=== PATIENT | female | born 1945 | race Caucasian/White ===

== ENCOUNTER → 2017-04-04 | Outpatient (CLI) | payer OTHER, MEDICARE ==
[~2017-04-04] MED LIST: ATV1HP PO; EFFSR75 PO; FRRG PO; FRRS300 PO; OPTIRAY 320 IV PRN; ZOLP10TA6 PO
--- NOTE | 2017-04-04 11:37 | DIAGNOSTIC IMAGING REPORT ---
CT OF THE CHEST WITH IV CONTRAST CLINICAL HISTORY: Ovarian carcinoma area back pain. COMPARISON STUDY: No previous studies for comparison. TECHNIQUE: Following the IV administration of 92 mL of Optiray-320, CT of the thorax was performed from the thoracic inlet to the lung bases. Images are reviewed in the axial, sagittal, and coronal planes. IV contrast was administered without complication. CT DOSE: FINDINGS: Thyroid: There is a 6 mm right lobe thyroid nodule. Thoracic aorta: The thoracic aorta is normal in course and caliber, noting standard 3-vessel arch anatomy. No aneurysm or dissection is seen. Pulmonary vasculature: The pulmonary trunk is normal in caliber. There are no central filling defects identified to suggest pulmonary embolus. Note that this examination was not protocoled for the evaluation of pulmonary emboli. HEART: The heart is normal in size and configuration, without pericardial effusion. Lungs and pleural spaces: No pleural effusions are visualized. There is no focal pulmonary consolidation. There are few scattered tiny calcified granulomas. Mediastinum: There is no mediastinal lymphadenopathy. Zandra: Clear. Axilla: Clear. Upper abdomen: There is a hiatal hernia. There is an enlarged lymph node in the region the gastrohepatic ligament. There is hepatic steatosis. Skeletal structures: There are no lytic or blastic osseous lesions. Postsurgical changes involve the anterior chest wall. The patient appears be status post a prior mastectomy. IMPRESSION: 1. No evidence of intrathoracic metastatic disease 2. Partially visualized enlarged lymph node in the region the gastrohepatic ligament. Electronically signed by: Nate Panchal M.D. 04/04/2017 11:36 AM Dictated Date/Time: 04/04/2017 11:28 AM
--- NOTE | 2017-04-04 11:42 | DIAGNOSTIC IMAGING REPORT ---
CT OF THE ABDOMEN AND PELVIS WITH CONTRAST CLINICAL HISTORY: Back pain and bloating. History of ovarian cancer. COMPARISON STUDY: CT of the abdomen and pelvis July 20, 2015. TECHNIQUE: Following IV administration of 92 mL of Optiray-320, axial images of the abdomen and pelvis were obtained from the lung bases to the proximal femurs. Images were reviewed in the axial, sagittal, and coronal planes. IV contrast was administered without complication. Oral contrast was administered. CT DOSE: 621.86 mGy.cm FINDINGS: The chest will be reported separately. A moderate sized hiatal hernia is noted. There has been interval development of a 2.3 cm hypodense segment 5 hepatic lesion shown on image [address] of July 20, 2015. In addition, there is a 1.6 x 1.2 cm gastrohepatic ligament nodule suggestive of a pathologic lymph node shown image 115. There is subtle 1.1 cm nodule along the medial aspect of the spleen shown image 142. The adrenal glands, kidneys and pancreas are normal. There is no biliary or pancreatic ductal dilatation status post cholecystectomy. Bowel anastomoses are noted. The uterus is surgically absent. No suspicious osseous lesions are identified. There is no evidence for a bowel obstruction IMPRESSION: Findings highly suggestive of recurrent malignancy/metastatic disease including a 2.3 cm subcapsular segment 5 hepatic lesion, 1.6 cm pathologic gastrohepatic ligament lymph node and small perisplenic nodule. Electronically signed by: Aníbal Porras M.D. 04/04/2017 11:41 AM Dictated Date/Time: 04/04/2017 11:24 AM
== END | disposition home or self-care (01) ==
LOC: C.CTS 09:09
PROVIDERS: ATTEND Obstetrics & Gynecology
DX: Z85.43 Personal history of malignant neoplasm of ovary (principal); R59.0 Localized enlarged lymph nodes

== ENCOUNTER → 2017-06-16 | Outpatient (CLI) | payer OTHER, MEDICARE ==
[~2017-06-16] MED LIST changes: -OPTIRAY 320 IV PRN
--- NOTE | 2017-06-16 20:41 | ECHOCARDIOGRAM REPORT ---
*NOTICE TO RECEIVING CONSTITUTION PARTY AGENCY This information is strictly Confidential and protected under [place] law. [place] law prohibits you from making any further disclosure of this information unless further disclosure is expressly permitted by the written consent of the person to whom it pertains or is authorized by law. A general authorization for the release of medical or other information is not sufficient for this purpose. Hospital accepts no responsibility if the information is made available to any other person, INCLUDING THE PATIENT. Interpretation Summary * Name: KEL SANTOS Study Date: 06/16/2017 03:17 PM BP: 130/76 mmHg * Patient Location: [facility] HR: 73 * : 1945 (M/d/yyy) Gender: Female Height: 64 in * Age: 71 yrs Ethnicity: [place] Weight: 145 lb * Ordering Physician: Hardik Mederos * Referring Physician: Hardik Mederos * Performed By: Venus Tillman RCS * * Reason For Study: Baseline for cardiotoxic chemotherapy * BSA: 1.7 m2 * -- Conclusions -- * 1. Normal left ventricular size with hyperdynamic systolic function. EF > 70%. No regional wall motion abnormalities. No left ventricular hypertrophy. Type 2 diastolic dysfunction. * 2. There is mild mitral regurgitation. * 3. No prior study available for comparison. Procedure Details * Left Ventricle Normal left ventricular size with hyperdynamic systolic function. EF > 70%. No regional wall motion abnormalities. No left ventricular hypertrophy. Type 2 diastolic dysfunction. * Right Ventricle The right ventricle is normal in size and function. The right ventricular systolic function is normal as assessed by tricuspid annular plane systolic excursion (TAPSE) (normal >1.5 cm). * Atria The left atrial size is normal. Right atrial size is normal. There is no evidence of atrial septal defect, but resolution does not allow assessment for a patent foramen ovale. * Mitral Valve The mitral valve leaflets appear normal. There is no evidence of stenosis, fluttering, or prolapse. There is mild mitral regurgitation. * Tricuspid Valve The tricuspid valve is not well visualized, but is grossly normal. There is no tricuspid stenosis. There is trace tricuspid regurgitation. * Aortic Valve The aortic valve is trileaflet. No hemodynamically significant valvular aortic stenosis. No aortic regurgitation is present. * Pulmonic Valve The pulmonary valve is inadequately visualized, but the Doppler data is adequate for interpretation. There is no pulmonic valvular stenosis. Trace pulmonic valvular regurgitation. * Great Vessels The aortic root is normal size. Ascending aorta of normal dimension * Pericardium/Pleural There is no pericardial effusion. * Great Vessels Normal inferior vena cava size and collapsability with sniff indicates a normal right atrial pressure of 3 mmHg * * MMode 2D Measurements and Calculations * IVSd 0.85 cm * * LVIDd 5.0 cm * LVIDs 2.9 cm * LVPWd 1.0 cm * * IVS/LVPW 0.82 * FS 42.4 % * EDV(Teich) 117.0 ml * ESV(Teich) 31.4 ml * EF(Teich) 73.2 % * * EDV(cubed) 123.3 ml * ESV(cubed) 23.6 ml * EF(cubed) 80.9 % * * LV mass(C)d 166.0 grams * LV mass(C)dI 97.3 grams/m\S\2 * * SV(Teich) 85.7 ml * SI(Teich) 50.2 ml/m\S\2 * SV(cubed) 99.7 ml * SI(cubed) 58.5 ml/m\S\2 * * Ao root diam 3.6 cm * Ao root area 10.0 cm\S\2 * * asc Aorta Diam 2.6 cm * * LVOT diam 2.1 cm * LVOT area 3.5 cm\S\2 * * LVAd ap4 28.7 cm\S\2 * LVLd ap4 7.7 cm * EDV(MOD-sp4) 90.5 ml * EDV(sp4-el) 90.6 ml * LVAs ap4 13.9 cm\S\2 * LVLs ap4 6.1 cm * ESV(MOD-sp4) 27.6 ml * ESV(sp4-el) 27.1 ml * EF(MOD-sp4) 69.5 % * EF(sp4-el) 70.1 % * * LVAd ap2 23.5 cm\S\2 * LVLd ap2 7.8 cm * EDV(MOD-sp2) 59.2 ml * EDV(sp2-el) 60.2 ml * LVAs ap2 11.5 cm\S\2 * LVLs ap2 6.5 cm * ESV(MOD-sp2) 16.8 ml * ESV(sp2-el) 17.2 ml * EF(MOD-sp2) 71.6 % * EF(sp2-el) 71.4 % * * LVLd %diff 0.60 % * EDV(MOD-bp) 73.3 ml * LVLs %diff 6.4 % * ESV(MOD-bp) 22.2 ml * EF(MOD-bp) 69.8 % * * SV(MOD-sp4) 62.9 ml * SI(MOD-sp4) 36.9 ml/m\S\2 * * SV(MOD-sp2) 42.4 ml * SI(MOD-sp2) 24.9 ml/m\S\2 * * SV(MOD-bp) 51.2 ml * SI(MOD-bp) 30.0 ml/m\S\2 * * SV(sp4-el) 63.5 ml * SI(sp4-el) 37.2 ml/m\S\2 * * SV(sp2-el) 43.0 ml * SI(sp2-el) 25.2 ml/m\S\2 * * * * * * Doppler Measurements and Calculations * MV E max kumar 99.7 cm/sec * MV A max kumar 87.4 cm/sec * * MV E/A 1.1 * * MV dec time 0.26 sec * * Ao V2 max 112.9 cm/sec * Ao max PG 5.1 mmHg * Ao max PG (full) 0.26 mmHg * PK(V,A) 3.4 cm\S\2 * PK(V,D) 3.4 cm\S\2 * * LV V1 max PG 4.8 mmHg * * LV V1 max 110.0 cm/sec * * PI end-d kumar 90.8 cm/sec * * *
== END | disposition home or self-care (01) ==
LOC: C.CPL 14:56
PROVIDERS: ATTEND Internal Medicine Hematology & Oncology
DX: C56.1 Malignant neoplasm of right ovary (principal); Z01.810 Encounter for preprocedural cardiovascular examination; I34.0 Nonrheumatic mitral (valve) insufficiency

== ENCOUNTER → 2017-11-27 | Outpatient (CLI) | payer OTHER, MEDICARE ==
[~2017-11-27] MED LIST changes: +OPTIRAY 320 IV PRN
--- NOTE | 2017-11-27 12:59 | DIAGNOSTIC IMAGING REPORT ---
(CHEST) THORAX WITH CLINICAL HISTORY: 72 years-old Female presenting with OVARIAN CANCER. TECHNIQUE: Multidetector CT imaging of the chest was performed after the administration of intravenous contrast. IV contrast: 94 mL of Optiray 320. A dose lowering technique was used consistent with the principles of ALARA (as low as reasonably achievable). COMPARISON: 08/29/2017. CT DOSE (mGy.cm): The estimated cumulative dose is 483.22 mGy.cm. 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 Cholecystectomy clips. On soft tissue windows, subcentimeter thyroid nodule noted in the right lobe. Postsurgical changes of bilateral mastectomies. Persistent simple appearing laminar fluid collection in the superficial soft tissue of the right anterior chest wall, which measures 2.8 x 9.7 cm in maximal axial dimensions. This is essentially unchanged in appearance since the prior exam. No peripheral inflammatory change or suspicious soft tissue nodularity. No axillary, supraclavicular, hilar, or mediastinal lymphadenopathy. Atherosclerosis of the aorta. Mild left atrial enlargement. No pericardial or pleural effusion. Moderate hiatal hernia. Postsurgical changes of cholecystectomy. Mild dilatation of the biliary ducts likely a reservoir effect in the post cholecystectomy state. The gastrohepatic lymph node now measures 7 mm in the short axis, previously 9 mm. On lung windows, persistent bandlike opacities in the right middle lobe likely scarring. Few scattered calcified granulomas. No new pulmonary nodule or infiltrate. Minimal debris noted in the right mainstem bronchus. On bone windows, evidence of old rib fractures. IMPRESSION: 1. No evidence of intrathoracic metastatic disease or lymphadenopathy. 2. Decreased size of the subcentimeter gastric lymph node. 3. Persistent laminar fluid collection in the right mastectomy bed. This is most consistent with a seroma. Electronically signed by: Maurice Quijano M.D. 11/27/2017 12:57 PM Dictated Date/Time: 11/27/2017 12:49 PM
--- NOTE | 2017-11-27 13:24 | DIAGNOSTIC IMAGING REPORT ---
ABD/PELVIS IV AND ORAL CONT CLINICAL HISTORY: 72 years-old Female presenting with OVARIAN CANCER. TECHNIQUE: Multidetector CT of the abdomen and pelvis was performed after the administration of oral and intravenous contrast. IV contrast: 94 mL of Optiray 320. A dose lowering technique was used consistent with the principles of ALARA (as low as reasonably achievable). COMPARISON: 08/29/2017. CT DOSE (mGy.cm): The estimated cumulative dose is 483.22. 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 Left subclavian Mediport. Lung bases: Bandlike opacities in the right middle lobe likely scarring or atelectasis. Normal heart size. No pericardial or pleural effusion. Liver: Normal morphology. No liver lesion. Patent hepatic vasculature. Biliary: Mild biliary ductal prominence likely a reservoir effect in the post cholecystectomy state. Gallbladder surgically absent. Pancreas: Moderate parenchymal atrophy. Spleen: Normal. Adrenal glands: Normal. Kidneys and ureters: Normal. No hydronephrosis. Bladder: Incompletely evaluated secondary to underdistention. Pelvic organs: Uterus surgically absent. Bilateral salpingo-oophorectomy suggested. No adnexal masses. Bowel: An upper rectal colocolonic anastomosis and distal transverse colon into and anastomosis are widely patent. An additional anastomosis in the pelvis may be within small bowel, which is widely patent. No bowel obstruction. Moderate hiatal hernia. Peritoneal cavity: No free fluid or intraperitoneal gas. No peritoneal soft tissue nodularity. Lymph nodes: Prominent lymph node in the gastrohepatic region now measures 6 mm in the short axis, previously 9 mm. No new sites of lymphadenopathy. Vasculature: Atherosclerosis of the normal caliber abdominal aorta. IVC patent. Abdominal wall: Postsurgical changes of the anterior abdominal wall. Musculoskeletal: Degenerative changes of the spine. Pars defects of L5. No destructive osseous lesion. IMPRESSION: 1. No evidence of recurrent disease in abdomen or pelvis. Continued decreased size of previously enlarged gastrohepatic lymph node. No new sites of lymphadenopathy. 2. Post surgical changes of hysterectomy and bilateral salpingo-oophorectomy. Electronically signed by: Maurice Quijano M.D. 11/27/2017 1:23 PM Dictated Date/Time: 11/27/2017 1:02 PM
--- NOTE | 2017-11-27 14:35 | ECHOCARDIOGRAM REPORT ---
*NOTICE TO RECEIVING CONSTITUTION PARTY AGENCY This information is strictly Confidential and protected under [place] law. [place] law prohibits you from making any further disclosure of this information unless further disclosure is expressly permitted by the written consent of the person to whom it pertains or is authorized by law. A general authorization for the release of medical or other information is not sufficient for this purpose. Hospital accepts no responsibility if the information is made available to any other person, INCLUDING THE PATIENT. Interpretation Summary * Name: KEL SANTOS Study Date: 11/27/2017 12:47 PM * Patient Location: [facility] HR: 65 * : 1945 (M/d/yyyy) Gender: Female Height: 66 in * Age: 72 yrs Ethnicity: [place] Weight: 145 lb * Ordering Physician: Hardik Mederos * Referring Physician: Hardik Mederos * Performed By: Anni Vieira RDCS * * Reason For Study: OVARIAN CA * BSA: 1.7 m2 * -- Conclusions -- * There is borderline concentric left ventricular hypertrophy. * Left ventricular systolic function is normal. * The left atrium is mildly dilated. * Right ventricular systolic pressure is normal. * Compared to an echocardiogram from 06/16/2017, there is minimal change. Procedure Details * A complete two-dimensional transthoracic echocardiogram was performed (2D, M-mode, Doppler and color flow Doppler). Left Ventricle * The left ventricle is normal in size. * There is borderline concentric left ventricular hypertrophy. * Ejection Fraction = 60-65%. * Left ventricular systolic function is normal. * The left ventricular wall motion is normal. Right Ventricle * The right ventricle is normal in size and function. Atria * The left atrium is mildly dilated. Mitral Valve * The mitral valve anatomy is normal. * There is mild mitral regurgitation. Tricuspid Valve * The tricuspid valve anatomy is normal. * There is mild tricuspid regurgitation. * Right ventricular systolic pressure is normal. Aortic Valve * The aortic valve is normal in structure and function. * The aortic valve is trileaflet. * No hemodynamically significant valvular aortic stenosis. * There is no significant aortic regurgitation. Great Vessels * The aortic root is normal size. Pericardium/Pleural * There is no pericardial effusion. Great Vessels * Normal inferior vena cava diameter and respiratory variation suggests normal central venous pressure. MMode 2D Measurements and Calculations IVSd 1.2 cm IVSs 1.6 cm LVIDd 3.5 cm LVIDs 2.4 cm LVPWd 1.3 cm LVPWs 1.6 cm IVS/LVPW 0.93 FS 32.1 % EDV(Teich) 50.9 ml ESV(Teich) 19.7 ml EF(Teich) 61.4 % EDV(cubed) 42.9 ml ESV(cubed) 13.4 ml EF(cubed) 68.7 % % IVS thick 29.1 % % LVPW thick 20.3 % LV mass(C)d 148.0 grams LV mass(C)dI 84.9 grams/m\S\2 LV mass(C)s 130.6 grams LV mass(C)sI 74.8 grams/m\S\2 SV(Teich) 31.2 ml SI(Teich) 17.9 ml/m\S\2 SV(cubed) 29.5 ml SI(cubed) 16.9 ml/m\S\2 Ao root diam 3.6 cm Ao root area 10.2 cm\S\2 LA dimension 4.4 cm LA/Ao 1.2 LVAd ap4 26.4 cm\S\2 LVLd ap4 7.8 cm EDV(MOD-sp4) 73.3 ml EDV(sp4-el) 75.6 ml LVAs ap4 13.9 cm\S\2 LVLs ap4 6.1 cm ESV(MOD-sp4) 26.9 ml ESV(sp4-el) 26.8 ml EF(MOD-sp4) 63.3 % EF(sp4-el) 64.6 % LVAd ap2 25.1 cm\S\2 LVLd ap2 7.7 cm EDV(MOD-sp2) 66.7 ml EDV(sp2-el) 69.3 ml LVAs ap2 13.4 cm\S\2 LVLs ap2 6.6 cm ESV(MOD-sp2) 22.5 ml ESV(sp2-el) 23.2 ml EF(MOD-sp2) 66.3 % EF(sp2-el) 66.6 % LVLd %diff -1.50 % EDV(MOD-bp) 70.0 ml LVLs %diff 7.2 % ESV(MOD-bp) 25.4 ml EF(MOD-bp) 63.8 % SV(MOD-sp4) 46.4 ml SI(MOD-sp4) 26.6 ml/m\S\2 SV(MOD-sp2) 44.3 ml SI(MOD-sp2) 25.4 ml/m\S\2 SV(MOD-bp) 44.6 ml SI(MOD-bp) 25.6 ml/m\S\2 SV(sp4-el) 48.8 ml SI(sp4-el) 28.0 ml/m\S\2 SV(sp2-el) 46.1 ml SI(sp2-el) 26.4 ml/m\S\2 Doppler Measurements and Calculations MV E max kumar 122.9 cm/sec MV A max kumar 99.7 cm/sec MV E/A 1.2 MV dec time 0.27 sec Ao V2 max 120.8 cm/sec Ao max PG 5.8 mmHg Ao max PG (full) 0.44 mmHg LV V1 max PG 5.4 mmHg LV V1 max 116.1 cm/sec TR max kumar 190.7 cm/sec
== END | disposition home or self-care (01) ==
LOC: C.CTS 11:38
PROVIDERS: ATTEND Internal Medicine Hematology & Oncology
DX: C56.1 Malignant neoplasm of right ovary (principal)

== ENCOUNTER 2018-01-21 14:17 | Inpatient (IN) | payer OTHER, MEDICARE ==
[~2018-01-21] VITALS: Ht 162.6 cm; Wt 63.3 kg
[~2018-01-21 14:17] MED LIST changes: -OPTIRAY 320 IV PRN
[2018-01-21] MEDS ORDERED: HYDROmorphone INJ 0.5 MG/0.5 ML SYR IV STA (14:46)
[2018-01-21] MEDS ORDERED: METOCLOPRAMIDE HCL INJ 5 MG/ML 2 ML VIAL IV STA (14:46)
[2018-01-21] MEDS ORDERED: SODIUM CHLORIDE 0.9% 1000ML 1,000 ML IV STA (14:46)
--- NOTE | 2018-01-21 14:48 | EMERGENCY ROOM VISIT NOTE ---
History Report prepared by Harsha: Hardik Restrepo Under the Supervision of: Dr. Helio Richards M.D. First contact with patient: 14:38 Chief Complaint: VOMITING Stated Complaint: CANCER PATIENT- VOMITING NO EVAVS WEAKNESS History of Present Illness The patient is a 72 year old female who presents to the Emergency Room with complaints of intermittent vomiting beginning today. The patient states that she is currently being treated with chemotherapy for her ovarian cancer. She notes that she has also been taking a "cancer pill." She reports that she was told to stop her pill because of her low platelet count. She also complains of abdominal pain and constipation but denies having a fever. The patient states that she has taken 5 Dulcolax within the last 20 hours and some miralax with no relief of her symptoms. She notes that she had a double mastectomy a year ago. She rates her pain as a 7/10. Source of History: patient Onset: today Position: abdomen Symptom Intensity: 7/10 Timing: intermittent Associated Symptoms: + abdominal pain Note: The patient also complains of constipation. Review of Systems See HPI for pertinent positives & negatives. A total of 10 systems reviewed and were otherwise negative. Past Medical & Surgical Medical Problems: (1) Bowel obstruction (2) Colitis (3) Hx antineoplastic chemotherapy (4) Ovarian cancer (5) Thrombocytopenia Family History No pertinent family history stated. Social History Smoking Status: Never Smoker Alcohol Use: none Marital Status: Housing Status: lives with family Occupation Status: retired Current/Historical Medications Scheduled Docusate Sodium (Colace), 1 CAP PO BID Escitalopram (Lexapro), 10 MG PO DAILY Lisinopril (Zestril), 10 MG PO DAILY Omeprazole (Omeprazole), 20 MG PO DAILY Sennosides (Senokot), 8.6 MG PO HS Scheduled PRN Lorazepam (Ativan), 1 MG PO DAILY PRN for Anxiety Zolpidem Tartrate (Zolpidem Tartrate), 10 MG PO HS PRN for Sleep Allergies Coded Allergies: Sulfa Antibiotics (Verified Allergy, Mild, NAUSEA; AFFECTS BLOOD, 02/10/15) Physical Exam Vital Signs Date Time Temp Pulse Resp B/P (MAP) Pulse Ox O2 Delivery O2 Flow Rate FiO2 01/21/18 23:17 60 14 115/76 98 Room Air 01/21/18 21:24 94 16 126/67 95 Room Air 01/21/18 19:30 98 15 144/74 96 Room Air 01/21/18 17:45 98 14 151/84 94 Room Air 01/21/18 16:41 98 01/21/18 16:10 98 20 106/72 97 Room Air 01/21/18 14:34 36.9 107 20 127/89 99 Room Air Physical Exam GENERAL: Awake, alert, well-appearing, in no acute distress, actively vomiting. HENT: Normocephalic, atraumatic. Oropharynx unremarkable. EYES: Normal conjunctiva. Sclera non-icteric. NECK: Supple. No nuchal rigidity. FROM. No JVD. RESPIRATORY: Clear to auscultation. CARDIAC: Regular rate, normal rhythm. Extremities warm and well perfused. Pulses equal. ABDOMEN: Soft, non-distended. No rebound or guarding. No masses. Exquisitely tender to the LLQ. RECTAL: Deferred. MUSCULOSKELETAL: Chest examination reveals no tenderness. The back is symmetrical on inspection without obvious abnormality. There is no CVA tenderness to palpation. No joint edema. LOWER EXTREMITIES: Calves are equal size bilaterally and non-tender. No edema. No discoloration. NEURO: Normal sensorium. No sensory or motor deficits noted. SKIN: No rash or jaundice noted. Medical Decision & Procedures ER Provider Diagnostic Interpretation: Radiology results as stated below per my review and radiologist interpretation: ABD/PELVIS IV AND ORAL CONT FINDINGS: Peer Counselor topogram: Unremarkable. Lung bases: Minimal basilar opacities, likely atelectasis. Normal heart size. No pericardial or pleural effusion. Liver: Normal morphology. No liver lesion. Patent hepatic vasculature. Biliary: Mild biliary ductal prominence likely a reservoir effect in the post cholecystectomy state. Gallbladder surgically absent. Pancreas: Moderate parenchymal atrophy. Spleen: Normal. Adrenal glands: Normal. Kidneys and ureters: Normal. No hydronephrosis. Bladder: Normal. The morphology of the bladder suggests ligamentous laxity. Pelvic organs: Uterus surgically absent. Ovaries not visualized, likely surgically absent. Bowel: Postsurgical changes of a colocolonic anastomosis in the upper rectum, a second colocolonic anastomosis at the level of the splenic flexure, and a enteroenteric anastomosis in the left hemipelvis. These anastomoses appear widely patent. However, the colon proximal to the upper rectal anastomosis contains fluid and is mildly distended. Mild wall thickening of the residual sigmoid colon, which demonstrates mild pericolonic fat stranding. No convincing evidence of obstruction. Small bowel is nondilated. Moderate hiatal hernia. Peritoneal cavity: No free fluid or intraperitoneal gas. Lymph nodes: The historically pathologic gastrohepatic lymph node remains subcentimeter in the short axis, now measuring 6 mm (series 3 image 95). No new sites of lymphadenopathy. Vasculature: Atherosclerosis of the normal caliber abdominal aorta. IVC patent. Abdominal wall: Post surgical changes of the infraumbilical ventral abdomen. Musculoskeletal: Degenerative changes of the spine. Pars defects of L5. No destructive osseous lesion. IMPRESSION: 1. Fluid in the colon suggests a diarrheal state. Wall thickening and pericolonic inflammatory change of the residual sigmoid colon further evidence of colitis, most likely infectious. 2. No evidence of recurrent or metastatic disease in abdomen or pelvis. No lymphadenopathy. 3. Post surgical changes of hysterectomy and bilateral salpingo-oophorectomy. Electronically signed by: Maurice Quijano M.D. 01/21/2018 5:54 PM Laboratory Results 01/21/18 15:15 Test 01/21/18 15:15 01/21/18 15:41 01/21/18 17:40 Neutrophils % (Manual) 82.6 % Lymphocytes % (Manual) 12.2 % Monocytes % (Manual) 2.6 % Eosinophils % (Manual) 0.9 % Basophils % (Manual) 1.7 % Neutrophils # (Manual) 5.35 K/uL (1.4-6.5) Total Absolute Neutrophils 5.35 K/uL (1.4-6.5) Lymphocytes # (Manual) 0.79 K/uL (1.2-3.4) Total Absolute Lymphocytes 0.79 K/uL (1.2-3.4) Monocytes # (Manual) 0.17 K/uL (0.11-0.59) Eosinophils # (Manual) 0.06 K/uL (0-0.5) Basophils # (Manual) 0.11 K/uL (0-0.2) Platelet Estimate SIGNIFIC DECREASED Red Blood Cell Morphology Unremarkable Peripheral Blood Smear Path Consult Est Creatinine Clear Calc Drug Dose 64.5 ml/min Estimated GFR () 87.9 Estimated GFR (Non- 75.8 BUN/Creatinine Ratio 32.2 (10-20) Calcium Level 10.4 mg/dl (8.5-10.1) Total Bilirubin 0.9 mg/dl (0.2-1) Direct Bilirubin 0.2 mg/dl (0-0.2) Aspartate Amino Transf (AST/SGOT) 24 U/L (15-37) Alanine Aminotransferase (ALT/SGPT) 21 U/L (12-78) Alkaline Phosphatase 124 U/L (45-117) Total Protein 7.4 gm/dl (6.4-8.2) Albumin 4.1 gm/dl (3.4-5.0) Lipase 84 U/L (73-393) Bedside Hemoglobin 12.2 g/dl (12.0-16.0) Bedside Hematocrit 36 % (37-47) Bedside Sodium 137 mEq/L (135-144) Bedside Potassium 3.4 mEq/L (3.3-5.0) Bedside Chloride 101 mEq/L (101-112) Bedside Total CO2 25 mEq/l (24-31) Anion Gap 16.0 mmol/L (16-25) Bedside Blood Urea Nitrogen 26 mg/dl (7-18) Bedside Creatinine 0.7 mg/dl (0.6-1.3) Bedside Glucose (other) 122 mg/dl (70-99) Bedside Ionized Calcium (Zana) 1.35 mmol/l (1.12-1.32) Urine Color DK YELLOW Urine Appearance CLEAR (CLEAR) Urine pH 5.0 (4.5-7.5) Urine Specific [place] > 1.045 (1.000-1.030) Urine Protein NEG (NEG) Urine Glucose (UA) NEG (NEG) Urine Ketones 2+ (NEG) Urine Occult Blood 1+ (NEG) Urine Nitrite NEG (NEG) Urine Bilirubin NEG (NEG) Urine Urobilinogen NEG (NEG) Urine Leukocyte Esterase NEG (NEG) Urine WBC (Auto) 1-5 /hpf (0-5) Urine RBC (Auto) 0-4 /hpf (0-4) Urine Hyaline Casts (Auto) 1-5 /lpf (0-5) Urine Epithelial Cells (Auto) 5-10 /lpf (0-5) Urine Bacteria (Auto) NEG (NEG) Labs reviewed by ED physician. Medications Administered Medications (Trade) Dose Ordered Sig/Janee Route Start Time Stop Time Status Last Admin Dose Admin Metoclopramide HCl (Reglan Inj) 10 mg NOW STAT IV 01/21/18 14:46 01/21/18 14:48 DC 01/21/18 15:29 10 MG Sodium Chloride 1,000 ml @ 999 mls/hr Q1H1M STAT IV 01/21/18 14:46 01/21/18 15:46 DC 01/21/18 15:29 999 MLS/HR Hydromorphone HCl (Dilaudid Inj) 0.5 mg NOW STAT IV 01/21/18 14:46 01/21/18 14:48 DC 01/21/18 15:29 0.5 MG Hydromorphone HCl (Dilaudid Inj) 1 mg NOW STAT IV 01/21/18 15:52 01/21/18 15:53 DC 01/21/18 16:05 1 MG Ondansetron HCl (Zofran Inj) 4 mg NOW STAT IV 01/21/18 15:52 01/21/18 15:53 DC 01/21/18 16:05 4 MG Potassium Chloride (Kcl 10 Meq / Wtr) 10 meq NOW STAT IV 01/21/18 15:54 01/21/18 15:55 DC 01/21/18 16:06 10 MEQ Potassium Chloride (Kcl 10 Meq / Wtr) 10 meq NOW STAT IV 01/21/18 15:54 01/21/18 15:55 DC 01/21/18 16:06 10 MEQ Hydromorphone HCl (Dilaudid Inj) 1 mg NOW STAT IV 01/21/18 16:30 01/21/18 16:31 DC 01/21/18 17:07 1 MG Promethazine HCl 25 mg/Sodium Chloride 51 ml @ 204 mls/hr NOW STAT IV 01/21/18 16:30 01/21/18 16:44 DC 01/21/18 18:11 204 MLS/HR Hydromorphone HCl (Dilaudid Inj) 1 mg NOW STAT IV 01/21/18 16:56 01/21/18 16:57 DC 01/21/18 18:12 1 MG Miscellaneous (Soap Suds Enema) 1 ea NOW STAT WI 01/21/18 18:06 01/21/18 18:08 DC 01/21/18 18:52 1 EA Magnesium Citrate (Citrate Of Magnesia Soln) 150 ml NOW STAT PO 01/21/18 18:06 01/21/18 18:08 DC 01/21/18 18:53 150 ML Potassium Chloride (Teresa Ciel Elix) 40 meq NOW STAT PO 01/21/18 18:08 01/21/18 18:09 DC 01/21/18 18:54 40 MEQ Miscellaneous (Soap Suds Enema) 1 ea NOW STAT WI 01/21/18 19:38 01/21/18 19:39 DC 01/21/18 20:00 1 EA Hydromorphone HCl (Dilaudid Inj) 1 mg NOW STAT IV 01/21/18 20:57 01/21/18 20:58 DC 01/21/18 21:12 1 MG Ondansetron HCl (Zofran Inj) 4 mg NOW STAT IV 01/21/18 20:57 01/21/18 20:58 DC 01/21/18 21:12 4 MG ED Course 1442: Past medical records reviewed. The patient was evaluated in room B7. A complete history and physical examination was performed. 1446: Dilaudid Inj 0.5mg IV, Sodium Chloride 1000 ml @ 999 mls/hr, Reglan Inj 10mg IV 1552: Zofran Inj 4mg IV, Dilaudid 1mg IV 1554: Potassium Chloride 10meq IV x2 1630: Promethazine HCl 25 mg/Sodium Chloride 51ml @ 204 mls/hr IV, Dilaudid Inj 1mg IV 1656: Dilaudid 1mg IV 1806: Magnesium Citrate 150ml PO, Soap Suds Enema 1 ea [place] 1808: Potassium Chloride 40 meq PO Medical Decision Differential diagnosis: Etiologies such as gastroenteritis, food borne illness, infections, appendicitis , diverticulitis, inflammatory bowel disease, obstruction, GI bleed, biliary pathology, as well as others were entertained. This is a 72-year-old female who presents the emergency department complaining of abdominal pain. Patient reports she has not been able to move her bowels and for 5 days. The patient reports she has had issues of constipation in the past and she was recently placed on a chemotherapy medication that will make her constipation worse. In addition the patient is also on 2 fentanyl patches. Serial abdominal examinations were performed and the patient in the emergency department and at no time to the patient exhibited a surgical abdomen. I will also know she is afebrile here and does not have an elevation in her white blood cell count. An IV was established, the patient is given Reglan, Dilaudid 3, Zofran, Phenergan. The patient's CAT scan does not show any evidence of obstruction and therefore after discussion with the patient we will try both enema as well as magnesium citrate to get the patient's bowels moving. Medication Reconcilliation Current Medication List: was personally reviewed by me Blood Pressure Screening Patient's blood pressure: Normal blood pressure Blood pressure disposition: Did not require urgent referral Impression Primary Impression: Abdominal pain Scribe Attestation The scribe's documentation has been prepared under my direction and personally reviewed by me in its entirety. I confirm that the note above accurately reflects all work, treatment, procedures, and medical decision making performed by me. Departure Information Prescriptions Docusate Sodium (COLACE) 100 Mg Cap 1 CAP PO BID for 30 Days, #60 CAP Prov: Helio Richards MD 01/21/18 Sennosides (SENOKOT) 8.6 Mg Tab 8.6 MG PO HS for 30 Days, #30 TAB Prov: Helio Richards MD 01/21/18 Referrals Edvin Laura M.D. (PCP) Patient Instructions My [facility] Problem Qualifiers Primary Impression: Abdominal pain Abdominal location: generalized Qualified Codes: R10.84 - Generalized abdominal pain
[2018-01-21] MEDS ORDERED: LISI-461 PO (14:56)
[2018-01-21] MEDS ORDERED: OMEP20TA PO (14:56)
[2018-01-21] MEDS ORDERED: ATV/1 PO (14:56)
[2018-01-21] MEDS ORDERED: ESCI10TA17 PO (14:56)
[2018-01-21] MEDS ORDERED: ZOLP10TA6 PO (14:56)
[2018-01-21] MEDS ORDERED: OPTIRAY 320 IV PRN (15:00)
[2018-01-21 15:51] LABS: ALBUMIN 4.1 gm/dl (3.4-5.0); CALCIUM 10.4 mg/dl (8.5-10.1); CREATININE 0.79 mg/dl (0.60-1.20); POTASSIUM 3.2 mmol/L (3.5-5.1)
[2018-01-21] MEDS ORDERED: HYDROmorphone INJ 1 MG/ML SYR IV STA ×4 (15:52→20:57)
[2018-01-21] MEDS ORDERED: ONDANSETRON INJ 2 MG/ML 2 ML VIAL IV STA ×2 (15:52→20:57)
[2018-01-21 15:54] LABS: TOTAL PROTEIN 7.4 gm/dl (6.4-8.2)
[2018-01-21] MEDS ORDERED: POTASSIUM CHLORIDE 10 MEQ / 100ML WTR IV STA ×2 (15:54)
[2018-01-21 16:04] LABS: HEMATOCRIT 34.4 % (37-47); HEMOGLOBIN 12.2 g/dL (12.0-16.0); MEAN CELL VOLUME 94.2 fL (80-100); MEAN CORPUSCULAR HEMOGLOBIN 33.4 pg (25-34); MEAN CORPUSCULAR HGB CONC 35.5 g/dl (32-36); MEAN PLATELET VOLUME 11.1 fL (7.4-10.4); PLATELET COUNT 17 K/uL (130-400); RED CELL DISTRIBUTION WIDTH SD 43.6 fL (36.4-46.3); WHITE BLOOD COUNT 6.48 K/uL (4.8-10.8)
[2018-01-21 16:06] LABS: ISTAT CREATININE 0.7 mg/dl (0.6-1.3); ISTAT IONIZED CALCIUM 1.35 mmol/l (1.12-1.32); ISTAT POTASSIUM 3.4 mEq/L (3.3-5.0)
[2018-01-21] MEDS ORDERED: PROMETHAZINE HCL INJ 25 MG in SODIUM CHLORIDE 0.9% 50ML 50 ML IV STA (16:30)
--- NOTE | 2018-01-21 17:55 | DIAGNOSTIC IMAGING REPORT ---
ABD/PELVIS IV AND ORAL CONT CLINICAL HISTORY: 72 years-old Female presenting with Pt c/o diffuse abd pain, nausea, history of ovarian cancer. TECHNIQUE: Multidetector CT of the abdomen and pelvis was performed after the administration of oral and intravenous contrast. IV contrast: 117 mL of Optiray 320. A dose lowering technique was used consistent with the principles of ALARA (as low as reasonably achievable). COMPARISON: 11/27/2017. CT DOSE (mGy.cm): The estimated cumulative dose is 332.06 mGy.cm. FINDINGS: Innersole Maker topogram: Unremarkable. Lung bases: Minimal basilar opacities, likely atelectasis. Normal heart size. No pericardial or pleural effusion. Liver: Normal morphology. No liver lesion. Patent hepatic vasculature. Biliary: Mild biliary ductal prominence likely a reservoir effect in the post cholecystectomy state. Gallbladder surgically absent. Pancreas: Moderate parenchymal atrophy. Spleen: Normal. Adrenal glands: Normal. Kidneys and ureters: Normal. No hydronephrosis. Bladder: Normal. The morphology of the bladder suggests ligamentous laxity. Pelvic organs: Uterus surgically absent. Ovaries not visualized, likely surgically absent. Bowel: Postsurgical changes of a colocolonic anastomosis in the upper rectum, a second colocolonic anastomosis at the level of the splenic flexure, and a enteroenteric anastomosis in the left hemipelvis. These anastomoses appear widely patent. However, the colon proximal to the upper rectal anastomosis contains fluid and is mildly distended. Mild wall thickening of the residual sigmoid colon, which demonstrates mild pericolonic fat stranding. No convincing evidence of obstruction. Small bowel is nondilated. Moderate hiatal hernia. Peritoneal cavity: No free fluid or intraperitoneal gas. Lymph nodes: The historically pathologic gastrohepatic lymph node remains subcentimeter in the short axis, now measuring 6 mm (series 3 image 95). No new sites of lymphadenopathy. Vasculature: Atherosclerosis of the normal caliber abdominal aorta. IVC patent. Abdominal wall: Post surgical changes of the infraumbilical ventral abdomen. Musculoskeletal: Degenerative changes of the spine. Pars defects of L5. No destructive osseous lesion. IMPRESSION: 1. Fluid in the colon suggests a diarrheal state. Wall thickening and pericolonic inflammatory change of the residual sigmoid colon further evidence of colitis, most likely infectious. 2. No evidence of recurrent or metastatic disease in abdomen or pelvis. No lymphadenopathy. 3. Post surgical changes of hysterectomy and bilateral salpingo-oophorectomy. Electronically signed by: Maurice Quijano M.D. 01/21/2018 5:54 PM Dictated Date/Time: 01/21/2018 5:45 PM
[2018-01-21] MEDS ORDERED: SOAP SUDS ENEMA PR STA ×2 (18:06→19:38)
[2018-01-21] MEDS ORDERED: MAGNESIUM CITRATE 296 ML/BTL PO STA (18:06)
[2018-01-21] MEDS ORDERED: POTASSIUM CHLORIDE 20 MEQ/15 ML UDC PO STA (18:08)
[2018-01-21] MEDS ORDERED: DOCU-94 PO (20:22)
[2018-01-21] MEDS ORDERED: SENN1TAB77 PO (20:22)
--- NOTE | 2018-01-21 21:11 | EMERGENCY ROOM VISIT NOTE ---
ED Visit Note First contact with patient: 21:09 I received this patient at change of shift signout from Dr. Richards. Please see his note for complete history and physical. The patient is a 80-year-old female who presented to the emergency department for abdominal pain nausea and constipation. The patient was started on a new chemotherapy agent. He has a history of ovarian cancer. She also has a history of bowel obstruction. She appears to have a CAT scan that is consistent with constipation but also has a large amount of liquid stool proximally with some bowel changes it could be consistent with an infectious colitis. The patient initially was treated with a bowel regimen and was feeling better but had return of pain as well as nausea. I was asked to reevaluate the patient by the nursing staff. She was given further pain medicine and anti-medics. Because of her ongoing symptoms stool studies were ordered. I discussed this case with the [facility] hospitalist group. They have agreed to evaluate the patient in the emergency department for further management and disposition.
[2018-01-21] MEDS ORDERED: ALUMINUM/MAGNESIUM/SIMETH (MAALOX MAX) 30 ML UDC PO PRN (23:30)
[2018-01-21] MEDS ORDERED: ACETAMINOPHEN 325 MG TAB PO PRN (23:30)
[2018-01-21] MEDS ORDERED: ONDANSETRON INJ 2 MG/ML 2 ML VIAL IV PRN (23:30)
[2018-01-21] MEDS ORDERED: ZOLPIDEM TARTRATE 5 MG TAB PO PRN ×2 (23:30)
[2018-01-21] MEDS ORDERED: MAGNESIUM HYDROXIDE SUSP 30 ML UDC PO PRN (23:30)
[2018-01-21] MEDS ORDERED: POLYETHYLENE (MIRALAX) 17 GM PACK PO PRN (23:30)
[2018-01-21] MEDS ORDERED: LORAZEPAM 1 MG TAB PO PRN (23:45)
--- NOTE | 2018-01-21 23:56 | History and Physical ---
History & Physical Date & Time of Service: Jan 21, 2018 at 23:36 Chief Complaint: Cancer Patient- Vomiting No Evavs Weakness Primary Care Physician: Edvin Laura M.D. History of Present Illness Source: patient, partner 72F with a PMHx of Ovarian CA p/w intermittent vomiting starting today. Per patient she was recently told to stop her chemotherapy agent due to a low platelet count. In the ER the patient was disimpacted for abdominal pain in the LLQ and constipation. After disimpaction the patient started having loose bloody stools. Aside from some residual abdominal pain and boughts of nausea the patient feels otherwise fine. Pt denies fevers, denies chills, denies any type of rash or other systemic complaint. According to patient she goes to [place] and sees Dr. Ruvalcaba in the cancer center but has also seen Dr. Kam in the past. Patient has not been on any recent antibiotics. Pt is accompanied by who corroborates details in the HPI. Past Medical/Surgical History Medical Problems: (1) Abdominal pain (2) Bowel obstruction (3) Colitis (4) Hx antineoplastic chemotherapy (5) Microcytic hypochromic anemia (6) Ovarian cancer (7) Severe anemia (8) Thrombocytopenia Family History Noncontributory Social History Smoking Status: Never Smoker Smokeless Tobacco Use: No Alcohol Use: none Drug Use: none Marital Status: Housing status: lives with family Occupational Status: retired Immunizations History of Influenza Vaccine: Unknown History of Tetanus Vaccine?: Unknown History of Pneumococcal: Unknown History of Hepatitis B Vaccine: Unknown Allergies Coded Allergies: Sulfa Antibiotics (Verified Allergy, Mild, NAUSEA; AFFECTS BLOOD, 02/10/15) Home Medications Scheduled Docusate Sodium (Colace), 1 CAP PO BID Escitalopram (Lexapro), 10 MG PO DAILY Lisinopril (Zestril), 10 MG PO DAILY Omeprazole (Omeprazole), 20 MG PO DAILY Sennosides (Senokot), 8.6 MG PO HS Scheduled PRN Lorazepam (Ativan), 1 MG PO DAILY PRN for Anxiety Zolpidem Tartrate (Zolpidem Tartrate), 10 MG PO HS PRN for Sleep Review of Systems Constitutional: No fever, No chills ENT: No hearing loss Respiratory: No cough, No sputum, No shortness of breath Cardiovascular: No chest pain Abdomen: No pain, No nausea, No vomiting, No diarrhea, No constipation Musculoskeletal: No joint pain Genitourinary - Female: No dysuria, No urinary frequency, No urinary urgency, No urinary incontinence, No urinary retention Neurologic: No memory loss Endocrine: No fatigue Integumentary: No rash Physical Exam Vital Signs Date Time Temp Pulse Resp B/P (MAP) Pulse Ox O2 Delivery O2 Flow Rate FiO2 01/21/18 23:17 60 14 115/76 98 Room Air 01/21/18 21:24 94 16 126/67 95 Room Air 01/21/18 19:30 98 15 144/74 96 Room Air 01/21/18 17:45 98 14 151/84 94 Room Air 01/21/18 16:41 98 01/21/18 16:10 98 20 106/72 97 Room Air 01/21/18 14:34 36.9 107 20 127/89 99 Room Air General Appearance: WD/WN, + mild distress Eyes: normal inspection, PERRL, EOMI ENT: normal ENT inspection Neck: supple, no adenopathy Respiratory/Chest: chest non-tender, lungs clear, normal breath sounds, no respiratory distress, no accessory muscle use Cardiovascular: regular rate, rhythm, no edema, no gallop, no JVD, no murmur Abdomen/GI: + pertinent finding (mild to moderate rebound tenderness in the LLQ and RLQ) Back: normal inspection, no CVA tenderness Extremities/Musculoskelatal: normal inspection, no calf tenderness, normal capillary refill, no pedal edema, normal range of motion 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, no motor/sensory deficits, alert, normal mood/affect, normal reflexes, oriented x 3 Skin: normal color, warm/dry, no rash Diagnostics Laboratory Results Results Past 24 Hours Test 01/21/18 15:15 01/21/18 15:41 01/21/18 17:40 Range/Units White Blood Count 6.48 4.8-10.8 K/uL Red Blood Count 3.65 4.2-5.4 M/uL Hemoglobin 12.2 12.0-16.0 g/dL Hematocrit 34.4 37-47 % Mean Corpuscular Volume 94.2 80-100 fL Mean Corpuscular Hemoglobin 33.4 25-34 pg Mean Corpuscular Hemoglobin Concent 35.5 32-36 g/dl Platelet Count 17 130-400 K/uL Mean Platelet Volume 11.1 7.4-10.4 fL RDW Standard Deviation 43.6 36.4-46.3 fL RDW Coefficient of Variation 13.0 11.5-14.5 % Neutrophils % (Manual) 82.6 % Lymphocytes % (Manual) 12.2 % Monocytes % (Manual) 2.6 % Eosinophils % (Manual) 0.9 % Basophils % (Manual) 1.7 % Neutrophils # (Manual) 5.35 1.4-6.5 K/uL Total Absolute Neutrophils 5.35 1.4-6.5 K/uL Lymphocytes # (Manual) 0.79 1.2-3.4 K/uL Total Absolute Lymphocytes 0.79 1.2-3.4 K/uL Monocytes # (Manual) 0.17 0.11-0.59 K/uL Eosinophils # (Manual) 0.06 0-0.5 K/uL Basophils # (Manual) 0.11 0-0.2 K/uL Platelet Estimate SIGNIFIC DECREASED Red Blood Cell Morphology Unremarkable Sodium Level 135 136-145 mmol/L Potassium Level 3.2 3.5-5.1 mmol/L Chloride Level 100 98-107 mmol/L Carbon Dioxide Level 27 21-32 mmol/L Anion Gap 8.0 16.0 16-25 mmol/L Blood Urea Nitrogen 25 7-18 mg/dl Creatinine 0.79 0.60-1.20 mg/dl Est Creatinine Clear Calc Drug Dose 64.5 ml/min Estimated GFR () 87.9 Estimated GFR (Non- 75.8 BUN/Creatinine Ratio 32.2 10-20 Random Glucose 119 70-99 mg/dl Calcium Level 10.4 8.5-10.1 mg/dl Total Bilirubin 0.9 0.2-1 mg/dl Direct Bilirubin 0.2 0-0.2 mg/dl Aspartate Amino Transf (AST/SGOT) 24 15-37 U/L Alanine Aminotransferase (ALT/SGPT) 21 12-78 U/L Alkaline Phosphatase 124 45-117 U/L Total Protein 7.4 6.4-8.2 gm/dl Albumin 4.1 3.4-5.0 gm/dl Lipase 84 73-393 U/L Bedside Hemoglobin 12.2 12.0-16.0 g/dl Bedside Hematocrit 36 37-47 % Bedside Sodium 137 135-144 mEq/L Bedside Potassium 3.4 3.3-5.0 mEq/L Bedside Chloride 101 101-112 mEq/L Bedside Total CO2 25 24-31 mEq/l Bedside Blood Urea Nitrogen 26 7-18 mg/dl Bedside Creatinine 0.7 0.6-1.3 mg/dl Bedside Glucose (other) 122 70-99 mg/dl Bedside Ionized Calcium (Zana) 1.35 1.12-1.32 mmol/l Urine Color DK YELLOW Urine Appearance CLEAR CLEAR Urine pH 5.0 4.5-7.5 Urine Specific Earling > 1.045 1.000-1.030 Urine Protein NEG NEG Urine Glucose (UA) NEG NEG Urine Ketones 2+ NEG Urine Occult Blood 1+ NEG Urine Nitrite NEG NEG Urine Bilirubin NEG NEG Urine Urobilinogen NEG NEG Urine Leukocyte Esterase NEG NEG Urine WBC (Auto) 1-5 0-5 /hpf Urine RBC (Auto) 0-4 0-4 /hpf Urine Hyaline Casts (Auto) 1-5 0-5 /lpf Urine Epithelial Cells (Auto) 5-10 0-5 /lpf Urine Bacteria (Auto) NEG NEG Diagnostic Radiology ABD/PELVIS IV AND ORAL CONT CLINICAL HISTORY: 72 years-old Female presenting with Pt c/o diffuse abd pain, nausea, history of ovarian cancer. TECHNIQUE: Multidetector CT of the abdomen and pelvis was performed after the administration of oral and intravenous contrast. IV contrast: 117 mL of Optiray 320. A dose lowering technique was used consistent with the principles of ALARA (as low as reasonably achievable). COMPARISON: 11/27/2017. CT DOSE (mGy.cm): The estimated cumulative dose is 332.06 mGy.cm. FINDINGS: Neck Band Setter topogram: Unremarkable. Lung bases: Minimal basilar opacities, likely atelectasis. Normal heart size. No pericardial or pleural effusion. Liver: Normal morphology. No liver lesion. Patent hepatic vasculature. Biliary: Mild biliary ductal prominence likely a reservoir effect in the post cholecystectomy state. Gallbladder surgically absent. Pancreas: Moderate parenchymal atrophy. Spleen: Normal. Adrenal glands: Normal. Kidneys and ureters: Normal. No hydronephrosis. Bladder: Normal. The morphology of the bladder suggests ligamentous laxity. Pelvic organs: Uterus surgically absent. Ovaries not visualized, likely surgically absent. Bowel: Postsurgical changes of a colocolonic anastomosis in the upper rectum, a second colocolonic anastomosis at the level of the splenic flexure, and a enteroenteric anastomosis in the left hemipelvis. These anastomoses appear widely patent. However, the colon proximal to the upper rectal anastomosis contains fluid and is mildly distended. Mild wall thickening of the residual sigmoid colon, which demonstrates mild pericolonic fat stranding. No convincing evidence of obstruction. Small bowel is nondilated. Moderate hiatal hernia. Peritoneal cavity: No free fluid or intraperitoneal gas. Lymph nodes: The historically pathologic gastrohepatic lymph node remains subcentimeter in the short axis, now measuring 6 mm (series 3 image 95). No new sites of lymphadenopathy. Vasculature: Atherosclerosis of the normal caliber abdominal aorta. IVC patent. Abdominal wall: Post surgical changes of the infraumbilical ventral abdomen. Musculoskeletal: Degenerative changes of the spine. Pars defects of L5. No destructive osseous lesion. IMPRESSION: 1. Fluid in the colon suggests a diarrheal state. Wall thickening and pericolonic inflammatory change of the residual sigmoid colon further evidence of colitis, most likely infectious. 2. No evidence of recurrent or metastatic disease in abdomen or pelvis. No lymphadenopathy. 3. Post surgical changes of hysterectomy and bilateral salpingo-oophorectomy. Impression Assessment and Plan 72F with a PMHx of Ovarian cancer p/w nausea and vomiting. She was found to have a platelet count of 17,000 and possible Colitis on CT Scan. She was disimpacted in the ER and has had loose/bloody stools since. Stool cultures are pending. Thrombocytopenia in the setting of recent Chemo for Ovarian CA Likely related to recent chemo regimen. She has been having blood tinged stools since her disimpaction in the ER. Will administer platelets, 1 unit. Also ordering a peripheral smear. Will consult Heme/Onc (Dr. Ruvalcaba) for further management. Colitis Moderate rebound tenderness in the LLQ on exam and loose bloody stools after disimpaction. CT Suggestive of 'Wall thickening and pericolonic inflammatory change of the residual sigmoid colon further evidence of colitis, most likely infectious.' Follow up stool cultures, E. Coli and C. Diff PCR. Will treat empirically with PO Vanco and IV Flagyl. Holding all home stool softeners. Zofran 4mg ODT Q4H PRN for nausea. Depression c/w Lexapro and Ativan PRN. HTN c/w Lisinopril DVT Proph: Contraindicated due to platelet count, will use SCDs. Diet: NPO, NSS @100mls/hr until nausea has improved. Social: No needs anticipated. FULL CODE Attending addendum: I have physically seen this patient, have supervised the medical residents activities, and agree with the H&P unless as otherwise noted. Assessment and Plan: Colitis with fluid-filled colon, presumptively infectious, in the setting of chemotherapy-- Send stool for culture, ova and parasites and C. difficile. Presumptive treatment with oral vancomycin and Flagyl until studies return. Hydrate with IV fluids. Zofran 4 mg IV every 6 hours as needed. Pantoprazole 40 mg ODT daily. Ovarian cancer/thrombocytopenia on chemotherapy-- Platelet level is 17. Peripheral smear Transfuse 1 unit of platelets. Serial CBC with differential. Consult her oncologist Dr. Hardik Mederos. Advanced Directives Existing Advance Directive: No Existing Living Will: No Existing Power of Brake Shoe Rebuilder: No Resuscitation Status VTE Prophylaxis Will order VTE Prophylaxis: Yes Social Service Consult Cancer Patient Under [place] Resident Involvement: Resident Care Provided Care Provided: Adult Hospital Medicine
[2018-01-22] VITALS (12 sets, daily range): BP systolic 108–168; BP diastolic 62–86; PULSE 74–93; TEMP 36.5–37.1; O2SAT 94–100; BMI 22.3
[2018-01-22] MEDS ORDERED: ONDANSETRON 4MG OD TAB PO PRN
[2018-01-22] MEDS: SODIUM CHLORIDE 0.9% 1000ML 1,000 ML IV SCH ×2 (00:52→10:34)
[2018-01-22] MEDS: RASPBERRY SYRUP 5 ML UDP PO SCH ×3 (01:36→12:13)
[2018-01-22] MEDS: VANCOMYCIN HCL 250 MG/5 ML SOLN PO SCH ×3 (01:36→12:13)
[2018-01-22] MEDS: METRONIDAZOLE / NSS 500 MG in PREMIXED NSS 100 ML IV SCH ×4 (02:29→23:50)
[2018-01-22] MEDS: PANTOprazole SOD 40 MG TAB PO SCH (08:20)
[2018-01-22] MEDS: ESCITALOPRAM OXALATE 10 MG TAB PO SCH (08:20)
[2018-01-22] MEDS: LISINOPRIL 10 MG TAB PO SCH (08:20)
[2018-01-22] MEDS ORDERED: FENTANYL 12 MCG/HR TDSY TD SCH (08:59)
[2018-01-22] MEDS: OXYCODONE HCL IR 5 MG TAB (IMMEDIATE RELEASE) PO PRN ×2 (09:00→15:00)
[2018-01-22] MEDS ORDERED: FENTANYL 25 MCG/HR TDSY TD SCH (09:00)
--- NOTE | 2018-01-22 09:54 | Oncology Consultation ---
Oncology/Heme Consultation Date of Consultation: Jan 22, 2018. 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 Was initially stage IIIc. She originally underwent optimal debulking that revealed a high-grade serous carcinoma. She then underwent adjuvant carboplatinum and Taxol for 7 cycles. In early March 2017 she re- presented with abdominal bloating and back pain with CT scan evidence of a new 2.3 cm hypodense lesion in the liver as well as a gastrohepatic ligament nodule. 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 She would then receive cycles of salvage carboplatinum and Doxil. Her disease has responded. She has then now been placed on a PARP inhibitor as a form of maintenance ( Niraparib). I should note that BRCA 1 and 2 mutations were negative. She began this therapy about 2 weeks ago. She had had mild thrombocytopenia with a platelet count of slightly over 70,000 a month ago. She is admitted now with symptoms of constipation and a platelet count of 17,000. She does admit to bruising. She denies any overt bleeding. She has moved her bowels and received enemas and feels better today. She does admit to some chills. She denies any fever. Her appetite has been fair. Past Medical/Surgical History Medical Problems: (1) Abdominal pain Status: Acute (2) Constipation Status: Acute Family History Mother has a history of ovarian carcinoma brother had a history of lung cancer Social History Former smoker Smoking Status: Former Smoker Smokeless Tobacco Use: No Alcohol Use: none Drug Use: none Marital Status: Housing Status: lives with family Occupation Status: retired Allergies Coded Allergies: Sulfa Antibiotics (Verified Allergy, Mild, NAUSEA; AFFECTS BLOOD, 02/10/15) Home Medications Scheduled Docusate Sodium (Colace), 1 CAP PO BID Escitalopram (Lexapro), 10 MG PO DAILY Lisinopril (Zestril), 10 MG PO DAILY Omeprazole (Omeprazole), 20 MG PO DAILY Sennosides (Senokot), 8.6 MG PO HS Scheduled PRN Lorazepam (Ativan), 1 MG PO DAILY PRN for Anxiety Zolpidem Tartrate (Zolpidem Tartrate), 10 MG PO HS PRN for Sleep Current Inpatient Medications Current Inpatient Medications Medications (Trade) Dose Ordered Sig/Janee Route Start Time Stop Time Status Last Admin Dose Admin Ioversol (Optiray 320) 125 ml UD PRN IV 01/21/18 15:00 01/25/18 14:59 Vancomycin HCl (Vancomycin Oral Soln) 250 mg Q6H PO 01/22/18 00:00 02/01/18 00:00 01/22/18 06:23 250 MG Metronidazole 500 mg/Prmx 100 ml @ 100 mls/hr Q8H IV 01/22/18 00:00 02/01/18 00:00 01/22/18 08:19 100 MLS/HR Acetaminophen (Tylenol Tab) 650 mg Q4H PRN PO 01/21/18 23:30 02/20/18 23:29 Al Hydrox/Mg Hydrox/Simethicone (Maalox Max Susp) 15 ml Q4H PRN PO 01/21/18 23:30 02/20/18 23:29 Magnesium Hydroxide (Milk Of Magnesia Susp) 30 ml Q6H PRN PO 01/21/18 23:30 02/20/18 23:29 Polyethylene (Miralax Powder Packet) 17 gm DAILY PRN PO 01/21/18 23:30 02/20/18 23:29 Ondansetron HCl (Zofran Inj) 4 mg Q6H PRN IV 01/21/18 23:30 02/20/18 23:29 Escitalopram Oxalate (Lexapro Tab) 10 mg DAILY PO 01/22/18 08:00 02/21/18 08:59 01/22/18 08:20 10 MG Lisinopril (Zestril Tab) 10 mg DAILY PO 01/22/18 08:00 02/21/18 08:59 01/22/18 08:20 10 MG Lorazepam (Ativan Tab) 1 mg DAILY PRN PO 01/21/18 23:45 02/20/18 23:44 Zolpidem Tartrate (Ambien Tab) 10 mg HS PRN PO 01/21/18 23:45 02/20/18 23:44 Pantoprazole Sodium (Protonix Tab) 40 mg QAM PO 01/22/18 08:00 02/21/18 08:59 01/22/18 08:20 40 MG Sodium Chloride 1,000 ml @ 100 mls/hr Q10H IV 01/22/18 00:00 01/22/18 19:59 01/22/18 00:52 100 MLS/HR Ondansetron HCl (Zofran Odt) 4 mg Q4H PRN PO 01/22/18 00:00 02/21/18 00:00 Raspberry (Raspberry Syrup 5ml Cup) 5 ml Q6 PO 01/22/18 00:00 02/05/18 00:00 01/22/18 06:23 5 ML Oxycodone HCl (Roxicodone Immediate Rel Tab) 10 mg Q6H PRN PO 01/22/18 08:45 02/05/18 08:44 01/22/18 09:00 10 MG Hydromorphone HCl (Dilaudid Inj) 0.25 mg Q4H PRN IV 01/22/18 08:45 02/05/18 08:44 Fentanyl (Duragesic Patch) 25 mcg Q72H TD 01/24/18 09:00 02/07/18 08:59 Miscellaneous (Fentanyl Patch Remove & Waste) 1 ea Q3D N/A 01/24/18 08:59 02/23/18 08:58 Miscellaneous Information (Check Fentanyl Patch Placement) 1 ea QS N/A 01/22/18 16:00 02/21/18 15:59 Miscellaneous (Fentanyl Patch Remove & Waste) 1 ea Q3D N/A 01/24/18 08:59 02/23/18 08:58 Fentanyl (Duragesic Patch) 12 mcg Q72H TD 01/24/18 09:00 02/07/18 08:59 Miscellaneous Information (Check Fentanyl Patch Placement) 1 ea QS N/A 01/22/18 16:00 02/21/18 15:59 Review of Systems Constitutional: Negative for night sweats, or fever. She states that she does have the feeling of chills once in a while. Eyes: Negative for event change of vision ENT: Negative for epistaxis, nasal discharge, sore throat, or deafness Cardiovascular: Negative for chest pain, palpitations, dizziness, diaphoresis Respiratory: Negative for new shortness of breath,hemoptysis, or purulent cough Gastrointestinal: Negative for diarrhea, hematemesis, melena, nausea, vomiting , or dyspepsia. She has had constipation recently however. Integumentary (skin): Negative for rash or jaundice discoloration Genitourinary: Negative for urinary frequency, hematuria, or dysuria Neurological: Negative for weakness, seizure activity, headache, or dizziness Lymphatic/Hematologic: Negative for petechiae, bleeding or new adenopathy Musculoskeletal: Negative for new joint or back pain Allergic/Immunologic: Negative for unusual rash or pruritis. Physical Exam Date Time Temp Pulse Resp B/P (MAP) Pulse Ox O2 Delivery O2 Flow Rate FiO2 01/22/18 08:00 97 Room Air 01/22/18 07:54 97 Room Air 01/22/18 07:53 36.9 85 16 146/78 (100) 97 Room Air 01/22/18 02:05 36.7 81 18 121/68 98 01/22/18 01:33 36.5 82 18 117/62 94 01/22/18 01:15 36.7 83 18 108/65 94 01/22/18 00:55 36.8 93 20 139/75 97 01/22/18 00:33 36.8 93 20 139/75 97 Room Air 01/21/18 23:17 60 14 115/76 98 Room Air 01/21/18 21:24 94 16 126/67 95 Room Air 01/21/18 19:30 98 15 144/74 96 Room Air 01/21/18 17:45 98 14 151/84 94 Room Air 01/21/18 16:41 98 01/21/18 16:10 98 20 106/72 97 Room Air 01/21/18 14:34 36.9 107 20 127/89 99 Room Air Constitutional: vitals are stable. Eyes: Eyes are MICHAEL EOMI without conjuctival erythema or icterus. ENT: External examination was negative for masses. Neck: Negative for masses or palpable thyromegaly Respiratory: Lung sounds were generally clear bilaterally Cardiovascular: Heart was RRR without significant murmur, gallops aoe rubs Gastrointestinal: No palpable hepatic or splenomegaly. The abdomen was soft with normal bowel sounds. Lymphatic system: there was no palpable peripheral lymphadenopathy Musculoskeletal System: The musculoskeletal system seemed concordant with age. Skin: The skin was negative for jaundice. She does have an occasional ecchymotic area one located on her right gluteal area. Neurologic exam: The exam was negative for any focal findings. Deep tendon reflexes were equal and symmetrical. Psychiatric exam: Was essentially negative with normal mood and effect. Breast exam: Not done. Extremities: negative for edema Laboratory Results Last 24 Hours Test 01/21/18 15:15 01/21/18 15:41 01/21/18 17:40 01/22/18 09:22 White Blood Count 6.48 K/uL Red Blood Count 3.65 M/uL Hemoglobin 12.2 g/dL Hematocrit 34.4 % Mean Corpuscular Volume 94.2 fL Mean Corpuscular Hemoglobin 33.4 pg Mean Corpuscular Hemoglobin Concent 35.5 g/dl Platelet Count 17 K/uL Mean Platelet Volume 11.1 fL RDW Standard Deviation 43.6 fL RDW Coefficient of Variation 13.0 % Neutrophils % (Manual) 82.6 % Lymphocytes % (Manual) 12.2 % Monocytes % (Manual) 2.6 % Eosinophils % (Manual) 0.9 % Basophils % (Manual) 1.7 % Neutrophils # (Manual) 5.35 K/uL Total Absolute Neutrophils 5.35 K/uL Lymphocytes # (Manual) 0.79 K/uL Total Absolute Lymphocytes 0.79 K/uL Monocytes # (Manual) 0.17 K/uL Eosinophils # (Manual) 0.06 K/uL Basophils # (Manual) 0.11 K/uL Platelet Estimate SIGNIFIC DECREASED Red Blood Cell Morphology Unremarkable Peripheral Blood Smear Path Consult Sodium Level 135 mmol/L Potassium Level 3.2 mmol/L Chloride Level 100 mmol/L Carbon Dioxide Level 27 mmol/L Anion Gap 8.0 mmol/L 16.0 mmol/L Blood Urea Nitrogen 25 mg/dl Creatinine 0.79 mg/dl Est Creatinine Clear Calc Drug Dose 64.5 ml/min Estimated GFR () 87.9 Estimated GFR (Non- 75.8 BUN/Creatinine Ratio 32.2 Random Glucose 119 mg/dl Calcium Level 10.4 mg/dl Total Bilirubin 0.9 mg/dl Direct Bilirubin 0.2 mg/dl Aspartate Amino Transf (AST/SGOT) 24 U/L Alanine Aminotransferase (ALT/SGPT) 21 U/L Alkaline Phosphatase 124 U/L Total Protein 7.4 gm/dl Albumin 4.1 gm/dl Lipase 84 U/L Bedside Hemoglobin 12.2 g/dl Bedside Hematocrit 36 % Bedside Sodium 137 mEq/L Bedside Potassium 3.4 mEq/L Bedside Chloride 101 mEq/L Bedside Total CO2 25 mEq/l Bedside Blood Urea Nitrogen 26 mg/dl Bedside Creatinine 0.7 mg/dl Bedside Glucose (other) 122 mg/dl Bedside Ionized Calcium (Zana) 1.35 mmol/l Urine Color DK YELLOW Urine Appearance CLEAR Urine pH 5.0 Urine Specific Counce > 1.045 Urine Protein NEG Urine Glucose (UA) NEG Urine Ketones 2+ Urine Occult Blood 1+ Urine Nitrite NEG Urine Bilirubin NEG Urine Urobilinogen NEG Urine Leukocyte Esterase NEG Urine WBC (Auto) 1-5 /hpf Urine RBC (Auto) 0-4 /hpf Urine Hyaline Casts (Auto) 1-5 /lpf Urine Epithelial Cells (Auto) 5-10 /lpf Urine Bacteria (Auto) NEG Assessment & Plan History of recurrent high-grade serous ovarian carcinoma. I should also note that she has a history of DCIS ER positive for breast biopsy in September 2016. She is status post bilateral mastectomy with right sentinel node biopsy. With the mastectomy there was no evidence of invasive carcinoma and all margins were negative and a single sentinel lymph node was also negative. She now presents with constipation and rather severe thrombocytopenia. The rest of her blood work is acceptable. She appears quite comfortable this morning. I suspect that this is a result ofside effects from the PARP inhibitor. This we placed on hold of course. I suspect recovery may take a week or 2. CBC has been ordered for today but if stable, we can monitor this most likely as an outpatient. She will need to be placed on stool softeners. The constipation again is also a potential side effect from the PARP inhibitor.
[2018-01-22 10:08] LABS: HEMATOCRIT 28.9 % (37-47); HEMOGLOBIN 10.1 g/dL (12.0-16.0); MEAN CORPUSCULAR HEMOGLOBIN 33.6 pg (25-34); MEAN CORPUSCULAR HGB CONC 34.9 g/dl (32-36); MEAN PLATELET VOLUME 8.5 fL (7.4-10.4); PLATELET COUNT 33 K/uL (130-400); RED CELL DISTRIBUTION WIDTH CV 13.2 % (11.5-14.5); RED CELL DISTRIBUTION WIDTH SD 44.9 fL (36.4-46.3); WHITE BLOOD COUNT 4.19 K/uL (4.8-10.8)
[2018-01-22] MEDS: HYDROmorphone INJ 0.5 MG/0.5 ML SYR IV PRN ×2 (10:34→13:28)
[2018-01-22 10:58] LABS: BASO % 0.2 %; BASO ABS # 0.01 K/uL (0-0.2); EOS % 1.7 %; EOS ABS # 0.07 K/uL (0-0.5); IG# 0.01 K/uL (0.00-0.02); LYMPH % 27.2 %; LYMPH ABS # 1.14 K/uL (1.2-3.4); MONO % 4.8 %; NEUT % 65.9 %; NEUT ABS # 2.76 K/uL (1.4-6.5)
[2018-01-22] MEDS ORDERED: HYDROmorphone INJ 0.5 MG/0.5 ML SYR IV PRN (15:00)
[2018-01-22] MEDS ORDERED: CHECK FENTANYL PATCH PLACEMENT SCH ×2 (16:00)
[2018-01-22] MEDS: CHECK FENTANYL PATCH PLACEMENT SCH ×4 (16:01→23:46)
[2018-01-22] MEDS ORDERED: BISACODYL 5 MG TABEC PO ONE (16:30)
[2018-01-22] MEDS ORDERED: LAVAGE SOLUTION 4000ML PO ONE (17:00)
--- NOTE | 2018-01-22 17:36 | Gastrointestinal Consultation ---
Gastrointestinal Consultation Date of Consultation: Jan 22, 2018 Attending Physician: Dr. Morgan Consulting Physician: Dr. Cheng Reason for Consultation: Rectal bleeding History of Present Illness Patient is a 72 year old female with recurrent ovarian cancer, undergoing chemotherapy previously with carboplatin and Doxil. Then one week ago, she started Zejula. Since started Zejula, she has had constipation. She presented to the ED yesterday for constipation and she also reports LLQ pain x 2-[address] was suggestive of sigmoid colitis. She was given an enema with return of liquid brown stool and improvement in constipation symptoms. However, after that, she began to experience rectal bleeding for which GI is consulted. She also carries a hx of UC, previously on Asacol. She has not had recent UC symptoms and most recent colonoscopy in 2015 was w/o evidence of active disease. She never underwent radiation. Her Hb on arrival was 12 and today it is 10.1. She also has thrombocytopenia, with platelets on arrival 17, but improved today to 33. She remains awake, alert , mildly uncomfortable, hemodynamically stable. C-diff is (-). Past Medical/Surgical History Medical Problems: (1) Abdominal pain Status: Acute (2) Constipation Status: Acute Past Medical History: 1. Ovarian Cancer 2. Ulcerative Colitis Past Surgical History: 1. Oophorectomy with colon resection in 2012 2. Most recent Colonoscopy 08/04/[address] Olson for colon cancer screening in UC: internal hemorrhoids, normal colon, normal appearing end to end anastomosis. Bx with increased bleeding Bx site clipped. 3. EGD 01/18/[address] Olson for iron deficiency anemia: torturous esophagus, mild gastritis. Social History Smoking Status: Former Smoker Alcohol Use: none Drug Use: none Marital Status: Housing Status: lives with family Occupation Status: retired Allergies Coded Allergies: Sulfa Antibiotics (Verified Allergy, Mild, NAUSEA; AFFECTS BLOOD, 02/10/15) Current Medications Home Meds and Scripts Medications Dose Route/Sig Max Daily Dose Days Date Category Colace (Docusate Sodium) 100 Mg Cap 1 Cap PO BID 30 01/21/18 Rx Senokot (Sennosides) 8.6 Mg Tab 8.6 Mg PO HS 30 01/21/18 Rx Zolpidem Tartrate 10 Mg Tab 10 Mg PO HS PRN 01/21/18 Reported Omeprazole 20 Mg Tab 20 Mg PO DAILY 01/21/18 Reported Ativan (Lorazepam) 1 Mg Tab 1 Mg PO DAILY PRN 01/21/18 Reported Zestril (Lisinopril) 10 Mg Tab 10 Mg PO DAILY 01/21/18 Reported Lexapro (Escitalopram Oxalate) 10 Mg Tab 10 Mg PO DAILY 01/21/18 Reported Review of Systems Constitutional: No fever, No chills, No sweats, No weight loss, No weakness Eyes: No eye pain, No redness ENT: No sore throat, No trouble swallowing, No pain on swallowing Respiratory: No cough, No wheezing, No shortness of breath, No dyspnea on exertion Cardiac: No chest pain, No edema, No palpitations Abdomen: + see HPI, + pain (Mild, LLQ), + diarrhea (intermittent; prior to 1 week ago, and again after enema), + constipation Neuro: No memory loss, No weakness, No numbness/tingling, No vertigo, No balance problems Psych: No depression symptoms, No anxiety, No insomnia Heme: No abnormal bleeding/bruising, No night sweats Endo: No excessive thirst, No excessive urination Skin: No rash, No itch, No new/changing skin lesions, No jaundice Physical Exam Date Time Temp Pulse Resp B/P (MAP) Pulse Ox O2 Delivery O2 Flow Rate FiO2 01/22/18 14:30 36.8 80 20 121/64 (83) 98 01/22/18 11:52 37.1 74 14 108/66 (80) 96 Room Air 01/22/18 08:00 97 Room Air 01/22/18 07:54 97 Room Air 01/22/18 07:53 36.9 85 16 146/78 (100) 97 Room Air 01/22/18 02:05 36.7 81 18 121/68 98 01/22/18 01:33 36.5 82 18 117/62 94 01/22/18 01:15 36.7 83 18 108/65 94 01/22/18 00:55 36.8 93 20 139/75 97 01/22/18 00:33 36.8 93 20 139/75 97 Room Air 01/21/18 23:17 60 14 115/76 98 Room Air 01/21/18 21:24 94 16 126/67 95 Room Air 01/21/18 19:30 98 15 144/74 96 Room Air 01/21/18 17:45 98 14 151/84 94 Room Air 01/21/18 16:41 98 01/21/18 16:10 98 20 106/72 97 Room Air General Appearance: no apparent distress Eyes: normal inspection, EOMI Neck: supple, no adenopathy, thyroid normal Respiratory/Chest: chest non-tender, lungs clear, normal breath sounds, no accessory muscle use Cardiovascular: regular rate, rhythm, no JVD, no murmur Abdomen: normal bowel sounds, soft, no organomegaly, + tenderness (LLQ tenderness on palpation but no guarding ) Extremities: normal inspection, no pedal edema, normal capillary refill Neurologic/Psych: alert, normal mood/affect, oriented x 3 Skin: normal color, no jaundice, warm/dry, no rash Laboratory Results Last 24 Hours Test 01/21/18 17:40 01/22/18 09:48 Urine Color DK YELLOW Urine Appearance CLEAR Urine pH 5.0 Urine Specific [place] > 1.045 Urine Protein NEG Urine Glucose (UA) NEG Urine Ketones 2+ Urine Occult Blood 1+ Urine Nitrite NEG Urine Bilirubin NEG Urine Urobilinogen NEG Urine Leukocyte Esterase NEG Urine WBC (Auto) 1-5 /hpf Urine RBC (Auto) 0-4 /hpf Urine Hyaline Casts (Auto) 1-5 /lpf Urine Epithelial Cells (Auto) 5-10 /lpf Urine Bacteria (Auto) NEG White Blood Count 4.19 K/uL Red Blood Count 3.01 M/uL Hemoglobin 10.1 g/dL Hematocrit 28.9 % Mean Corpuscular Volume 96.0 fL Mean Corpuscular Hemoglobin 33.6 pg Mean Corpuscular Hemoglobin Concent 34.9 g/dl Platelet Count 33 K/uL Mean Platelet Volume 8.5 fL Neutrophils (%) (Auto) 65.9 % Lymphocytes (%) (Auto) 27.2 % Monocytes (%) (Auto) 4.8 % Eosinophils (%) (Auto) 1.7 % Basophils (%) (Auto) 0.2 % Neutrophils # (Auto) 2.76 K/uL Lymphocytes # (Auto) 1.14 K/uL Monocytes # (Auto) 0.20 K/uL Eosinophils # (Auto) 0.07 K/uL Basophils # (Auto) 0.01 K/uL RDW Standard Deviation 44.9 fL RDW Coefficient of Variation 13.2 % Immature Granulocyte % (Auto) 0.2 % Immature Granulocyte # (Auto) 0.01 K/uL Anisocytosis PRESENT CT with sigmoid wall thickening, fluid filled colon Impression Patient is a 72 year old female with alternating constipation/diarrhea with rectal bleeding x [address] suggestive of colitis, in the setting of chemotherapy. Differentials considered are ischemic colitis, infectious colitis. She carries a hx of UC and UC flare is also considered but her current symptoms are not typical of a UC flare. Plan 1. DC oral Vanco as C.diff is negative. 2. Begin Cipro; continue flagyl to prevent translocation of bacteria in colitis. 3. Prep for colonoscopy tonight. Plan for colonoscopy tomorrow. Further recommendations to follow procedure. I performed a history and physical examination of the patient, including specifically on physical exam - no abdominal tenderness. I have discussed the patient's management with [facility]. Please refer to the nurse practitioner's note for the documented findings and plan of care. Patient with altered bowel habit and bright rectal bleeding after using enema. Now bleeding resolved. CT scan showed evidence of colitis. DDx ischemic, infectious, Chemotherapy related, UC or stercoral ulcer. Will arrange for colonoscopy tomorrow, meanwhile obtain stool w/u and start ABx.
[2018-01-22] MEDS: CIPROFLOXACIN / D5W 400 MG in PREMIXED IN D5W 200 ML IV SCH (18:06)
[2018-01-22] MEDS: HYDROmorphone INJ 1 MG/ML SYR IV PRN ×2 (18:44→21:57)
[2018-01-22] MEDS ORDERED: FENTANYL 12 MCG/HR TDSY ONE (22:11)
--- NOTE | 2018-01-22 22:44 | Progress Note ---
Subjective Date of Service: Jan 22, 2018. Subjective Pt evaluation today including: conversation w/ patient, physical exam, chart review, lab review, review of studies (CT abd/pelvis), conversation w/ credit consultant (GI), review of inpatient medication list Pain: LLQ - ongoing PO Intake: asking for clears Voiding: no voiding problems patient reports a dx of ulcerative colitis was diagnosed sometime in her late 50s while living in [place] follows w/ Dr. Olson some of her symptoms remind her of her UC, but the pain is quite different prior to last evening she hadn't had a bowel movement in 3 days during that time period, however, she felt poorly with nausea she may have had some blood per rectum this am when she had a loose bowel movement Problem List Medical Problems: (1) Abdominal pain Status: Acute (2) Constipation Status: Acute Review of Systems Constitutional: No fever, No chills Respiratory: No shortness of breath Cardiac: No chest pain Abdomen: + pain, + diarrhea, No nausea, No vomiting, No constipation Female : No dysuria Objective Vital Signs Date Time Temp Pulse Resp B/P (MAP) Pulse Ox O2 Delivery O2 Flow Rate FiO2 01/22/18 20:13 36.8 78 18 168/86 (113) 100 Room Air 01/22/18 16:00 95 Room Air 01/22/18 14:30 36.8 80 20 121/64 (83) 98 01/22/18 11:52 37.1 74 14 108/66 (80) 96 Room Air 01/22/18 08:00 97 Room Air 01/22/18 07:54 97 Room Air 01/22/18 07:53 36.9 85 16 146/78 (100) 97 Room Air 01/22/18 02:05 36.7 81 18 121/68 98 01/22/18 01:33 36.5 82 18 117/62 94 01/22/18 01:15 36.7 83 18 108/65 94 01/22/18 00:55 36.8 93 20 139/75 97 01/22/18 00:33 36.8 93 20 139/75 97 Room Air 01/21/18 23:17 60 14 115/76 98 Room Air Physical Exam General Appearance: no apparent distress ENT: pharynx normal Neck: no JVD Respiratory/Chest: lungs clear, no respiratory distress, no accessory muscle use Cardiovascular: regular rate, rhythm, no gallop, no JVD, no murmur Abdomen: normal bowel sounds, soft, no organomegaly, + tenderness (LLQ) Extremities: no pedal edema Neurologic/Psychiatric: alert, oriented x 3 Skin: + pertinent finding (no petechaie present ) Laboratory Results Last 24 Hours Test 01/22/18 09:48 White Blood Count 4.19 K/uL Red Blood Count 3.01 M/uL Hemoglobin 10.1 g/dL Hematocrit 28.9 % Mean Corpuscular Volume 96.0 fL Mean Corpuscular Hemoglobin 33.6 pg Mean Corpuscular Hemoglobin Concent 34.9 g/dl Platelet Count 33 K/uL Mean Platelet Volume 8.5 fL Neutrophils (%) (Auto) 65.9 % Lymphocytes (%) (Auto) 27.2 % Monocytes (%) (Auto) 4.8 % Eosinophils (%) (Auto) 1.7 % Basophils (%) (Auto) 0.2 % Neutrophils # (Auto) 2.76 K/uL Lymphocytes # (Auto) 1.14 K/uL Monocytes # (Auto) 0.20 K/uL Eosinophils # (Auto) 0.07 K/uL Basophils # (Auto) 0.01 K/uL RDW Standard Deviation 44.9 fL RDW Coefficient of Variation 13.2 % Immature Granulocyte % (Auto) 0.2 % Immature Granulocyte # (Auto) 0.01 K/uL Anisocytosis PRESENT Assessment and Plan 72yo female - 1. sigmoid colitis on CT scan - diff ischemic vs UC vs infectious vs chemo- related vs other. GI consult with [facility] requested; plan is for colonoscopy tomorrow. Cipro/flagyl in meantime. Allow clear liquids until midnight. C. diff negative; follow stool culture. 2. LLQ pain - 2nd to above. Increase dilaudid to 1mg q3h prn. 3. chronic pain syndrome 2nd to stage 4 ovarian ca - cont fentanyl patch 25 + 12 mcg q72hr 4. severe thrombocytopenia - s/p 1 unit of apheresed platelets with mild improvement. Repeat CBC in am. Thought to be due to recent chemo for her ovarian ca. Check b12/folate to be complete. Appreciate heme/onc input. Peripheral smear review completed; no features of TTP seen. 5. hypokalemia - replace, repeat BMP with mag in am. 6. FEN - D5NS w/ KCL for IVF; clears until MN tonight; repeat labs am. 7. DVT proph - chemical means contraindicated 2nd to low platelets; SCDs in meantime. 8. stage 4 ovarian cancer - noted. Chemo on hold due to low platelets. 9. HTN - acceptable BPs at this time. Continued [facility] stay due to: inadequate po fluid intake, multiple IV medications needed Discharge planning: home
[2018-01-22] MEDS: D5NSS + 20MEQ KCL 1,000 ML IV SCH (23:45)
[2018-01-23] VITALS (8 sets, daily range): BP systolic 115–157; BP diastolic 65–76; PULSE 72–98; TEMP 36.8–37.2; O2SAT 90–98; BMI 22.6
[2018-01-23] MEDS: ZOLPIDEM TARTRATE 10 MG TAB PO PRN ×2 (01:01→22:31)
[2018-01-23 06:03] LABS: INR 1.1 (0.9-1.1)
[2018-01-23 06:09] LABS: PLATELET COUNT 26 K/uL (130-400)
[2018-01-23 06:10] LABS: HEMATOCRIT 28.2 % (37-47); HEMOGLOBIN 9.6 g/dL (12.0-16.0); MEAN CELL VOLUME 96.2 fL (80-100); MEAN CORPUSCULAR HEMOGLOBIN 32.8 pg (25-34); MEAN PLATELET VOLUME 8.9 fL (7.4-10.4); RED CELL DISTRIBUTION WIDTH SD 44.4 fL (36.4-46.3); WHITE BLOOD COUNT 2.94 K/uL (4.8-10.8)
[2018-01-23 06:34] LABS: CALCIUM 9.6 mg/dl (8.5-10.1); CREATININE 0.59 mg/dl (0.60-1.20); POTASSIUM 3.8 mmol/L (3.5-5.1)
[2018-01-23] MEDS: METRONIDAZOLE / NSS 500 MG in PREMIXED NSS 100 ML IV SCH ×3 (07:36→23:51)
[2018-01-23] MEDS: HYDROmorphone INJ 1 MG/ML SYR IV PRN ×2 (07:36→11:02)
[2018-01-23] MEDS: CHECK FENTANYL PATCH PLACEMENT SCH ×6 (07:37→23:51)
--- NOTE | 2018-01-23 08:02 | Clinical Documentation Query ---
CRYSTAL Kim : CLINICAL DOCUMENTATION QUERY Patient is a 72 year old female admitted for evaluation and treatment of sigmoid colitis. Noted thrombocytopenia in the setting of oral chemotherapeutic (Niraparib). With IV rehydration, leukopenia and anemia became apparent. Niraparib is a known risk factor for pancytopenia. As appropriate, consider documentation as suggested below. In your clinical opinion is this patient being managed for: (x ) Antineoplastic chemotherapy induced pancytopenia ( ) Not Agree ( ) Other explanation of clinical findings (Please Explain) ( ) Unable to determine (Please Define) ( ) Need to Discuss The medical record reflects the following clinical findings, treatment, and risk factors. Clinical Indicators: As above Treatment: Serial hematology, transfusion as needed, hematology/oncology consultation Risk Factors: Oral chemotherapeutic Please clarify and document your clinical opinion in the progress notes and discharge summary. Terms such as "probable", "suspected", "likely", "questionable", "possible", or "still to be ruled out" are acceptable. IF IN AGREEMENT, YOU MUST DOCUMENT ABOVE DIAGNOSTIC STATEMENT IN DAILY PROGRESS NOTES AND DISCHARGE SUMMARY. This document is not part of the patient's record. Thank You, Tj Bustillos, RN [phone]
[2018-01-23] MEDS ORDERED: CYANOCOBALAMIN 500 MCG TAB (VIT B-12) PO ONE (08:30)
[2018-01-23] MEDS: PANTOprazole SOD 40 MG TAB PO SCH (08:47)
[2018-01-23] MEDS: CIPROFLOXACIN / D5W 400 MG in PREMIXED IN D5W 200 ML IV SCH ×2 (08:47→21:06)
[2018-01-23] MEDS: LISINOPRIL 10 MG TAB PO SCH (08:47)
[2018-01-23] MEDS: ESCITALOPRAM OXALATE 10 MG TAB PO SCH (08:47)
[2018-01-23] MEDS: D5NSS + 20MEQ KCL 1,000 ML IV SCH ×2 (08:48→18:12)
--- NOTE | 2018-01-23 11:13 | Hematology/Oncology Prog Note ---
Hematology/Onc Progress Note Date of Service Jan 23, 2018. Diagnoses History of ovarian carcinoma Thrombocytopenia most likely secondary to drug effect (PARP inhibitor) Medications Medications Administered Medications (Trade) Dose Ordered Sig/Janee Route Start Time Stop Time Status Last Admin Dose Admin Metoclopramide HCl (Reglan Inj) 10 mg NOW STAT IV 01/21/18 14:46 01/21/18 14:48 DC 01/21/18 15:29 10 MG Sodium Chloride 1,000 ml @ 999 mls/hr Q1H1M STAT IV 01/21/18 14:46 01/21/18 15:46 DC 01/21/18 15:29 999 MLS/HR Hydromorphone HCl (Dilaudid Inj) 0.5 mg NOW STAT IV 01/21/18 14:46 01/21/18 14:48 DC 01/21/18 15:29 0.5 MG Hydromorphone HCl (Dilaudid Inj) 1 mg NOW STAT IV 01/21/18 15:52 01/21/18 15:53 DC 01/21/18 16:05 1 MG Ondansetron HCl (Zofran Inj) 4 mg NOW STAT IV 01/21/18 15:52 01/21/18 15:53 DC 01/21/18 16:05 4 MG Potassium Chloride (Kcl 10 Meq / Wtr) 10 meq NOW STAT IV 01/21/18 15:54 01/21/18 15:55 DC 01/21/18 16:06 10 MEQ Potassium Chloride (Kcl 10 Meq / Wtr) 10 meq NOW STAT IV 01/21/18 15:54 01/21/18 15:55 DC 01/21/18 16:06 10 MEQ Hydromorphone HCl (Dilaudid Inj) 1 mg NOW STAT IV 01/21/18 16:30 01/21/18 16:31 DC 01/21/18 17:07 1 MG Promethazine HCl 25 mg/Sodium Chloride 51 ml @ 204 mls/hr NOW STAT IV 01/21/18 16:30 01/21/18 16:44 DC 01/21/18 18:11 204 MLS/HR Hydromorphone HCl (Dilaudid Inj) 1 mg NOW STAT IV 01/21/18 16:56 01/21/18 16:57 DC 01/21/18 18:12 1 MG Miscellaneous (Soap Suds Enema) 1 ea NOW STAT NC 01/21/18 18:06 01/21/18 18:08 DC 01/21/18 18:52 1 EA Magnesium Citrate (Citrate Of Magnesia Soln) 150 ml NOW STAT PO 01/21/18 18:06 01/21/18 18:08 DC 01/21/18 18:53 150 ML Potassium Chloride (Teresa Ciel Elix) 40 meq NOW STAT PO 01/21/18 18:08 01/21/18 18:09 DC 01/21/18 18:54 40 MEQ Miscellaneous (Soap Suds Enema) 1 ea NOW STAT NC 01/21/18 19:38 01/21/18 19:39 DC 01/21/18 20:00 1 EA Hydromorphone HCl (Dilaudid Inj) 1 mg NOW STAT IV 01/21/18 20:57 01/21/18 20:58 DC 01/21/18 21:12 1 MG Ondansetron HCl (Zofran Inj) 4 mg NOW STAT IV 01/21/18 20:57 01/21/18 20:58 DC 01/21/18 21:12 4 MG Vancomycin HCl (Vancomycin Oral Soln) 250 mg Q6H PO 01/22/18 00:00 01/22/18 16:46 DC 01/22/18 12:13 250 MG Metronidazole 500 mg/Prmx 100 ml @ 100 mls/hr Q8H IV 01/22/18 00:00 02/01/18 00:00 01/23/18 07:36 100 MLS/HR Escitalopram Oxalate (Lexapro Tab) 10 mg DAILY PO 01/22/18 08:00 02/21/18 08:59 01/23/18 08:47 10 MG Lisinopril (Zestril Tab) 10 mg DAILY PO 01/22/18 08:00 02/21/18 08:59 01/23/18 08:47 10 MG Zolpidem Tartrate (Ambien Tab) 10 mg HS PRN PO 01/21/18 23:45 02/20/18 23:44 01/23/18 01:01 10 MG Pantoprazole Sodium (Protonix Tab) 40 mg QAM PO 01/22/18 08:00 02/21/18 08:59 01/23/18 08:47 40 MG Sodium Chloride 1,000 ml @ 100 mls/hr Q10H IV 01/22/18 00:00 01/22/18 19:59 DC 01/22/18 10:34 100 MLS/HR Ondansetron HCl (Zofran Odt) 4 mg Q4H PRN PO 01/22/18 00:00 02/21/18 00:00 01/22/18 21:56 4 MG Raspberry (Raspberry Syrup 5ml Cup) 5 ml Q6 PO 01/22/18 00:00 01/22/18 16:45 DC 01/22/18 12:13 5 ML Oxycodone HCl (Roxicodone Immediate Rel Tab) 10 mg Q6H PRN PO 01/22/18 08:45 02/05/18 08:44 01/22/18 15:00 10 MG Hydromorphone HCl (Dilaudid Inj) 0.25 mg Q4H PRN IV 01/22/18 08:45 01/22/18 14:49 DC 01/22/18 13:28 0.25 MG Miscellaneous Information (Check Fentanyl Patch Placement) 1 ea QS N/A 01/22/18 16:00 02/21/18 15:59 01/23/18 07:37 1 EA Miscellaneous Information (Check Fentanyl Patch Placement) 1 ea QS N/A 01/22/18 16:00 02/21/18 15:59 01/23/18 07:37 1 EA Hydromorphone HCl (Dilaudid Inj) 0.5 mg Q3H PRN IV 01/22/18 15:00 01/22/18 18:34 DC 01/22/18 16:26 0.5 MG Polyethylene Glycol/ Electrolytes (Golytely Soln) 8 dose NOW ONCE PO 01/22/18 17:00 01/22/18 17:01 DC 01/22/18 17:52 8 DOSE Bisacodyl (Dulcolax Tab) 10 mg NOW ONCE PO 01/22/18 16:30 01/22/18 16:42 DC 01/22/18 17:21 10 MG Ciprofloxacin/ Dextrose 400 mg/ Prmx 200 ml @ 100 mls/hr Q12 IV 01/22/18 18:00 02/01/18 17:59 01/23/18 08:47 100 MLS/HR Hydromorphone HCl (Dilaudid Inj) 1 mg Q3H PRN IV 01/22/18 18:45 02/05/18 08:44 01/23/18 11:02 1 MG Fentanyl (Duragesic Patch) 12 mcg STK-MED ONCE .ROUTE 01/22/18 22:11 01/22/18 22:12 DC 01/22/18 22:20 12 MCG Potassium Chloride/Dextrose/ Sod Cl 1,000 ml @ 100 mls/hr Q10H IV 01/22/18 22:30 02/21/18 22:29 01/23/18 08:48 100 MLS/HR Cyanocobalamin (Vitamin B-12 Tab) 1,000 mcg 0830 ONCE PO 01/23/18 08:30 01/23/18 08:36 DC 01/23/18 08:49 1,000 MCG Subjective Seems to be doing well. Denies constipation. She is being readied for a possible colonoscopy. There has been no overt bleeding. She denies any fever or pain. Review of Systems: Constitutional: Negative for night sweats, or fever Eyes: Negative for event change of vision ENT: Negative for epistaxis, nasal discharge, sore throat, or deafness Cardiovascular: Negative for chest pain, palpitations, dizziness, diaphoresis Respiratory: Negative for new shortness of breath,hemoptysis, or purulent cough Gastrointestinal: Negative for diarrhea, hematemesis, melena, nausea, vomiting , or dyspepsia Integumentary (skin): Negative for rash or jaundice discoloration Neurological: Negative for weakness, seizure activity, headache, or dizziness Lymphatic/Hematologic: Negative for petechiae, bleeding or new adenopathy Musculoskeletal: Negative for new joint or back pain Allergic/Immunologic: Negative for unusual rash or pruritis. Vital Signs Vital Signs Past 12 Hours Date Time Temp Pulse Resp B/P (MAP) Pulse Ox O2 Delivery O2 Flow Rate FiO2 01/23/18 07:47 Room Air 01/23/18 07:42 36.9 81 18 145/74 (97) 95 Room Air 01/23/18 04:15 36.8 83 20 115/65 (82) 90 Room Air 01/23/18 00:15 Room Air 01/23/18 00:14 37.0 76 20 139/67 (91) 98 Room Air Physical Exam Constitutional: vitals are stable. Eyes: Eyes are MICHAEL EOMI without conjuctival erythema or icterus. ENT: External examination was negative for masses. Neck: Negative for masses or palpable thyromegaly Respiratory: Lung sounds were generally clear bilaterally Cardiovascular: Heart was RRR without significant murmur, gallops aoe rubs Gastrointestinal: No palpable hepatic or splenomegaly. The abdomen was soft with normal bowel sounds. Lymphatic system: there was no palpable peripheral lymphadenopathy Musculoskeletal System: The musculoskeletal system seemed concordant with age. Skin: The skin was negative for jaundice. Neurologic exam: The exam was negative for any focal findings. Deep tendon reflexes were equal and symmetrical. Psychiatric exam: Was essentially negative with normal mood and effect. Laboratory Last 24 Hours Test 01/23/18 05:31 White Blood Count 2.94 K/uL Red Blood Count 2.93 M/uL Hemoglobin 9.6 g/dL Hematocrit 28.2 % Mean Corpuscular Volume 96.2 fL Mean Corpuscular Hemoglobin 32.8 pg Mean Corpuscular Hemoglobin Concent 34.0 g/dl RDW Standard Deviation 44.4 fL RDW Coefficient of Variation 13.0 % Platelet Count 26 K/uL Mean Platelet Volume 8.9 fL Prothrombin Time 11.2 SECONDS Prothromb Time International Ratio 1.1 Sodium Level 141 mmol/L Potassium Level 3.8 mmol/L Chloride Level 108 mmol/L Carbon Dioxide Level 30 mmol/L Anion Gap 3.0 mmol/L Blood Urea Nitrogen 6 mg/dl Creatinine 0.59 mg/dl Est Creatinine Clear Calc Drug Dose 83.0 ml/min Estimated GFR () 107.6 Estimated GFR (Non- 92.9 BUN/Creatinine Ratio 10.1 Random Glucose 122 mg/dl Calcium Level 9.6 mg/dl Magnesium Level 2.0 mg/dl Vitamin B12 Level 364 pg/mL Folate 13.47 ng/mL Assessment & Plan Seems stable. Still remains thrombocytopenic and will be so most likely for the next several days. From my standpoint she can be discharged. We will follow her up next week with an appointment as well as an updated CBC at that time. I understand a colonoscopy is being planned prior to her discharge. Would of course recommend that no biopsies be done with a platelet count today of less than 30K.
--- NOTE | 2018-01-23 11:56 | Endo History and Physical ---
History & Physical Date of Service: Jan 23, 2018. Chief Complaint: Referring Physician: History of Present Illness Patient with Colitis on CT scan and rectal bleeding. Past Medical History Anxiety, Cancer, Depression Past Surgical History Hx Cardiac Surgery: No Hx Abdominal Surgery: Yes (TOTAL HYSTER) Hx Post-Op Nausea and Vomiting: Yes Hx Cancer Surgery: Yes (BILAT BREAST MASTECTOMY) Hx Thoracic Surgery: No Hx Orthopedic: Yes (bunion foot 2003) Hx Urinary Tract Surgery: No Social History Smoking Status: Former Smoker Smokeless Tobacco Use: No Hx Substance Use: No Hx Alcohol Use: No Allergies Coded Allergies: Sulfa Antibiotics (Verified Allergy, Mild, NAUSEA; AFFECTS BLOOD, 02/10/15) Current Medications Reported Home Medications Medications Dose Route/Sig Max Daily Dose Days Date Category Colace (Docusate Sodium) 100 Mg Cap 1 Cap PO BID 30 01/21/18 Rx Senokot (Sennosides) 8.6 Mg Tab 8.6 Mg PO HS 30 01/21/18 Rx Zolpidem Tartrate 10 Mg Tab 10 Mg PO HS PRN 01/21/18 Reported Omeprazole 20 Mg Tab 20 Mg PO DAILY 01/21/18 Reported Ativan (Lorazepam) 1 Mg Tab 1 Mg PO DAILY PRN 01/21/18 Reported Zestril (Lisinopril) 10 Mg Tab 10 Mg PO DAILY 01/21/18 Reported Lexapro (Escitalopram Oxalate) 10 Mg Tab 10 Mg PO DAILY 01/21/18 Reported Vital Signs Weight (Kilograms): 63.500 Height (Feet): 5 Height (Inches): 6.00 Date Time Temp Pulse Resp B/P (MAP) Pulse Ox O2 Delivery O2 Flow Rate FiO2 01/23/18 11:28 36.9 78 16 152/76 (101) 97 Room Air 01/23/18 07:47 Room Air 01/23/18 07:42 36.9 81 18 145/74 (97) 95 Room Air 01/23/18 04:15 36.8 83 20 115/65 (82) 90 Room Air 01/23/18 00:15 Room Air 01/23/18 00:14 37.0 76 20 139/67 (91) 98 Room Air 01/22/18 20:13 36.8 78 18 168/86 (113) 100 Room Air 01/22/18 16:00 95 Room Air 01/22/18 14:30 36.8 80 20 121/64 (68) 98 Physical Exam General Appearance: no apparent distress Respiratory/Chest: Auscultation: breath sounds normal Cardiovascular: Heart Auscultation: RRR Abdomen: Inspection & Palpation: soft Liver: non-tender Assessment and Plan Stable for colonoscopy
[2018-01-23] MEDS ORDERED: DRGTP12 TOP (12:09)
[2018-01-23] MEDS ORDERED: FENT25DI10 TOP (12:09)
[2018-01-23] MEDS ORDERED: PROPOFOL IV EMULSION 10 MG/ML 20 ML VIAL IV ONE (12:28)
[2018-01-23] MEDS ORDERED: LIDOCAINE HCL 2% 2 ML VIAL (20MG/ML) ONE (12:28)
--- NOTE | 2018-01-23 12:44 | GI REPORT ---
Procedure Date: 01/23/2018 12:03 PM Procedure: Colonoscopy Indications: Rectal bleeding Medicines: Monitored Anesthesia Care Complications: No immediate complications. Estimated Blood Loss: Estimated blood loss: none. Procedure: Pre-Anesthesia Assessment: - Prior to the procedure, a History and Physical was performed, and patient medications and allergies were reviewed. The patient is competent. The risks and benefits of the procedure and the sedation options and risks were discussed with the patient. All questions were answered and informed consent was obtained. Patient identification and proposed procedure were verified by the physician and the nurse in the procedure room. Mental Status Examination: alert and oriented. Airway Examination: normal oropharyngeal airway and neck mobility. Respiratory Examination: clear to auscultation. CV Examination: normal. ASA Grade Assessment: III - A patient with severe systemic disease. After reviewing the risks and benefits, the patient was deemed in satisfactory condition to undergo the procedure. The anesthesia plan was to use monitored anesthesia care (MAC). Immediately prior to administration of medications, the patient was re-assessed for adequacy to receive sedatives. The heart rate, respiratory rate, oxygen saturations, blood pressure, adequacy of pulmonary ventilation, and response to care were monitored throughout the procedure. The physical status of the patient was re-assessed after the procedure. After I obtained informed consent, the scope was passed under direct vision. Throughout the procedure, the patient's blood pressure, pulse, and oxygen saturations were monitored continuously. The scope was introduced through the anus and advanced to the terminal ileum. The colonoscopy was performed without difficulty. The patient tolerated the procedure well. The quality of the bowel preparation was fair. The terminal ileum, ileocecal valve, appendiceal orifice, and rectum were photographed. Findings: The perianal and digital rectal examinations were normal. The terminal ileum appeared normal. There was evidence of a prior end-to-side colo-colonic anastomosis in the rectum. This was patent and was characterized by erythema, inflammation and an intact staple line. The anastomosis was traversed. Biopsies were taken with a cold forceps for histology. Verification of patient identification for the specimen was done by the physician and nurse using the patient's name and date. There was evidence of a prior end-to-end colo-colonic anastomosis in the transverse colon. This was patent and was characterized by healthy appearing mucosa and an intact staple line. The anastomosis was traversed. Two sessile polyps were found in the rectum. The polyps were 4 mm in size. These polyps were removed with a cold biopsy forceps. Resection and retrieval were complete. A non-bleeding superficial, linear mucosal tear was found in the rectum possibly related to trauma from prior enema or disimpaction. This measured 20 mm in length. Non-bleeding internal hemorrhoids were found during retroflexion. The hemorrhoids were small. Impression: - Preparation of the colon was fair. - The examined portion of the ileum was normal. - Patent end-to-side colo-colonic anastomosis in the rectum, characterized by erythema, inflammation and an intact staple line. Biopsied. - Patent end-to-end colo-colonic anastomosis in the transverse, characterized by healthy appearing mucosa and an intact staple line. - Two 4 mm polyps in the rectum, removed with a cold biopsy forceps. Resected and retrieved. - Superficial mucosal tear in the rectum, possibly related to trauma from prior enema or disimpaction. - Non-bleeding internal hemorrhoids. Recommendation: - Return patient to [facility] for ongoing care. - Use hydrocortisone suppository 25 mg 1 per rectum once a day for 1 week. - Repeat colonoscopy in 1 year for surveillance due to inadequate prep. Guillermina Cheng MD 01/23/2018 12:43:50 PM This report has been signed electronically. Note Initiated On: 01/23/2018 12:03 PM I attest to the content of the Intraoperative Record and orders documented therein, exceptions below
--- NOTE | 2018-01-23 12:56 | Progress Note ---
Progress Note Date of Service Jan 23, 2018. (Gin Cheatham,C.R.N.P.) Progress Note Colonoscopy today with a superficial linear ulcer in the rectum, possibly from the enema/s. Colon mucosa otherwise normal (no endoscopic evidence of colitis). Recommend hydrocortisone suppository rectally QHS x 1 week to improve healing. Regular diet. Regular use of Miralax daily to prevent constipation on chemotherapy as she has been constipated since beginning Ze[place]ula. She should complete 7 days of Cipro/Flagyl. No further GI w/u recommended. No GI contraindication to discharge. (Gin Cheatham,C.R.N.P.) I performed a history and physical examination of the patient, including specifically on physical exam - no abdominal tenderness. I have discussed the patient's management with SASCHA Downs. Please refer to the nurse practitioner's note for the documented findings and plan of care. Colonoscopy showed no significant colitis, small mucosal tear in rectum which is healing, likely related to trauma. Rectal steroids suppository for one week will help. Recall if needed. (Guillermina Cheng M.D.)
--- NOTE | 2018-01-23 15:17 | Anesthesiology Progress Note ---
Anesthesia Post Op Note Date & Time Jan 23, 2018 at 15:17 Vital Signs Pain Intensity: 0 Vital Signs Past 12 Hours Date Time Temp Pulse Resp B/P (MAP) Pulse Ox O2 Delivery O2 Flow Rate FiO2 01/23/18 14:52 36.8 82 20 120/71 (87) 97 Room Air 01/23/18 13:32 98 16 157/76 (103) 94 Room Air 01/23/18 13:00 75 18 136/73 (94) 97 Room Air 01/23/18 12:45 76 18 121/64 (83) 96 Room Air 01/23/18 12:33 78 16 123/62 (82) 97 Room Air 01/23/18 11:57 37 79 18 146/72 (96) 96 Room Air 01/23/18 11:28 36.9 78 16 152/76 (101) 97 Room Air 01/23/18 07:47 Room Air 01/23/18 07:42 36.9 81 18 145/74 (97) 95 Room Air 01/23/18 04:15 36.8 83 20 115/65 (82) 90 Room Air Notes Mental Status: alert / awake / arousable, participated in evaluation Pt Amnestic to Procedure: Yes Nausea / Vomiting: adequately controlled Pain: adequately controlled Airway Patency, RR, SpO2: stable & adequate BP & HR: stable & adequate Hydration State: stable & adequate Anesthetic Complications: no major complications apparent
[2018-01-23] MEDS: OXYCODONE HCL IR 5 MG TAB (IMMEDIATE RELEASE) PO PRN ×2 (15:49→22:32)
[2018-01-23] MEDS ORDERED: HYDROCORTISONE ACETATE 25 MG SUPP PR ONE (20:30)
--- NOTE | 2018-01-23 22:30 | Progress Note ---
Subjective Date of Service: Jan 23, 2018. Subjective Pt evaluation today including: conversation w/ patient, conversation w/ family (left message for on answering machine), physical exam, chart review, lab review, review of studies (colonoscopy), conversation w/ senior business consultant (GI, heme/onc), review of inpatient medication list Pain: minimal LLQ PO Intake: tolerated regular food after her c-scope Voiding: no voiding problems overall feeling better no further bleeding per rectum minimal abd pain no bleeding after her colonoscopy anxious for d/c home Problem List Medical Problems: (1) Abdominal pain Status: Acute (2) Constipation Status: Acute Review of Systems Constitutional: No fever Respiratory: No shortness of breath Cardiac: No chest pain Abdomen: No nausea, No vomiting Objective Vital Signs Date Time Temp Pulse Resp B/P (MAP) Pulse Ox O2 Delivery O2 Flow Rate FiO2 01/23/18 20:10 37.2 77 20 125/70 (88) 97 Room Air 01/23/18 20:00 Room Air 01/23/18 16:00 Room Air 01/23/18 14:52 36.8 82 20 120/71 (87) 97 Room Air 01/23/18 13:32 98 16 157/76 (103) 94 Room Air 01/23/18 13:00 75 18 136/73 (94) 97 Room Air 01/23/18 12:45 76 18 121/64 (83) 96 Room Air 01/23/18 12:33 78 16 123/62 (82) 97 Room Air 01/23/18 11:57 37 79 18 146/72 (96) 96 Room Air 01/23/18 11:28 36.9 78 16 152/76 (101) 97 Room Air 01/23/18 07:47 Room Air 01/23/18 07:42 36.9 81 18 145/74 (97) 95 Room Air 01/23/18 04:15 36.8 83 20 115/65 (82) 90 Room Air 01/23/18 00:15 Room Air 01/23/18 00:14 37.0 76 20 139/67 (91) 98 Room Air Physical Exam General Appearance: no apparent distress ENT: pharynx normal Neck: no JVD Respiratory/Chest: lungs clear, no respiratory distress, no accessory muscle use Cardiovascular: regular rate, rhythm, no gallop, no murmur Abdomen: normal bowel sounds, soft, no organomegaly, + tenderness (mild - LLQ) Extremities: no pedal edema Neurologic/Psychiatric: alert, oriented x 3 Laboratory Results Last 24 Hours Test 01/23/18 05:31 White Blood Count 2.94 K/uL Red Blood Count 2.93 M/uL Hemoglobin 9.6 g/dL Hematocrit 28.2 % Mean Corpuscular Volume 96.2 fL Mean Corpuscular Hemoglobin 32.8 pg Mean Corpuscular Hemoglobin Concent 34.0 g/dl RDW Standard Deviation 44.4 fL RDW Coefficient of Variation 13.0 % Platelet Count 26 K/uL Mean Platelet Volume 8.9 fL Prothrombin Time 11.2 SECONDS Prothromb Time International Ratio 1.1 Sodium Level 141 mmol/L Potassium Level 3.8 mmol/L Chloride Level 108 mmol/L Carbon Dioxide Level 30 mmol/L Anion Gap 3.0 mmol/L Blood Urea Nitrogen 6 mg/dl Creatinine 0.59 mg/dl Est Creatinine Clear Calc Drug Dose 83.0 ml/min Estimated GFR () 107.6 Estimated GFR (Non- 92.9 BUN/Creatinine Ratio 10.1 Random Glucose 122 mg/dl Calcium Level 9.6 mg/dl Magnesium Level 2.0 mg/dl Vitamin B12 Level 364 pg/mL Folate 13.47 ng/mL Assessment and Plan 72yo female - 1. LLQ abd pain at admission with sigmoid colitis on CT scan - s/p colonoscopy today with no gross colitis on the endoscopy. One area of erythema at the colo-rectal anastomosis only. This area was biopsied. She also had an ulcerated area that was felt to be from trauma after her enema in the ER at time of presentation. Stool cx and c. diff negative. No evidence of ischemia on colonoscopy either. At this time GI recommends the following - * 7 days of oral cipro/flagyl at d/c * anusol suppos x 5-7 days - to be used once a day - for the rectal ulceration * ok to advance to regular diet Will watch her overnight to ensure no recurrent bleeding. 2. LLQ pain - 2nd to above. Resolving. 3. chronic pain syndrome 2nd to stage 4 ovarian ca - cont fentanyl patch 25 + 12 mcg q72hr per home dosing. 4. severe thrombocytopenia - s/p 1 unit of apheresed platelets this admission. Repeat CBC in am. Thought to be due to recent chemo for her ovarian ca. Peripheral smear review completed; no features of TTP seen. B12 level low-normal - will supplement and recommend such at d/c. Folate wnl. 5. hypokalemia - resolved. 6. FEN - stop fluids; BMP in am; diet per GI. 7. DVT proph - chemical means contraindicated 2nd to low platelets; SCDs in meantime. 8. stage 4 ovarian cancer - noted. Chemo on hold due to low platelets. 9. HTN - acceptable BPs at this time. 10. antineoplastic/chemotherapy induced pancytopenia - CBC in am. 11. rectal polyps - removed during colonoscopy today. left message for 01/23 likely d/c on 01/24 Continued [facility] stay due to: multiple IV medications needed Discharge planning: home
[2018-01-24 04:36] VITALS: BP 111/64; PULSE 79; TEMP 36.8; O2SAT 92
[2018-01-24 07:01] VITALS: Ht 162.6 cm; Wt 63.3 kg
[2018-01-24 07:02] LABS: HEMATOCRIT 27.5 % (37-47); HEMOGLOBIN 9.5 g/dL (12.0-16.0); MEAN CELL VOLUME 96.5 fL (80-100); MEAN CORPUSCULAR HEMOGLOBIN 33.3 pg (25-34); MEAN CORPUSCULAR HGB CONC 34.5 g/dl (32-36); PLATELET COUNT 26 K/uL (130-400); RED CELL DISTRIBUTION WIDTH CV 13.2 % (11.5-14.5); WHITE BLOOD COUNT 2.78 K/uL (4.8-10.8)
[2018-01-24 07:09] LABS: CALCIUM 9.7 mg/dl (8.5-10.1); CREATININE 0.67 mg/dl (0.60-1.20); POTASSIUM 3.6 mmol/L (3.5-5.1)
[2018-01-24] MEDS ORDERED: CYANOCOBALAMIN 500 MCG TAB (VIT B-12) PO SCH (08:00)
[2018-01-24] MEDS ORDERED: HYDROCORTISONE ACETATE 25 MG SUPP PR SCH (08:00)
[2018-01-24] MEDS: METRONIDAZOLE / NSS 500 MG in PREMIXED NSS 100 ML IV SCH (08:10)
[2018-01-24] MEDS: LISINOPRIL 10 MG TAB PO SCH (08:11)
[2018-01-24] MEDS: ESCITALOPRAM OXALATE 10 MG TAB PO SCH (08:11)
[2018-01-24] MEDS: PANTOprazole SOD 40 MG TAB PO SCH (08:11)
[2018-01-24] MEDS: OXYCODONE HCL IR 5 MG TAB (IMMEDIATE RELEASE) PO PRN (08:14)
[2018-01-24] MEDS: CHECK FENTANYL PATCH PLACEMENT SCH ×2 (08:16)
[2018-01-24 08:18] VITALS: BP 130/78; PULSE 79; TEMP 36.5; O2SAT 95
[2018-01-24] MEDS ORDERED: FENTANYL PATCH REMOVE & WASTE SCH ×2 (08:59)
[2018-01-24] MEDS ORDERED: FENTANYL 25 MCG/HR TDSY TD SCH (09:00)
[2018-01-24] MEDS ORDERED: FENTANYL 12 MCG/HR TDSY TD SCH (09:00)
[2018-01-24] MEDS: CIPROFLOXACIN / D5W 400 MG in PREMIXED IN D5W 200 ML IV SCH (09:39)
[2018-01-24 10:11] VITALS: O2SAT 95
[2018-01-24] MEDS ORDERED: MTR500 PO (11:49)
[2018-01-24] MEDS ORDERED: ANSHCS PR (11:49)
[2018-01-24] MEDS ORDERED: LACT1TAB4 PO (11:49)
[2018-01-24] MEDS ORDERED: CPR500 PO (11:49)
[2018-01-24] MEDS ORDERED: VTMB12 PO (11:49)
[2018-01-24] MEDS ORDERED: MRLP17X PEG (11:56)
[2018-01-24 11:58] VITALS: BP 131/75; PULSE 78; TEMP 36.9; O2SAT 96
--- NOTE | 2018-01-24 12:10 | Discharge Summary ---
Discharge Summary Date of Service Jan 24, 2018. Discharge Summary Admission Date: Jan 21, 2018 at 23:34 Discharge Date: Jan 24, 2018 Discharge Disposition: Home Principal Diagnosis: Rectum ulcer Problems/Secondary Diagnoses: LLQ abdominal pain w/ sigmoid colitis on CT scan superficial linear ulcer in the rectum, possibly from the enema/s Rectal polyps Nausea Stage 4 ovarian cancer Chronic pain syndrome secondary to stage 4 ovarian cancer Thrombocytopenia, likely secondary to chemotherapy Antineoplastic/chemotherapy induced pancytopenia HTN Depression anxiety insomnia B12 level low/normal Hypokalemia GERD Immunizations: Have You Had Influenza Vaccine: Unknown History of Tetanus Vaccine?: Unknown History of Pneumococcal: Unknown History of Hepatitis B Vaccine: Unknown Procedures: Colonoscopy: Impression: - Preparation of the colon was fair. - The examined portion of the ileum was normal. - Patent end-to-side colo-colonic anastomosis in the rectum, characterized by erythema, inflammation and an intact staple line. Biopsied. - Patent end-to-end colo-colonic anastomosis in the transverse, characterized by healthy appearing mucosa and an intact staple line. - Two 4 mm polyps in the rectum, removed with a cold biopsy forceps. Resected and retrieved. - Superficial mucosal tear in the rectum, possibly related to trauma from prior enema or disimpaction. - Non-bleeding internal hemorrhoids. Recommendation: - Return patient to [facility] for ongoing care. - Use hydrocortisone suppository 25 mg 1 per rectum once a day for 1 week. - Repeat colonoscopy in 1 year for surveillance due to inadequate prep. Guillermina Cheng MD 01/23/2018 12:43:50 PM This report has been signed electronically. Note Initiated On: 01/23/2018 12:03 PM I attest to the content of the Intraoperative Record and orders documented therein, exceptions below Dictated: 01/23/18 1203 ABD/PELVIS IV AND ORAL CONT CLINICAL HISTORY: 72 years-old Female presenting with Pt c/o diffuse abd pain, nausea, history of ovarian cancer. TECHNIQUE: Multidetector CT of the abdomen and pelvis was performed after the administration of oral and intravenous contrast. IV contrast: 117 mL of Optiray 320. A dose lowering technique was used consistent with the principles of ALARA (as low as reasonably achievable). COMPARISON: 11/27/2017. CT DOSE (mGy.cm): The estimated cumulative dose is 332.06 mGy.cm. FINDINGS: [employer] topogram: Unremarkable. Lung bases: Minimal basilar opacities, likely atelectasis. Normal heart size. No pericardial or pleural effusion. Liver: Normal morphology. No liver lesion. Patent hepatic vasculature. Biliary: Mild biliary ductal prominence likely a reservoir effect in the post cholecystectomy state. Gallbladder surgically absent. Pancreas: Moderate parenchymal atrophy. Spleen: Normal. Adrenal glands: Normal. Kidneys and ureters: Normal. No hydronephrosis. Bladder: Normal. The morphology of the bladder suggests ligamentous laxity. Pelvic organs: Uterus surgically absent. Ovaries not visualized, likely surgically absent. Bowel: Postsurgical changes of a colocolonic anastomosis in the upper rectum, a second colocolonic anastomosis at the level of the splenic flexure, and a enteroenteric anastomosis in the left hemipelvis. These anastomoses appear widely patent. However, the colon proximal to the upper rectal anastomosis contains fluid and is mildly distended. Mild wall thickening of the residual sigmoid colon, which demonstrates mild pericolonic fat stranding. No convincing evidence of obstruction. Small bowel is nondilated. Moderate hiatal hernia. Peritoneal cavity: No free fluid or intraperitoneal gas. Lymph nodes: The historically pathologic gastrohepatic lymph node remains subcentimeter in the short axis, now measuring 6 mm (series 3 image 95). No new sites of lymphadenopathy. Vasculature: Atherosclerosis of the normal caliber abdominal aorta. IVC patent. Abdominal wall: Post surgical changes of the infraumbilical ventral abdomen. Musculoskeletal: Degenerative changes of the spine. Pars defects of L5. No destructive osseous lesion. IMPRESSION: 1. Fluid in the colon suggests a diarrheal state. Wall thickening and pericolonic inflammatory change of the residual sigmoid colon further evidence of colitis, most likely infectious. 2. No evidence of recurrent or metastatic disease in abdomen or pelvis. No lymphadenopathy. 3. Post surgical changes of hysterectomy and bilateral salpingo-oophorectomy. Electronically signed by: Maurice Quijano M.D. 01/21/2018 5:54 PM Dictated Date/Time: 01/21/2018 5:45 PM The status of this report is Signed. Draft = Not yet reviewed or approved by Radiologist. Signed = Reviewed and approved by Radiologist. Consultations: Hematology/oncology GI Medication Reconciliation New Medications: Lactobacillus (Floranex) 1 Tab Tab 1 TAB PO TID for 7 Days, #21 TAB Polyethylene (Miralax) 17 Gm Pow 17 GM PEG DAILY for 30 Days Ciprofloxacin (Ciprofloxacin HCl) 500 Mg Tab 500 MG PO BID for 5 Days, #10 TAB Cyanocobalamin (Vitamin B-12) 500 Mcg Tab 1000 MCG PO QAM for 30 Days, #30 TAB Hydrocortisone Acetate (Anucort-Hc) 25 Mg Supp 25 MG PA DAILY for 5 Days, #5 SUPP Metronidazole (Metronidazole) 500 Mg Tab 500 MG PO Q8 for 5 Days, #15 TAB Continued Medications: Docusate Sodium (Colace) 100 Mg Cap 1 CAP PO BID for 30 Days, #60 CAP Escitalopram (Lexapro) 10 Mg Tab 10 MG PO DAILY Fentanyl (Duragesic) 25 Mcg/Hr Dis 25 MCG TOP CQ72HR TOTAL 37 MCG Fentanyl (Fentanyl) 12 Mcg Tdsy 12 MCG TOP CQ72HR TOTAL 37 MCG Lisinopril (Zestril) 10 Mg Tab 10 MG PO DAILY Lorazepam (Ativan) 1 Mg Tab 1 MG PO DAILY PRN for Anxiety Omeprazole (Omeprazole) 20 Mg Tab 20 MG PO DAILY Sennosides (Senokot) 8.6 Mg Tab 8.6 MG PO HS for 30 Days, #30 TAB Zolpidem Tartrate (Zolpidem Tartrate) 10 Mg Tab 10 MG PO HS PRN for Sleep Referrals At Discharge Follow up Referrals: Family Practice Referral - Within 1 Week with Edvin Laura M.D. Oncology/Hematology Referral - Within 1 Week with Vineet Kam D.O. Discharge Exam Having nausea/vomiting on/off. Eating and drinking OK. Started w/ oral chemotherapy. Now off since 01/19 due to thrombocytopenia. Seems to be slowly improving. Has PRN Zofran at home. Does not think she needs to stay in hospital as on/ off, improving, and tolerating meals/fluids. Review of Systems: Constitutional: No fever, No chills, No sweats, No weakness, No fatigue Eyes: No worsening of vision ENT: No hearing loss Respiratory: No cough, No shortness of breath, No hemoptysis Cardiovascular: No chest pain, No edema, No palpitations Abdomen: + nausea, + vomiting, No pain, No diarrhea, No constipation, No GI bleeding Musculoskeletal: No joint pain, No muscle pain, No swelling, No calf pain Genitourinary - Female: No dysuria, No hematuria Neurologic: No weakness, No numbness/tingling Psychiatric: No depression symptoms, No anxiety Endocrine: No fatigue Hematologic / Lymphatic: No abnormal bleeding/bruising Integumentary: No rash, No itch, No new/changing skin lesions Physical Exam: General Appearance: no apparent distress Eyes: normal inspection, PERRL ENT: hearing grossly normal Neck: supple Respiratory/Chest: lungs clear, no respiratory distress, no accessory muscle use Cardiovascular: regular rate, rhythm Abdomen / GI: normal bowel sounds, non tender, soft Extremities: no calf tenderness, no pedal edema Neurologic/Psychiatric: alert, normal mood/affect, oriented x 3 Skin: normal color, warm/dry, no rash Hospital Course 72F with a PMHx of Ovarian CA p/w intermittent vomiting starting today. Per patient she was recently told to stop her chemotherapy agent due to a low platelet count. In the ER the patient was disimpacted for abdominal pain in the LLQ and constipation. After disimpaction the patient started having loose bloody stools. Aside from some residual abdominal pain and boughts of nausea the patient feels otherwise fine. Pt denies fevers, denies chills, denies any type of rash or other systemic complaint. According to patient she goes to [place] and sees Dr. Ruvalcaba in the cancer center but has also seen Dr. Kam in the past. LLQ abdominal pain w/ sigmoid colitis on CT scan: - Admitted to med/surg - Stool culture and c.diff negative - Probiotics while on abx therapy - GI consulted, appreciate recommendations: -- s/p colonoscopy on 01/23 w/ a superficial linear ulcer in the rectum, possibly from the enema/s. Colon mucosa otherwise normal (no endoscopic evidence of colitis). Rectal polyps biopsied- pending -- Continue Cipro/Flagyl x7 days- last day of treatment 01/28 -- Hydrocortisone suppository rectally QHS x1 week -- MiraLAX daily Stage 4 ovarian cancer: - Chemotherapy on hold due to thrombocytopenia - Continue outpatient f/u w/ Oncology Chronic pain syndrome secondary to stage 4 ovarian cancer: Continue Fentanyl patch 25 + 12 mcg q72hr per home dosing Thrombocytopenia, likely secondary to chemotherapy- s/p 1 unit of platelets on : - Follow CBC- STABLE- 26,000 at discharge - Hematology/oncology following- will f/u in 1 week w/ repeat CBC Antineoplastic/chemotherapy induced pancytopenia- STABLE: Follow CBC HTN: Continue Lisinopril Depression, anxiety, insomnia: Continue Lexapro and Ativan, Ambien B12 level low/normal: Started daily b12 supplement Hypokalemia- RESOLVED: Replaced w/ KCL supplement GERD: Protonix daily- resume Prilosec at discharge DVT prophylaxis: SCDs; chemical anticoagulation held due to thrombocytopenia Code status: LEVEL I, FULL Dispo: Discharge to home Total Time Spent: Greater than 30 minutes This includes examination of the patient, discharge planning, medication reconciliation, and communication with other providers. Discharge Instructions Please refer to the electronic Patient Visit Report (Discharge Instructions) for additional information. Follow-Up Please follow-up with your PCP within 5-7 days Please follow-up with Hematology/oncology within 1 week Please follow-up/keep all of your subspecialty appointments Additional Copies To Edvin Laura M.D. Reviewed: Pt Seen/Exam by Me History Physician Rubber Off Supervision Note: I interviewed and examined the patient. Discussed with EVELIN Esquivel and agree with findings and plan as documented in the note. Any exceptions or clarifications are listed here: Patient feeling better today. Does have intermittent nausea that is worse last 2 weeks since starting her new chemotherapy. Ate lunch and kept it down today. Has chronic abdominal pain, but the acute abdominal pain has subsided since admission. No further rectal bleeding since her colonoscopy with biopsies. Rectal bleeding may have been from trauma from disimpaction and enemas. Platelets are stable today and is status post 1 unit platelets this admission. Discussed the case with oncology who is in agreement with patient being discharged home. She will have close follow-up with oncology. Rectal polyp biopsies are pending at the time of discharge and should be followed up with GI as scheduled within 1-2 weeks. She is anxious for discharge. Denies shortness of breath or chest pain. She will go home to finish out a course of Cipro and Flagyl orally, as well as Anusol suppositories for a total of 1 week. Vitals reviewed Gen: AAOx3, NAD HEENT: anicteric sclerae, EOMI CV: RRR no mgr nl S1S2 Pulm: CTAB no wcr Abd: +BS soft, mild tenderness to palpation without guarding or rebound tenderness, ND no masses or hernias Ext: no edema, 2+ DP pulses Skin: no rashes, warm/dry Neuro: full strength throughout Documented By: Dominga Ferrera
--- NOTE | 2018-01-24 12:14 | Discharge Instructions ---
Discharge Instructions Date of Service Jan 24, 2018. Admission Reason for Admission: Colitis, Ovarian Cancer, Thrombocytopenia Discharge Discharge Diagnosis / Problem: Rectum ulcer, ovarian cancer, thromboctyopenia Discharge Goals Goal(s): Decrease discomfort, Improve function, Increase independence, Improve disease control, Improve nutritional status, Learn about illness, Diagnostic testing, Therapeutic intervention, Prevent Disease Progression Activity Recommendations Activity Limitations: resume your previous activity . Instructions / Follow-Up Instructions / Follow-Up Abdominal pain/rectum ulcer: Continue Ciprofloxacin twice daily and Flagyl three times a day until prescription is completed Probiotic three times a day while on antibiotic therapy Hydrocortisone suppository rectally daily until prescription is completed GI recommends MiraLAX daily to prevent constipation Biopsy from colonoscopy are still pending at this time. Follow-up with PCP/ Oncology for results. Your B12 level was low/normal- you were started on a daily b12 supplement Resume all other regular home medications as prescribed. FOLLOW-UPS: Please follow-up with your PCP within 5-7 days Please follow-up with Hematology/Oncology within 1 week Please follow-up/keep all of your subspecialty appointments Current Hospital Diet Patient's current hospital diet: Regular Diet Discharge Diet Recommended Diet: Regular Diet Procedures Procedures Performed: COLONOSCOPY WITH POLYPECTOMIES AND BX Pending Studies Studies pending at discharge: yes List of pending studies: Colonoscopy biopsy Medical Emergencies . Who to Call and When: Medical Emergencies: If at any time you feel your situation is an emergency, please call 911 immediately. . Non-Emergent Contact Non-Emergency issues call your: Primary Care Provider, Specialist Call Non-Emergent contact if: you have a fever, your pain is not controlled, your pain is worsening, your pain is unusual for you, your pain is concerning you, you have any medication questions . . "Provider Documentation" section prepared by Britany Esquivel. .
[2018-01-24 13:45] VITALS: BP 131/75; PULSE 78; TEMP 36.9; O2SAT 96
[2018-01-24] MEDS ORDERED: METRONIDAZOLE 500 MG TAB PO SCH (14:00)
[2018-01-24] MEDS ORDERED: CIPROFLOXACIN 500 MG TAB PO SCH (20:00)
[2018-01-25] MEDS ORDERED: FENTANYL PATCH REMOVE & WASTE SCH ×2 (08:45→08:59)
== END 2018-01-24 14:39 | disposition home or self-care (01) | DRG 391 ==
LOC: C.EDB 14:18 → C.4E 23:34 → ENRESERV 23:42 → C.4E 01-22 06:05
PROVIDERS: ADMIT Family Medicine; ATTEND Family Medicine
PROC: 0DBP8ZX Excision of Rectum, Via Natural or Artificial Opening Endoscopic, Diagnostic (ICD-10-PCS; principal; 2018-01-23 11:35)
DX: K52.9 Noninfective gastroenteritis and colitis, unspecified (principal); D61.810 Antineoplastic chemotherapy induced pancytopenia; C56.1 Malignant neoplasm of right ovary; C78.7 Secondary malignant neoplasm of liver and intrahepatic bile duct; S36.63XA Laceration of rectum, initial encounter; Y84.8 Other medical procedures as the cause of abnormal reaction of the patient, or of later complication, without mention of misadventure at the time of the procedure; D69.59 Other secondary thrombocytopenia; T45.1X5A Adverse effect of antineoplastic and immunosuppressive drugs, initial encounter; K62.1 Rectal polyp; K64.8 Other hemorrhoids; E53.8 Deficiency of other specified B group vitamins; E87.6 Hypokalemia; G89.3 Neoplasm related pain (acute) (chronic); I10 Essential (primary) hypertension; F32.9 Major depressive disorder, single episode, unspecified; F41.9 Anxiety disorder, unspecified; G47.00 Insomnia, unspecified; K21.9 Gastro-esophageal reflux disease without esophagitis; Y92.230 Patient room in hospital as the place of occurrence of the external cause; Z90.722 Acquired absence of ovaries, bilateral; Z90.710 Acquired absence of both cervix and uterus; Z90.79 Acquired absence of other genital organ(s); Z85.3 Personal history of malignant neoplasm of breast; Z90.13 Acquired absence of bilateral breasts and nipples; Z87.19 Personal history of other diseases of the digestive system; Z98.0 Intestinal bypass and anastomosis status; Z90.49 Acquired absence of other specified parts of digestive tract; Z87.891 Personal history of nicotine dependence; Z79.899 Other long term (current) drug therapy; Z88.2 Allergy status to sulfonamides; Z80.41 Family history of malignant neoplasm of ovary; Z80.1 Family history of malignant neoplasm of trachea, bronchus and lung

== ENCOUNTER 2018-01-31 21:24 | Emergency (ER) | payer OTHER, MEDICARE ==
[~2018-01-31] VITALS: Ht 167.6 cm; Wt 63.2 kg
[~2018-01-31 21:24] MED LIST changes: +ANSHCS PR; +ATV/1 PO; -ATV1HP PO; +CPR500 PO; +DOCU-94 PO; +DRGTP12 TOP; -EFFSR75 PO; +ESCI10TA17 PO; +FENT25DI10 TOP; -FRRG PO; -FRRS300 PO; +LACT1TAB4 PO; +LISI-461 PO; +MRLP17X PEG; +MTR500 PO; +OMEP20TA PO; +SENN1TAB77 PO; +VTMB12 PO
[2018-01-31 21:30] VITALS: Ht 167.6 cm; Wt 63.2 kg
[2018-01-31] MEDS ORDERED: ONDANSETRON INJ 2 MG/ML 2 ML VIAL IV STA (21:55)
[2018-01-31] MEDS ORDERED: SODIUM CHLORIDE 0.9% 1000ML 1,000 ML IV STA (21:55)
[2018-01-31] MEDS ORDERED: ACETAMINOPHEN IV 100 ML IV STA (21:55)
[2018-01-31] MEDS ORDERED: VANCOMYCIN IV STA (21:55)
[2018-01-31] MEDS ORDERED: PIPERACILLIN/TAZOBACTAM 4.5 GM/100ML D5W IV STA (21:55)
[2018-01-31] MEDS ORDERED: SODIUM CHLORIDE 0.9% IV STA (21:55)
--- NOTE | 2018-01-31 21:56 | EMERGENCY ROOM VISIT NOTE ---
History Report prepared by Harsha: Emily Rodriguez Under the Supervision of: Dr. Vamsi Andujar M.D. First contact with patient: 21:42 Chief Complaint: FEVER Stated Complaint: FEVER, ACHES, NAUSEA History of Present Illness The patient is a 72 year old female who presents to the Emergency Room with complaints of a sudden fever beginning this afternoon. She reports that she has been febrile at 101.4. The patient reports that she has been having bad symptoms from a chemo drug that she has been taking. The patient states that she has ovarian cancer but that it has been metastasizing. She states that last week she was admitted for 3 days because she had a platelet transfusion. She states that she has been nauseous the last couple of weeks, and that she has also had a cough and body aches. The patient states that she has been vomiting at least once per day since she started the chemo drug. Per , the patient has not been breathing well and he reports that she was admitted in [place] for 13 days last year due to fluid in her chest. Source of History: patient, spouse/significant other Onset: this afternoon Position: other (global) Quality: other (fever) Timing: other (sudden ) Associated Symptoms: + cough, + nausea, + vomiting Note: additional symptoms: body aches, trouble breathing Review of Systems See HPI for pertinent positives and negatives. A total of ten systems were reviewed and were otherwise negative. Past Medical & Surgical Medical Problems: (1) Bowel obstruction (2) Colitis (3) Hx antineoplastic chemotherapy (4) Ovarian cancer (5) Thrombocytopenia Family History No pertinent family history Social History Smoking Status: Never Smoker Alcohol Use: none Drug Use: none Marital Status: Housing Status: lives with family Occupation Status: retired Current/Historical Medications Scheduled Ciprofloxacin (Ciprofloxacin HCl), 500 MG PO BID Cyanocobalamin (Vitamin B-12), 1,000 MCG PO QAM Docusate Sodium (Colace), 1 CAP PO BID Escitalopram (Lexapro), 10 MG PO DAILY Fentanyl (Duragesic), 25 MCG TOP CQ72HR Fentanyl (Fentanyl), 12 MCG TOP CQ72HR Lactobacillus (Floranex), 1 TAB PO TID Lisinopril (Zestril), 10 MG PO DAILY Omeprazole (Omeprazole), 20 MG PO DAILY Polyethylene (Miralax), 17 GM PEG DAILY Sennosides (Senokot), 8.6 MG PO HS Scheduled PRN Lorazepam (Ativan), 1 MG PO DAILY PRN for Anxiety Zolpidem Tartrate (Zolpidem Tartrate), 10 MG PO HS PRN for Sleep Allergies Coded Allergies: Sulfa Antibiotics (Verified Allergy, Mild, NAUSEA; AFFECTS BLOOD, 02/10/15) Physical Exam Vital Signs Date Time Temp Pulse Resp B/P (MAP) Pulse Ox O2 Delivery O2 Flow Rate FiO2 02/01/18 00:56 89 13 120/67 94 02/01/18 00:43 37.4 89 13 120/67 94 Room Air 01/31/18 23:03 92 12 135/70 95 Room Air 01/31/18 22:47 96 01/31/18 21:30 38.4 85 18 144/75 98 Room Air Physical Exam GENERAL: Awake, alert, [id number], in no distress HENT: Normocephalic, atraumatic. Dry mucous membranes, otherwise oropharynx unremarkable. EYES: Normal conjunctiva. Sclera non-icteric. NECK: Supple. No nuchal rigidity. FROM. No JVD. RESPIRATORY: Clear to auscultation. CARDIAC: Regular rate, normal rhythm. Extremities warm and well perfused. Pulses equal. ABDOMEN: Soft, non-distended. No tenderness to palpation. No rebound or guarding. No masses. RECTAL: Deferred. MUSCULOSKELETAL: Chest examination reveals no tenderness. The back is symmetrical on inspection without obvious abnormality. There is no CVA tenderness to palpation. No joint edema. LOWER EXTREMITIES: Calves are equal size bilaterally and non-tender. No edema. No discoloration. NEURO: Normal sensorium. No sensory or motor deficits noted. SKIN: No rash or jaundice noted. Medical Decision & Procedures ER Provider Diagnostic Interpretation: Radiology results as stated below per my review and radiologist interpretation: SINGLE VIEW CHEST CLINICAL HISTORY: Fever. Sepsis. FINDINGS: 2 AP, portable, upright chest radiographs are correlated with chest CT dated 11/27/2017. A left subclavian central venous infusion port is unchanged in position. The heart is top normal for projection and there is mild atherosclerotic calcification of the thoracic aorta. The pulmonary vasculature is noncongested. A hiatal hernia is noted. No airspace consolidation or pleural effusion is identified. There is mild elevation of the right hemidiaphragm. Scattered calcified granulomas are noted. No pneumothorax is seen. The skeletal structures are osteopenic. There are healed left-sided rib fractures. IMPRESSION: No acute cardiopulmonary abnormality. Electronically signed by: Emil Murillo M.D. 01/31/2018 10:30 PM Dictated Date/Time: 01/31/2018 10:28 PM Laboratory Results 01/31/18 22:05 Red Blood Count 3.09, Mean Corpuscular Volume 98.7, Mean Corpuscular Hemoglobin 33.3, Mean Corpuscular Hemoglobin Concent 33.8, Mean Platelet Volume 9.7, Neutrophils (%) (Auto) 64.8, Lymphocytes (%) (Auto) 14.8, Monocytes (%) (Auto) 19.3, Eosinophils (%) (Auto) 0.7, Basophils (%) (Auto) 0.4, Neutrophils # (Auto ) 1.75, Lymphocytes # (Auto) 0.40, Monocytes # (Auto) 0.52, Eosinophils # (Auto ) 0.02, Basophils # (Auto) 0.01 01/31/18 22:05 Test 01/31/18 22:05 01/31/18 22:30 01/31/18 23:10 White Blood Count 2.70 K/uL (4.8-10.8) Red Blood Count 3.09 M/uL (4.2-5.4) Hemoglobin 10.3 g/dL (12.0-16.0) Hematocrit 30.5 % (37-47) Mean Corpuscular Volume 98.7 fL (80-100) Mean Corpuscular Hemoglobin 33.3 pg (25-34) Mean Corpuscular Hemoglobin Concent 33.8 g/dl (32-36) Platelet Count 94 K/uL (130-400) Mean Platelet Volume 9.7 fL (7.4-10.4) Neutrophils (%) (Auto) 64.8 % Lymphocytes (%) (Auto) 14.8 % Monocytes (%) (Auto) 19.3 % Eosinophils (%) (Auto) 0.7 % Basophils (%) (Auto) 0.4 % Neutrophils # (Auto) 1.75 K/uL (1.4-6.5) Lymphocytes # (Auto) 0.40 K/uL (1.2-3.4) Monocytes # (Auto) 0.52 K/uL (0.11-0.59) Eosinophils # (Auto) 0.02 K/uL (0-0.5) Basophils # (Auto) 0.01 K/uL (0-0.2) RDW Standard Deviation 53.9 fL (36.4-46.3) RDW Coefficient of Variation 15.2 % (11.5-14.5) Immature Granulocyte % (Auto) 0.0 % Immature Granulocyte # (Auto) 0.00 K/uL (0.00-0.02) Platelet Estimate DECREASED Prothrombin Time 10.4 SECONDS (9.0-12.0) Prothromb Time International Ratio 1.0 (0.9-1.1) Anion Gap 6.0 mmol/L (3-11) Est Creatinine Clear Calc Drug Dose 70.0 ml/min Estimated GFR () 101.7 Estimated GFR (Non- 87.8 BUN/Creatinine Ratio 14.6 (10-20) Lactic Acid Level 0.8 mmol/L (0.4-2.0) Calcium Level 9.7 mg/dl (8.5-10.1) Total Bilirubin 0.3 mg/dl (0.2-1) Direct Bilirubin < 0.1 mg/dl (0-0.2) Aspartate Amino Transf (AST/SGOT) 25 U/L (15-37) Alanine Aminotransferase (ALT/SGPT) 24 U/L (12-78) Alkaline Phosphatase 94 U/L (45-117) Total Protein 6.6 gm/dl (6.4-8.2) Albumin 3.9 gm/dl (3.4-5.0) Lipase 89 U/L (73-393) Urine Color YELLOW Urine Appearance CLEAR (CLEAR) Urine pH 7.5 (4.5-7.5) Urine Specific [place] 1.011 (1.000-1.030) Urine Protein NEG (NEG) Urine Glucose (UA) NEG (NEG) Urine Ketones NEG (NEG) Urine Occult Blood NEG (NEG) Urine Nitrite NEG (NEG) Urine Bilirubin NEG (NEG) Urine Urobilinogen NEG (NEG) Urine Leukocyte Esterase NEG (NEG) Urine WBC (Auto) 0 /hpf (0-5) Urine RBC (Auto) 0-4 /hpf (0-4) Urine Hyaline Casts (Auto) 0 /lpf (0-5) Urine Epithelial Cells (Auto) 10-20 /lpf (0-5) Urine Bacteria (Auto) NEG (NEG) Influenza Type A (RT-PCR) Neg for Influ A (NEG) Influenza Type B (RT-PCR) Neg for Influ B (NEG) Laboratory results reviewed by me Medications Administered Medications (Trade) Dose Ordered Sig/Janee Route Start Time Stop Time Status Last Admin Dose Admin Sodium Chloride 1,000 ml @ 999 mls/hr Q1H1M STAT IV 01/31/18 21:55 01/31/18 22:55 DC 01/31/18 22:24 999 MLS/HR Ondansetron HCl (Zofran Inj) 4 mg NOW STAT IV 01/31/18 21:55 01/31/18 22:00 DC 01/31/18 22:23 4 MG Famotidine (Pepcid Tab) 20 mg NOW ONCE PO 01/31/18 22:00 01/31/18 22:01 DC 01/31/18 22:23 20 MG Piperacillin Sod/ Tazobactam Sod (Zosyn Iv) 4.5 gm NOW STAT IV 01/31/18 21:55 01/31/18 22:00 DC 01/31/18 22:47 4.5 GM Acetaminophen 100 ml @ 400 mls/hr NOW STAT IV 01/31/18 21:55 01/31/18 22:09 DC 01/31/18 22:26 400 MLS/HR Vancomycin HCl 1250 mg/Sodium Chloride 275 ml @ 125 mls/hr NOW STAT IV 01/31/18 23:08 02/01/18 01:17 DC 01/31/18 23:52 125 MLS/HR Heparin Sodium (Porcine) (Heparin 100 Unit/ml 5ml Flush) 5 ml STK-MED ONCE .ROUTE 02/01/18 00:58 02/01/18 00:59 DC 02/01/18 00:58 5 ML ECG Per My Interpretation Indication: nausea Rate (beats per minute): 98 Rhythm: sinus rhythm Findings: 1st degree AV block, no acute ischemic change, other (normal axis ) ED Course 8: The patient was evaluated in room C9. A complete history and physical exam was performed. 2321: I checked on the patient. 2333: I discussed the patient with Dr. Mederos. The patient will be evaluated for further management. Medical Decision I reviewed the patient's past medical history, medications, and the nursing notes as described above. The patient's presentation and history were concerning for pneumonia, bronchitis , UTI, colitis, biliary etiology, and sepsis. The patient is a 72-year-old woman with a past medical history of stage IV ovarian cancer resents emergency department with fever in the setting of a persistent of her recent chronic nausea and generalized weakness after being admitted to the hospital for a colitis per hpi. On arrival the patient is fatigued appearing but no acute distress, febrile to 38.4 vital signs otherwise stable. Given the patient's fever in the setting of possible risk for neutropenia blood culture and lactate sent and the patient was treated empirically with broad-spectrum antibiotics. WBC 2.7, ANC 1.75. Lactate within normal limits. Chemistry unremarkable. UA negative. Chest x-ray negative. Patient feeling improved after IV fluid hydration. Case was discussed with the patient's oncologist, Dr. Mederos, who agrees given no clear infectious source and the fact that the patient is not neutropenic we can defer any additional antibiotics at this time as the patient completed her ciprofloxacin. He does recommend obtaining a CT head to rule out any cerebral metastatic disease that could explain the patient's nausea vomiting and fever. This was done and negative. Sx possible related to viral illness/recovering colits. Patient continued to feel improved during her ED observation and was preferring discharge. Findings and plan for follow-up reviewed with patient. Patient agreeable and d/c'd per discharge instructions. Medication Reconcilliation Current Medication List: was personally reviewed by me Blood Pressure Screening Patient's blood pressure: Normal blood pressure Consults Time Called: [id number] Consulting Physician: Dr. Mederos-Oncology Returned Call: [phone] I discussed the patient with Dr. Mederos. The patient will be evaluated for further management. Impression Primary Impression: Fever Additional Impression: Nausea & vomiting Scribe Attestation The scribe's documentation has been prepared under my direction and personally reviewed by me in its entirety. I confirm that the note above accurately reflects all work, treatment, procedures, and medical decision making performed by me. Departure Information Dispostion Home / Self-Care Referrals No Doctor, Assigned (PCP) Hardik Mederos MD Patient Instructions ED Fever Unconf Cause, ED Nausea Vomiting, My [facility] Additional Instructions Please follow up with your oncologist, Dr. Mederos in the next 1-3 days for re-evaluation. The cause of your fever is unclear at this time but may be related to a viral illness. Otherwise, your exam, xray, CT scan of your brain, and lab results did not show signs of an emergent condition at this time. Acetaminophen for pain and fevers as needed. Zofran as needed for nausea. Drink plenty of fluids to ensure hydration. Return to the emergency department for worsening symptoms as described in the accompanying instructions. Problem Qualifiers
[2018-01-31] MEDS ORDERED: FAMOTIDINE 20 MG TAB PO ONE (22:00)
[2018-01-31] MEDS ORDERED: VANCOMYCIN CONSULT ACTIVE PRN (22:00)
[2018-01-31 22:24] LABS: HEMATOCRIT 30.5 % (37-47); HEMOGLOBIN 10.3 g/dL (12.0-16.0); MEAN CELL VOLUME 98.7 fL (80-100); MEAN CORPUSCULAR HEMOGLOBIN 33.3 pg (25-34); MEAN CORPUSCULAR HGB CONC 33.8 g/dl (32-36); RED CELL DISTRIBUTION WIDTH CV 15.2 % (11.5-14.5); RED CELL DISTRIBUTION WIDTH SD 53.9 fL (36.4-46.3)
--- NOTE | 2018-01-31 22:32 | DIAGNOSTIC IMAGING REPORT ---
SINGLE VIEW CHEST CLINICAL HISTORY: Fever. Sepsis. FINDINGS: 2 AP, portable, upright chest radiographs are correlated with chest CT dated 11/27/2017. A left subclavian central venous infusion port is unchanged in position. The heart is top normal for projection and there is mild atherosclerotic calcification of the thoracic aorta. The pulmonary vasculature is noncongested. A hiatal hernia is noted. No airspace consolidation or pleural effusion is identified. There is mild elevation of the right hemidiaphragm. Scattered calcified granulomas are noted. No pneumothorax is seen. The skeletal structures are osteopenic. There are healed left-sided rib fractures. IMPRESSION: No acute cardiopulmonary abnormality. Electronically signed by: Emil Murillo M.D. 01/31/2018 10:30 PM Dictated Date/Time: 01/31/2018 10:28 PM
[2018-01-31 22:36] LABS: ALBUMIN 3.9 gm/dl (3.4-5.0); ALT/SGPT 24 U/L (12-78); BLOOD UREA NITROGEN 10 mg/dl (7-18); CALCIUM 9.7 mg/dl (8.5-10.1); CARBON DIOXIDE 27 mmol/L (21-32); GLUCOSE 82 mg/dl (70-99); LIPASE 89 U/L (73-393); POTASSIUM 3.8 mmol/L (3.5-5.1); SODIUM 136 mmol/L (136-145)
[2018-01-31 22:39] LABS: ALKALINE PHOSPHATASE 94 U/L (45-117); AST/SGOT 25 U/L (15-37); TOTAL PROTEIN 6.6 gm/dl (6.4-8.2)
[2018-01-31 22:49] LABS: MEAN PLATELET VOLUME 9.7 fL (7.4-10.4); PLATELET COUNT 94 K/uL (130-400)
[2018-01-31 22:50] LABS: BASO % 0.4 %; BASO ABS # 0.01 K/uL (0-0.2); EOS % 0.7 %; EOS ABS # 0.02 K/uL (0-0.5); LYMPH % 14.8 %; MONO % 19.3 %; MONO ABS # 0.52 K/uL (0.11-0.59); NEUT % 64.8 %; NEUT ABS # 1.75 K/uL (1.4-6.5)
[2018-01-31] MEDS ORDERED: VANCOMYCIN IV 1,250 MG in SODIUM CHLORIDE 0.9% 250ML 250 ML IV STA (23:08)
[2018-02-01 00:06] LABS: INFLUENZA A PCR Neg for Influ A (NEG); INFLUENZA B PCR Neg for Influ B (NEG)
[2018-02-01 00:43] VITALS: TEMP 37.4
[2018-02-01 00:56] VITALS: BP 120/67; PULSE 89; O2SAT 94
--- NOTE | 2018-02-01 08:38 | DIAGNOSTIC IMAGING REPORT ---
CT OF THE HEAD WITHOUT CONTRAST CLINICAL HISTORY: Nausea and vomiting. Metastatic ovarian cancer. COMPARISON STUDY: No previous studies for comparison. CT DOSE: 537.48 mGy.cm TECHNIQUE: Helical axial images of the head were obtained without IV contrast. Automated exposure control was utilized for the study. A dose lowering technique was utilized adhering to the principles of ALARA. FINDINGS: No acute intracranial hemorrhage, midline shift or mass effect is present. Ventricular system is unremarkable. Basilar cisterns are patent. No extra-axial collections are present. There is bilateral basal ganglia calcification. No intracranial masses are identified on this unenhanced exam. There are no significant calvarial abnormalities. IMPRESSION: 1. No acute intracranial findings. 2. No evidence of metastatic disease on unenhanced head CT. Electronically signed by: Aníbal Porras M.D. 02/01/2018 6:44 AM Dictated Date/Time: 02/01/2018 6:42 AM
== END 2018-02-01 00:57 | disposition home or self-care (01) ==
LOC: C.EDB 21:25 → C.EDC 02-01 00:57
DX: R50.9 Fever, unspecified (principal); R11.2 Nausea with vomiting, unspecified; D49.59 Neoplasm of unspecified behavior of other genitourinary organ; Z88.2 Allergy status to sulfonamides

== ENCOUNTER 2018-02-05 10:43 | Inpatient (IN) | payer OTHER, MEDICARE ==
[~2018-02-05] VITALS: Ht 162.6 cm; Wt 63.4 kg
[~2018-02-05 10:43] MED LIST changes: -ANSHCS PR; -MTR500 PO
[2018-02-05 12:15] VITALS: BP 138/70; PULSE 75; TEMP 37.3; O2SAT 97; BMI 21.9
[2018-02-05] MEDS ORDERED: ALUMINUM/MAGNESIUM/SIMETH (MAALOX MAX) 30 ML UDC PO PRN (12:30)
[2018-02-05] MEDS ORDERED: LORAZEPAM 1 MG TAB PO PRN (12:30)
[2018-02-05] MEDS: ONDANSETRON INJ 2 MG/ML 2 ML VIAL IV PRN ×2 (13:50→20:36)
[2018-02-05 13:52] LABS: HEMOGLOBIN 10.7 g/dL (12.0-16.0); MEAN CELL VOLUME 99.4 fL (80-100); MEAN CORPUSCULAR HEMOGLOBIN 33.2 pg (25-34); MEAN CORPUSCULAR HGB CONC 33.4 g/dl (32-36); MEAN PLATELET VOLUME 10.3 fL (7.4-10.4); PLATELET COUNT 92 K/uL (130-400); RED CELL DISTRIBUTION WIDTH SD 54.2 fL (36.4-46.3); WHITE BLOOD COUNT 1.81 K/uL (4.8-10.8)
[2018-02-05 14:04] LABS: ALBUMIN 3.7 gm/dl (3.4-5.0); BLOOD UREA NITROGEN 11 mg/dl (7-18); CALCIUM 9.6 mg/dl (8.5-10.1); CARBON DIOXIDE 29 mmol/L (21-32); CREATININE 0.67 mg/dl (0.60-1.20); GLUCOSE 89 mg/dl (70-99); POTASSIUM 4.1 mmol/L (3.5-5.1); SODIUM 137 mmol/L (136-145)
[2018-02-05 14:08] LABS: ALKALINE PHOSPHATASE 72 U/L (45-117); ALT/SGPT 21 U/L (12-78); AST/SGOT 26 U/L (15-37); PHOSPHORUS 2.9 mg/dl (2.5-4.9); TOTAL PROTEIN 6.5 gm/dl (6.4-8.2)
--- NOTE | 2018-02-05 14:11 | History and Physical ---
History & Physical Date & Time of Service: Feb 05, 2018 at 13:11 Chief Complaint: Fever Of Unknown [place], Ovarian Cancer Primary Care Physician: Edvin Laura M.D. 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 She was initially diagnosed in May 2013 s/p debulking and adjuvant carboplatinum and Taxol for 7 cycles. She had recurrence in her breast in 2014 s/p double mastectomy. 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 She was given salvage carboplatinum and Doxil with good response. She follows with Dr. Zarco at [place] and sees Dr. Chamorro here. She was recently admitted 01/21-01/24/2018 with colitis. She had a colonoscopy during that admission which showed an intact anastamosis with healthy tissue, 2 rectal polyps that were biopsied, a superficial mucosal tear and nonbleeding internal hemorrhoids. Pathology showed hyperplastic polyp and was negative for malignancy. Patient presents today complaining of recurrent daily fevers for the last 2+ weeks. She states that her temperature is 101.5-101.6 q 4 hours. She has associated sweating, myalgias, malaise and mild headache during times of fever. She has brief relief with Tylenol but reports the fever returns shortly after. She has also been experiencing nausea an non-bloody non-bilious vomiting x 2 weeks that occurs after meals. She endorses a 10 pound unintentional weight loss over the last 3 weeks. Her appetite has been poor and she has had loss of taste. She has also had intermittent cough and sore throat over the last 2 weeks. She denies loss of vision or hearing, difficulty swallowing, CP/palpitations/SOB/cough or wheeze. She has chronic lower abdominal pain R>L that is stable and unchanged. She has been having some occasional constipation and diarrhea. No bleeding or bruising. She denies new medications or changed dosages. No sick contacts. No recent travel. No pets. No trauma. She does not spend time outdoors and denies tick bites or mosquito bites. She has no risk factors for TB and has had no recent immunizations. She has negative blood cultures from January 31, negative stool cultures from 22 January. She has recent negative imaging to include a CT head, CXR and CT abdomen Past Medical/Surgical History Medical Problems: 1. Ovarian cancer 2. Thrombocytopenia s/p platelet transfusion 3. GERD 4. Anxiety 5. Hypertension 6. Sigmoid colitis 7. B12 deficiency 8. Abdominal pain Family History No pertinent family history Mother with ovarian cancer. Brother with Lung cancer Social History Smoking Status: Former Smoker Smokeless Tobacco Use: No Alcohol Use: none Drug Use: none Marital Status: Housing status: lives with family Occupational Status: retired Immunizations History of Influenza Vaccine: Unknown History of Tetanus Vaccine?: Unknown History of Pneumococcal: Unknown History of Hepatitis B Vaccine: Unknown Allergies Coded Allergies: Sulfa Antibiotics (Verified Allergy, Mild, NAUSEA; AFFECTS BLOOD, 02/10/15) Home Medications Scheduled Ciprofloxacin (Ciprofloxacin HCl), 500 MG PO BID Cyanocobalamin (Vitamin B-12), 1,000 MCG PO QAM Docusate Sodium (Colace), 1 CAP PO BID Escitalopram (Lexapro), 10 MG PO DAILY Fentanyl (Duragesic), 25 MCG TOP CQ72HR Fentanyl (Fentanyl), 12 MCG TOP CQ72HR Lactobacillus (Floranex), 1 TAB PO TID Lisinopril (Zestril), 10 MG PO DAILY Omeprazole (Omeprazole), 20 MG PO DAILY Polyethylene (Miralax), 17 GM PEG DAILY Sennosides (Senokot), 8.6 MG PO HS Scheduled PRN Lorazepam (Ativan), 1 MG PO DAILY PRN for Anxiety Zolpidem Tartrate (Zolpidem Tartrate), 10 MG PO HS PRN for Sleep Review of Systems Constitutional: + fever, + chills, + sweats, + weight loss, + weakness, + fatigue Eyes: No worsening of vision, No eye pain, No discharge ENT: + sore throat, No hearing loss, No unusual epistaxis, No trouble swallowing Respiratory: + cough, + sputum, No wheezing, No shortness of breath, No dyspnea on exertion, No hemoptysis Cardiovascular: No chest pain, No palpitations Abdomen: + pain, + nausea, + vomiting, + diarrhea, + constipation, No GI bleeding Musculoskeletal: No joint pain, No muscle pain, No swelling, No calf pain Genitourinary - Female: No dysuria, No urinary frequency, No urinary urgency, No hematuria Neurologic: No weakness, No numbness/tingling Hematologic / Lymphatic: No abnormal bleeding/bruising, No swollen lymph nodes , No night sweats Integumentary: No rash, No itch, No new/changing skin lesions, No color change , No bleeding Physical Exam Vital Signs General: resting comfortably in bed, NAD, pleasant and appropriate, oriented Skin: warm, dry, intact, scattered seborrheic keratoses on back, no rash or petechiae HEENT: NC/AT, PERRL, EOMI, anicteric sclera, conjunctiva without injection, MMM , no OP lesions, neck supple, no thyromegaly, no LAD, trachea midline Heart: +S1/S2, regular, no m/r/g, palpable port on left chest wall, nontender, no erythema or exudate Lungs: CTA bilaterally, no rales/rhonchi or wheezes Abd: normoactive bowel sounds, soft, tender in RLQ with voluntary guarding, no masses/organomegaly Ext: warm, well perfused, no clubbing/cyanosis of edema, 2+ pulses in UE/LE bilaterally Neuro: grossly intact, ambulates with steady gait Diagnostics Laboratory Results Results Past 24 Hours Test 02/05/18 13:00 Range/Units Microbiology Results 02/05/18 Blood Culture, Ordered Pending 02/05/18 Blood Culture, Ordered Pending Blood cultures 31 JANUARY 2018 - NGTD Stool cultures 22 JANUARY 2018 - Negative, no C.diff Diagnostic Radiology [address] OF THE HEAD WITHOUT CONTRAST CLINICAL HISTORY: Nausea and vomiting. Metastatic ovarian cancer. COMPARISON STUDY: No previous studies for comparison. CT DOSE: 537.48 mGy.cm TECHNIQUE: Helical axial images of the head were obtained without IV contrast. Automated exposure control was utilized for the study. A dose lowering technique was utilized adhering to the principles of ALARA. FINDINGS: No acute intracranial hemorrhage, midline shift or mass effect is present. Ventricular system is unremarkable. Basilar cisterns are patent. No extra-axial collections are present. There is bilateral basal ganglia calcification. No intracranial masses are identified on this unenhanced exam. There are no significant calvarial abnormalities. IMPRESSION: 1. No acute intracranial findings. 2. No evidence of metastatic disease on unenhanced head CT. 31 JANUARY 2018 SINGLE VIEW CHEST CLINICAL HISTORY: Fever. Sepsis. FINDINGS: 2 AP, portable, upright chest radiographs are correlated with chest CT dated 11/27/2017. A left subclavian central venous infusion port is unchanged in position. The heart is top normal for projection and there is mild atherosclerotic calcification of the thoracic aorta. The pulmonary vasculature is noncongested. A hiatal hernia is noted. No airspace consolidation or pleural effusion is identified. There is mild elevation of the right hemidiaphragm. Scattered calcified granulomas are noted. No pneumothorax is seen. The skeletal structures are osteopenic. There are healed left-sided rib fractures. IMPRESSION: No acute cardiopulmonary abnormality. Electronically signed by: Emil Murillo M.D. 01/31/2018 10:30 PM Dictated Date/Time: 01/31/2018 10:28 PM 21 JANUARY 2018 ABD/PELVIS IV AND ORAL CONT CLINICAL HISTORY: 72 years-old Female presenting with Pt c/o diffuse abd pain, nausea, history of ovarian cancer. TECHNIQUE: Multidetector CT of the abdomen and pelvis was performed after the administration of oral and intravenous contrast. IV contrast: 117 mL of Optiray 320. A dose lowering technique was used consistent with the principles of ALARA (as low as reasonably achievable). COMPARISON: 11/27/2017. CT DOSE (mGy.cm): The estimated cumulative dose is 332.06 mGy.cm. FINDINGS: Brick Maker topogram: Unremarkable. Lung bases: Minimal basilar opacities, likely atelectasis. Normal heart size. No pericardial or pleural effusion. Liver: Normal morphology. No liver lesion. Patent hepatic vasculature. Biliary: Mild biliary ductal prominence likely a reservoir effect in the post cholecystectomy state. Gallbladder surgically absent. Pancreas: Moderate parenchymal atrophy. Spleen: Normal. Adrenal glands: Normal. Kidneys and ureters: Normal. No hydronephrosis. Bladder: Normal. The morphology of the bladder suggests ligamentous laxity. Pelvic organs: Uterus surgically absent. Ovaries not visualized, likely surgically absent. Bowel: Postsurgical changes of a colocolonic anastomosis in the upper rectum, a second colocolonic anastomosis at the level of the splenic flexure, and a enteroenteric anastomosis in the left hemipelvis. These anastomoses appear widely patent. However, the colon proximal to the upper rectal anastomosis contains fluid and is mildly distended. Mild wall thickening of the residual sigmoid colon, which demonstrates mild pericolonic fat stranding. No convincing evidence of obstruction. Small bowel is nondilated. Moderate hiatal hernia. Peritoneal cavity: No free fluid or intraperitoneal gas. Lymph nodes: The historically pathologic gastrohepatic lymph node remains subcentimeter in the short axis, now measuring 6 mm (series 3 image 95). No new sites of lymphadenopathy. Vasculature: Atherosclerosis of the normal caliber abdominal aorta. IVC patent. Abdominal wall: Post surgical changes of the infraumbilical ventral abdomen. Musculoskeletal: Degenerative changes of the spine. Pars defects of L5. No destructive osseous lesion. IMPRESSION: 1. Fluid in the colon suggests a diarrheal state. Wall thickening and pericolonic inflammatory change of the residual sigmoid colon further evidence of colitis, most likely infectious. 2. No evidence of recurrent or metastatic disease in abdomen or pelvis. No lymphadenopathy. 3. Post surgical changes of hysterectomy and bilateral salpingo-oophorectomy. Impression Assessment and Plan 72yo female with history of Stage IV ovarian CA presenting with 2+ weeks of daily fevers/chills/sweats/malaise as well as poor po intake, nausea and vomiting and a 10 pound unintentional weight loss in the last 3 weeks. Negative workup thus far to include negative blood and stool cultures and imaging. She was sent her by her Oncologist for continued workup. 1. Fever of unknown origin - Patient is presently afebrile, hemodynamically stable. She reports daily, recurrent fevers of 101.5 measured at home x 2+ weeks. No clear etiology at this time. Blood cultures from 4April are negative as are stool cultures from 26March. She has negative CXR, CT head and abdominal CT recently that show no obvious source of fever, and no metastatic disease. Differential is quite broad to include infectious etiology vs drug fever vs return of malignancy. Less likely rheumatic source. -Check blood cultures x 2 sets, one from port and one from peripheral site -Check fungal blood culture - patient with history of malignancy, indweling port -Check UA with culture -Check CXR -Check CA125 -Check CBC with differential, LFTs, BMP 2. PO intolerance- patient reports nausea, vomiting, poor appetite and unintentional weight loss over the last 2-3 weeks. -Nausea control with Zofran PRN -Ensure BID as tolerated, consider nutrition consult 3. GERD - stable -Continue home Omeprazole 4. HTN - stable -Continue home Lisinopril 5. Anxiety - stable -Continue home Lexapro and Ativan PRN 6. Pain - stable -Continue Fentanyl patches 37.5mcg TD q 72 hours -Patient wishes to decrease this dosage if possible. To be discussed with PCP 7. Thrombocytopenia - patient with history of the same requiring platelet transfusion. Presently no bleeding or petechiae -Check CBC 8. B12 deficiency - stable -Continue B12 supplementation 9. Ovarian cancer - patient follows with Dr. Zarco from [place] as well as Dr. Chamorro at [facility]. She was taking Niraparib but has not been taking that for 2 weeks due to feeling ill. Concern for recurrence of malignancy as source of fever, although patient with negative imaging. -Check CA125 -Pursue additional imaging pending laboratory results and Oncology input 10. F/E/N - NSS at 100mL/hr x 2 liters, monitor electrolytes and replete as needed, regular diet with Boost BID as tolerated 11. Ppx - Lovenox 40, Omeprazole 12. Code - full per discussion with patient 13. Dispo - observation, general medical floor Resuscitation Status FULL VTE Prophylaxis Will order VTE Prophylaxis: Yes Social Service Consult None Apply
[2018-02-05 14:17] LABS: LYMPH % 42.5 %; LYMPH ABS # 0.77 K/uL (1.2-3.4); MONO % 16.6 %; NEUT % 40.9 %; NEUT ABS # 0.74 K/uL (1.4-6.5)
[2018-02-05] MEDS: ACETAMINOPHEN 325 MG TAB PO PRN (14:44)
[2018-02-05] MEDS: CHECK FENTANYL PATCH PLACEMENT SCH ×4 (14:45→23:10)
--- NOTE | 2018-02-05 15:13 | DIAGNOSTIC IMAGING REPORT ---
CHEST 2 VIEWS ROUTINE CLINICAL HISTORY: 72 years-old Female presenting with fever/cough. TECHNIQUE: PA and lateral views of the chest were obtained. COMPARISON: 01/31/2018. FINDINGS: Left subclavian Mediport terminates in the lower SVC. Atherosclerosis of aortic arch. Cardiac silhouette normal in size. Lungs and pleural spaces clear. Scoliosis of the spine. Cholecystectomy clips noted. Hiatal hernia. IMPRESSION: 1. No acute cardiopulmonary disease. Electronically signed by: Maurice Quijano M.D. 02/05/2018 3:12 PM Dictated Date/Time: 02/05/2018 3:10 PM
[2018-02-05] MEDS: SODIUM CHLORIDE 0.9% 1000ML 1,000 ML IV SCH (15:23)
[2018-02-05 15:48] VITALS: BP 104/65; PULSE 73; TEMP 37.4; O2SAT 94
[2018-02-05] MEDS ORDERED: IV FLUIDS COMPLETED PRN (16:00)
[2018-02-05 19:08] LABS: INFLUENZA B ANTIGEN POS for Influ B (NEG)
--- NOTE | 2018-02-05 19:20 | Progress Note ---
Progress Note Date of Service Feb 05, 2018. Progress Note Got a call from the nurse at 714 with results of +flu swab. Started patient on tamiflu 75mg bid. - Anmol Cabrera PGY2 Resident
[2018-02-05 19:32] VITALS: BP 148/76; PULSE 72; TEMP 37; O2SAT 96
[2018-02-05] MEDS ORDERED: DOCUSATE SODIUM 100 MG CAP PO PRN (20:00)
[2018-02-05] MEDS ORDERED: BOOST VANILLA PO SCH (20:00)
[2018-02-05] MEDS ORDERED: DOCUSATE SODIUM 100 MG CAP PO SCH (20:00)
[2018-02-05] MEDS: OSELTAMIVIR PHOSPHATE 75 MG CAP PO SCH (20:24)
[2018-02-05] MEDS: SENNA 8.6 MG TAB PO SCH (20:25)
[2018-02-05] MEDS ORDERED: ENOXAPARIN 40 MG/0.4 ML SYR SQ SCH (21:00)
[2018-02-05] MEDS ORDERED: MoRPHine SULFATE 4 MG/ML 1 ML CARP\\VIAL IV STA (22:02)
[2018-02-05] MEDS: BENZONATATE 100MG CAP PO SCH (22:17)
[2018-02-05] MEDS: ZOLPIDEM TARTRATE 10 MG TAB PO PRN (23:09)
[2018-02-05] MEDS ORDERED: NURSING VERBAL MED ORDER ONE (23:30)
[2018-02-05 23:44] VITALS: BP 152/79; PULSE 77; TEMP 36.9; O2SAT 95
[2018-02-06] MEDS: SODIUM CHLORIDE 0.9% 1000ML 1,000 ML IV SCH ×3 (01:35→23:42)
[2018-02-06 04:10] VITALS: BP 128/71; PULSE 75; TEMP 37.2; O2SAT 93
[2018-02-06 06:28] VITALS: BMI 23.8
[2018-02-06 07:29] VITALS: BP 110/68; PULSE 76; TEMP 36.8; O2SAT 95
[2018-02-06] MEDS: BENZONATATE 100MG CAP PO SCH ×3 (07:44→20:00)
[2018-02-06] MEDS: CYANOCOBALAMIN 500 MCG TAB (VIT B-12) PO SCH (07:44)
[2018-02-06] MEDS: OSELTAMIVIR PHOSPHATE 75 MG CAP PO SCH ×2 (07:44→20:01)
[2018-02-06] MEDS: LISINOPRIL 10 MG TAB PO SCH (07:45)
[2018-02-06] MEDS: ESCITALOPRAM OXALATE 10 MG TAB PO SCH (07:45)
[2018-02-06] MEDS: PANTOprazole SOD 40 MG TAB PO SCH (07:45)
[2018-02-06] MEDS: CHECK FENTANYL PATCH PLACEMENT SCH ×6 (07:47→23:18)
[2018-02-06] MEDS: ACETAMINOPHEN 325 MG TAB PO PRN (07:52)
[2018-02-06 08:00] VITALS: O2SAT 95
[2018-02-06] MEDS ORDERED: POLYETHYLENE (MIRALAX) 17 GM PACK PEG SCH (08:00)
[2018-02-06] MEDS ORDERED: POLYETHYLENE (MIRALAX) 17 GM PACK PO PRN (08:00)
[2018-02-06] MEDS ORDERED: BOOST VANILLA PO SCH (08:00)
[2018-02-06 09:13] LABS: HEMATOCRIT 29.3 % (37-47); HEMOGLOBIN 9.8 g/dL (12.0-16.0); MEAN CELL VOLUME 99.3 fL (80-100); MEAN CORPUSCULAR HEMOGLOBIN 33.2 pg (25-34); MEAN CORPUSCULAR HGB CONC 33.4 g/dl (32-36); MEAN PLATELET VOLUME 9.3 fL (7.4-10.4); PLATELET COUNT 69 K/uL (130-400); RED CELL DISTRIBUTION WIDTH CV 14.9 % (11.5-14.5); RED CELL DISTRIBUTION WIDTH SD 53.7 fL (36.4-46.3); WHITE BLOOD COUNT 1.93 K/uL (4.8-10.8)
[2018-02-06] MEDS ORDERED: NURSING VERBAL MED ORDER ONE ×2 (09:30→12:45)
[2018-02-06 09:32] LABS: EOS ABS # 0.02 K/uL (0-0.5); LYMPH ABS # 0.85 K/uL (1.2-3.4); MONO % 8.8 %; MONO ABS # 0.17 K/uL (0.11-0.59); NEUT % 46.2 %; NEUT ABS # 0.89 K/uL (1.4-6.5)
[2018-02-06 09:39] LABS: CALCIUM 9.1 mg/dl (8.5-10.1); CREATININE 0.54 mg/dl (0.60-1.20); POTASSIUM 3.3 mmol/L (3.5-5.1)
[2018-02-06] MEDS ORDERED: ENOXAPARIN 40 MG/0.4 ML SYR SQ SCH (09:45)
[2018-02-06 11:33] VITALS: BP 96/56; PULSE 62; TEMP 36.8; O2SAT 94
[2018-02-06] MEDS ORDERED: MoRPHine SULFATE 2 MG/ML CARP ONE (14:00)
[2018-02-06] MEDS ORDERED: KETOROLAC TROMETHAMINE 15 MG/ML VIAL IV PRN (14:00)
[2018-02-06] MEDS ORDERED: POTASSIUM CHLORIDE 20 MEQ TABCR PO STA (14:01)
[2018-02-06 14:50] VITALS: Ht 162.6 cm; Wt 63.4 kg
[2018-02-06 15:01] VITALS: BP 104/68; PULSE 64; TEMP 36.9; O2SAT 93
[2018-02-06] MEDS: BOOST VANILLA PO SCH (17:29)
--- NOTE | 2018-02-06 17:56 | Hospitalist Progress Note ---
Hospitalist Progress Note Date of Service Feb 06, 2018. (Tamara Lynne PA-C) Subjective Pt evaluation today including: conversation w/ patient, physical exam, chart review, lab review, review of studies, review of inpatient medication list Pain: None PO Intake: Adequate Voiding: no voiding problems Patient seen and evaluated. Flu swap came back + for Influenza B. Patient states she was in the ED on 01/31 for fever but flu was negative at that time. All symptoms can be easily explained by this. She is reporting feeling a little bit better and today is the first time she actually has had an appetite. She remains afebrile since admission. Lungs clear. CXR not concerning for pneumonia. She is neutropenic but it is slowly improving but will implement precautions. Constitutional: + weakness (generalized - slowly improving), + fatigue, No fever, No chills Respiratory: + cough, No sputum, No shortness of breath Cardiovascular: No chest pain Abdomen: + nausea, No pain, No vomiting, No diarrhea, No constipation Musculoskeletal: No swelling, No calf pain Female : No dysuria Heme: No abnormal bleeding/bruising Skin: No rash (Tamara Lynne PA-C) Medications Current Inpatient Medications Medications (Trade) Dose Ordered Sig/Janee Route Start Time Stop Time Status Last Admin Dose Admin Acetaminophen (Tylenol Tab) 650 mg Q4H PRN PO 02/05/18 12:30 03/07/18 12:29 02/06/18 07:52 650 MG Al Hydrox/Mg Hydrox/Simethicone (Maalox Max Susp) 15 ml Q4H PRN PO 02/05/18 12:30 03/07/18 12:29 Ondansetron HCl (Zofran Inj) 4 mg Q6H PRN IV 02/05/18 12:30 03/07/18 12:29 02/05/18 20:36 4 MG Cyanocobalamin (Vitamin B-12 Tab) 1,000 mcg QAM PO 02/06/18 08:00 03/08/18 07:59 02/06/18 07:44 1,000 MCG Escitalopram Oxalate (Lexapro Tab) 10 mg DAILY PO 02/06/18 08:00 03/08/18 07:59 02/06/18 07:45 10 MG Fentanyl (Duragesic Patch) 12 mcg Q3D@1000 TD 02/08/18 10:00 02/22/18 09:59 Fentanyl (Duragesic Patch) 25 mcg Q3D@1000 TD 02/08/18 10:00 02/22/18 09:59 Lisinopril (Zestril Tab) 10 mg DAILY PO 02/06/18 08:00 03/08/18 07:59 02/06/18 07:45 10 MG Lorazepam (Ativan Tab) 1 mg DAILY PRN PO 02/05/18 12:30 03/07/18 12:29 Senna (Senokot Tab) 8.6 mg HS PO 02/05/18 21:00 03/07/18 20:59 02/05/18 20:25 8.6 MG Zolpidem Tartrate (Ambien Tab) 10 mg HS PRN PO 02/05/18 12:30 03/07/18 12:29 02/05/18 23:09 10 MG Pantoprazole Sodium (Protonix Tab) 40 mg QAM PO 02/06/18 08:00 03/08/18 07:59 02/06/18 07:45 40 MG Heparin Sodium (Porcine) (Heparin 100 Unit/ml 5ml Flush) 5 ml PRN PRN IV 02/05/18 14:00 03/07/18 13:59 02/06/18 11:39 5 ML Miscellaneous (Fentanyl Patch Remove & Waste) 1 ea Q3D@0959 N/A 02/08/18 09:59 03/10/18 09:58 Miscellaneous Information (Check Fentanyl Patch Placement) 1 ea QS N/A 02/05/18 16:00 03/07/18 15:59 02/06/18 16:22 1 EA Miscellaneous (Fentanyl Patch Remove & Waste) 1 ea Q3D@0959 N/A 02/08/18 09:59 03/10/18 09:58 Miscellaneous Information (Check Fentanyl Patch Placement) 1 ea QS N/A 02/05/18 16:00 03/07/18 15:59 02/06/18 16:22 1 EA Docusate Sodium (coLACE CAP) 100 mg BID PRN PO 02/05/18 20:00 03/07/18 19:59 Polyethylene (Miralax Powder Packet) 17 gm DAILY PRN PO 02/06/18 08:00 03/08/18 07:59 Miscellaneous (Iv Fluids Completed) 1 ea PRN PRN N/A 02/05/18 16:00 02/05/19 15:59 Oseltamivir Phosphate (Tamiflu Cap) 75 mg BID PO 02/05/18 20:00 02/10/18 19:59 02/06/18 07:44 75 MG Benzonatate (Tessalon Perles Cap) 100 mg TID PO 02/05/18 22:15 03/07/18 22:14 02/06/18 13:20 100 MG Enoxaparin Sodium (Lovenox Inj) 40 mg QAM SQ 02/06/18 09:45 03/08/18 09:44 Future Hold 02/06/18 09:39 40 MG Sodium Chloride 1,000 ml @ 80 mls/hr [id number] IV 02/06/18 12:45 03/08/18 12:44 02/06/18 13:20 80 MLS/HR Morphine Sulfate (MoRPHine SULFATE INJ) 2 mg Q4H PRN IV 02/06/18 14:00 02/20/18 13:59 Ketorolac Tromethamine (Toradol Inj) 15 mg Q6H PRN IV 02/06/18 14:00 02/11/18 13:59 Enteral Nutritional Formula (Boost) 1 can BIDM PO 02/06/18 17:00 03/08/18 16:59 (Tamara Lynne, HERMINIAC) Objective Vital Signs Date Time Temp Pulse Resp B/P (MAP) Pulse Ox O2 Delivery O2 Flow Rate FiO2 02/06/18 15:01 36.9 64 20 104/68 (80) 93 Room Air 02/06/18 11:33 36.8 62 18 96/56 (69) 94 Room Air 02/06/18 08:00 95 Room Air 02/06/18 07:29 36.8 76 18 110/68 (82) 95 Room Air 02/06/18 04:10 37.2 75 20 128/71 (90) 93 Room Air 02/06/18 00:00 Room Air 02/05/18 23:44 36.9 77 20 152/79 (103) 95 Room Air 02/05/18 20:00 Room Air 02/05/18 19:32 37.0 72 18 148/76 (100) 96 Room Air (Tamara Lynne PA-C) Physical Exam General Appearance: WD/WN, no apparent distress, + thin Eyes: sclerae normal ENT: hearing grossly normal Neck: supple, no JVD, trachea midline Respiratory/Chest: lungs clear, normal breath sounds, no respiratory distress, no accessory muscle use Cardiovascular: regular rate, rhythm, no gallop, no murmur Abdomen: normal bowel sounds, non tender, soft Extremities: no pedal edema Neurologic/Psychiatric: alert, oriented x 3 Skin: normal color, warm/dry (Tamara Lynne, EVELIN-C) Laboratory Results Last 24 Hours Test 02/05/18 18:30 02/05/18 22:20 02/06/18 08:38 Influenza Type A Antigen Neg for Influ A Influenza Type B Antigen POS for Influ B Urine Color YELLOW Urine Appearance CLEAR Urine pH 6.5 Urine Specific [place] 1.017 Urine Protein NEG Urine Glucose (UA) NEG Urine Ketones NEG Urine Occult Blood NEG Urine Nitrite NEG Urine Bilirubin NEG Urine Urobilinogen NEG Urine Leukocyte Esterase NEG White Blood Count 1.93 K/uL Red Blood Count 2.95 M/uL Hemoglobin 9.8 g/dL Hematocrit 29.3 % Mean Corpuscular Volume 99.3 fL Mean Corpuscular Hemoglobin 33.2 pg Mean Corpuscular Hemoglobin Concent 33.4 g/dl Platelet Count 69 K/uL Mean Platelet Volume 9.3 fL Neutrophils (%) (Auto) 46.2 % Lymphocytes (%) (Auto) 44.0 % Monocytes (%) (Auto) 8.8 % Eosinophils (%) (Auto) 1.0 % Basophils (%) (Auto) 0.0 % Neutrophils # (Auto) 0.89 K/uL Lymphocytes # (Auto) 0.85 K/uL Monocytes # (Auto) 0.17 K/uL Eosinophils # (Auto) 0.02 K/uL Basophils # (Auto) 0.00 K/uL RDW Standard Deviation 53.7 fL RDW Coefficient of Variation 14.9 % Immature Granulocyte % (Auto) 0.0 % Immature Granulocyte # (Auto) 0.00 K/uL Sodium Level 138 mmol/L Potassium Level 3.3 mmol/L Chloride Level 105 mmol/L Carbon Dioxide Level 28 mmol/L Anion Gap 6.0 mmol/L Blood Urea Nitrogen 8 mg/dl Creatinine 0.54 mg/dl Est Creatinine Clear Calc Drug Dose 83.8 ml/min Estimated GFR () 110.8 Estimated GFR (Non- 95.6 BUN/Creatinine Ratio 14.2 Random Glucose 157 mg/dl Calcium Level 9.1 mg/dl (Tamara Lynne PA-C) Assessment and Plan 72yo female with history of Stage IV ovarian CA presenting with 2+ weeks of daily fevers/chills/sweats/malaise as well as poor po intake, nausea and vomiting and a 10 pound unintentional weight loss in the last 3 weeks. Negative workup thus far to include negative blood and stool cultures and imaging. She was sent her by her Oncologist for continued workup. Influenza B: Neutropenic Fever - Initially admitted with FUO and will continue to monitor BCx and Fungal Cx given port and length of illness; given immunocompromised status there could easily be secondary infection - Continue fluids of NSS at 80 mL/hr and likely these can be D/Cd tomorrow pending adequate oral intake - Tamiflu 75 mg BID Pancytopenia 2/2 Viral Suppression and Previous Niraparib Use: - Niraparib has been on hold approx. 2 weeks due to recent illness; Neutropenic precautions - Hold DVT prophylaxis with Lovenox given thrombocytopenia - no active bleeding visualized Chronic Pain: - Fentanyl 25 mcg patch Q72H - Toradol and Morphine PRN for pain - likely acute worsening due to inflammatory response/flu symptoms HTN: - Lisinopril 10 mg daily Anxiety/Depression: - Lexapro 10 mg daily and Ativan 1 mg daily PRN B12 Deficiency: STABLE - Continue B12 supplementation Ovarian Cancer: Follows with Dr. Zarco from [place] and Dr. Mederos - Niraparib has been on hold due to ongoing illness with recent colitis and now influenza DVT Prophylaxis: SCDs; hold chemical means 2/2 thrombocytopenia Disposition: Possible D/C tomorrow (Tamara Lynne PA-C) Reviewed: Pt Seen/Exam by Me (Dominga Ferrera MD) History Physician Cloud Operations Engineer Supervision Note: I interviewed and examined the patient. Discussed with EVELIN Lynne and agree with findings and plan as documented in the note. Any exceptions or clarifications are listed here: Patient feeling much better. She has been afebrile her entire hospital stay. She was having reported fevers at home prior to admission but her white blood cell count was okay at the time of previous evaluation. It has now dropped down and she is mildly neutropenic, however remains afebrile. Some cough, she has chronic abdominal pain. General Appearance: WD/WN, no apparent distress, + thin Eyes: sclerae normal ENT: hearing grossly normal Neck: supple, no JVD, trachea midline Respiratory/Chest: lungs clear, normal breath sounds, no respiratory distress, no accessory muscle use Cardiovascular: regular rate, rhythm, no gallop, no murmur Abdomen: normal bowel sounds, mild diffuse tenderness without guarding or rebound tenderness which is chronic for her, soft Extremities: no pedal edema Neurologic/Psychiatric: alert, oriented x 3 Skin: normal color, warm/dry This patient is a 9-year-old female with metastatic ovarian cancer, chronic pain syndrome, opioid dependence, HTN, GERD, depression/anxiety, B12 deficiency , here with fevers and chills with malaise at home, found to have influenza B. She is already doing much better. She is eating and drinking and has no other issues. -She has not had a fever here, ANC today is 800, therefore do not need to treat with broad-spectrum antibiotics for neutropenic fever -Of note, she does have a port in place and if she did spike a fever, would need blood cultures from the port and peripherally and empiric antibiotics -Supportive care -Expect discharged home likely tomorrow -Follow cultures Documented By: Dominga Ferrera (Dominga Ferrera MD)
[2018-02-06 19:18] VITALS: BP 115/68; PULSE 71; TEMP 37.5; O2SAT 96
[2018-02-06] MEDS: SENNA 8.6 MG TAB PO SCH (20:00)
[2018-02-06] MEDS: MoRPHine SULFATE 2 MG/ML CARP IV PRN (20:13)
[2018-02-06] MEDS: ZOLPIDEM TARTRATE 10 MG TAB PO PRN (23:17)
[2018-02-07] VITALS (7 sets, daily range): BP systolic 102–126; BP diastolic 63–75; PULSE 64–79; TEMP 36.6–37.1; O2SAT 90–94
[2018-02-07] MEDS: BOOST VANILLA PO SCH ×2 (08:17→17:35)
[2018-02-07] MEDS: CHECK FENTANYL PATCH PLACEMENT SCH ×6 (08:17→23:52)
[2018-02-07] MEDS: ESCITALOPRAM OXALATE 10 MG TAB PO SCH (08:17)
[2018-02-07] MEDS: CYANOCOBALAMIN 500 MCG TAB (VIT B-12) PO SCH (08:18)
[2018-02-07] MEDS: PANTOprazole SOD 40 MG TAB PO SCH (08:18)
[2018-02-07] MEDS: LISINOPRIL 10 MG TAB PO SCH (08:18)
[2018-02-07] MEDS: BENZONATATE 100MG CAP PO SCH ×3 (08:18→20:56)
[2018-02-07] MEDS: OSELTAMIVIR PHOSPHATE 75 MG CAP PO SCH ×2 (08:18→20:57)
[2018-02-07 09:04] LABS: HEMATOCRIT 29.6 % (37-47); HEMOGLOBIN 9.9 g/dL (12.0-16.0); MEAN CORPUSCULAR HEMOGLOBIN 33.4 pg (25-34); MEAN CORPUSCULAR HGB CONC 33.4 g/dl (32-36); RED CELL DISTRIBUTION WIDTH CV 14.6 % (11.5-14.5); RED CELL DISTRIBUTION WIDTH SD 52.7 fL (36.4-46.3)
[2018-02-07 09:37] LABS: CALCIUM 9.3 mg/dl (8.5-10.1); CREATININE 0.5 mg/dl (0.60-1.20); POTASSIUM 3.9 mmol/L (3.5-5.1)
[2018-02-07 09:40] LABS: EOS % 0.6 %; EOS ABS # 0.02 K/uL (0-0.5); IG# 0.01 K/uL (0.00-0.02); LYMPH % 29.4 %; LYMPH ABS # 0.91 K/uL (1.2-3.4); MEAN PLATELET VOLUME 10.4 fL (7.4-10.4); MONO % 9.4 %; MONO ABS # 0.29 K/uL (0.11-0.59); NEUT % 60.3 %; NEUT ABS # 1.87 K/uL (1.4-6.5); PLATELET COUNT 73 K/uL (130-400)
[2018-02-07] MEDS: SODIUM CHLORIDE 0.9% 1000ML 1,000 ML IV SCH (11:45)
[2018-02-07] MEDS ORDERED: TMF75 PO (12:20)
[2018-02-07] MEDS ORDERED: BENZ100C7 PO (12:20)
--- NOTE | 2018-02-07 12:26 | Discharge Instructions ---
Discharge Instructions Date of Service Feb 07, 2018. Admission Reason for Admission: Fever Of Unknown [place], Ovarian Cancer Discharge Discharge Diagnosis / Problem: Influenza B Discharge Goals Goal(s): Decrease discomfort, Improve function, Increase independence Activity Recommendations Activity Limitations: resume your previous activity . Instructions / Follow-Up Instructions / Follow-Up Influenza B: - Please continue to take your Tamiflu until 02/10. You had a dose this morning so you only need one dose this evening on 02/08 then resume twice a day on 02/09 - Recommend to take it easy the next few days and to get rest and drink fluids. - Each day should feel a little bit better but can take several days to completely feel your normal self. PLEASE RETURN IF YOU DEVELOP MORE FEVERS OR FEEL MORE ILL ESPECIALLY IF YOUR COUGH WORSENS OR YOUR BREATHING WORSENS - Will give a prescription for Tessalon perles and these can help calm your cough especially if you are trying to get some sleep. - Your blood counts are low but are improving and this is from the flu. Would recommend your oncologist and family doctor to keep an eye on these as you recover from the flu -- Keep an eye out for bruising or bleeding as your platelets are low but again they are improving each day on your labs Home Medications: - Continue your home medications as previously prescribed. We did not make changes to these - However continue to hold your Niraparib until you see or discuss with Dr. Sary Ortiz. Would anticipate they would like to see you recovered from the flu and your blood counts to come up some more before resuming but please discuss with your oncologists. Follow-Up Appointments: Dr. Chamorro on MondayFebruary 13 at 10:[address] Laura on MondayFebruary 14 at 2:25 pm Current Hospital Diet Patient's current hospital diet: Regular Diet Discharge Diet Recommended Diet: Regular Diet Pending Studies Studies pending at discharge: no Medical Emergencies . Who to Call and When: Medical Emergencies: If at any time you feel your situation is an emergency, please call 911 immediately. . Non-Emergent Contact Non-Emergency issues call your: Primary Care Provider Call Non-Emergent contact if: you have a fever, your pain is concerning you, you have any medication questions . . "Provider Documentation" section prepared by Tamara Lynne. .
[2018-02-07] MEDS: MoRPHine SULFATE 2 MG/ML CARP IV PRN (15:43)
--- NOTE | 2018-02-07 20:05 | Hospitalist Progress Note ---
Hospitalist Progress Note Date of Service Feb 07, 2018. (Tamara Lynne PA-C) Subjective Pt evaluation today including: conversation w/ patient, physical exam, chart review, lab review, review of studies, review of inpatient medication list Patient seen and evaluated. Feeling a lot better. Continues to have a dry cough and some generalized fatigue and decreased appetite. However, reports this has been improving each day. Lungs remain clear and no fever documented. now has the flu at home and being treated. Plan to return home tomorrow. Constitutional: + weakness (generalized - improving), No fever, No chills Respiratory: + cough, No sputum, No shortness of breath Cardiovascular: No chest pain Abdomen: No pain, No nausea, No vomiting, No diarrhea, No constipation Musculoskeletal: No swelling, No calf pain Female : No dysuria (Tamara Lynne, HERMINIAC) Medications Current Inpatient Medications Medications (Trade) Dose Ordered Sig/Janee Route Start Time Stop Time Status Last Admin Dose Admin Acetaminophen (Tylenol Tab) 650 mg Q4H PRN PO 02/05/18 12:30 03/07/18 12:29 02/06/18 07:52 650 MG Al Hydrox/Mg Hydrox/Simethicone (Maalox Max Susp) 15 ml Q4H PRN PO 02/05/18 12:30 03/07/18 12:29 Ondansetron HCl (Zofran Inj) 4 mg Q6H PRN IV 02/05/18 12:30 03/07/18 12:29 02/05/18 20:36 4 MG Cyanocobalamin (Vitamin B-12 Tab) 1,000 mcg QAM PO 02/06/18 08:00 03/08/18 07:59 02/07/18 08:18 1,000 MCG Escitalopram Oxalate (Lexapro Tab) 10 mg DAILY PO 02/06/18 08:00 03/08/18 07:59 02/07/18 08:17 10 MG Fentanyl (Duragesic Patch) 12 mcg Q3D@1000 TD 02/08/18 10:00 02/22/18 09:59 Fentanyl (Duragesic Patch) 25 mcg Q3D@1000 TD 02/08/18 10:00 02/22/18 09:59 Lisinopril (Zestril Tab) 10 mg DAILY PO 02/06/18 08:00 03/08/18 07:59 02/07/18 08:18 10 MG Lorazepam (Ativan Tab) 1 mg DAILY PRN PO 02/05/18 12:30 03/07/18 12:29 Senna (Senokot Tab) 8.6 mg HS PO 02/05/18 21:00 03/07/18 20:59 02/06/18 20:00 8.6 MG Zolpidem Tartrate (Ambien Tab) 10 mg HS PRN PO 02/05/18 12:30 03/07/18 12:29 02/06/18 23:17 10 MG Pantoprazole Sodium (Protonix Tab) 40 mg QAM PO 02/06/18 08:00 03/08/18 07:59 02/07/18 08:18 40 MG Heparin Sodium (Porcine) (Heparin 100 Unit/ml 5ml Flush) 5 ml PRN PRN IV 02/05/18 14:00 03/07/18 13:59 02/07/18 15:45 5 ML Miscellaneous (Fentanyl Patch Remove & Waste) 1 ea Q3D@0959 N/A 02/08/18 09:59 03/10/18 09:58 Miscellaneous Information (Check Fentanyl Patch Placement) 1 ea QS N/A 02/05/18 16:00 03/07/18 15:59 02/07/18 15:40 1 EA Miscellaneous (Fentanyl Patch Remove & Waste) 1 ea Q3D@0959 N/A 02/08/18 09:59 03/10/18 09:58 Miscellaneous Information (Check Fentanyl Patch Placement) 1 ea QS N/A 02/05/18 16:00 03/07/18 15:59 02/07/18 15:40 1 EA Docusate Sodium (coLACE CAP) 100 mg BID PRN PO 02/05/18 20:00 03/07/18 19:59 Polyethylene (Miralax Powder Packet) 17 gm DAILY PRN PO 02/06/18 08:00 03/08/18 07:59 Miscellaneous (Iv Fluids Completed) 1 ea PRN PRN N/A 02/05/18 16:00 02/05/19 15:59 Oseltamivir Phosphate (Tamiflu Cap) 75 mg BID PO 02/05/18 20:00 02/10/18 19:59 02/07/18 08:18 75 MG Benzonatate (Tessalon Perles Cap) 100 mg TID PO 02/05/18 22:15 03/07/18 22:14 02/07/18 14:21 100 MG Enoxaparin Sodium (Lovenox Inj) 40 mg QAM SQ 02/06/18 09:45 03/08/18 09:44 Future Hold 02/06/18 09:39 40 MG Morphine Sulfate (MoRPHine SULFATE INJ) 2 mg Q4H PRN IV 02/06/18 14:00 02/20/18 13:59 02/07/18 15:43 2 MG Ketorolac Tromethamine (Toradol Inj) 15 mg Q6H PRN IV 02/06/18 14:00 02/11/18 13:59 Enteral Nutritional Formula (Boost) 1 can BIDM PO 02/06/18 17:00 03/08/18 16:59 02/07/18 17:35 1 CAN (Tamara Lynne PA-C) Objective Vital Signs Date Time Temp Pulse Resp B/P (MAP) Pulse Ox O2 Delivery O2 Flow Rate FiO2 02/07/18 19:11 37.1 71 16 102/63 (76) 93 Nasal Cannula 02/07/18 16:00 Room Air 02/07/18 15:22 36.9 74 18 108/68 (81) 94 Room Air 02/07/18 11:31 36.8 71 20 126/72 (90) 94 Room Air 02/07/18 09:27 Room Air 02/07/18 07:36 36.8 70 18 125/75 (92) 93 Room Air 02/07/18 04:55 36.9 79 20 108/66 (80) 90 Room Air 02/07/18 00:20 36.6 78 18 122/72 (89) 91 Room Air 02/07/18 00:01 Room Air 02/06/18 20:20 Room Air (Tamara Lynne PA-C) Physical Exam General Appearance: WD/WN, no apparent distress, + thin Eyes: sclerae normal ENT: hearing grossly normal Neck: supple, no JVD, trachea midline Respiratory/Chest: lungs clear, normal breath sounds, no respiratory distress, no accessory muscle use Cardiovascular: regular rate, rhythm, no gallop, no murmur Abdomen: normal bowel sounds, non tender, soft Extremities: no pedal edema Neurologic/Psychiatric: alert Skin: normal color (Tamara Lynne PA-C) Laboratory Results Last 24 Hours Test 02/07/18 08:37 White Blood Count 3.10 K/uL Red Blood Count 2.96 M/uL Hemoglobin 9.9 g/dL Hematocrit 29.6 % Mean Corpuscular Volume 100.0 fL Mean Corpuscular Hemoglobin 33.4 pg Mean Corpuscular Hemoglobin Concent 33.4 g/dl Platelet Count 73 K/uL Mean Platelet Volume 10.4 fL Neutrophils (%) (Auto) 60.3 % Lymphocytes (%) (Auto) 29.4 % Monocytes (%) (Auto) 9.4 % Eosinophils (%) (Auto) 0.6 % Basophils (%) (Auto) 0.0 % Neutrophils # (Auto) 1.87 K/uL Lymphocytes # (Auto) 0.91 K/uL Monocytes # (Auto) 0.29 K/uL Eosinophils # (Auto) 0.02 K/uL Basophils # (Auto) 0.00 K/uL RDW Standard Deviation 52.7 fL RDW Coefficient of Variation 14.6 % Immature Granulocyte % (Auto) 0.3 % Immature Granulocyte # (Auto) 0.01 K/uL Platelet Estimate DECREASED Giant Platelets 1+ Anisocytosis PRESENT Sodium Level 138 mmol/L Potassium Level 3.9 mmol/L Chloride Level 105 mmol/L Carbon Dioxide Level 28 mmol/L Anion Gap 5.0 mmol/L Blood Urea Nitrogen 6 mg/dl Creatinine 0.50 mg/dl Est Creatinine Clear Calc Drug Dose 90.5 ml/min Estimated GFR () 113.7 Estimated GFR (Non- 98.1 BUN/Creatinine Ratio 12.2 Random Glucose 115 mg/dl Calcium Level 9.3 mg/dl Magnesium Level 2.0 mg/dl (Tamara Lynne PA-C) Assessment and Plan 72yo female with history of Stage IV ovarian CA presenting with 2+ weeks of daily fevers/chills/sweats/malaise as well as poor po intake, nausea and vomiting and a 10 pound unintentional weight loss in the last 3 weeks. Negative workup thus far to include negative blood and stool cultures and imaging. She was sent her by her Oncologist for continued workup. Influenza B: Neutropenic Fever (Outpatient): IMPROVING AND NO IN-PATIENT FEVER - Cx remain with NGTD - Tamiflu 75 mg BID Pancytopenia 2/2 Viral Suppression and Previous Niraparib Use: IMPROVING - No longer neutropenic - Niraparib has been on hold approx. 2 weeks due to recent illness; Neutropenic precautions - Hold DVT prophylaxis with Lovenox given thrombocytopenia - no active bleeding visualized Chronic Pain: STABLE - Fentanyl 25 mcg patch Q72H - Toradol and Morphine PRN for pain - likely acute worsening due to inflammatory response/flu symptoms HTN: - Lisinopril 10 mg daily Anxiety/Depression: - Lexapro 10 mg daily and Ativan 1 mg daily PRN B12 Deficiency: STABLE - Continue B12 supplementation Ovarian Cancer: Follows with Dr. Zarco from [place] and Dr. Mederos - Niraparib has been on hold due to ongoing illness with recent colitis and now influenza DVT Prophylaxis: SCDs; hold chemical means 2/2 thrombocytopenia Disposition: Possible D/C tomorrow - F/U appts established with PCP and Oncologist Discharge planning: home (Tamara Lynne, JANNETTE) Reviewed: Pt Seen/Exam by Me (Dominga Ferrera MD) History Physician [employer] Supervision Note: I interviewed and examined the patient. Discussed with EVELIN Lynne and agree with findings and plan as documented in the note. Any exceptions or clarifications are listed here: Patient feeling much better. She has been afebrile her entire hospital stay. Her only complaint today is some pain and some palpable lumps in her lower back that she noticed since being here. She is not sure how long they have been there. She was a little bit nauseated this morning but that has improved throughout the day. General Appearance: WD/WN, no apparent distress, + thin Eyes: sclerae normal ENT: hearing grossly normal Neck: supple, no JVD, trachea midline Respiratory/Chest: lungs clear, normal breath sounds, no respiratory distress, no accessory muscle use Cardiovascular: regular rate, rhythm, no gallop, no murmur Abdomen: normal bowel sounds, mild diffuse tenderness without guarding or rebound tenderness which is chronic for her, soft Extremities: no pedal edema Neurologic/Psychiatric: alert, oriented x 3 Skin: normal color, warm/dry, palpable cystic lesions about 2-3 cm each in the lumbosacral area to the left of midline that are mildly tender to palpation, no overlying erythema, quite mobile, likely representing lipomas This patient is a 72-year-old female with metastatic ovarian cancer, chronic pain syndrome, opioid dependence, HTN, GERD, depression/anxiety, B12 deficiency , here with fevers and chills with malaise at home, found to have influenza B. She is already doing much better. She is eating and drinking and has no other issues. -She has not had a fever here, ANC is now within normal range-therefore do not need to treat with broad-spectrum antibiotics for neutropenic fever -Of note, she does have a port in place and if she did spike a fever, would need blood cultures from the port and peripherally and empiric antibiotics -Supportive care -Possible lipomas in lower back, however given history of cancer, recommended that she show her oncologist the next time she is in the office -Expect discharged home likely tomorrow -Follow cultures Documented By: Dominga Ferrera (Dominga Ferrera MD)
[2018-02-07] MEDS: ACETAMINOPHEN 325 MG TAB PO PRN (20:56)
[2018-02-07] MEDS: SENNA 8.6 MG TAB PO SCH (20:57)
[2018-02-07] MEDS: ZOLPIDEM TARTRATE 10 MG TAB PO PRN (23:52)
[2018-02-08 04:18] VITALS: BP 116/69; PULSE 67; TEMP 36.7; O2SAT 93
[2018-02-08 05:18] LABS: HEMOGLOBIN 10.4 g/dL (12.0-16.0); MEAN CORPUSCULAR HEMOGLOBIN 33.2 pg (25-34); MEAN CORPUSCULAR HGB CONC 33.5 g/dl (32-36); RED CELL DISTRIBUTION WIDTH CV 14.6 % (11.5-14.5); RED CELL DISTRIBUTION WIDTH SD 53.4 fL (36.4-46.3); WHITE BLOOD COUNT 3.13 K/uL (4.8-10.8)
[2018-02-08 05:31] LABS: MEAN PLATELET VOLUME 10.2 fL (7.4-10.4); PLATELET COUNT 80 K/uL (130-400)
[2018-02-08 05:36] LABS: CREATININE 0.49 mg/dl (0.60-1.20)
[2018-02-08 07:28] VITALS: BP 144/83; PULSE 79; TEMP 36.7; O2SAT 97
[2018-02-08] MEDS: OSELTAMIVIR PHOSPHATE 75 MG CAP PO SCH (07:48)
[2018-02-08] MEDS: ESCITALOPRAM OXALATE 10 MG TAB PO SCH (07:48)
[2018-02-08] MEDS: PANTOprazole SOD 40 MG TAB PO SCH (07:49)
[2018-02-08] MEDS: CYANOCOBALAMIN 500 MCG TAB (VIT B-12) PO SCH (07:49)
[2018-02-08] MEDS: LISINOPRIL 10 MG TAB PO SCH (07:49)
[2018-02-08] MEDS: CHECK FENTANYL PATCH PLACEMENT SCH ×2 (07:49)
[2018-02-08] MEDS: BENZONATATE 100MG CAP PO SCH ×2 (07:49→14:05)
[2018-02-08] MEDS: BOOST VANILLA PO SCH (08:14)
[2018-02-08] MEDS ORDERED: FENTANYL PATCH REMOVE & WASTE SCH ×2 (09:59)
[2018-02-08] MEDS ORDERED: FENTANYL 12 MCG/HR TDSY TD SCH (10:00)
[2018-02-08] MEDS ORDERED: FENTANYL 25 MCG/HR TDSY TD SCH (10:00)
[2018-02-08 11:35] VITALS: BP 105/68; PULSE 70; TEMP 36.9; O2SAT 92
--- NOTE | 2018-02-08 13:29 | DIAGNOSTIC IMAGING REPORT ---
TWO VIEW CHEST CLINICAL HISTORY: Influenza. FINDINGS: PA and lateral chest radiographs are compared to study dated 02/05/2018. Correlation is made with chest CT dated 11/27/2017. The PA view is degraded by patient rotation. A left subclavian central venous infusion port is unchanged in position. The cardiomediastinal silhouette is unremarkable. A hiatal hernia is noted. Heart is top normal in size. There is atherosclerotic calcification of the thoracic aorta. The pulmonary vasculature is noncongested. Chronic interstitial thickening is similar to previous. Numerous tiny calcified granulomas are unchanged. No airspace consolidation or pleural effusion is identified. Apical scarring is observed. There is no pneumothorax. The skeletal structures are osteopenic. Healed left-sided rib fractures are identified. Degenerative change and kyphoscoliosis are noted in the thoracic spine. Cholecystectomy clips are seen in the right upper quadrant. IMPRESSION: 1. No active disease in the chest. 2. Hiatal hernia. Electronically signed by: Emil Murillo M.D. 02/08/2018 1:28 PM Dictated Date/Time: 02/08/2018 1:26 PM
[2018-02-08 13:40] VITALS: BP 105/68; PULSE 70; TEMP 36.9; O2SAT 92
--- NOTE | 2018-02-08 17:10 | Discharge Summary ---
Discharge Summary Date of Service Feb 08, 2018. Discharge Summary Admission Date: Feb 06, 2018 at 16:08 Discharge Date: Feb 08, 2018 Discharge Disposition: Home Principal Diagnosis: Influenza B Problems/Secondary Diagnoses: 1. Ovarian Cancer 2. Thrombocytopenia S/P Platelet Transfusion 3. GERD 4. Anxiety 5. Hypertension 6. Sigmoid Colitis 7. B12 deficiency 8. Breast Metastasis S/P Mastectomy 9. 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 Correlation is made with chest CT dated 11/27/2017. The PA view is degraded by patient rotation. A left subclavian central venous infusion port is unchanged in position. The cardiomediastinal silhouette is unremarkable. A hiatal hernia is noted. Heart is top normal in size. There is atherosclerotic calcification of the thoracic aorta. The pulmonary vasculature is noncongested. Chronic interstitial thickening is similar to previous. Numerous tiny calcified granulomas are unchanged. No airspace consolidation or pleural effusion is identified. Apical scarring is observed. There is no pneumothorax. The skeletal structures are osteopenic. Healed left-sided rib fractures are identified. Degenerative change and kyphoscoliosis are noted in the thoracic spine. Cholecystectomy clips are seen in the right upper quadrant. IMPRESSION: 1. No active disease in the chest. 2. Hiatal hernia. Medication Reconciliation New Medications: Benzonatate (Benzonatate) 100 Mg Cap 100 MG PO TID for 7 Days, #21 CAP Oseltamivir Phosphate (Tamiflu) 75 Mg Cap 75 MG PO BID, #7 CAP Take one tablet on 02/07 then resume twice a day until 02/10 Continued Medications: Cyanocobalamin (Vitamin B-12) 500 Mcg Tab 1000 MCG PO QAM for 30 Days, #30 TAB Docusate Sodium (Colace) 100 Mg Cap 1 CAP PO BID for 30 Days, #60 CAP Escitalopram (Lexapro) 10 Mg Tab 10 MG PO DAILY Fentanyl (Duragesic) 25 Mcg/Hr Dis 25 MCG TOP CQ72HR TOTAL 37 MCG Fentanyl (Fentanyl) 12 Mcg Tdsy 12 MCG TOP CQ72HR TOTAL 37 MCG Lactobacillus (Floranex) 1 Tab Tab 1 TAB PO TID for 7 Days, #21 TAB Lisinopril (Zestril) 10 Mg Tab 10 MG PO DAILY Lorazepam (Ativan) 1 Mg Tab 1 MG PO DAILY PRN for Anxiety Omeprazole (Omeprazole) 20 Mg Tab 20 MG PO DAILY Polyethylene (Miralax) 17 Gm Pow 17 GM PEG DAILY for 30 Days Sennosides (Senokot) 8.6 Mg Tab 8.6 MG PO HS for 30 Days, #30 TAB Zolpidem Tartrate (Zolpidem Tartrate) 10 Mg Tab 10 MG PO HS PRN for Sleep Discontinued Medications: Ciprofloxacin (Ciprofloxacin HCl) 500 Mg Tab 500 MG PO BID for 5 Days, #10 TAB Discharge Exam Review of Systems: Constitutional: No fever, No chills ENT: No nasal symptoms, No sore throat Respiratory: + cough, No sputum, No dyspnea on exertion, No dyspnea at rest Cardiovascular: No chest pain, No orthopnea Abdomen: No pain, No nausea, No vomiting, No diarrhea, No constipation Musculoskeletal: No swelling Genitourinary - Female: No dysuria Hematologic / Lymphatic: No abnormal bleeding/bruising, No clotting problems Physical Exam: General Appearance: WD/WN, no apparent distress Eyes: sclerae normal ENT: hearing grossly normal Neck: supple, no JVD, trachea midline Respiratory/Chest: lungs clear, normal breath sounds, no respiratory distress, no accessory muscle use, + pertinent finding (Port in L upper chest without signs of infection or drainage) Cardiovascular: regular rate, rhythm, no gallop, no murmur Abdomen / GI: normal bowel sounds, non tender, soft Extremities: no pedal edema Neurologic/Psychiatric: alert Skin: normal color, warm/dry Hospital Course ADMISSION: Patient is a 72yo C female with 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 She was initially diagnosed in May 2013 s/p debulking and adjuvant carboplatinum and Taxol for 7 cycles. She had recurrence in her breast in 2014 s/p double mastectomy. 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 She was given salvage carboplatinum and Doxil with good response. She follows with Dr. Zarco at [place] and sees Dr. Chamorro here. She was recently admitted 01/21-01/24/2018 with colitis. She had a colonoscopy during that admission which showed an intact anastamosis with healthy tissue, 2 rectal polyps that were biopsied, a superficial mucosal tear and nonbleeding internal hemorrhoids. Pathology showed hyperplastic polyp and was negative for malignancy. Patient presents today complaining of recurrent daily fevers for the last 2+ weeks. She states that her temperature is 101.5-101.6 q 4 hours. She has associated sweating, myalgias, malaise and mild headache during times of fever. She has brief relief with Tylenol but reports the fever returns shortly after. She has also been experiencing nausea an non-bloody non-bilious vomiting x 2 weeks that occurs after meals. She endorses a 10 pound unintentional weight loss over the last 3 weeks. Her appetite has been poor and she has had loss of taste. She has also had intermittent cough and sore throat over the last 2 weeks. She denies loss of vision or hearing, difficulty swallowing, CP/palpitations/SOB/cough or wheeze. She has chronic lower abdominal pain R>L that is stable and unchanged. She has been having some occasional constipation and diarrhea. No bleeding or bruising. She denies new medications or changed dosages. No sick contacts. No recent travel. No pets. No trauma. She does not spend time outdoors and denies tick bites or mosquito bites. She has no risk factors for TB and has had no recent immunizations. She has negative blood cultures from January 31, negative stool cultures from 22 January. She has recent negative imaging to include a CT head, CXR and CT abdomen HOSPITAL COURSE: Influenza B: Neutropenic Fever (Outpatient): IMPROVING AND NO IN-PATIENT FEVER - Cx remain with NGTD; Remains a febrile and no oxygen needs - Tamiflu 75 mg BID to finish 5 day course Pancytopenia 2/2 Viral Suppression and Previous Niraparib Use: IMPROVING - No longer neutropenic - Niraparib has been on hold approx. 2 weeks due to recent illness; Neutropenic precautions Ovarian Cancer: Follows with Dr. Zarco from [place] and Dr. Mederos - Niraparib has been on hold due to ongoing illness with recent colitis and now influenza Disposition: - F/U appts established with PCP and Oncologist Total Time Spent: Greater than 30 minutes This includes examination of the patient, discharge planning, medication reconciliation, and communication with other providers. Discharge Instructions Please refer to the electronic Patient Visit Report (Discharge Instructions) for additional information. Additional Copies To Edvin Laura M.D.
== END 2018-02-08 14:40 | disposition home or self-care (01) | DRG 193 ==
LOC: UNDOADMOB 12:03 → C.4E 12:03 → INTOOBSV 12:03 → C.4E 13:00 → UNDOADMOB 13:00 → OBSVTOIN 02-06 16:08
PROVIDERS: ADMIT Internal Medicine; ATTEND Internal Medicine
DX: J10.1 Influenza due to other identified influenza virus with other respiratory manifestations (principal); F11.20 Opioid dependence, uncomplicated; C78.7 Secondary malignant neoplasm of liver and intrahepatic bile duct; D61.810 Antineoplastic chemotherapy induced pancytopenia; Z85.43 Personal history of malignant neoplasm of ovary; Z85.3 Personal history of malignant neoplasm of breast; Z90.13 Acquired absence of bilateral breasts and nipples; I10 Essential (primary) hypertension; Z80.41 Family history of malignant neoplasm of ovary; Z80.1 Family history of malignant neoplasm of trachea, bronchus and lung; G89.3 Neoplasm related pain (acute) (chronic); Z88.2 Allergy status to sulfonamides; E53.8 Deficiency of other specified B group vitamins; K21.9 Gastro-esophageal reflux disease without esophagitis; K52.9 Noninfective gastroenteritis and colitis, unspecified; T45.1X5A Adverse effect of antineoplastic and immunosuppressive drugs, initial encounter; Y92.009 Unspecified place in unspecified non-institutional (private) residence as the place of occurrence of the external cause

== ENCOUNTER 2018-12-24 22:45 | Observation (INO) ==
[2018-12-24] MEDS ORDERED: SODIUM CHLORIDE 0.9% 1000ML 500 ML IV ONE (23:38)
[2018-12-24] MEDS ORDERED: ONDANSETRON INJ 2 MG/ML 2 ML VIAL IV STA (23:38)
[2018-12-25] MEDS: HYDROmorphone INJ 1 MG/ML SYRINGE IV PRN ×9 (00:08→18:21)
--- NOTE | 2018-12-25 00:08 | Emergency Department Note ---
Entered by Lito Mercado acting as a scribe for Josef Bai DO History of Present Illness General Chief complaint: Abdominal Pain Stated complaint: PAIN, VOMITING, ABD - CANCER PAINS Time Seen by Provider: 12/24/18 23:19 Source: patient Limitations: no limitations History of Present Illness Onset (ago): hour(s) ([employer]) Location: abdomen Severity: similar to prior episodes (earlier today) Pain Consistency: + constant Maximum Pain Intensity: 9 Quality: + constant Associated symptoms: + denies other symptoms (urinary symptoms) The patient is a 73 year old female who presents to the Emergency Room with complaints of constant abdominal pain starting [employer]. The patient states she was in the ED earlier today for abdominal pain. She notes she was given Dilaudid in the ED. She states she was discharged home and then started to get the pain again. She notes she called the oncologist supervisor [employer] and they told her to go to the ED and get admitted for pain management. She notes her pain in in her lower back and abdomen. She denies any trouble peeing. She notes her PCP is Dr. Laura in [place]. The patient notes she takes 2 mg of 25 fentanyl patches every 3 days. The patient notes she will start chemotherapy again on January 02. Home Medications Home Medications Medication Instructions Recorded Confirmed Type clonazepam 0.5 mg PO BID PRN 07/29/18 12/25/18 History fentanyl 2 patch TRANSDERMAL Q72H 07/29/18 12/25/18 History lisinopril 10 mg PO DAILY 07/29/18 12/25/18 History ondansetron HCl [Zofran] 4 mg PO UD PRN 07/29/18 12/25/18 History prochlorperazine maleate 10 mg PO UD PRN 07/29/18 12/25/18 History [Compazine] omeprazole 40 mg PO DAILY 12/24/18 12/25/18 History paroxetine HCl [Paxil] 10 mg PO DAILY 12/24/18 12/25/18 History sucralfate [Carafate] 1 g PO BID 12/24/18 12/25/18 History oxycodone 10 mg PO DIRECTED PRN 12/25/18 12/25/18 History Allergies Allergy/AdvReac Type Severity Reaction Status Date / Time Sulfa (Sulfonamide Allergy Mild NAUSEA; Verified 12/25/18 00:20 Antibiotics) AFFECTS BLOOD Past Med/Surg History Medical History Ovarian cancer (Resolved) Bowel obstruction (Resolved) Hx antineoplastic chemotherapy (Resolved) Peritoneal carcinoma Surgical History No pertinent past surgical history Family History Other No pertinent family history Social History Current Living Situation: Alone Other Information That Helps Us Care for You: No Feels Safe at Home: Yes Safety Concerns: Feels Safe At This Time Smoking Status: Never smoker Do You Dip or Chew Tobacco: No Second Hand Exposure: No Tobacco Cessation Education Requested by Patient: No Hx Alcohol Use: No Hx Substance Use: No Beliefs That Will Affect Care: None Preferred Language: Dominican Communication Ability: Effective Review of Systems See HPI for pertinent positives & negatives. and A total of 10 systems reviewed and were otherwise negative Physical Exam Vital Signs Vital Signs - 24 hr 12/24/18 22:48 12/25/18 00:00 12/25/18 02:02 Temperature 37 C Temperature Source Oral Sepsis Recent Fever Within 48 Hours No Sepsis Action Taken by Nursing No Action Required Pulse Rate 88 Pulse Rate [Right Finger] 65 90 Pulse Rhythm [Right Finger] Regular Pulse Strength [Right Finger] Respiratory Rate 18 16 18 Respiratory Effort / Characteristics Non-Labored Non-Labored Spontaneous Non-Labored Respiratory Depth Normal Normal Normal Respiratory Pattern Regular Regular Regular Blood Pressure 157/79 H Blood Pressure [Right Arm] 148/86 H Blood Pressure Mean 105 Blood Pressure Mean [Right Arm] 106 Blood Pressure Position [Right Arm] Pulse Oximetry 96 98 94 Oxygen Delivery Method Room Air Room Air Room Air 12/25/18 03:08 12/25/18 03:31 12/25/18 06:11 Temperature 36.6 C Temperature Source Oral Sepsis Recent Fever Within 48 Hours Sepsis Action Taken by Nursing Pulse Rate 65 Pulse Rate [Right Finger] 83 83 Pulse Rhythm [Right Finger] Regular Regular Pulse Strength [Right Finger] Normal Normal Respiratory Rate 18 20 Respiratory Effort / Characteristics Non-Labored Spontaneous Non-Labored Spontaneous Respiratory Depth Normal Normal Respiratory Pattern Regular Regular Blood Pressure Blood Pressure [Right Arm] 119/73 130/70 Blood Pressure Mean Blood Pressure Mean [Right Arm] 88 90 Blood Pressure Position [Right Arm] Lying Pulse Oximetry 95 95 99 Oxygen Delivery Method Room Air Room Air Room Air 12/25/18 07:33 12/25/18 12:00 12/25/18 16:00 Temperature 36.9 C 36.8 C 37 C Temperature Source Oral Oral Oral Sepsis Recent Fever Within 48 Hours Sepsis Action Taken by Nursing Pulse Rate Pulse Rate [Right Finger] 90 87 75 Pulse Rhythm [Right Finger] Regular Regular Regular Pulse Strength [Right Finger] Normal Normal Respiratory Rate 18 16 18 Respiratory Effort / Characteristics Non-Labored Spontaneous Non-Labored Spontaneous Non-Labored Spontaneous Respiratory Depth Normal Normal Normal Respiratory Pattern Regular Regular Regular Blood Pressure Blood Pressure [Right Arm] 134/66 148/81 H 137/69 Blood Pressure Mean Blood Pressure Mean [Right Arm] 88 103 91 Blood Pressure Position [Right Arm] Sitting Lying Lying Pulse Oximetry 95 95 91 Oxygen Delivery Method Room Air Room Air Room Air 12/25/18 18:40 12/25/18 20:00 Temperature 37.0 C Temperature Source Oral Sepsis Recent Fever Within 48 Hours Sepsis Action Taken by Nursing Pulse Rate Pulse Rate [Right Finger] 77 Pulse Rhythm [Right Finger] Pulse Strength [Right Finger] Respiratory Rate 18 Respiratory Effort / Characteristics Non-Labored Non-Labored Spontaneous Respiratory Depth Normal Normal Respiratory Pattern Regular Blood Pressure Blood Pressure [Right Arm] 152/75 H Blood Pressure Mean Blood Pressure Mean [Right Arm] 100 Blood Pressure Position [Right Arm] Sitting Pulse Oximetry 94 Oxygen Delivery Method Room Air Room Air GENERAL: Patient is awake alert. She is very anxious appearing and appears to be uncomfortable. EYES: The conjunctivae are clear. The pupils are round and reactive. EARS, NOSE, MOUTH AND THROAT: The nose is without any evidence of any deformity. Mucous membranes are moist tongue is midline NECK: The neck is nontender and supple. RESPIRATORY: Normal respiratory effort is noted there is no evidence of wheezing rhonchi or rales CARDIOVASCULAR: Regular rate and rhythm noted there no murmurs rubs or gallops normal S1 normal S2 GASTROINTESTINAL: The abdomen is moderately distended and diffusely tender. There is mild guarding diffusely noted. MUSCULOSKELETAL/EXTREMITIES: There is no evidence of gross deformity full range of motion is noted in the hips and shoulders SKIN: There is no obvious evidence of any rash. Trace pedal edema was noted bilaterally. NEUROLOGIC: Patient is awake alert and oriented x3 strength is symmetric patellar reflexes are 2+ bilaterally Course 2337: Past medical records reviewed. The patient was evaluated in room B12B, and a complete history and physical examination were performed. I reviewed the patient's case with Dr. Jonnathan Koch [facility] Hospitalist. He will evaluate the patient for further management. Administered Medications Heparin Sodium (Porcine) (Heparin Sodium (Porcine)) 5,000 units SQ Q8H PAUL Stop: 01/24/19 07:59 Last Admin: 12/25/18 15:56 Dose: 5,000 units Admin: 12/25/18 09:02 Dose: 5,000 units Hydromorphone HCl (Dilaudid) 1 mg IV Q3H PAUL Stop: 01/08/19 18:59 Last Admin: 12/25/18 21:06 Dose: 1 mg Lisinopril (Zestril) 10 mg PO DAILY PAUL Stop: 01/24/19 08:59 Last Admin: 12/25/18 09:03 Dose: 10 mg Miscellaneous (Fentanyl Patch Check Placement) 1 ea N/A QS PAUL Stop: 01/24/19 07:59 Last Admin: 12/25/18 15:58 Dose: 1 ea Admin: 12/25/18 09:01 Dose: 1 ea Ondansetron HCl (Zofran) 4 mg PO DAILY PRN PRN Reason: NAUSEA AND VOMITING Stop: 01/24/19 03:30 Last Admin: 12/25/18 09:04 Dose: 4 mg Ondansetron HCl (Zofran) 4 mg IV Q4H PRN PRN Reason: Nausea Stop: 01/24/19 06:06 Last Admin: 12/25/18 12:36 Dose: 4 mg Pantoprazole Sodium (Protonix) 40 mg PO DAILY PAUL Stop: 01/24/19 08:59 Last Admin: 12/25/18 09:03 Dose: 40 mg Paroxetine HCl (Paroxetine Hcl) 10 mg PO DAILY PAUL Stop: 01/24/19 08:59 Last Admin: 12/25/18 09:03 Dose: 10 mg Sucralfate (Carafate Tab) 1 gm PO BID PAUL Stop: 01/24/19 08:59 Last Admin: 12/25/18 21:06 Dose: 1 gm Admin: 12/25/18 09:03 Dose: 1 gm Discontinued Medications Fentanyl (Duragesic) 50 mcg TD Q3D PAUL Stop: 01/08/19 03:30 Last Admin: 12/25/18 03:37 Dose: 50 mcg Hydromorphone HCl (Dilaudid) 1 mg IV Q30M PRN PRN Reason: Pain Stop: 01/07/19 23:37 Last Admin: 12/25/18 05:57 Dose: 1 mg Admin: 12/25/18 04:29 Dose: 1 mg Admin: 12/25/18 03:37 Dose: 1 mg Admin: 12/25/18 02:06 Dose: 1 mg Admin: 12/25/18 00:08 Dose: 1 mg Hydromorphone HCl (Dilaudid) 1 mg IV Q3H PRN PRN Reason: Pain Stop: 01/08/19 03:30 Last Admin: 12/25/18 18:21 Dose: 1 mg Admin: 12/25/18 15:05 Dose: 1 mg Admin: 12/25/18 11:39 Dose: 1 mg Admin: 12/25/18 09:01 Dose: 1 mg Sodium Chloride (Nss 1000ml) 500 mls @ 999 mls/hr IV .Q31M ONE Stop: 12/25/18 00:08 Last Infusion: 12/25/18 01:41 Dose: 0 mls/hr Admin: 12/25/18 00:10 Dose: 999 mls/hr Miscellaneous (Order Awaiting Action) 1 ea N/A QS PAUL Stop: 01/24/19 07:59 Last Admin: 12/25/18 09:03 Dose: 1 ea Ondansetron HCl (Zofran) 4 mg IV NOW STA Stop: 12/24/18 23:39 Last Admin: 12/25/18 00:08 Dose: 4 mg Ondansetron HCl (Zofran) Confirm Administered Dose 4 mg .ROUTE .STK-MED ONE Stop: 12/25/18 05:57 Last Admin: 12/25/18 06:09 Dose: 4 mg Medical Decision Making Differential Diagnosis Differential diagnosis: Etiologies such as appendicitis, diverticulitis, PUD, biliary pathology, UTI, pancreatitis, obstruction, mesenteric ischemia, aortic pathology, infections, inflammatory bowel disease, renal colic, as well as others were entertained. Medical Records Attestation: I reviewed the patient's medical records. Home Medications Current Medication List: was personally reviewed by me Laboratory Data Result diagrams: 12/25/18 06:47 Lab Results 12/25/18 12/25/18 12/25/18 Range/Units 06:47 06:47 Unknown WBC 3.46 L D (4.8-10.8) K/uL RBC 3.57 L (4.2-5.4) M/uL Hgb 11.5 L (12.0-16.0) g/dL Hct 34.8 L (37-47) % MCV 97.5 (80-100) fL MCH 32.2 (25-34) pg MCHC 33.0 (32-36) g/dL RDW Std Deviation 44.7 (36.4-46.3) fL RDW Coeff of Pilar 12.5 (11.5-14.5) % Plt Count 105 L (130-400) K/uL MPV 9.9 (7.4-10.4) fL PT 10.8 (9.0-12.0) Seconds INR 1.1 (0.9-1.1) Nasal Screen MRSA (PCR) Negative (Negative) Blood Pressure Blood Pressure Findings: Elevated blood pressure Blood Pressure Disposition: further management by hospitalist MDM Narrative The patient is a 73-year-old female who presented to the emergency department for an evaluation of abdominal pain. The patient has a history of metastatic ovarian cancer. 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 The patient was treated with pain medication at that time but when she went home her pain was very poorly controlled. This reason she called her primary cancer doctor and was sent back to the emergency department for further evaluation. The patient was treated with IV pain medication in the emergency department. I discussed her case with the [facility] hospitalist group. They have agreed to evaluate the patient in the emergency department for further management and disposition. Impression & Plan Abdominal pain, Metastatic cancer Discharge Plan Visit Data *Final* Discharge Date/Time: 12/25/18 03:08 Chief Complaint: Abdominal Pain Stated Complaint: PAIN, VOMITING, ABD - CANCER PAINS ED Provider: Josef Bai Discharge Problem: Abdominal pain, Metastatic cancer Patient Disposition: Admitted As Inpatient Discharge Instructions Interventions: ED Discharge Assessment Last Done: 12/25/18 03:08 The scribe's documentation has been prepared under my direction and personally reviewed by me in its entirety. I confirm that the note above accurately reflects all work, treatment, procedures, and medical decision making performed by me.
--- NOTE | 2018-12-25 03:07 | History & Physical Report ---
Date of Service December 25, 2018 Assessment & Plan (1) Abdominal pain: 73 y/o F Hx HTN, active ovarian CA with carcinomatosis. The pt presents with progressive lower abdominal pain radiating to her R flank and back. She denies a fever, nausea, vomiting or diarrhea. A CT of the abdomen does not demonstrate any new findings although persistent carcinomatosis is present. She has not gained relief from her current oral medications and is admitted for pain control therefore. 1) Abdominal pain due to CA/carcinomatosis - admitted for pain control. We have increased her TD Fentanyl dose to 50mg. She will receive PRN Dilaudid for breakthrough. We can calculate her narcotic requirements for DC and she can f/ u with her oncologist or pain management. 2) HTN - cont Lisinopril 3) GERD - cont PPi 4) Ovarian CA - F/U as outpt. She is due to start a new chemo regimen. Full code - Heparin prophylaxis Total time for this admit including review of labs, meds, imaging, records - discussion with pt and ER attending - 38 min Present on Admission?: Yes History of Present Illness Chief Complaint: 73 y/o F Hx HTN, active ovarian CA with carcinomatosis. The pt presents with progressive lower abdominal pain radiating to her R flank and back. She denies a fever, nausea, vomiting or diarrhea. A CT of the abdomen does not demonstrate any new findings although persistent carcinomatosis is present. She has not gained relief from her current oral medications and is admitted for pain control therefore. PMH: 1) Ovarian CA - diagnosed initially in 2012. Underwent chemo with Taxol and Carboplatinum which was followed by debulking. Recurrence was discovered in 2017. 2) Breast CA 2014 3) GERD 4) Anxiety Surgical: 1) Hysterectomy 2) Debulking of ovarian CA 3) Double mastectomy Social: Distant smokng history Does not drink alcohol Maintains independence Primary Care Provider: Edvin Laura Allergies Allergy/AdvReac Type Severity Reaction Status Date / Time Sulfa (Sulfonamide Allergy Mild NAUSEA; Verified 12/25/18 00:20 Antibiotics) AFFECTS BLOOD Home Medications Home Medications Medication Instructions Recorded Confirmed Type clonazepam 0.5 mg PO BID PRN 07/29/18 12/25/18 History fentanyl 2 patch TRANSDERMAL Q72H 07/29/18 12/25/18 History lisinopril 10 mg PO DAILY 07/29/18 12/25/18 History ondansetron HCl [Zofran] 4 mg PO UD PRN 07/29/18 12/25/18 History prochlorperazine maleate 10 mg PO UD PRN 07/29/18 12/25/18 History [Compazine] omeprazole 40 mg PO DAILY 12/24/18 12/25/18 History paroxetine HCl [Paxil] 10 mg PO DAILY 12/24/18 12/25/18 History sucralfate [Carafate] 1 g PO BID 12/24/18 12/25/18 History oxycodone 10 mg PO DIRECTED PRN 12/25/18 12/25/18 History Past Med/Surg History Medical History Ovarian cancer (Resolved) Bowel obstruction (Resolved) Hx antineoplastic chemotherapy (Resolved) Peritoneal carcinoma Surgical History No pertinent past surgical history Family History Other No pertinent family history Social History Feels Safe at Home: Yes Smoking Status: Former smoker Preferred Language: [place]se Review of Systems Gen: Denies fevers, night sweats, rigors, fatigue, malaise, weight loss/gain ENT: Denies congestion, throat pain, hearing loss Eyes: Denies acute visual changes CV: Denies CP, palpitations Pulmonary: Denies SOB, cough, wheezing GI: Moderate to severe abdominal pain as above - radiates to flank and back on R Neuro: Denies acute or unilateral weakness, acute gait impairment, headache or acute visual changes Musculoskeletal: Denies joint pain, inflammation Endocrine: Denies polydipsia, polyuria Skin: Denies acute rashes or ulcers Physical Exam 2 Vital Signs (Past 24 Hours): Last Vital Signs Temp 37 C 12/24/18 22:48 Pulse 90 12/25/18 02:02 Resp 18 12/25/18 02:02 BP 148/86 H 12/25/18 02:02 Pulse Ox 94 12/25/18 02:02 Physical Exam: General: PLeasant, elderly F, AAO x 3, no distress ENT: No erythema or exudates, no thrush Eyes: MICHAEL, EOMI Head and neck: Normocephalic, atraumatic, No JVD, neck is supple. Chest/heart: Nontender, S1,2, RRR, no murmurs, no gallops Lungs: CTAB, no wheezing or crackles Abdomen: Tenderness to palpation of the lower abdomen Neuro: AAO x 3, speech is clear, no unilateral weakness or loss of sensation, coordination intact Musculoskeletal: No joint inflammation, muscle tenderness, FROM Skin: No acute rashes or ulcers Extremities: No clubbing, cyanosis, edema Results & Data Diagnostic Findings CT abdomen: Persistent abdominal carcinomatosis _ (1) Abdominal pain Abdominal location: unspecified location Qualified Code(s): R10.9 - Unspecified abdominal pain
[2018-12-25] MEDS ORDERED: fentaNYL 50 MCG/HR TDSY TD SCH (03:31)
[2018-12-25] MEDS ORDERED: ACETAMINOPHEN 325 MG TAB PO PRN (03:31)
[2018-12-25] MEDS ORDERED: MAGNESIUM HYDROXIDE SUSP 30 ML UDC PO PRN (03:31)
[2018-12-25] MEDS ORDERED: clonazePAM 0.5 MG TAB PO PRN (03:31)
[2018-12-25] MEDS ORDERED: ALUMINUM/MAGNESIUM SUSP 30 ML UDC PO PRN (03:31)
[2018-12-25] MEDS ORDERED: ONDANSETRON INJ 2 MG/ML 2 ML VIAL ONE (05:56)
[2018-12-25] MEDS ORDERED: ONDANSETRON INJ 2 MG/ML 2 ML VIAL IV PRN (06:07)
[2018-12-25 07:11] LABS: Hematocrit (blood only) 34.8 % (37-47); Hemoglobin 11.5 g/dL (12.0-16.0); Mean Corpuscular Volume 97.5 fL (80-100); Mean Platelet Volume 9.9 fL (7.4-10.4); Platelet Count 105 K/uL (130-400); RDW Coefficient of Variation 12.5 % (11.5-14.5); RDW Standard Deviation 44.7 fL (36.4-46.3); Red Blood Count 3.57 M/uL (4.2-5.4); White Blood Count 3.46 K/uL (4.8-10.8)
[2018-12-25 07:12] LABS: INR 1.1 (0.9-1.1); Prothrombin Time 10.8 Seconds (9.0-12.0)
[2018-12-25] MEDS: CHECK FENTANYL PATCH PLACEMENT SCH ×2 (09:01→15:58)
[2018-12-25] MEDS: HEPARIN SOD 5,000 UNIT/0.5 ML VIAL SQ SCH ×2 (09:02→15:56)
[2018-12-25] MEDS: LISINOPRIL 10 MG TAB PO SCH (09:03)
[2018-12-25] MEDS: PARoxetine HCl 10 MG TAB PO SCH (09:03)
[2018-12-25] MEDS: PANTOprazole 40 MG TAB PO SCH (09:03)
[2018-12-25] MEDS: SUCRALFATE 1 GM TAB PO SCH ×2 (09:03→21:06)
[2018-12-25] MEDS: ONDANSETRON 4 MG TAB PO PRN (09:04)
[2018-12-25] MEDS: HYDROmorphone INJ 1 MG/ML SYRINGE IV SCH (21:06)
[2018-12-26] MEDS: CHECK FENTANYL PATCH PLACEMENT SCH ×4 (00:05→23:32)
[2018-12-26] MEDS: HEPARIN SOD 5,000 UNIT/0.5 ML VIAL SQ SCH ×4 (00:06→23:33)
[2018-12-26] MEDS: HYDROmorphone INJ 1 MG/ML SYRINGE IV SCH ×6 (00:07→16:14)
[2018-12-26] MEDS: SUCRALFATE 1 GM TAB PO SCH ×2 (08:13→20:28)
[2018-12-26] MEDS: LISINOPRIL 10 MG TAB PO SCH (08:15)
[2018-12-26] MEDS: PANTOprazole 40 MG TAB PO SCH (08:16)
[2018-12-26] MEDS: PARoxetine HCl 10 MG TAB PO SCH (08:16)
[2018-12-26] MEDS: ONDANSETRON 4 MG TAB PO PRN (09:04)
[2018-12-26] MEDS: HYDROmorphone HCL 2 MG TAB PO SCH ×2 (18:53→22:36)
--- NOTE | 2018-12-26 23:05 | Hospitalist Progress Note ---
Date of Service December 26, 2018 Assessment & Plan (1) Abdominal pain: 73 y/o F Hx HTN, active ovarian CA with carcinomatosis. The pt presents with progressive lower abdominal pain radiating to her R flank and back. She denies a fever, nausea, vomiting or diarrhea. A CT of the abdomen does not demonstrate any new findings although persistent carcinomatosis is present. She has not gained relief from her current oral medications and is admitted for pain control therefore. 1) Abdominal pain due to CA/carcinomatosis - admitted for pain control. Increased her TD Fentanyl dose to 50mg. Switched her dialudid to scheduled yesterday. This appears to have improved her pain control. Will swtich to equivalent PO dose. Will likely discharge in AM. 2) HTN - cont Lisinopril 3) GERD - cont PPi 4) Ovarian CA - F/U as outpt. She is due to start a new chemo regimen. Full code - Heparin prophylaxis Spent 25 minutes in management of patient. Subjective 73 yo female reports feeling better. She states the scheduled doses of her pain medicine is controlling her pain. Patient though would like to assess oral pain medicine regimen before leaving the hosptial. Physical Exam Vital Signs (Past 24 Hours): Last Vital Signs Temp 36.8 C 12/26/18 19:22 Pulse 64 12/26/18 19:22 Resp 20 12/26/18 19:22 BP 98/59 L 12/26/18 19:22 Pulse Ox 95 12/26/18 19:22 Physical Exam: General: PLeasant, elderly F, AAO x 3, no distress ENT: No erythema or exudates, no thrush Eyes: MICHAEL, EOMI Head and neck: Normocephalic, atraumatic, No JVD, neck is supple. Chest/heart: Nontender, S1,2, RRR, no murmurs, no gallops Lungs: CTAB, no wheezing or crackles Abdomen: soft, mildly tender to palpation. Neuro: AAO x 3, speech is clear, no unilateral weakness or loss of sensation, coordination intact Musculoskeletal: No joint inflammation, muscle tenderness, FROM Skin: No acute rashes or ulcers Extremities: No clubbing, cyanosis, edema (1) Abdominal pain Abdominal location: generalized Qualified Code(s): R10.84 - Generalized abdominal pain
[2018-12-27] MEDS: HYDROmorphone HCL 2 MG TAB PO SCH ×3 (02:58→10:54)
[2018-12-27] MEDS: PARoxetine HCl 10 MG TAB PO SCH (07:47)
[2018-12-27] MEDS: LISINOPRIL 10 MG TAB PO SCH (07:47)
[2018-12-27] MEDS: SUCRALFATE 1 GM TAB PO SCH (07:47)
[2018-12-27] MEDS: PANTOprazole 40 MG TAB PO SCH (07:47)
[2018-12-27] MEDS: HEPARIN SOD 5,000 UNIT/0.5 ML VIAL SQ SCH ×2 (07:48→15:35)
[2018-12-27] MEDS: CHECK FENTANYL PATCH PLACEMENT SCH (07:48)
[2018-12-27 08:27] LABS: BUN Creatinine Ratio 22.9 (10-20); Calcium 10.3 mg/dl (8.5-10.1); Creatinine Clr Calc Pharmacy 73.7 ml/min; Est GFR (African American) 104.6; Est GFR (Non-African American) 90.2; Potassium 3.9 mmol/L (3.5-5.1)
[2018-12-27] MEDS ORDERED: HYDROmorphone HCL 2 MG TAB PO SCH ×2 (13:02→15:00)
[2018-12-27] MEDS ORDERED: HYDROmorphone HCL 2 MG TAB PO STA (13:12)
[2018-12-27] MEDS ORDERED: fentaNYL 75 MCG/HR TDSY TD SCH (13:15)
[2018-12-27] MEDS ORDERED: CHECK FENTANYL PATCH PLACEMENT SCH (16:00)
[2018-12-28] MEDS ORDERED: fentaNYL 50 MCG/HR TDSY TD SCH (07:00)
--- NOTE | 2018-12-28 11:39 | Discharge Summary ---
Date of Service January 01, 2019 Admission HPI Per Admitting Provider Chief Complaint: 73 y/o F Hx HTN, active ovarian CA with carcinomatosis. The pt presents with progressive lower abdominal pain radiating to her R flank and back. She denies a fever, nausea, vomiting or diarrhea. A CT of the abdomen does not demonstrate any new findings although persistent carcinomatosis is present. She has not gained relief from her current oral medications and is admitted for pain control therefore. PMH: 1) Ovarian CA - diagnosed initially in 2012. Underwent chemo with Taxol and Carboplatinum which was followed by debulking. Recurrence was discovered in 2016. 2) Breast CA 2014 3) GERD 4) Anxiety Surgical: 1) Hysterectomy 2) Debulking of ovarian CA 3) Double mastectomy Social: Distant smokng history Does not drink alcohol Maintains independence Primary Care Provider: Edvin Laura Discharge Data Consultations 12/25/18 00:14 ED Decision to Admit Stat
--- NOTE | 2018-12-31 10:12 | Discharge Summary ---
Date of Service Dec 27, 2018 Admission HPI Per Admitting Provider Chief Complaint: 73 y/o F Hx HTN, active ovarian CA with carcinomatosis. The pt presents with progressive lower abdominal pain radiating to her R flank and back. She denies a fever, nausea, vomiting or diarrhea. A CT of the abdomen does not demonstrate any new findings although persistent carcinomatosis is present. She has not gained relief from her current oral medications and is admitted for pain control therefore. PMH: 1) Ovarian CA - diagnosed initially in 2012. Underwent chemo with Taxol and Carboplatinum which was followed by debulking. Recurrence was discovered in 2016. 2) Breast CA 2014 3) GERD 4) Anxiety Surgical: 1) Hysterectomy 2) Debulking of ovarian CA 3) Double mastectomy Social: Distant smokng history Does not drink alcohol Maintains independence Primary Care Provider: Edvin Laura Principal Diagnosis Abdominal pain from ovarian cancer Discharge Exam General: PLeasant, elderly F, AAO x 3, no distress ENT: No erythema or exudates, no thrush Eyes: MICHAEL, EOMI Head and neck: Normocephalic, atraumatic, No JVD, neck is supple. Chest/heart: Nontender, S1,2, RRR, no murmurs, no gallops Lungs: CTAB, no wheezing or crackles Abdomen: soft, mildly tender to palpation. Neuro: AAO x 3, speech is clear, no unilateral weakness or loss of sensation, coordination intact Musculoskeletal: No joint inflammation, muscle tenderness, FROM Skin: No acute rashes or ulcers Extremities: No clubbing, cyanosis, edema Discharge Data Allergies Allergy/AdvReac Type Severity Reaction Status Date / Time Sulfa (Sulfonamide Allergy Mild NAUSEA; Verified 12/25/18 00:20 Antibiotics) AFFECTS BLOOD Consultations 12/25/18 00:14 ED Decision to Admit Stat Hospital Course (1) Abdominal pain: 73 y/o F Hx HTN, active ovarian CA with carcinomatosis. The pt presents with progressive lower abdominal pain radiating to her R flank and back. She denies a fever, nausea, vomiting or diarrhea. A CT of the abdomen does not demonstrate any new findings although persistent carcinomatosis is present. She has not gained relief from her current oral medications and is admitted for pain control therefore. 1) Abdominal pain due to CA/carcinomatosis - admitted for pain control. Increased her TD Fentanyl dose to 75 mcg. This will control her pain medicine. She will be swiched to dilaudid for breakthrough pain, hwoever, patient should be fine on only fentanyl patch. Update AFTER DISCHARGE: Dilauddid was not available at pharmacy. Patient has oxycodone at home. Ok to use oxycodone for breakthrough pain as fentanyl was increased from 25mcg to 75 mcg. 2) HTN - cont Lisinopril 3) GERD - cont PPi 4) Ovarian CA - F/U as outpt. She is due to start a new chemo regimen. Full code - Heparin prophylaxis Total Time Total Time Spent Total Time Spent (In Minutes): 34 Total Time Includes: Examination of the Patient, Discharge Planning and Medication Reconciliation Discharge Plan Discharge Items Patient Disposition: Home - Self-Care Reason For Visit: INTRACTABLE PAIN Discharge Diagnosis: Intractable pain Discharge Goals: Decrease discomfort Activity: Resume your previous activity Non-emergency contact: Primary Care Provider Call non-emergency contact if: your pain is concerning for you Follow-up/Referrals: Edvin Laura [Primary Care Provider] - 01/01/19 11:00 am (Please, follow up with Dr. Edvin Laura on MondayJanuary 01 at 11:00 am. *If you need to change this appointment, call the office at [phone].) Diet: Regular Addtl Provider Instructions: The fenatanyl should cover your pain, while the dialudid will be given for break out pain. Prescriptions: New hydromorphone 2 mg Tablet 5 mg PO Q4H PRN (Reason: Abdominal Pain) Qty: 60 RF: 0 fentanyl 75 mcg/hr patch 72 hour 1 patch TD Q72H Qty: 9 RF: 0 Continued ondansetron HCl [Zofran] 4 mg Tablet 4 mg PO UD PRN (Reason: Nausea And Vomiting) RF: 0 clonazepam 0.5 mg Tablet 0.5 mg PO BID PRN (Reason: Anxiety) RF: 0 prochlorperazine maleate [Compazine] 10 mg Tablet 10 mg PO UD PRN (Reason: Nausea And Vomiting) RF: 0 lisinopril 10 mg Tablet 10 mg PO DAILY RF: 0 paroxetine HCl [Paxil] 10 mg Tablet 10 mg PO DAILY RF: 0 sucralfate [Carafate] 1 gram Tablet 1 g PO BID RF: 0 omeprazole 40 mg Capsule,Delayed Release(Dr/Ec) 40 mg PO DAILY RF: 0 Discontinued fentanyl 25 mcg/hr Patch 72 Hour 2 patch TRANSDERMAL Q72H RF: 0 oxycodone 10 mg Tablet 10 mg PO DIRECTED PRN (Reason: Pain) RF: 0 Stand-Alone Forms: [facility] [place] Discharge Orders: Discharge Order (Routine); Ordered 12/27/18 Ordered By: Edvin Castillo Admission Data Admit Date/Time: 12/25/18 01:41 Attending Provider: Edvin Castillo Admit Provider: aDnial De Santiago Primary Care Provider: Edvin Laura Other Providers: Danial De Santiago Service: Oncology Other Interventions: Discharge Summary Assessment (RN) Last Done: 12/27/18 17:30 DC Date/Time DO NOT enter until pt leaves facility: 12/27/18 19:44
== END 2018-12-27 19:44 | disposition home or self-care (01) ==
LOC: 1E 22:45 → ED 22:45 → SUATTDRO 12-25 01:41 → 1E 12-25 03:08 → 4E 12-25 17:32

== ENCOUNTER 2019-01-25 15:35 | Inpatient (IN) ==
[2019-01-25] MEDS ORDERED: SODIUM CHLORIDE 0.9% 1000ML 1,000 ML IV SCH (18:30)
--- NOTE | 2019-01-25 18:58 | XRay Report ---
XR chest 1V portable HISTORY: 73 years-old Female Sepsis acute sepsis COMPARISON: CT abdomen and pelvis 12/24/2018, chest radiograph 02/08/2018 TECHNIQUE: Portable AP view the chest FINDINGS: Cardiac mediastinal and hilar silhouettes are unchanged. Stable positioning of the left subclavian In fuse-a-Port catheter. Skinfold projects over the left upper lung. No pneumothorax, pleural effusion o r overt pulmonary edema. 4 mm nodular opacity of the lateral left lung base likely correlates with a calcified granuloma is noted on comparison. Degenerative changes of the shoulders and spine. Moderate hiatal hernia. IMPRESSION: 1. No acute process. 2. Moderate sized hiatal hernia. 3. Prior granulomatous disease. The above report was generated using voice recognition software. It may contain grammatical, syntax o r spelling errors. Electronically signed by: Alvin Cook M.D. 01/25/2019 6:57 PM
[2019-01-25] MEDS ORDERED: fentaNYL citrate 100 MCG/2 ML VIAL IV STA ×2 (19:54→21:44)
[2019-01-25 20:11] LABS: Hematocrit (blood only) 31.5 % (37-47); Hemoglobin 10.5 g/dL (12.0-16.0); Mean Corpuscular Hgb Conc 33.3 g/dL (32-36); RDW Coefficient of Variation 12.7 % (11.5-14.5); RDW Standard Deviation 44.3 fL (36.4-46.3); Red Blood Count 3.28 M/uL (4.2-5.4)
[2019-01-25 20:19] LABS: Mean Platelet Volume 10.5 fL (7.4-10.4); Platelet Count 70 K/uL (130-400)
[2019-01-25 20:23] LABS: Partial Thromboplastin Ratio 1.3; Partial Thromboplastin Time 34.7 Seconds (21.0-31.0); Prothrombin Time 10.4 Seconds (9.0-12.0)
[2019-01-25 20:27] LABS: Alanine Aminotransferase 18 U/L (12-78); Albumin Level 3.5 gm/dl (3.4-5.0); Aspartate Aminotransferase 19 U/L (15-37); BUN Creatinine Ratio 22.9 (10-20); Blood Urea Nitrogen 14 mg/dl (7-18); Calcium 9.9 mg/dl (8.5-10.1); Carbon Dioxide 27 mmol/L (21-32); Chloride 106 mmol/L (98-107); Creatinine Clr Calc Pharmacy 80.5 ml/min; Est GFR (African American) 106.3; Est GFR (Non-African American) 91.7; Glucose 94 mg/dl (70-99); Potassium 3.8 mmol/L (3.5-5.1); Sodium 136 mmol/L (136-145)
[2019-01-25 20:31] LABS: Albumin Globulin Ratio 1.2 (0.9-2); Alkaline Phosphatase 71 U/L (45-117); Bilirubin,Total 0.5 mg/dl (0.2-1); Total Protein 6.5 gm/dl (6.4-8.2); Troponin I < 0.015 ng/ml (0-0.045)
[2019-01-25 20:43] LABS: Basophils # (auto) 0.01 K/uL (0-0.2); Basophils % (auto) 0.4 %; Eosinophils # (auto) 0.01 K/uL (0-0.5); Eosinophils % (auto) 0.4 %; Lymphocytes # (auto) 0.56 K/uL (1.2-3.4); Lymphocytes % (auto) 24.3 %; Monocytes % (auto) 8.7 %; Neutrophils # (auto) 1.52 K/uL (1.4-6.5); Neutrophils % (auto) 66.2 %
[2019-01-25 20:57] LABS: Influenza A virus by PCR Neg for Influ A (Neg); Influenza B virus by PCR Neg for Influ B (Neg)
[2019-01-25] MEDS ORDERED: CEFEPIME 1,000 MG in SYRINGE 0 ML IV STA (21:16)
[2019-01-25] MEDS ORDERED: ACETAMINOPHEN 500 MG TAB PO STA (21:16)
[2019-01-25 22:18] LABS: Appearance Urine Clear (Clear); Bacteria Urine Automated Negative (Negative); Bilirubin Urine Negative (Negative); Blood Urine Negative (Negative); Cast Urine Automated 0 /lpf (0-5); Color Urine Yellow; Glucose Urine UA Negative (Negative); Ketones Urine Negative (Negative); Leukocyte Esterase Urine 1+ (Negative); Nitrite Urine Negative (Negative); Protein Urine Negative (Negative); RBC Urine Automated 0-4 /hpf (0-4); Specific Gravity Urine 1.012 (1.000-1.030); Urobilinogen Urine Negative (Negative)
--- NOTE | 2019-01-25 22:20 | History & Physical Report ---
Date of Service January 25, 2019 Assessment & Plan (1) Sepsis: Ms. Urena is a rose 73 year old female with an unfortunate past medical history of recurrent ovarian cancer with carcinomatosis, hypertension, GERD, and depression who presents to the emergency department due to a fever, and cough. Patient received 1 g IV Tylenol, 1 g IV cefepime, 50 mcg IV fentanyl x2, 1 L IV normal saline bolus in the ED. -admit to med/surg w/telemetry monitoring -patient meets criteria for sepsis w/temp of 38.1 and decreased WCC -Blood cultures drawn and pending -Urine dipstick positive for leukocytes, urine culture sent -Chest x-ray negative for consolidation, consider CT chest if respiratory status worsens -Empiric antibiotic coverage with cefepime and vancomycin (as patient has a port in place) -Patient was hypotensive with blood pressure of 97/62 on arrival, but responded well to fluids Chronic Pain Secondary to Ovarian Cancer w/carcinomatosis -continue home regimen w/fentanyl patch and hydromorphone (caution w/BP) Pancytopenia -Secondary to chemotherapy -Not currently neutropenic -White cell count 2.3, hemoglobin 10.5, platelets 70 -> counts are stable Hypertension -Hold home lisinopril given hypotensive on arrival GERD -Change home omeprazole to pantoprazole Nausea -Continue home antiemetic regimen w/zofran, compazine and promethazine Depression -Continue home Paxil and prn clonazepam Code status: Full, no mechanical ventilation, per patient DVT prophylaxis: SCDs Disposition: admit to med/surg with telemetry monitoring F/E/N: Regular diet. No electrolyte abnormalities noted. LR at 100 mls/hr x2 bags. (2) Peritoneal carcinoma: (3) Ovarian cancer: (4) Fever: (5) Pancytopenia: History of Present Illness Primary Care Provider: Edvin Laura Ms. Urena is a rose 73 year old female with an unfortunate past medical history of recurrent ovarian cancer with carcinomatosis, hypertension, GERD, and depression who presents to the emergency department due to a fever, and cough. She states that she has a sore throat, productive cough, and fever. Her last chemotherapy treatment was on Monday [3 days ago]. She follows with Dr. Zarco in [place] and Dr. Mederos in [place] for her ovarian cancer. She states that this is her first cycle of chemotherapy, since she found out that her cancer had recurred. She states that she had a CT scan 2 months ago, which showed that her cancer came back, and involved her peritoneum. She states that she has abdominal pain and back pain, which she notes is chronic. She does endorse that it may be slightly worse today. She states that she has had poor appetite at home, and has not had anything to eat today. She denies any changes in her bowel movements, dysuria, or any other urinary symptoms. She denies any changes over his skin, and states that she has no pain or erythema over her port site. She denies any sick contacts. She states that her ovarian cancer was diagnosed in 2011. She reports that she had a hysterectomy with bilateral salpingo-oophorectomy when she was in her 30s, however was later diagnosed with ovarian cancer, due to remnants of her ovaries and fallopian tubes left behind. She states that she has had multiple surgeries, and chemotherapy regimens. She has had both breasts removed, and multiple abdominal surgeries. She states that her mother had a history of ovarian, and therefore she was tested for BRCA1 and 2. She states her tests came back negative, but she had another gene w/predisposition for cancer, which she cannot recall the name of. Of note, she is a former smoker. She smoked a pack per day for 20 years, but quit 30 years ago. She denies use of alcohol or recreational drugs. She lives at home with her , and reports good support from her , son and various family members. Allergies Allergy/AdvReac Type Severity Reaction Status Date / Time Sulfa (Sulfonamide Allergy Mild NAUSEA; Verified 01/25/19 18:50 Antibiotics) AFFECTS BLOOD Home Medications Home Medications Medication Instructions Recorded Confirmed Type clonazepam 0.5 mg PO BID PRN 07/29/18 01/25/19 History lisinopril 10 mg PO DAILY 07/29/18 01/25/19 History ondansetron HCl [Zofran] 4 mg PO UD PRN 07/29/18 01/25/19 History prochlorperazine maleate 10 mg PO DIRECTED PRN 07/29/18 01/25/19 History [Compazine] omeprazole 40 mg PO DAILY 12/24/18 01/25/19 History paroxetine HCl [Paxil] 10 mg PO DAILY 12/24/18 01/25/19 History sucralfate [Carafate] 1 g PO BID 12/24/18 01/25/19 History fentanyl 1 patch TD Q72H #9 ea 12/27/18 01/25/19 Rx hydromorphone 5 mg PO Q4H PRN #60 tab 12/27/18 01/25/19 Rx promethazine [Phenadoz] 12.5 mg HI DIRECTED PRN 01/25/19 01/25/19 History Past Med/Surg History Medical History Peritoneal carcinoma Breast cancer (Resolved) Ovarian cancer (Resolved) Bowel obstruction (Resolved) Hx antineoplastic chemotherapy (Resolved) Cancer of peritoneum Surgical History No pertinent past surgical history Social History Preferred Language: Thai Communication Ability: Effective Science Consultant Required: No Beliefs That Will Affect Care: None marital status: Current Living Situation: Spouse current occupational status: retired Other Information That Helps Us Care for You: No Feels Safe at Home: Yes Safety Concerns: Feels Safe At This Time Smoking Status: Former smoker Hx Alcohol Use: No Hx Substance Use: No Review of Systems Constitutional: + fever, + chills, + fatigue and + anorexia Ear, Nose, Mouth, Throat: + sore throat Respiratory: + cough and + chest congestion; no dyspnea and no wheezing Cardiovascular: no chest pain, no edema and no calf pain Gastrointestinal: + abdominal pain; no nausea, no vomiting and no change in bowel habits Genitourinary (Female): no dysuria, no urinary frequency and no urinary urgency Musculoskeletal: + back pain Integumentary: no rash and no new lesions Physical Exam Vital Signs (Past 24 Hours): Last Vital Signs Temp 38.4 C H 01/25/19 21:13 Pulse 88 01/25/19 22:01 Resp 21 01/25/19 22:01 BP 131/68 01/25/19 21:46 Pulse Ox 96 01/25/19 22:01 Constitutional: WD/WN, vitals as above + well hydrated, cooperative and comfortable Eyes: PERRL, conjunctivae normal, anicteric sclerae Respiratory: normal respiratory effort and able to speak in complete sentences; no respiratory distress Auscultation: + diminished lung sounds Cardiovascular: RRR, no murmur, no edema Gastrointestinal (Abdomen): Percussion/Palpation: + abdomen tender (tender over umbilical region (pt states this is chronic)) and abdomen soft; no guarding and abdomen not rigid Skin: no rashes, warm and dry port in place over left side of chest. dressing c/d/i Results & Data Laboratory Results Laboratory Results - last 24 hr 01/25/19 01/25/19 01/25/19 19:33 19:33 19:33 WBC 2.30 L RBC 3.28 L Hgb 10.5 L Hct 31.5 L MCV 96.0 MCH 32.0 MCHC 33.3 RDW Std Deviation 44.3 RDW Coeff of Pilar 12.7 Plt Count 70 L MPV 10.5 H Immature Gran % (Auto) 0.0 Neut % (Auto) 66.2 Lymph % (Auto) 24.3 [place] % (Auto) 8.7 Eos % (Auto) 0.4 Baso % (Auto) 0.4 Immature Gran # (Auto) 0.00 Neut # (Auto) 1.52 Lymph # (Auto) 0.56 L [place] # (Auto) 0.20 Eos # (Auto) 0.01 Baso # (Auto) 0.01 PT 10.4 INR 1.0 APTT 34.7 H PTT Ratio 1.3 Sodium 136 Potassium 3.8 Chloride 106 Carbon Dioxide 27 Anion Gap 4.0 BUN 14 Creatinine 0.60 Est Cr Clr Drug Dosing 80.5 Est GFR ( Amer) 106.3 Est GFR (Non-Af Amer) 91.7 BUN/Creatinine Ratio 22.9 H Glucose 94 Lactate Calcium 9.9 Total Bilirubin 0.5 AST 19 ALT 18 Alkaline Phosphatase 71 Troponin I < 0.015 Total Protein 6.5 Albumin 3.5 Globulin 3.0 Albumin/Globulin Ratio 1.2 Lipase 54 L Urine Color Urine Appearance Urine pH Ur Specific [place] Urine Protein Urine Glucose (UA) Urine Ketones Urine Blood Urine Nitrite Urine Bilirubin Urine Urobilinogen Ur Leukocyte Esterase Urine WBC (Auto) Urine RBC (Auto) U Hyaline Cast (Auto) U Epithel Cells (Auto) Urine Bacteria (Auto) Influenza Type A (PCR) Influenza Type B (PCR) 01/25/19 01/25/19 01/25/19 19:35 19:40 21:34 WBC RBC Hgb Hct MCV MCH MCHC RDW Std Deviation RDW Coeff of Pilar Plt Count MPV Immature Gran % (Auto) Neut % (Auto) Lymph % (Auto) [place] % (Auto) Eos % (Auto) Baso % (Auto) Immature Gran # (Auto) Neut # (Auto) Lymph # (Auto) [place] # (Auto) Eos # (Auto) Baso # (Auto) PT INR APTT PTT Ratio Sodium Potassium Chloride Carbon Dioxide Anion Gap BUN Creatinine Est Cr Clr Drug Dosing Est GFR ( Amer) Est GFR (Non-Af Amer) BUN/Creatinine Ratio Glucose Lactate 0.6 Calcium Total Bilirubin AST ALT Alkaline Phosphatase Troponin I Total Protein Albumin Globulin Albumin/Globulin Ratio Lipase Urine Color Yellow Urine Appearance Clear Urine pH 8.0 H Ur Specific [place] 1.012 Urine Protein Negative Urine Glucose (UA) Negative Urine Ketones Negative Urine Blood Negative Urine Nitrite Negative Urine Bilirubin Negative Urine Urobilinogen Negative Ur Leukocyte Esterase 1+ H Urine WBC (Auto) 5-10 H Urine RBC (Auto) 0-4 U Hyaline Cast (Auto) 0 U Epithel Cells (Auto) 5-10 H Urine Bacteria (Auto) Negative Influenza Type A (PCR) Neg for Influ A Influenza Type B (PCR) Neg for Influ B Supervising Physician Co-Signing Physician Notes Pt seen/examined with resident Margaret Donnelly. Orders and plan of admission formulated with resident. 73 y/o F Hx HTN, ovarian cancer with carcinomatosis - currently receiving chemo, hypertension, GERD, depression - presents with fever, sore throat, productive cough. Fever was confirmed on arrival to the ER. OE: AAO x 3 S1,2 R - port site in L chest - no surrounding tenderness or induration CTAB NT, mild distention No CCE P: UA is equivocal, no PNM seen on CXR Placed on Cefepime and Vanc considering potential sources of infection inc her port. Pending culture results spectrum can be narrowed. Cont Lisinopril Reg her CA - she can f/u with oncology Resident Activity Tracking Resident Involvement: Resident Care Provided Care Provided: Adult Hospital Medicine (1) Sepsis Sepsis type: sepsis due to unspecified organism Qualified Code(s): A41.9 - Sepsis, unspecified organism
[2019-01-25] MEDS ORDERED: clonazePAM 0.5 MG TAB PO PRN (23:33)
[2019-01-25] MEDS ORDERED: ONDANSETRON 4 MG TAB PO PRN (23:33)
[2019-01-25] MEDS ORDERED: NON-FORMULARY MEDICATION (Fentanyl 1 PATCH) TD SCH (23:33)
[2019-01-25] MEDS ORDERED: PROMETHAZINE HCL 12.5 MG SUPP PR PRN (23:33)
[2019-01-25] MEDS ORDERED: VANCOMYCIN CONSULT ACTIVE PRN (23:33)
--- NOTE | 2019-01-26 00:34 | Emergency Department Note ---
Entered by Kirstin Roque acting as a scribe for History of Present Illness General Chief complaint: Shortness of Breath/Dyspnea Stated complaint: HARD TO BREATHE, SORE THROAT Time Seen by Provider: 01/25/19 18:10 Source: patient Mode of arrival: ambulatory Limitations: no limitations History of Present Illness Provider complaint: Shortness of breath Onset (ago): hour(s) (today) Location: chest Radiation: non-radiation Pain Consistency: + other (worsening) Maximum Pain Intensity: 5 Quality: + other (shortness of breath) Associated symptoms: + cough (non bloody), + fever/chills (temperature of 101.5) and + other (Additional symptoms: sore throat. Denies: hematochezia, painful urination); no chest pain Treatments prior to arrival: other (Tylenol) The patient is a 73 year old female with a history of metastatic breast and ovarian cancer who presents to the Emergency Room with complaints of worsening shortness of breath starting today. The patient reports that her shortness of breath has been accompanied by a sore throat and a non bloody cough, but no bryant tochezia, painful urination, and chest pain. She states that she also had a temperature of 101.5 when she was at her PCP's office in [place] today and that her PCP subsequently referred her to the ED. She notes that she tried to treat her symptoms with Tylenol. 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 Mederos. Home Medications Home Medications Medication Instructions Recorded Confirmed Type clonazepam 0.5 mg PO BID PRN 07/29/18 01/25/19 History lisinopril 10 mg PO DAILY 07/29/18 01/25/19 History ondansetron HCl [Zofran] 4 mg PO UD PRN 07/29/18 01/25/19 History prochlorperazine maleate 10 mg PO DIRECTED PRN 07/29/18 01/25/19 History [Compazine] omeprazole 40 mg PO DAILY 12/24/18 01/25/19 History paroxetine HCl [Paxil] 10 mg PO DAILY 12/24/18 01/25/19 History sucralfate [Carafate] 1 g PO BID 02/25/19 03/29/19 History fentanyl 1 patch TD Q72H #9 ea 12/27/18 01/25/19 Rx hydromorphone 5 mg PO Q4H PRN #60 tab 12/27/18 01/25/19 Rx promethazine [Phenadoz] 12.5 mg MI DIRECTED PRN 01/25/19 01/25/19 History Allergies Allergy/AdvReac Type Severity Reaction Status Date / Time Sulfa (Sulfonamide Allergy Mild NAUSEA; Verified 01/25/19 18:50 Antibiotics) AFFECTS BLOOD Past Med/Surg History Medical History Peritoneal carcinoma Breast cancer (Resolved) Ovarian cancer (Resolved) Bowel obstruction (Resolved) Hx antineoplastic chemotherapy (Resolved) Cancer of peritoneum Surgical History No pertinent past surgical history Social History Preferred Language: Estonian Beliefs That Will Affect Care: None marital status: Current Living Situation: Alone current occupational status: retired Feels Safe at Home: Yes Smoking Status: Never smoker Hx Alcohol Use: No Hx Substance Use: No Review of Systems See HPI for pertinent positives & negatives. and A total of 10 systems reviewed and were otherwise negative Physical Exam Vital Signs Vital Signs - 24 hr 01/25/19 15:58 01/25/19 19:01 01/25/19 19:06 Temperature 37.2 C Temperature Source Oral Sepsis Recent Fever Within 48 Hours No Sepsis New/Unexplained Change in Mental Status No Sepsis Action Taken by Nursing No Action Required Pulse Rate 71 79 78 Pulse Rate [Right Finger] Pulse Rate from SpO2 Sensor 46 L 65 Pulse Rhythm Regular Pulse Strength Normal Respiratory Rate 18 22 24 Respiratory Effort / Characteristics Non-Labored Respiratory Depth Normal Respiratory Pattern Regular Blood Pressure 97/62 L 123/70 Blood Pressure Mean 73 87 Blood Pressure Position Sitting Pulse Oximetry 98 98 98 Oxygen Delivery Method Room Air 01/25/19 19:15 01/25/19 19:30 01/25/19 19:44 Temperature Temperature Source Sepsis Recent Fever Within 48 Hours Sepsis New/Unexplained Change in Mental Status Sepsis Action Taken by Nursing Pulse Rate 87 79 Pulse Rate [Right Finger] Pulse Rate from SpO2 Sensor 59 L 72 Pulse Rhythm Pulse Strength Respiratory Rate 23 Respiratory Effort / Characteristics Respiratory Depth Respiratory Pattern Blood Pressure Blood Pressure Mean Blood Pressure Position Pulse Oximetry 95 100 98 Oxygen Delivery Method Room Air 01/25/19 19:45 01/25/19 20:00 01/25/19 20:01 Temperature Temperature Source Sepsis Recent Fever Within 48 Hours Sepsis New/Unexplained Change in Mental Status Sepsis Action Taken by Nursing Pulse Rate 78 80 80 Pulse Rate [Right Finger] Pulse Rate from SpO2 Sensor 72 69 70 Pulse Rhythm Pulse Strength Respiratory Rate 24 22 24 Respiratory Effort / Characteristics Respiratory Depth Respiratory Pattern Blood Pressure 87/51 L Blood Pressure Mean 63 Blood Pressure Position Pulse Oximetry 98 97 98 Oxygen Delivery Method 01/25/19 20:05 01/25/19 20:07 01/25/19 20:15 Temperature Temperature Source Sepsis Recent Fever Within 48 Hours Sepsis New/Unexplained Change in Mental Status Sepsis Action Taken by Nursing Pulse Rate 78 78 Pulse Rate [Right Finger] 85 Pulse Rate from SpO2 Sensor 69 Pulse Rhythm Pulse Strength Respiratory Rate 18 20 22 Respiratory Effort / Characteristics Non-Labored Spontaneous Respiratory Depth Normal Respiratory Pattern Blood Pressure 128/62 Blood Pressure Mean 84 Blood Pressure Position Pulse Oximetry 97 99 Oxygen Delivery Method Room Air 01/25/19 20:30 01/25/19 20:31 01/25/19 20:45 Temperature Temperature Source Sepsis Recent Fever Within 48 Hours Sepsis New/Unexplained Change in Mental Status Sepsis Action Taken by Nursing Pulse Rate 81 79 78 Pulse Rate [Right Finger] Pulse Rate from SpO2 Sensor 78 79 75 Pulse Rhythm Pulse Strength Respiratory Rate 16 22 19 Respiratory Effort / Characteristics Respiratory Depth Respiratory Pattern Blood Pressure 138/99 Blood Pressure Mean 112 Blood Pressure Position Pulse Oximetry 94 99 91 Oxygen Delivery Method 01/25/19 20:46 01/25/19 20:47 01/25/19 21:00 Temperature Temperature Source Sepsis Recent Fever Within 48 Hours Sepsis New/Unexplained Change in Mental Status Sepsis Action Taken by Nursing Pulse Rate 78 74 70 Pulse Rate [Right Finger] Pulse Rate from SpO2 Sensor 73 75 64 Pulse Rhythm Pulse Strength Respiratory Rate 18 16 23 Respiratory Effort / Characteristics Respiratory Depth Respiratory Pattern Blood Pressure 132/62 Blood Pressure Mean 85 Blood Pressure Position Pulse Oximetry 99 96 96 Oxygen Delivery Method 01/25/19 21:01 01/25/19 21:02 01/25/19 21:13 Temperature 38.4 C H Temperature Source Oral Sepsis Recent Fever Within 48 Hours Sepsis New/Unexplained Change in Mental Status Sepsis Action Taken by Nursing Pulse Rate 70 75 Pulse Rate [Right Finger] Pulse Rate from SpO2 Sensor 69 60 Pulse Rhythm Pulse Strength Respiratory Rate 18 24 Respiratory Effort / Characteristics Respiratory Depth Respiratory Pattern Blood Pressure 119/84 Blood Pressure Mean 95 Blood Pressure Position Pulse Oximetry 98 98 Oxygen Delivery Method 01/25/19 21:15 01/25/19 21:30 01/25/19 21:37 Temperature Temperature Source Sepsis Recent Fever Within 48 Hours Sepsis New/Unexplained Change in Mental Status Sepsis Action Taken by Nursing Pulse Rate 76 81 82 Pulse Rate [Right Finger] Pulse Rate from SpO2 Sensor 76 79 80 Pulse Rhythm Pulse Strength Respiratory Rate 18 17 19 Respiratory Effort / Characteristics Respiratory Depth Respiratory Pattern Blood Pressure 138/75 146/79 H Blood Pressure Mean 96 101 Blood Pressure Position Pulse Oximetry 97 97 99 Oxygen Delivery Method 01/25/19 21:45 01/25/19 21:46 01/25/19 21:47 Temperature Temperature Source Sepsis Recent Fever Within 48 Hours Sepsis New/Unexplained Change in Mental Status Sepsis Action Taken by Nursing Pulse Rate 79 89 80 Pulse Rate [Right Finger] Pulse Rate from SpO2 Sensor 61 90 81 Pulse Rhythm Pulse Strength Respiratory Rate 21 14 18 Respiratory Effort / Characteristics Respiratory Depth Respiratory Pattern Blood Pressure 131/68 Blood Pressure Mean 89 Blood Pressure Position Pulse Oximetry 98 97 95 Oxygen Delivery Method 01/25/19 22:00 01/25/19 22:01 01/25/19 22:02 Temperature Temperature Source Sepsis Recent Fever Within 48 Hours Sepsis New/Unexplained Change in Mental Status Sepsis Action Taken by Nursing Pulse Rate 83 88 82 Pulse Rate [Right Finger] Pulse Rate from SpO2 Sensor 79 86 83 Pulse Rhythm Pulse Strength Respiratory Rate 20 21 19 Respiratory Effort / Characteristics Respiratory Depth Respiratory Pattern Blood Pressure Blood Pressure Mean Blood Pressure Position Pulse Oximetry 91 96 96 Oxygen Delivery Method 01/25/19 22:15 01/25/19 22:16 01/25/19 22:30 Temperature Temperature Source Sepsis Recent Fever Within 48 Hours Sepsis New/Unexplained Change in Mental Status Sepsis Action Taken by Nursing Pulse Rate 79 88 77 Pulse Rate [Right Finger] Pulse Rate from SpO2 Sensor 79 80 81 Pulse Rhythm Pulse Strength Respiratory Rate 20 20 19 Respiratory Effort / Characteristics Respiratory Depth Respiratory Pattern Blood Pressure 129/63 Blood Pressure Mean 85 Blood Pressure Position Pulse Oximetry 93 93 91 Oxygen Delivery Method 01/25/19 22:31 01/25/19 22:45 01/25/19 22:46 Temperature 38.1 C H Temperature Source Oral Sepsis Recent Fever Within 48 Hours Sepsis New/Unexplained Change in Mental Status Sepsis Action Taken by Nursing Pulse Rate 78 75 76 Pulse Rate [Right Finger] Pulse Rate from SpO2 Sensor 80 68 72 Pulse Rhythm Pulse Strength Respiratory Rate 15 24 18 Respiratory Effort / Characteristics Respiratory Depth Respiratory Pattern Blood Pressure 116/66 106/56 L Blood Pressure Mean 82 72 Blood Pressure Position Pulse Oximetry 95 92 94 Oxygen Delivery Method 01/25/19 23:00 01/25/19 23:01 Temperature Temperature Source Sepsis Recent Fever Within 48 Hours Sepsis New/Unexplained Change in Mental Status Sepsis Action Taken by Nursing Pulse Rate 70 69 Pulse Rate [Right Finger] Pulse Rate from SpO2 Sensor 69 69 Pulse Rhythm Pulse Strength Respiratory Rate 17 17 Respiratory Effort / Characteristics Respiratory Depth Respiratory Pattern Blood Pressure 106/50 L Blood Pressure Mean 68 Blood Pressure Position Pulse Oximetry 93 95 Oxygen Delivery Method GENERAL: She is oriented to person, place, and time. She appears well-developed and well-nourished. She does not appear distressed. HENT: Exam performed. Head: Normocephalic and atraumatic. Right Ear: External ear normal. No mastoid tenderness. Left Ear: External ear normal. No mastoid tenderness. Mouth/Throat: The oropharynx is clear and moist. No trismus in the jaw. No dental abscesses or uvula swelling. No oropharyngeal exudate or tonsillar abscesses. EYES: Conjunctivae and EOM are normal. Pupils are equal, round, and reactive to light. Right eye exhibits no discharge. Left eye exhibits no discharge. No scleral icterus. NECK: Normal range of motion. Neck supple. No JVD present. No spinous process te nderness present. No carotid bruit present. No rigidity. No tracheal deviation and normal range of motion present. No Brudzinski's sign and no Kernig's sign noted. CV: Normal rate, regular rhythm, normal heart sounds and intact distal pulses. There is no peripheral edema. Palpable radial pulses bue. PULM/CHEST: Effort normal and breath sounds normal. No respiratory distress. No stridor. She has no wheezes. She has no rales. Chest Wall: She exhibits no tenderness. Powerport in place. ABD: The abdomen is soft. Bowel sounds are normal. She has no distension. No mass is present. There is no tenderness. There is no rebound, no guarding, no Pinzon's sign and no tenderness at McBurney's point. Rovsig negative multiple scars over the anterior abdomen. MUSC/SKEL: Normal range of motion. There is no peripheral edema, tenderness or deformity. LYMPH: No cervical adenopathy. NEURO: She is alert and oriented to person, place, and time. She has normal strength. No cranial nerve deficit or sensory deficit. Coordination and gait normal. GCS eye subscore is 4. GCS verbal subscore is 5. GCS motor subscore is 6. cerbellar tests wnl. SKIN: Skin is warm and dry. She is not diaphoretic. PSYCH: She has a normal mood and affect. Her behavior is normal. Judgment and thought content normal. Course 1812: Past medical records reviewed. The patient was evaluated in room A10, and a complete history and physical examination were performed. 2112: I reevaluated the patient and her temperature spiked to 38.4. Repeat physical exam shows her lungs are clear to auscultation, no meningeal signs. Her labs showed low a white blood cell count of 2.3 and neutrophils within normal limits. Lactic acid within normal limits. I reviewed the patient's case with Dr. Mederos - Oncology, [facility], and he stated that the patient's neutrophils are trending down so she should be admitted to medicine. He recommends giving the dose of cefepime, no need for vancomycin at this time per Dr. Mederos. 2134: Upon reevaluation, the patient is resting. I discussed the findings and the treatment plan with the patient. She expresses agreement and understanding. I spoke with Dr. De Santiago [facility]. The patient will be evaluated for further management. Consultations Consultation #1: I reviewed the patient's case with Dr. Mederos - Oncology, [facility], and he stated that the patient's neutrophils are trending down so she should be admitted to medicine. Time: 21:13 Consultation #2: I spoke with Dr. De Santiago of [facility]. The patient will be evaluated for further management. Time: 21:35 Administered Medications Discontinued Medications Acetaminophen (Tylenol) 1,000 mg PO NOW STA Stop: 01/25/19 21:17 Last Admin: 01/25/19 21:20 Dose: 1,000 mg Documented by: [id number] Fentanyl Citrate (Fentanyl Citrate) 50 mcg IV NOW STA Stop: 01/25/19 19:55 Last Admin: 01/25/19 20:01 Dose: 50 mcg Documented by: [id number] Fentanyl Citrate (Fentanyl Citrate) 50 mcg IV NOW STA Stop: 01/25/19 21:45 Last Admin: 01/25/19 22:02 Dose: 50 mcg Documented by: [id number] Sodium Chloride (Nss 1000ml) 1,000 mls @ 999 mls/hr IV .Q1H1M PAUL Stop: 01/25/19 18:45 Last Infusion: 01/25/19 21:32 Dose: 0 mls/hr Documented by: [id number] Admin: 01/25/19 19:51 Dose: 999 mls/hr Documented by: [id number] Cefepime HCl 1,000 mg/ Syringe 11.3 mls @ 5.5 mls/min IV NOW STA Stop: 01/25/19 21:18 Last Admin: 01/25/19 22:50 Dose: 5.5 mls/min Documented by: [id number] Medical Decision Making Medical Records Attestation: I reviewed the patient's medical records. Home Medications Current Medication List: was personally reviewed by me Laboratory Data Attestation: I reviewed the patient's lab results. Result diagrams: 01/25/19 19:33 01/25/19 19:33 Lab Results 01/25/19 01/25/19 01/25/19 Range/Units 19:33 19:33 19:33 WBC 2.30 L (4.8-10.8) K/uL RBC 3.28 L (4.2-5.4) M/uL Hgb 10.5 L (12.0-16.0) g/dL Hct 31.5 L (37-47) % MCV 96.0 (80-100) fL MCH 32.0 (25-34) pg MCHC 33.3 (32-36) g/dL RDW Std Deviation 44.3 (36.4-46.3) fL RDW Coeff of Pilar 12.7 (11.5-14.5) % Plt Count 70 L (130-400) K/uL MPV 10.5 H (7.4-10.4) fL Immature Gran % (Auto) 0.0 % Neut % (Auto) 66.2 % Lymph % (Auto) 24.3 % [place] % (Auto) 8.7 % Eos % (Auto) 0.4 % Baso % (Auto) 0.4 % Immature Gran # (Auto) 0.00 (0.00-0.02) K/uL Neut # (Auto) 1.52 (1.4-6.5) K/uL Lymph # (Auto) 0.56 L (1.2-3.4) K/uL Hawkins # (Auto) 0.20 (0.11-0.59) K/uL Eos # (Auto) 0.01 (0-0.5) K/uL Baso # (Auto) 0.01 (0-0.2) K/uL PT 10.4 (9.0-12.0) Seconds INR 1.0 (0.9-1.1) APTT 34.7 H (21.0-31.0) Seconds PTT Ratio 1.3 Sodium 136 (136-145) mmol/L Potassium 3.8 (3.5-5.1) mmol/L Chloride 106 (98-107) mmol/L Carbon Dioxide 27 (21-32) mmol/L Anion Gap 4.0 (3-11) BUN 14 (7-18) mg/dl Creatinine 0.60 (0.6-1.2) mg/dl Est Cr Clr Drug Dosing 80.5 ml/min Est GFR ( Amer) 106.3 Est GFR (Non-Af Amer) 91.7 BUN/Creatinine Ratio 22.9 H (10-20) Glucose 94 (70-99) mg/dl Lactate (0.4-2.0) mmol/L Calcium 9.9 (8.5-10.1) mg/dl Total Bilirubin 0.5 (0.2-1) mg/dl AST 19 (15-37) U/L ALT 18 (12-78) U/L Alkaline Phosphatase 71 (45-117) U/L Troponin I < 0.015 (0-0.045) ng/ml Total Protein 6.5 (6.4-8.2) gm/dl Albumin 3.5 (3.4-5.0) gm/dl Globulin 3.0 (2.5-4.0) gm/dl Albumin/Globulin Ratio 1.2 (0.9-2) Lipase 54 L (73-393) U/L Urine Color Urine Appearance (Clear) Urine pH (4.5-7.5) Ur Specific [place] (1.000-1.030) Urine Protein (Negative) Urine Glucose (UA) (Negative) Urine Ketones (Negative) Urine Blood (Negative) Urine Nitrite (Negative) Urine Bilirubin (Negative) Urine Urobilinogen (Negative) Ur Leukocyte Esterase (Negative) Urine WBC (Auto) (0-5) /hpf Urine RBC (Auto) (0-4) /hpf U Hyaline Cast (Auto) (0-5) /lpf U Epithel Cells (Auto) (0-5) /lpf Urine Bacteria (Auto) (Negative) Influenza Type A (PCR) (Neg) Influenza Type B (PCR) (Neg) 01/25/19 01/25/19 01/25/19 Range/Units 19:35 19:40 21:34 WBC (4.8-10.8) K/uL RBC (4.2-5.4) M/uL Hgb (12.0-16.0) g/dL Hct (37-47) % MCV (80-100) fL MCH (25-34) pg MCHC (32-36) g/dL RDW Std Deviation (36.4-46.3) fL RDW Coeff of Pilar (11.5-14.5) % Plt Count (130-400) K/uL MPV (7.4-10.4) fL Immature Gran % (Auto) % Neut % (Auto) % Lymph % (Auto) % [place] % (Auto) % Eos % (Auto) % Baso % (Auto) % Immature Gran # (Auto) (0.00-0.02) K/uL Neut # (Auto) (1.4-6.5) K/uL Lymph # (Auto) (1.2-3.4) K/uL [place] # (Auto) (0.11-0.59) K/uL Eos # (Auto) (0-0.5) K/uL Baso # (Auto) (0-0.2) K/uL PT (9.0-12.0) Seconds INR (0.9-1.1) APTT (21.0-31.0) Seconds PTT Ratio Sodium (136-145) mmol/L Potassium (3.5-5.1) mmol/L Chloride (98-107) mmol/L Carbon Dioxide (21-32) mmol/L Anion Gap (3-11) BUN (7-18) mg/dl Creatinine (0.6-1.2) mg/dl Est Cr Clr Drug Dosing ml/min Est GFR ( Amer) Est GFR (Non-Af Amer) BUN/Creatinine Ratio (10-20) Glucose (70-99) mg/dl Lactate 0.6 (0.4-2.0) mmol/L Calcium (8.5-10.1) mg/dl Total Bilirubin (0.2-1) mg/dl AST (15-37) U/L ALT (12-78) U/L Alkaline Phosphatase (45-117) U/L Troponin I (0-0.045) ng/ml Total Protein (6.4-8.2) gm/dl Albumin (3.4-5.0) gm/dl Globulin (2.5-4.0) gm/dl Albumin/Globulin Ratio (0.9-2) Lipase (73-393) U/L Urine Color Yellow Urine Appearance Clear (Clear) Urine pH 8.0 H (4.5-7.5) Ur Specific [place] 1.012 (1.000-1.030) Urine Protein Negative (Negative) Urine Glucose (UA) Negative (Negative) Urine Ketones Negative (Negative) Urine Blood Negative (Negative) Urine Nitrite Negative (Negative) Urine Bilirubin Negative (Negative) Urine Urobilinogen Negative (Negative) Ur Leukocyte Esterase 1+ H (Negative) Urine WBC (Auto) 5-10 H (0-5) /hpf Urine RBC (Auto) 0-4 (0-4) /hpf U Hyaline Cast (Auto) 0 (0-5) /lpf U Epithel Cells (Auto) 5-10 H (0-5) /lpf Urine Bacteria (Auto) Negative (Negative) Influenza Type A (PCR) Neg for Influ A (Neg) Influenza Type B (PCR) Neg for Influ B (Neg) Imaging Data Radiologist's Impression: Radiology results as stated below per my review and the radiologist's interpretation: XR chest 1V portable HISTORY: 73 years-old Female Sepsis acute sepsis COMPARISON: CT abdomen and pelvis 12/24/2018, chest radiograph 02/08/2018 TECHNIQUE: Portable AP view the chest FINDINGS: Cardiac mediastinal and hilar silhouettes are unchanged. Stable positioning of the left subclavian [id number] catheter. [place] projects over the left upper lung. No pneumothorax, pleural effusion or overt pulmonary edema. 4 mm nodular opacity of the lateral left lung base likely correlates with a calcified granuloma is noted on comparison. Degenerative changes of the shoulders and spine. Moderate hiatal hernia. IMPRESSION: 1. No acute process. 2. Moderate sized hiatal hernia. 3. Prior granulomatous disease. The above report was generated using voice recognition software. It may contain grammatical, syntax or spelling errors. Electronically signed by: Alvin Cook M.D. 01/25/2019 6:57 PM Blood Pressure Blood Pressure Findings: Normal blood pressure MDM Narrative 1812: Past medical records reviewed. The patient was evaluated in room A10, and a complete history and physical examination were performed. 2112: I reevaluated the patient and her temperature spiked to 38.4. Repeat physical exam shows her lungs are clear to auscultation, no meningeal signs. Her labs showed low a white blood cell count of 2.3 and neutrophils within normal limits. Lactic acid within normal limits. I reviewed the patient's case with Dr. Mederos - Oncology, [facility], and he stated that the patient's neutrophils are trending down so she should be admitted to medicine. He recommends giving the dose of cefepime, no need for vancomycin at this time per Dr. Mederos. 2134: Upon reevaluation, the patient is resting. I discussed the findings and the treatment plan with the patient. She expresses agreement and understanding. I spoke with Dr. De Santiago of the [facility] Hospitalist Service. The patient will be evaluated for further management. Impression & Plan Sepsis Discharge Plan Visit Data *Final* Discharge Date/Time: 01/25/19 23:15 Chief Complaint: Shortness of Breath/Dyspnea Stated Complaint: HARD TO BREATHE, SORE THROAT ED Provider: Cristobal Raygoza Discharge Problem: Sepsis Patient Disposition: Admitted As Inpatient Discharge Instructions Interventions: ED Discharge Assessment Last Done: 01/25/19 23:15 Discharge Problem: Sepsis Qualifiers: Sepsis type: sepsis due to unspecified organism Qualified Code(s): A41.9 - Sepsis, unspecified organism The scribe's documentation has been prepared under my direction and personally reviewed by me in its entirety. I confirm that the note above accurately reflects all work, treatment, procedures, and medical decision making performed by me.
[2019-01-26] MEDS ORDERED: VANCOMYCIN HCL 1,500 MG in SODIUM CHLORIDE 0.9% 500 ML IV ONE (01:00)
[2019-01-26] MEDS: HYDROmorphone HCL 2 MG TAB PO PRN ×3 (01:08→17:07)
[2019-01-26] MEDS: LACTATED RINGER'S 1,000 ML IV SCH ×2 (01:10→09:24)
[2019-01-26 06:47] LABS: Hematocrit (blood only) 33.7 % (37-47); Hemoglobin 11.2 g/dL (12.0-16.0); Mean Corpuscular Hgb Conc 33.2 g/dL (32-36); RDW Coefficient of Variation 12.8 % (11.5-14.5); RDW Standard Deviation 44.7 fL (36.4-46.3); Red Blood Count 3.51 M/uL (4.2-5.4); White Blood Count 3.26 K/uL (4.8-10.8)
[2019-01-26 06:56] LABS: Mean Platelet Volume 9.9 fL (7.4-10.4); Platelet Count 67 K/uL (130-400)
[2019-01-26 07:20] LABS: BUN Creatinine Ratio 16.9 (10-20); Calcium 9.8 mg/dl (8.5-10.1); Creatinine Clr Calc Pharmacy 80.1 ml/min; Est GFR (African American) 107.5; Est GFR (Non-African American) 92.7; Potassium 4.4 mmol/L (3.5-5.1)
[2019-01-26 07:26] LABS: Eosinophils # (auto) 0.01 K/uL (0-0.5); Eosinophils % (auto) 0.3 %; Lymphocytes # (auto) 0.64 K/uL (1.2-3.4); Lymphocytes % (auto) 19.6 %; Monocytes # (auto) 0.26 K/uL (0.11-0.59); Neutrophils # (auto) 2.35 K/uL (1.4-6.5); Neutrophils % (auto) 72.1 %
[2019-01-26] MEDS: CEFEPIME 2,000 MG in SYRINGE 7.5 ML IV SCH ×2 (07:48→17:08)
[2019-01-26] MEDS: PARoxetine HCl 10 MG TAB PO SCH (07:57)
[2019-01-26] MEDS: PANTOprazole 40 MG TAB PO SCH (07:57)
[2019-01-26] MEDS: SUCRALFATE 1 GM TAB PO SCH ×2 (07:57→20:41)
[2019-01-26] MEDS: ACETAMINOPHEN 325 MG TAB PO PRN ×2 (08:36→19:43)
[2019-01-26] MEDS ORDERED: NON-FORMULARY MEDICATION (Omeprazole 40 MG) PO SCH (09:00)
[2019-01-26] MEDS ORDERED: LISINOPRIL 10 MG TAB PO SCH (09:00)
[2019-01-26] MEDS ORDERED: HYDROmorphone INJ 1 MG/ML SYRINGE IV STA (09:50)
[2019-01-26] MEDS: VANCOMYCIN HCL 1,000 MG in SODIUM CHLORIDE 0.9% 250 ML IV SCH (13:46)
[2019-01-26] MEDS: CHECK FENTANYL PATCH PLACEMENT SCH ×2 (15:58→23:51)
[2019-01-26] MEDS ORDERED: ONDANSETRON INJ 2 MG/ML 2 ML VIAL IV PRN (18:10)
[2019-01-26] MEDS: PROCHLORPERAZINE MALEATE 10 MG TAB PO PRN (18:12)
[2019-01-27] MEDS: VANCOMYCIN HCL 1,000 MG in SODIUM CHLORIDE 0.9% 250 ML IV SCH ×2 (01:53→13:55)
[2019-01-27] MEDS: CEFEPIME 2,000 MG in SYRINGE 7.5 ML IV SCH (06:22)
[2019-01-27] MEDS: PROCHLORPERAZINE MALEATE 10 MG TAB PO PRN (07:50)
[2019-01-27] MEDS ORDERED: fentaNYL 75 MCG/HR TDSY TD SCH (09:00)
[2019-01-27] MEDS: HYDROmorphone HCL 2 MG TAB PO PRN ×3 (09:03→23:58)
[2019-01-27] MEDS: PANTOprazole 40 MG TAB PO SCH (09:04)
[2019-01-27] MEDS: SUCRALFATE 1 GM TAB PO SCH ×2 (09:04→20:49)
[2019-01-27] MEDS: PARoxetine HCl 10 MG TAB PO SCH (09:04)
[2019-01-27] MEDS: CHECK FENTANYL PATCH PLACEMENT SCH ×3 (09:05→23:59)
--- NOTE | 2019-01-27 15:27 | Hospitalist Progress Note ---
Date of Service January 26, 2019 Assessment & Plan (1) Sepsis: Ms. Urena is a rose 73 year old female with an unfortunate past medical history of recurrent ovarian cancer with carcinomatosis, hypertension, GERD, and depression who presents to the emergency department due to a fever, and cough. Patient received 1 g IV Tylenol, 1 g IV cefepime, 50 mcg IV fentanyl x2, 1 L IV normal saline bolus in the ED. -admit to med/surg w/telemetry monitoring Will transfer to medical off tele -patient meets criteria for sepsis w/temp of 38.1 and decreased WCC. Apppears the source may be the lung given her cough, will check procalcitonin -Blood cultures drawn and pending -Urine dipstick positive for leukocytes, urine culture sent. Unsure if this is the source given, that she is not having any symptoms of a UTI. -Chest x-ray negative for consolidation, consider CT chest if respiratory status worsens -Empiric antibiotic coverage with cefepime and vancomycin (as patient has a port in place) -will await blood cultures. -Patient was hypotensive with blood pressure of 97/62 on arrival, but responded well to fluids. BP has been adequately controlled. Chronic Pain Secondary to Ovarian Cancer w/carcinomatosis -continue home regimen w/fentanyl patch and hydromorphone (caution w/BP) Pancytopenia -Secondary to chemotherapy -Not currently neutropenic -White cell count 2.3, hemoglobin 10.5, platelets 70 -> counts are stable Hypertension -Hold home lisinopril given hypotensive on arrival GERD -Change home omeprazole to pantoprazole Nausea -Continue home antiemetic regimen w/zofran, compazine and promethazine Depression -Continue home Paxil and prn clonazepam (2) Peritoneal carcinoma: (3) Ovarian cancer: (4) Fever: (5) Pancytopenia: Subjective Patient reports feeling better when I examined her this afternoon. She does state though that she had a fever this AM. Patient continues to have a cough, with no productive. But she does state that it sounds wet. Patient states that she feels tired and is unsure if she wants to continue with therapy. Review of Systems Constitutional: + fever, + chills, + fatigue and + anorexia Ear, Nose, Mouth, Throat: + sore throat Respiratory: + cough and + chest congestion; no dyspnea and no wheezing Cardiovascular: no chest pain, no edema and no calf pain Gastrointestinal: + abdominal pain; no nausea, no vomiting and no change in bowel habits Genitourinary (Female): no dysuria, no urinary frequency and no urinary urgency Musculoskeletal: + back pain Integumentary: no rash and no new lesions Review of Systems All systems reviewed & are unremarkable except as noted in HPI & below Physical Exam Vital Signs (Past 24 Hours): Last Vital Signs Temp 38.4 C 01/26/19 08:00 Pulse 91 01/26/19 08:00 Resp 16 01/26/19 08:00 BP 119/65 01/26/19 08:00 Pulse Ox 94 01/26/19 08:00 Constitutional: WD/WN, vitals as above well developed and well nourished Eyes: PERRL, conjunctivae normal, anicteric sclerae ENMT: external ear and nose normal, oropharynx normal Neck: trachea midline, no thyromegaly Respiratory: normal respiratory effort, + cough and able to speak in complete sentences; no respiratory distress and does not use accessory muscles Auscultation: + diminished lung sounds and + rhonchi (bilaterally) Gastrointestinal (Abdomen): Percussion/Palpation: + abdomen tender (tender over umbilical region (pt states this is chronic)) and abdomen soft; no guarding and abdomen not rigid Musculoskeletal: no cyanosis or clubbing, extremities motor strength 5/5 Skin: no rashes, warm and dry Neurologic: patellar DTR's 2+ bilat, sensation intact Psychiatric: A+Ox3, euthymic affect (1) Sepsis Sepsis type: sepsis due to unspecified organism Qualified Code(s): A41.9 - Sepsis, unspecified organism
[2019-01-27] MEDS ORDERED: AZITHROMYCIN 250 MG TAB PO ONE (16:00)
[2019-01-27] MEDS: cefTRIAXone SODIUM 1,000 MG in DEXTROSE 5% 50 ML IV SCH (16:09)
[2019-01-27] MEDS: HEPARIN 100 UNIT/ML 5ML FLUSH FLUSH PRN (16:36)
[2019-01-27] MEDS ORDERED: ZOLPIDEM TARTRATE 10 MG TAB PO PRN (20:10)
--- NOTE | 2019-01-27 23:19 | Hospitalist Progress Note ---
Date of Service January 27, 2019 Assessment & Plan (1) Sepsis: Ms. Urena is a rose 73 year old female with an unfortunate past medical history of recurrent ovarian cancer with carcinomatosis, hypertension, GERD, and depression who presents to the emergency department due to a fever, and cough. Patient received 1 g IV Tylenol, 1 g IV cefepime, 50 mcg IV fentanyl x2, 1 L IV normal saline bolus in the ED. -admit to med/surg w/telemetry monitoring Will transfer to medical off tele -patient meets criteria for sepsis w/temp of 38.1 and decreased WCC. Appears the source may be the lung given her cough, will check procalcitonin: this was normal. Her last fever was yesterday. Unsure if fever may be caused by cancer. Will switch her antibiotics to azithromycin and ceftriaxone. -Blood cultures drawn and pending -Urine dipstick positive for leukocytes, urine culture sent. Unsure if this is the source given, that she is not having any symptoms of a UTI. -Chest x-ray negative for consolidation, consider CT chest if respiratory status worsens -will await blood cultures. -BP has been normal. BP has been adequately controlled. Chronic Pain Secondary to Ovarian Cancer w/carcinomatosis -continue home regimen w/fentanyl patch and hydromorphone (caution w/BP) Pancytopenia -Secondary to chemotherapy -Not currently neutropenic -White cell count 2.3, hemoglobin 10.5, platelets 70 -> counts are stable Hypertension -Hold home lisinopril given hypotensive on arrival; continue to hold GERD -Change home omeprazole to pantoprazole Nausea -Continue home antiemetic regimen w/zofran, compazine and promethazine Depression -Continue home Paxil and prn clonazepam Patient is unsure if she will continue with cancer treatment. (2) Peritoneal carcinoma: (3) Ovarian cancer: (4) Fever: (5) Pancytopenia: Subjective Patient reports that she is less fatigued today, she continues to have a cough. She denies any fever for past 2 days. Review of Systems Constitutional: + fever, + chills, + fatigue and + anorexia Ear, Nose, Mouth, Throat: + sore throat Respiratory: + cough and + chest congestion; no dyspnea and no wheezing Cardiovascular: no chest pain, no edema and no calf pain Gastrointestinal: + abdominal pain; no nausea, no vomiting and no change in bowel habits Genitourinary (Female): no dysuria, no urinary frequency and no urinary urgency Musculoskeletal: + back pain Integumentary: no rash and no new lesions Physical Exam Vital Signs (Past 24 Hours): Last Vital Signs Temp 36.9 C 01/27/19 22:55 Pulse 75 01/27/19 22:55 Resp 18 01/27/19 22:55 BP 117/63 01/27/19 22:55 Pulse Ox 91 01/27/19 22:55 Physical Exam: Constitutional: WD/WN, vitals as above well developed and well nourished Eyes: PERRL, conjunctivae normal, anicteric sclerae ENMT: external ear and nose normal, oropharynx normal Neck: trachea midline, no thyromegaly Respiratory: normal respiratory effort, + cough and able to speak in complete sentences; no respiratory distress and does not use accessory muscles Auscultation: + diminished lung sounds and + rhonchi (bilaterally) Gastrointestinal (Abdomen): Percussion/Palpation: + abdomen tender (tender over umbilical region (pt states this is chronic)) and abdomen soft; no guarding and abdomen not rigid Musculoskeletal: no cyanosis or clubbing, extremities motor strength 5/5 Skin: no rashes, warm and dry Neurologic: patellar DTR's 2+ bilat, sensation intact Psychiatric: A+Ox3, euthymic affect (1) Sepsis Sepsis type: sepsis due to unspecified organism Qualified Code(s): A41.9 - Sepsis, unspecified organism
[2019-01-28] MEDS: PARoxetine HCl 10 MG TAB PO SCH (08:11)
[2019-01-28] MEDS: PANTOprazole 40 MG TAB PO SCH (08:11)
[2019-01-28] MEDS: SUCRALFATE 1 GM TAB PO SCH (08:11)
[2019-01-28] MEDS: CHECK FENTANYL PATCH PLACEMENT SCH ×2 (08:12→17:11)
[2019-01-28] MEDS: HYDROmorphone HCL 2 MG TAB PO PRN ×2 (08:19→13:12)
[2019-01-28] MEDS ORDERED: AZITHROMYCIN 250 MG TAB PO SCH (09:00)
[2019-01-28] MEDS: cefTRIAXone SODIUM 1,000 MG in DEXTROSE 5% 50 ML IV SCH (09:00)
[2019-01-28] MEDS: ACETAMINOPHEN 325 MG TAB PO PRN (10:59)
[2019-01-28] MEDS: HEPARIN 100 UNIT/ML 5ML FLUSH FLUSH PRN (16:51)
--- NOTE | 2019-02-04 07:59 | Discharge Summary ---
Date of Service January 28, 2019 Admission HPI Per Admitting Provider Ms. Urena is a rose 73 year old female with an unfortunate past medical history of recurrent ovarian cancer with carcinomatosis, hypertension, GERD, and depression who presents to the emergency department due to a fever, and cough. She states that she has a sore throat, productive cough, and fever. Her last chemotherapy treatment was on Monday [3 days ago]. She follows with Dr. Zarco in [place] and Dr. Mederos in [place] for her ovarian cancer. She states that this is her first cycle of chemotherapy, since she found out that her cancer had recurred. She states that she had a CT scan 2 months ago, which showed that her cancer came back, and involved her peritoneum. She states that she has abdominal pain and back pain, which she notes is chronic. She does endorse that it may be slightly worse today. She states that she has had poor appetite at home, and has not had anything to eat today. She denies any changes in her bowel movements, dysuria, or any other urinary symptoms. She denies any changes over his skin, and states that she has no pain or erythema over her port site. She denies any sick contacts. She states that her ovarian cancer was diagnosed in 2011. She reports that she had a hysterectomy with bilateral salpingo-oophorectomy when she was in her 30s, however was later diagnosed with ovarian cancer, due to remnants of her ovaries and fallopian tubes left behind. She states that she has had multiple surgeries, and chemotherapy regimens. She has had both breasts removed, and multiple abdominal surgeries. She states that her mother had a history of ovarian, and therefore she was tested for BRCA1 and 2. She states her tests came back negative, but she had another gene w/predisposition for cancer, which she cannot recall the name of. Of note, she is a former smoker. She smoked a pack per day for 20 years, but quit 30 years ago. She denies use of alcohol or recreational drugs. She lives at home with her , and reports good support from her , son and various family members. Principal Diagnosis Acute bronchitis /Sepsis Discharge Exam Constitutional: WD/WN, vitals as above well developed and well nourished Eyes: PERRL, conjunctivae normal, anicteric sclerae ENMT: external ear and nose normal, oropharynx normal Neck: trachea midline, no thyromegaly Respiratory: normal respiratory effort, no respiratory distress and does not use accessory muscles Auscultation: + diminished lung sounds amd decreased rhonchi Gastrointestinal (Abdomen): Percussion/Palpation: + abdomen tender (tender over umbilical region (pt states this is chronic)) and abdomen soft; no guarding and abdomen not rigid Musculoskeletal: no cyanosis or clubbing, extremities motor strength 5/5 Skin: no rashes, warm and dry Neurologic: patellar DTR's 2+ bilat, sensation intact Psychiatric: A+Ox3, euthymic affect Discharge Data Allergies Allergy/AdvReac Type Severity Reaction Status Date / Time Sulfa (Sulfonamide Allergy Mild NAUSEA; Verified 01/25/19 18:50 Antibiotics) AFFECTS BLOOD Consultations 01/25/19 21:35 ED Decision to Admit Stat Hospital Course (1) Sepsis: Ms. Urena is a rose 73 year old female with an unfortunate past medical history of recurrent ovarian cancer with carcinomatosis, hypertension, GERD, and depression who presents to the emergency department due to a fever, and cough. Patient received 1 g IV Tylenol, 1 g IV cefepime, 50 mcg IV fentanyl x2, 1 L IV normal saline bolus in the ED. -admit to med/surg w/telemetry monitoring Will transfer to medical off tele -patient meets criteria for sepsis w/temp of 38.1 and decreased WCC. Appears the source may be the lung given her cough, will check procalcitonin: this was normal. Her last fever was yesterday. Unsure if fever may be caused by cancer. Will switch her antibiotics to azithromycin and ceftriaxone. -Blood cultures drawn and pending -Urine dipstick positive for leukocytes, urine culture sent. Unsure if this is the source given, that she is not having any symptoms of a UTI. -Chest x-ray negative for consolidation, consider CT chest if respiratory status worsens. This was not done as patient improved. -blood cultures showing no growth. -BP has been normal. BP has been adequately controlled. will continue azithromycin at discharge. Chronic Pain Secondary to Ovarian Cancer w/carcinomatosis -continue home regimen w/fentanyl patch and hydromorphone (caution w/BP) Pancytopenia -Secondary to chemotherapy -Not currently neutropenic -White cell count 2.3, hemoglobin 10.5, platelets 70 -> counts are stable Hypertension -Hold home lisinopril given hypotensive on arrival; will resume on discharge. GERD -Change home omeprazole to pantoprazole Nausea -Continue home antiemetic regimen w/zofran, compazine and promethazine Depression -Continue home Paxil and prn clonazepam Patient is unsure if she will continue with cancer treatment. (2) Peritoneal carcinoma: (3) Ovarian cancer: (4) Fever: (5) Pancytopenia: Total Time Total Time Spent Total Time Spent (In Minutes): 31 Total Time Includes: Examination of the Patient, Discharge Planning and Medication Reconciliation Discharge Plan Discharge Items Patient Disposition: Home - Self-Care Reason For Visit: SEPSIS Discharge Diagnosis: Infection/ bronchitis Discharge Goals: Decrease discomfort Activity: Resume your previous activity Non-emergency contact: Primary Care Provider Call non-emergency contact if: you have any medication questions Follow-up/Referrals: Edvin Laura [Primary Care Provider] - 02/04/19 3:30 pm (Please, follow up with Dr. Laura on MondayFebruary 04 at 3:30 pm. *If you need to change this appointment, call the office at [phone].) Diet: Regular Addtl Provider Instructions: Followup with PCP in 1-2 weeks, F/U with Oncologist in 1-2 weeks Prescriptions: New azithromycin [Zithromax] 250 mg Tablet 250 mg PO DAILY Qty: 3 RF: 0 Continued ondansetron HCl [Zofran] 4 mg Tablet 4 mg PO UD PRN (Reason: Nausea And Vomiting) RF: 0 clonazepam 0.5 mg Tablet 0.5 mg PO BID PRN (Reason: Anxiety) RF: 0 prochlorperazine maleate [Compazine] 10 mg Tablet 10 mg PO DIRECTED PRN (Reason: Nausea And Vomiting) RF: 0 lisinopril 10 mg Tablet 10 mg PO DAILY RF: 0 paroxetine HCl [Paxil] 10 mg Tablet 10 mg PO DAILY RF: 0 sucralfate [Carafate] 1 gram Tablet 1 g PO BID RF: 0 omeprazole 40 mg Capsule,Delayed Release(Dr/Ec) 40 mg PO DAILY RF: 0 hydromorphone 2 mg Tablet 5 mg PO Q4H PRN (Reason: Abdominal Pain) Qty: 60 RF: 0 fentanyl 75 mcg/hr patch 72 hour 1 patch TD Q72H Qty: 9 RF: 0 promethazine [Phenadoz] 12.5 mg Suppository 12.5 mg [place] DIRECTED PRN (Reason: IF UNABLE TO TAKE PO MEDS.) RF: 0 Stand-Alone Forms: [facility] Discharge Orders: Discharge Order (Routine); Ordered 01/28/19 Ordered By: Edvin Castillo Admission Data Admit Date/Time: 01/25/19 22:45 Attending Provider: Edvin Castillo Admit Provider: Danial De Santiago Primary Care Provider: Edvin Laura Other Providers: Danial De Santiago Service: Medical Other Interventions: Discharge Summary Assessment (RN) Last Done: 01/28/19 16:34 DC Date/Time DO NOT enter until pt leaves facility: 01/28/19 17:15
== END 2019-01-28 17:15 | disposition home or self-care (01) | DRG 871 ==
LOC: ED 15:35 → 2N 22:45 → SUATTDRO 22:45 → 2N 23:15 → 4E 01-26 19:23

== ENCOUNTER 2019-08-01 04:52 | Inpatient (IN) ==
[2019-08-01] MEDS ORDERED: ONDANSETRON INJ 2 MG/ML 2 ML VIAL IV STA (05:11)
[2019-08-01] MEDS ORDERED: fentaNYL citrate 100 MCG/2 ML VIAL IV STA (05:11)
[2019-08-01] MEDS ORDERED: SODIUM CHLORIDE 0.9% 1000ML 1,000 ML IV ONE (05:11)
--- NOTE | 2019-08-01 05:12 | Emergency Department Note ---
ED Provider Note Name: Fatmata Urena Age: 73 F Arrives Via: POV Informant: Pt/ CC: Vomiting HPI: 73 female arrives for evaluation of vomiting. Patient with history of Ovarian CA with metastasis and post abdominal surgery who has been on chemo meds for last few years. She recently started a new medication last week by mouth. Was doing well. Notes mild red rash of chest/abdomen two days ago which resolved spontaneously. Overnight tonight rapid worsening diffuse abdominal pain. Stabbing and sharp in nature. Comes in waves. Associated nausea and vomiting. Multiple rounds of emesis on way here. Attempted Zofran and PO Dilaudid without improvement. She denies falls, trauma. She is not having cp, sob, headache, neck pain, fevers, chills, urinary symptoms, bowel changes, leg swelling, bleeding, nor other symptoms. She notes this is similar to 1 year ago when she had episode like this following another oral chemotherapy medication. Previous bowel obstruction at that time which resulted in ICU admission but no surgery necessary. ROS: See above HPI for pertinent positives & negatives. A total of 10 systems reviewed and were otherwise negative. Past Medical History: Ovarian CA, GERD, Hypertension, Anxiety Past Surgical History: Tracheostomy, Abdominal Laparotomy Family History: Deneis pertinent family history Social History: , former smoker, retired, no etoh, no drug use Home Medications: See below for list Allergies Sulfa Physical: Vitals: BP 163/94, P 112, R 20, O2 96%, Temp 36.7 Exam: GENERAL: Patient is very uncomfortable appearing and in moderate distress. Dehydrated appearing EYES: No scleral icterus, unremarkable pupils. ENT: Mucous membranes dry, no nasal congestion. NECK: No masses appreciated, no meningismus, trachea is midline. RESPIRATORY: No dyspnea. Clear to auscultation and equal bilaterally. No wheeze, no rhonchi. CARDIOVASCULAR: Tachy, No murmurs, rubs, gallops appreciated. GASTROINTESTINAL: Hyperactive bowel sounds throughout upper abdomen, diffuse TTP without peritonitis, no distention, no masses appreciated. BACK: No midline tenderness, no CVA tenderness EXTREMITIES: Normal motion all extremities, no cyanosis, no edema. NEUROLOGIC: Alert and oriented, no acute motor or sensory deficits, no focal weakness, cranial nerves grossly intact. SKIN: No rash, no jaundice, no diaphoresis. ED Course: Prior Medical Record, Triage/Nursing Notes, Medications, Allergies reviewed by Me Vital Signs: reviewed and remarkable for HTH, Tachy Labs: Reviewed and remarkable for normal cbc, bmp, lactic acid, lft, lipase Interventions: Saline lock, NSS bolus, Dilaudid 1 mg IV, Fentanyl 100mcg IV, Zofran 4mg IV, Ativan 1mg IV Imaging: [facility] Radiologist interpretation reviewed by me: 'CT ABDOMEN & PELVIS Without Contrast: Comparison: CT abdomen and pelvis 06/21/19 Evaluation limited by lack of oral and left is contrast. Findings consistent with small bowel obstruction. Multiple loops of relatively dilated small bowel with air-fluid levels and associated mesenteric edema and there is a transition point to decompressed bowel at right aspect of the pelvis with fecal appearance of contents proximal to the transition point (image 62, series 2). Small to moderate amount of free fluid. No free air. Moderate to large hiatal hernia again noted. Postsurgical changes of large bowel are similar to prior. Appendix not identified. Post cholecystectomy. Biliary ductal dilatation which may be physiologic post cholecystectomy. Evaluation limited by lack of intravenous contrast. Scoliosis and degenerative changes of spine.. Mild atherosclerotic calcifications. Radiologist: Anmol Acosta MD" Blood pressure: Elevated -Randolph to be Situation. Course: Improvement in pain, mild hypoxia with narcotics, no peritonitis on re peat abdo exam, admit hospitalists Consults: Dr Figueroa Gen Surg - Place NG tube, will be down to evaluate. Dr Arevalo Hospitalist - will have hospitlaists evaluate further Disposition: Hospitalization Differentials: Bowel obstruction, ischemic bowel, pancreatitis, SBP, Liver dysfunction, dehydration, urinary tract, renal colic, aortic issue amongst other pathologies. Medical Decision Making: Pleasant 73 yr old female with history metastatic ovarian CA s/p surgical removal and has been on chemo last year. Recent switch in chemo meds and this evening with vomiting. Exam and CT consistent with obstruction. She vomited just prior to CT thus I suspect reason not much in stomach on CT. Some free fluid noted though no free air. Lactic Acid OK at this time and vitals improved with pain meds and fluids. Patient discussed with gen surg as well as medicine. She does not have peritonitis and given feeling much better after pain control. 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 Beliefs That Will Affect Care: None marital status: Current Living Situation: Spouse current occupational status: retired Feels Safe at Home: Yes Smoking Status: Former smoker Second Hand Exposure: No ; Hx Alcohol Use: No Hx Substance Use: No Results & Data Vital Signs Vital Signs - 24 hr 08/01/19 04:58 08/01/19 05:37 08/01/19 05:39 Temperature 36.7 C Temperature Source Oral Sepsis Recent Fever Within 48 Hours No Sepsis New/Unexplained Change in Mental Status No Sepsis Action Taken by Nursing No Action Required Pulse Rate 112 H 82 85 Pulse Rate [Apical] Pulse Rate from SpO2 Sensor 81 Respiratory Rate 20 11 L 17 Blood Pressure 163/94 H 163/96 H Blood Pressure [Left Arm] Blood Pressure Mean 117 118 Blood Pressure Mean [Left Arm] Pulse Oximetry 96 98 Oxygen Delivery Method Room Air Room Air Oxygen Flow Rate 08/01/19 05:53 08/01/19 06:00 08/01/19 06:30 Temperature Temperature Source Sepsis Recent Fever Within 48 Hours Sepsis New/Unexplained Change in Mental Status Sepsis Action Taken by Nursing Pulse Rate 90 80 81 Pulse Rate [Apical] Pulse Rate from SpO2 Sensor 90 80 81 Respiratory Rate 17 12 17 Blood Pressure 169/93 H 148/91 H 154/80 H Blood Pressure [Left Arm] Blood Pressure Mean 118 110 104 Blood Pressure Mean [Left Arm] Pulse Oximetry 96 96 99 Oxygen Delivery Method Room Air Room Air Room Air Oxygen Flow Rate 08/01/19 06:53 Temperature Temperature Source Sepsis Recent Fever Within 48 Hours Sepsis New/Unexplained Change in Mental Status Sepsis Action Taken by Nursing Pulse Rate Pulse Rate [Apical] 85 Pulse Rate from SpO2 Sensor Respiratory Rate 16 Blood Pressure Blood Pressure [Left Arm] 140/107 H Blood Pressure Mean Blood Pressure Mean [Left Arm] 118 Pulse Oximetry 99 Oxygen Delivery Method Nasal Cannula Oxygen Flow Rate 2 Laboratory Data Result diagrams: 08/01/19 05:30 08/01/19 05:30 Lab Results 08/01/19 08/01/19 08/01/19 Range/Units 05:30 05:30 05:30 WBC 8.92 (4.8-10.8) K/uL RBC 4.26 (4.2-5.4) M/uL Hgb 12.9 (12.0-16.0) g/dL Hct 40.4 (37-47) % MCV 94.8 (80-100) fL MCH 30.3 (25-34) pg MCHC 31.9 L (32-36) g/dL RDW Std Deviation 47.5 H (36.4-46.3) fL RDW Coeff of Pilar 13.9 (11.5-14.5) % Plt Count 122 L (130-400) K/uL MPV 10.5 H (7.4-10.4) fL Immature Gran % (Auto) 0.2 % Neut % (Auto) 79.2 % Lymph % (Auto) 14.2 % Kane % (Auto) 5.5 % Eos % (Auto) 0.8 % Baso % (Auto) 0.1 % Immature Gran # (Auto) 0.02 (0.00-0.02) K/uL Neut # (Auto) 7.06 H (1.4-6.5) K/uL Lymph # (Auto) 1.27 (1.2-3.4) K/uL Kane # (Auto) 0.49 (0.11-0.59) K/uL Eos # (Auto) 0.07 (0-0.5) K/uL Baso # (Auto) 0.01 (0-0.2) K/uL Sodium 139 (136-145) mmol/L Potassium 3.8 (3.5-5.1) mmol/L Chloride 104 (98-107) mmol/L Carbon Dioxide 27 (21-32) mmol/L Anion Gap 8.0 (3-11) BUN 21 H (7-18) mg/dl Creatinine 0.79 (0.6-1.2) mg/dl Est Cr Clr Drug Dosing 61.1 ml/min Est GFR ( Amer) 87.3 Est GFR (Non-Af Amer) 75.3 BUN/Creatinine Ratio 26.0 H (10-20) Glucose 145 H (70-99) mg/dl Lactate 1.5 (0.4-2.0) mmol/L Calcium 10.7 H (8.5-10.1) mg/dl Magnesium 1.8 (1.8-2.4) mg/dl Total Bilirubin 0.5 (0.2-1) mg/dl Direct Bilirubin 0.1 (0-0.2) mg/dl AST 20 (15-37) U/L ALT 20 (12-78) U/L Alkaline Phosphatase 87 (45-117) U/L Troponin I < 0.015 (0-0.045) ng/ml Total Protein 7.1 (6.4-8.2) gm/dl Albumin 4.0 (3.4-5.0) gm/dl Lipase 84 (73-393) U/L Administered Medications Discontinued Medications Fentanyl Citrate (Fentanyl Citrate) 100 mcg IV NOW STA Stop: 08/01/19 05:12 Last Admin: 08/01/19 05:34 Dose: 100 mcg Documented by: [id number] Hydromorphone HCl (Dilaudid) 1 mg IV NOW STA Stop: 08/01/19 06:02 Last Admin: 08/01/19 06:04 Dose: 1 mg Documented by: [id number] Sodium Chloride (Nss 1000ml) 1,000 mls @ 999 mls/hr IV .Q1H1M ONE Stop: 08/01/19 06:11 Last Infusion: 08/01/19 06:56 Dose: 0 mls/hr Documented by: [id number] Admin: 08/01/19 05:34 Dose: 999 mls/hr Documented by: [id number] Lorazepam (Ativan) 1 mg in 2 mls @ 2 mls/min IV NOW STA Stop: 08/01/19 06:35 Last Admin: 08/01/19 06:49 Dose: 2 mls/min Documented by: [id number] Ondansetron HCl (Zofran) 4 mg IV NOW STA Stop: 08/01/19 05:12 Last Admin: 08/01/19 05:34 Dose: 4 mg Documented by: [id number] Discharge Plan Visit Data Chief Complaint: Vomiting Stated Complaint: VOMITING, PAIN, ON CANCER MED ED Provider: Anmol Butler Discharge Problem: Small bowel obstruction, Acute dehydration Forms Stand Alone Forms: My [facility] Prescriptions Prescriptions: No Action ondansetron HCl [Zofran] 4 mg Tablet 4 mg PO UD PRN (Reason: Nausea And Vomiting) RF: 0 clonazepam 0.5 mg Tablet 0.5 mg PO BID PRN (Reason: Anxiety) RF: 0 prochlorperazine maleate [Compazine] 10 mg Tablet 10 mg PO Q6H PRN (Reason: Nausea And Vomiting) RF: 0 lisinopril 10 mg Tablet 10 mg PO DAILY RF: 0 hydromorphone 2 mg Tablet 5 mg PO Q4H PRN (Reason: Abdominal Pain) Qty: 60 RF: 0 fentanyl 75 mcg/hr patch 72 hour 1 patch TD Q72H Qty: 9 RF: 0 zolpidem 10 mg Tablet 10 mg PO HS PRN (Reason: Sleep) RF: 0 polyethylene glycol 3350 [Miralax] 17 gram Powder In Packet 17 g PO DAILY PRN (Reason: Constipation) RF: 0 omeprazole 20 mg Tablet,Delayed Release (Dr/Ec) 20 mg PO DAILY RF: 0 duloxetine 20 mg Capsule,Delayed Release(Dr/Ec) 20 mg PO DAILY RF: 0 Rubraca 300 mg Tablet 300 mg PO DIRECTED RF: 0
[2019-08-01 05:42] LABS: Basophils # (auto) 0.01 K/uL (0-0.2); Basophils % (auto) 0.1 %; Eosinophils # (auto) 0.07 K/uL (0-0.5); Eosinophils % (auto) 0.8 %; Hematocrit (blood only) 40.4 % (37-47); Hemoglobin 12.9 g/dL (12.0-16.0); Immature Granulocytes # (auto) 0.02 K/uL (0.00-0.02); Immature Granulocytes % (auto) 0.2 %; Lymphocytes # (auto) 1.27 K/uL (1.2-3.4); Lymphocytes % (auto) 14.2 %; Mean Corpuscular Hemoglobin 30.3 pg (25-34); Mean Corpuscular Hgb Conc 31.9 g/dL (32-36); Mean Corpuscular Volume 94.8 fL (80-100); Mean Platelet Volume 10.5 fL (7.4-10.4); Monocytes # (auto) 0.49 K/uL (0.11-0.59); Monocytes % (auto) 5.5 %; Neutrophils # (auto) 7.06 K/uL (1.4-6.5); Neutrophils % (auto) 79.2 %; Platelet Count 122 K/uL (130-400); RDW Coefficient of Variation 13.9 % (11.5-14.5); RDW Standard Deviation 47.5 fL (36.4-46.3); Red Blood Count 4.26 M/uL (4.2-5.4); White Blood Count 8.92 K/uL (4.8-10.8)
[2019-08-01 06:00] LABS: Alanine Aminotransferase 20 U/L (12-78); Aspartate Aminotransferase 20 U/L (15-37); Bilirubin Direct 0.1 mg/dl (0-0.2); Blood Urea Nitrogen 21 mg/dl (7-18); Calcium 10.7 mg/dl (8.5-10.1); Carbon Dioxide 27 mmol/L (21-32); Chloride 104 mmol/L (98-107); Creatinine Clr Calc Pharmacy 61.1 ml/min; Est GFR (African American) 87.3; Est GFR (Non-African American) 75.3; Glucose 145 mg/dl (70-99); Lipase 84 U/L (73-393); Magnesium 1.8 mg/dl (1.8-2.4); Potassium 3.8 mmol/L (3.5-5.1); Sodium 139 mmol/L (136-145)
[2019-08-01] MEDS ORDERED: HYDROmorphone INJ 1 MG/ML SYRINGE IV STA (06:01)
[2019-08-01 06:05] LABS: Alkaline Phosphatase 87 U/L (45-117); Bilirubin,Total 0.5 mg/dl (0.2-1); Total Protein 7.1 gm/dl (6.4-8.2); Troponin I < 0.015 ng/ml (0-0.045)
[2019-08-01] MEDS ORDERED: LORazepam 1 MG/2 ML VIAL IV STA (06:34)
--- NOTE | 2019-08-01 07:17 | CT Scan Report ---
CT OF THE ABDOMEN AND PELVIS WITHOUT CONTRAST CLINICAL HISTORY: Vomiting. History of bowel obstruction. History of ovarian cancer. COMPARISON STUDY: CT of the abdomen and pelvis June 21, 2019. TECHNIQUE: Axial images of the abdomen and pelvis were obtained without IV contrast. Images were revi ewed in the axial, sagittal, and coronal planes. Automated exposure control was utilized for the keny dy. A dose lowering technique was utilized adhering to the principles of ALARA. FINDINGS: A moderate sized hiatal hernia is noted. Evaluation of the abdomen and pelvis is suboptimal on this unenhanced examination. The liver, spleen, adrenal glands, kidneys and pancreas are unremark able. Biliary ductal dilatation is unchanged and likely related to previous cholecystectomy. There is been interval development of numerous peritoneal implants. These measure up to 1.2 cm. A small amoun t of ascites within the abdomen and pelvis is noted. There are multiple loops of fluid-filled dilated small bowel with transition point within the right lower quadrant shown on axial image 291 of 461. T here is moderate associated mesenteric edema. No pneumatosis, free air or portal venous gas is presen t. Small bowel feces sign is noted in the suspicious osseous lesions are present. Multiple bowel anas tomoses are noted. There is no hydronephrosis. A punctate left renal calculus is present. A punctate right renal calculus is also noted. IMPRESSION: 1. Findings consistent with a small bowel obstruction. Moderate associated mesenteric edema and small amount of ascites. This represents at least a moderate grade small bowel obstruction and a closed lo op obstruction cannot be excluded. Findings discussed with Dr. Butler at time of dictation. 2. Interval development of multiple peritoneal implants consistent with progression of disease. 3. Moderate-sized hiatal hernia. Electronically signed by: Aníbal Porras M.D. 08/01/2019 7:16 AM
[2019-08-01] MEDS ORDERED: HYDROmorphone INJ 0.5 MG/0.5 ML SYR IV STA (07:52)
--- NOTE | 2019-08-01 08:23 | Surgery Consultation ---
Date of Consultation August 01, 2019 Assessment & Plan (1) Small bowel obstruction: This is a 73y F who presents to the [facility] this morning with complaints of abdominal pain, nausea, and vomiting. Patient's abdominal surgical history includes a tumor debulking, with creation and reversal of ileostomy. Her PMH includes ovarian ca, breast ca, and now peritoneal mets. CT scan in the ED shows concern for small bowel obstruction. Agree with admit to medicine, NGT decompression, NPO, with IVF. We will follow along for any surgical needs this admission. At this time we will give patient a trial of conservative management. as above. pt appears comfortable/nad. abd: soft. distended. mild tenderness. denies nausea currently. will treat conservative. will likely need contrast study. ngt/ivf. symptom control. pt agreeable with plan History of Present Illness History of Present Illness This is a 73y F with a PMH of ovarian ca, breast ca, tumor debulking + creation and eventual reversal of ileostomy a few years ago, who now presents to the [facility] ED on 08/01/19 with complaints of abdominal pain. Patient states that her pain started a few days ago and was crampy in nature. Last night her pain progressively worsened and she was nauseated and had multiple bouts of emesis. Patient dose have a history of constipation. She also has a left sided port of which she has started chemo recently for peritoneal mets. She see's Dr. Bernal here and a GynOn[place] Dr[place]ila in [place] for her oncologic care. Work up in the ED included a CT a/p which revealed findings concerning for moderate grade small bowel obstruction. WBC 8.9 and patient's vital signs stable. NGT was placed in the ED and surgery was consulted for further evaluation. Allergies Allergy/AdvReac Type Severity Reaction Status Date / Time Sulfa (Sulfonamide Allergy Mild NAUSEA; Verified 08/01/19 05:16 Antibiotics) AFFECTS BLOOD Home Medications Home Medications Medication Instructions Recorded Confirmed Type clonazepam 0.5 mg PO BID PRN 07/29/18 08/01/19 History lisinopril 10 mg PO DAILY 07/29/18 08/01/19 History ondansetron HCl [Zofran] 4 mg PO UD PRN 07/29/18 08/01/19 History prochlorperazine maleate 10 mg PO Q6H PRN 07/29/18 08/01/19 History [Compazine] fentanyl 1 patch TD Q72H #9 ea 12/27/18 08/01/19 Rx hydromorphone 5 mg PO Q4H PRN #60 tab 12/27/18 08/01/19 Rx duloxetine 20 mg PO DAILY 08/01/19 08/01/19 History omeprazole 20 mg PO DAILY 08/01/19 08/01/19 History polyethylene glycol 3350 [Miralax] 17 g PO DAILY PRN 08/01/19 08/01/19 History rucaparib [Rubraca] 300 mg PO DIRECTED 08/01/19 08/01/19 History zolpidem 10 mg PO HS PRN 08/01/19 08/01/19 History Patient History Medical History Peritoneal carcinoma Breast cancer (Resolved) Ovarian cancer (Resolved) Bowel obstruction (Resolved) Hx antineoplastic chemotherapy (Resolved) Cancer of peritoneum Surgical History No pertinent past surgical history Social History Preferred Language: Belgian Communication Ability: Effective 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 Beliefs That Will Affect Care: None marital status: Current Living Situation: Spouse current occupational status: retired Feels Safe at Home: Yes Smoking Status: Former smoker Second Hand Exposure: No ; Hx Alcohol Use: No Hx Substance Use: No Review of Systems Gastrointestinal: + abdominal pain (lower abdominal pain), + bloating, + nausea, + vomiting and + constipation Physical Exam Physical Exam: awake/alert Constitutional: cooperative; no acute distress Respiratory: normal respiratory effort Gastrointestinal (Abdomen): Inspection/Auscultation: + abdomen distended and + abdominal surgical scar (old scars from ileostomy site and tumor debulking in lower abdomen) Percussion/Palpation: + abdomen tender (lower abdomen) and abdomen soft NGT in place with ~100cc light bilious output Results & Data Vital Signs (Past 12 Hours) Vital Signs Temp Pulse Pulse Resp BP BP Pulse Ox 08/01/19 06:53 85 16 140/107 H 99 08/01/19 06:30 81 17 154/80 H 99 08/01/19 06:00 80 12 148/91 H 96 08/01/19 05:53 90 17 169/93 H 96 08/01/19 05:39 85 17 08/01/19 05:37 82 11 L 163/96 H 98 08/01/19 04:58 36.7 C 112 H 20 163/[address] OF THE ABDOMEN AND PELVIS WITHOUT CONTRAST CLINICAL HISTORY: Vomiting. History of bowel obstruction. History of ovarian cancer. COMPARISON STUDY: CT of the abdomen and pelvis June 21, 2019. TECHNIQUE: Axial images of the abdomen and pelvis were obtained without IV contrast. Images were reviewed in the axial, sagittal, and coronal planes. Automated exposure control was utilized for the study. A dose lowering technique was utilized adhering to the principles of ALARA. FINDINGS: A moderate sized hiatal hernia is noted. Evaluation of the abdomen and pelvis is suboptimal on this unenhanced examination. The liver, spleen, adrenal glands, kidneys and pancreas are unremarkable. Biliary ductal dilatation is unchanged and likely related to previous cholecystectomy. There is been interval development of numerous peritoneal implants. These measure up to 1.2 cm. A small amount of ascites within the abdomen and pelvis is noted. There are multiple loops of fluid-filled dilated small bowel with transition point within the right lower quadrant shown on axial image 291 of 461. There is moderate associated mesenteric edema. No pneumatosis, free air or portal venous gas is present. Small bowel feces sign is noted in the suspicious osseous lesions are present. Multiple bowel anastomoses are noted. There is no hydronephrosis. A punctate left renal calculus is present. A punctate right renal calculus is also noted. IMPRESSION: 1. Findings consistent with a small bowel obstruction. Moderate associated mesenteric edema and small amount of ascites. This represents at least a moderate grade small bowel obstruction and a closed loop obstruction cannot be excluded. Findings discussed with Dr. Butler at time of dictation. 2. Interval development of multiple peritoneal implants consistent with progression of disease. 3. Moderate-sized hiatal hernia. Electronically signed by: Aníbal Porras M.D. 08/01/2019 7:16 AM PG Care Time/CCT Total # of Minutes Spent Total Time Spent with Patient: Total time spent is greater than 50% in coordination of care (as documented) at patient's floor/unit and/or counseling patient:
[2019-08-01] MEDS ORDERED: ACETAMINOPHEN 1,000 MG/100 ML VIAL IV PRN (10:20)
[2019-08-01] MEDS ORDERED: fentaNYL 75 MCG/HR TDSY TD SCH (10:30)
[2019-08-01] MEDS: HYDROmorphone INJ 1 MG/ML SYRINGE IV PRN ×4 (10:36→22:45)
[2019-08-01] MEDS: SODIUM CHLORIDE 0.9% 1000ML 1,000 ML IV SCH ×2 (10:40→22:33)
[2019-08-01] MEDS: ENOXAPARIN INJ 40 MG/0.4 ML SYR SQ SCH (13:27)
[2019-08-01] MEDS: CHECK FENTANYL PATCH PLACEMENT SCH ×2 (15:50→23:22)
--- NOTE | 2019-08-01 15:55 | History & Physical Report ---
Date of Service August 01, 2019 Assessment & Plan (1) Bowel obstruction: CT a/p shows moderate grade small bowel obstruction. Likely due to adhesions from prior surgery and/or progression of cancer. - Seen by surgery - No imminent plan for surgery; will discuss with [place] surgeons - NPO - NG tube with low, int suction - IV fluids - Pain control (2) Ovarian cancer: Follows at [place] and with Dr. Mederos. - Holding rucaparib - Follow up outpatient (3) Hypertension: BP stable at 135/75. - Holding home meds while NPO - Hydralazine PRN (4) Anxiety: None noted today. - Continue home meds as able - Lorazepam IV PRN (5) DVT prophylaxis: Lovenox History of Present Illness Primary Care Provider: Edvin Laura Ms. 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 She reports that she was recently started on a new chemotherapy agent which has a side effect of causing constipation for her. She reports that her stools over the last week and half has become harder and less frequent. She has had increasing nausea over the last few days, increasing pain in the lower abdomen as well. This morning she woke up with intense lower abdominal pain as well as nausea and emesis. She reports no melena or hematochezia. Her emesis was bilious in nature but did not have any blood or coffee ground emesis. She denies any fevers or chills, sweats, shortness of breath, chest pain, or other review of systems. Allergies Allergy/AdvReac Type Severity Reaction Status Date / Time Sulfa (Sulfonamide Allergy Mild NAUSEA; Verified 08/01/19 05:16 Antibiotics) AFFECTS BLOOD Home Medications Home Medications Medication Instructions Recorded Confirmed Type clonazepam 0.5 mg PO BID PRN 07/29/18 08/01/19 History lisinopril 10 mg PO DAILY 07/29/18 08/01/19 History ondansetron HCl [Zofran] 4 mg PO UD PRN 07/29/18 08/01/19 History prochlorperazine maleate 10 mg PO Q6H PRN 07/29/18 08/01/19 History [Compazine] fentanyl 1 patch TD Q72H #9 ea 12/27/18 08/01/19 Rx hydromorphone 5 mg PO Q4H PRN #60 tab 12/27/18 08/01/19 Rx duloxetine 20 mg PO DAILY 08/01/19 08/01/19 History omeprazole 20 mg PO DAILY 08/01/19 08/01/19 History polyethylene glycol 3350 [Miralax] 17 g PO DAILY PRN 08/01/19 08/01/19 History rucaparib [Rubraca] 300 mg PO DIRECTED 08/01/19 08/01/19 History zolpidem 10 mg PO HS PRN 08/01/19 08/01/19 History Past Med/Surg History Medical History Peritoneal carcinoma Breast cancer (Resolved) Ovarian cancer (Resolved) Bowel obstruction (Resolved) Hx antineoplastic chemotherapy (Resolved) Cancer of peritoneum Surgical History History of bowel resection Ovarian tumor debulking in 2012. No pertinent past surgical history Family History Other No pertinent family history Social History Preferred Language: Irish Communication Ability: Effective Erp Implementation Consultant Required: No Beliefs That Will Affect Care: None marital status: Current Living Situation: Spouse current occupational status: retired Other Information That Helps Us Care for You: No Feels Safe at Home: Yes Safety Concerns: Feels Safe At This Time Smoking Status: Former smoker Do You Dip or Chew Tobacco: No ; Second Hand Exposure: No ; Hx Alcohol Use: No Hx Substance Use: No Review of Systems Review of Systems: All systems reviewed & are unremarkable except as noted in HPI & below Physical Exam Constitutional: + acute distress Eyes: EOM intact bilaterally; no conjunctival abnormality ENMT: external ear and nose normal, oropharynx normal Neck: trachea midline, no thyromegaly normal visual inspection Respiratory: normal respiratory effort, lungs clear to auscultation no respiratory distress Cardiovascular: RRR, no murmur, no edema Gastrointestinal (Abdomen): Inspection/Auscultation: abdomen normal to inspection and + hypoactive bowel sounds; abdomen not distended Percussion/Palpation: + abdomen tender, + guarding and abdomen soft; abdomen not rigid Musculoskeletal: no cyanosis or clubbing, extremities motor strength 5/5 Skin: no rashes, warm and dry Neurologic: moves all extremities and awake Psychiatric: Orientation: alert, oriented to person and cooperative Results & Data Vital Signs (Past 12 Hours) Vital Signs Temp Pulse Pulse Pulse Resp BP BP 08/01/19 11:45 36.7 C 84 20 133/75 08/01/19 10:55 36.3 C L 91 H 20 150/88 H 08/01/19 08:00 94 H 16 143/85 H 08/01/19 06:53 85 16 140/107 H 08/01/19 06:30 81 17 154/80 H 08/01/19 06:00 80 12 148/91 H 08/01/19 05:53 90 17 169/93 H 08/01/19 05:39 85 17 08/01/19 05:37 82 11 L 163/96 H 08/01/19 04:58 36.7 C 112 H 20 163/94 H Pulse Ox 08/01/19 11:45 94 08/01/19 10:55 100 08/01/19 08:00 95 08/01/19 06:53 99 08/01/19 06:30 99 08/01/19 06:00 96 08/01/19 05:53 96 08/01/19 05:39 08/01/19 05:37 98 08/01/19 04:58 96 Code Status & VTE Plan VTE Prophylaxis Plan VTE Prophylaxis will be ordered: Yes PG Care Time/CCT Total # of Minutes Spent Total Time Spent with Patient: Total time spent is greater than 50% in coordination of care (as documented) at patient's floor/unit and/or counseling patient:
[2019-08-01] MEDS: ACETAMINOPHEN 1,000 MG/100 ML VIAL IV SCH (21:48)
[2019-08-01] MEDS: KETOROLAC TROMETHAMINE 15 MG/ML VIAL IV SCH (21:48)
[2019-08-01] MEDS: ONDANSETRON INJ 2 MG/ML 2 ML VIAL IV PRN (21:54)
[2019-08-01] MEDS: LORazepam 1 MG/2 ML VIAL IV PRN (23:21)
[2019-08-02] MEDS: HYDROmorphone INJ 1 MG/ML SYRINGE IV PRN ×3 (02:47→17:20)
[2019-08-02] MEDS: KETOROLAC TROMETHAMINE 15 MG/ML VIAL IV SCH ×4 (02:47→19:59)
[2019-08-02] MEDS: ONDANSETRON INJ 2 MG/ML 2 ML VIAL IV PRN ×3 (02:53→19:55)
[2019-08-02] MEDS ORDERED: HYDROmorphone INJ 1 MG/ML SYRINGE IV STA (03:31)
[2019-08-02] MEDS: ACETAMINOPHEN 1,000 MG/100 ML VIAL IV SCH ×3 (03:40→19:55)
[2019-08-02] MEDS: LORazepam 1 MG/2 ML VIAL IV PRN (04:19)
[2019-08-02 06:40] LABS: Hemoglobin 10.9 g/dL (12.0-16.0); Mean Corpuscular Hemoglobin 31.3 pg (25-34); Mean Corpuscular Hgb Conc 32.1 g/dL (32-36); Mean Corpuscular Volume 97.7 fL (80-100); Mean Platelet Volume 10.6 fL (7.4-10.4); Platelet Count 119 K/uL (130-400); RDW Coefficient of Variation 13.9 % (11.5-14.5); RDW Standard Deviation 49.7 fL (36.4-46.3); Red Blood Count 3.48 M/uL (4.2-5.4); White Blood Count 4.21 K/uL (4.8-10.8)
[2019-08-02 07:12] LABS: BUN Creatinine Ratio 32.8 (10-20); Calcium 9.8 mg/dl (8.5-10.1); Creatinine Clr Calc Pharmacy 80.5 ml/min; Est GFR (African American) 106.3; Est GFR (Non-African American) 91.7; Magnesium 1.7 mg/dl (1.8-2.4); Potassium 3.9 mmol/L (3.5-5.1)
[2019-08-02] MEDS: CHECK FENTANYL PATCH PLACEMENT SCH ×3 (07:37→23:14)
--- NOTE | 2019-08-02 07:55 | Surgery Progress Note ---
Date of Service August 02, 2019 Assessment & Plan (1) Small bowel obstruction: Patient admitted on 08/01/19 with small bowel obstruction Continue conservative management with NGT, and NPO, with IVF Will obtain abdominal series this AM to evaluate SBO pattern as well as NGT placement CT scan yesterday showing stool burden- will order 1-2 enema's today Will consider small bowel follow through on Monday pending how patient progresses over the weekend Patient seen and examined with Dr. Marte [facility] Surgery covering this weekend Subjective Patient remains with lower abdominal pain. Denies passing flatus or BM's. Last BM was two days ago, usually takes laxatives at home for constipation. No bouts of emesis since NGT in place. Physical Exam Physical Exam: awake/alert Gastrointestinal (Abdomen): Inspection/Auscultation: abdomen not distended Percussion/Palpation: + abdomen tender (mildly in lower abdomen) and abdomen soft NGT ~100cc bilious output Results & Data Vital Signs (Past 12 Hours) Vital Signs Temp Pulse Resp BP Pulse Ox 08/02/19 07:00 36.7 C 60 16 109/67 92 08/02/19 04:30 36.7 C 73 20 128/69 94 08/01/19 23:05 36.7 C 76 124/74 91 PG Care Time/CCT Total # of Minutes Spent Total Time Spent with Patient: Total time spent is greater than 50% in coordination of care (as documented) at patient's floor/unit and/or counseling patient:
--- NOTE | 2019-08-02 08:24 | XRay Report ---
XR abdomen 2V w PA chest CLINICAL HISTORY: 73 years-old Female presenting with small bowel obstruction, history of ovarian can cer. TECHNIQUE: PA view of the chest and supine and upright views of the abdomen were obtained. COMPARISON: CT from 08/01/2019 and chest x-ray from 01/25/2019. FINDINGS: Nasogastric tube descends below the diaphragm within the gastric body in the setting of the known lar ge hiatal hernia. Side hole likely also contained within the herniated gastric lumen. Left subclavian Mediport terminates in the superior cavoatrial junction. Atherosclerosis of the aortic arch. Cardiac silhouette top normal in size. Minimal basilar opacities. No pleural effusion or pneumothorax. Cholecystectomy clips. Gaseous distended small bowel loops in the central abdomen with a stacked appe arance and an apparent diameter of up to 2.9 cm. Moderate stool burden in the rectum. Suture margin i s noted in the pelvis and left upper quadrant. No gross pneumoperitoneum. Allowing for bowel gas and stool, no calcifications to suggest nephrolithiasis. Scoliosis and degenerative changes of the spine. IMPRESSION: 1. No acute cardiopulmonary disease. 2. Mild gaseous distended small bowel with a stacked configuration concerning for persistent small b owel obstruction. 3. Postsurgical changes of the bowel. 4. Hiatal hernia with the nasogastric tube in place. 5. Bibasilar atelectasis. Electronically signed by: Maurice Quijano M.D. 08/02/2019 8:23 AM
[2019-08-02] MEDS: ENOXAPARIN INJ 40 MG/0.4 ML SYR SQ SCH (11:21)
[2019-08-02] MEDS: SODIUM CHLORIDE 0.9% 1000ML 1,000 ML IV SCH ×2 (11:22→21:08)
--- NOTE | 2019-08-02 13:50 | Hospitalist Progress Note ---
Date of Service August 02, 2019 Assessment & Plan (1) Bowel obstruction: CT a/p shows moderate grade small bowel obstruction. Likely due to adhesions from prior surgery and/or progression of cancer. - Seen by surgery - No imminent plan for surgery; will discuss with [place] surgeons - NPO - NG tube with low, int suction - IV fluids - Pain control - Unfortunately, no major progress today. Still with pain in the abdomen and no spontaneous BM or flatus. (2) Ovarian cancer: Follows at [place] and with Dr. Mederos. - Holding rucaparib - Follow up outpatient (3) Hypertension: BP stable at 125/80. - Holding home meds while NPO - Hydralazine PRN - Doesn't seem like it will be needed. (4) Anxiety: None noted today. - Continue home meds as able - Lorazepam IV PRN (5) DVT prophylaxis: Jose Juan Diallo Had a large BM after her enema, but otherwise not spontaneously passing gas or having any BM. Still with some nausea. Review of Systems Review of Systems: All systems reviewed & are unremarkable except as noted in HPI & below Physical Exam Constitutional: + acute distress Eyes: EOM intact bilaterally; no conjunctival abnormality ENMT: external ear and nose normal, oropharynx normal Neck: trachea midline, no thyromegaly normal visual inspection Respiratory: normal respiratory effort, lungs clear to auscultation no respiratory distress Cardiovascular: RRR, no murmur, no edema Gastrointestinal (Abdomen): Inspection/Auscultation: abdomen normal to inspection and + hypoactive bowel sounds; abdomen not distended Percussion/Palpation: + abdomen tender, + guarding and abdomen soft; abdomen not rigid Musculoskeletal: no cyanosis or clubbing, extremities motor strength 5/5 Skin: no rashes, warm and dry Neurologic: moves all extremities and awake Psychiatric: Orientation: alert, oriented to person and cooperative Results & Data Vital Signs (Past 12 Hours) Vital Signs Temp Pulse Resp BP Pulse Ox 08/02/19 11:03 36.7 C 78 18 122/79 97 08/02/19 07:00 36.7 C 60 16 109/67 92 08/02/19 04:30 36.7 C 73 20 128/69 94 PG Care Time/CCT Total # of Minutes Spent Total Time Spent with Patient: Total time spent is greater than 50% in coordination of care (as documented) at patient's floor/unit and/or counseling patient:
[2019-08-02] MEDS: MAGNESIUM SULFATE / D5W 1 GM/100 ML BAG IV SCH ×2 (14:47→16:03)
[2019-08-03] MEDS: KETOROLAC TROMETHAMINE 15 MG/ML VIAL IV SCH ×4 (01:57→20:00)
[2019-08-03] MEDS: ACETAMINOPHEN 1,000 MG/100 ML VIAL IV SCH ×3 (04:14→20:00)
[2019-08-03 07:19] LABS: BUN Creatinine Ratio 27.9 (10-20); Calcium 9.9 mg/dl (8.5-10.1); Creatinine Clr Calc Pharmacy 96.6 ml/min; Est GFR (African American) 112.9; Est GFR (Non-African American) 97.4; Magnesium 1.7 mg/dl (1.8-2.4); Phosphorus 2.6 mg/dl (2.5-4.9); Potassium 3.5 mmol/L (3.5-5.1)
[2019-08-03] MEDS: CHECK FENTANYL PATCH PLACEMENT SCH ×3 (07:45→23:36)
[2019-08-03] MEDS: ONDANSETRON INJ 2 MG/ML 2 ML VIAL IV PRN ×2 (07:45→17:51)
[2019-08-03] MEDS: LORazepam 1 MG/2 ML VIAL IV PRN (08:38)
--- NOTE | 2019-08-03 09:45 | Surgery Progress Note ---
Date of Service F/U SBO, pt is stable, passed some flatus last night, no significant abdominal pain,no nausea, no vomiting, NG - 500ml, August 03, 2019 Assessment & Plan (1) Small bowel obstruction: 1) Small bowel obstruction: Patient admitted on 08/01/19 with small bowel obstruction Continue conservative management with NGT, and NPO, with IVF passed some flatus, dulcolax 10 mg MD will F/U Physical Exam Constitutional: WD/WN, vitals as above well developed and well nourished ENMT: external ear and nose normal, oropharynx normal Neck: trachea midline, no thyromegaly Respiratory: normal respiratory effort, lungs clear to auscultation normal respiratory effort Cardiovascular: RRR, no murmur, no edema Gastrointestinal (Abdomen): Percussion/Palpation: abdomen soft mild tenderness tran-umbilical area, no distend, no rebound pain, middle line scar, Musculoskeletal: no cyanosis or clubbing, extremities motor strength 5/5 Neurologic: awake Psychiatric: Orientation: alert and oriented x 3 Results & Data Vital Signs (Past 12 Hours) Vital Signs Temp Pulse Resp BP BP Pulse Ox 08/03/19 07:07 36.4 C L 78 18 133/80 94 08/03/19 04:00 36.5 C 78 20 151/76 H 90 08/02/19 23:29 36.5 C 72 18 147/71 H 91 Laboratory Results Abnormal lab results 08/03/19 Range/Units 06:35 Creatinine 0.50 L (0.6-1.2) mg/dl BUN/Creatinine Ratio 27.9 H (10-20) Magnesium 1.7 L (1.8-2.4) mg/dl
[2019-08-03] MEDS ORDERED: bisacodyL 10 MG SUPP PR STA (09:51)
[2019-08-03] MEDS ORDERED: fentaNYL 75 MCG/HR TDSY TD SCH (10:00)
[2019-08-03] MEDS: SODIUM CHLORIDE 0.9% 1000ML 1,000 ML IV SCH ×2 (10:04→22:19)
[2019-08-03] MEDS: HYDROmorphone INJ 1 MG/ML SYRINGE IV PRN ×4 (10:05→22:20)
[2019-08-03] MEDS: ENOXAPARIN INJ 40 MG/0.4 ML SYR SQ SCH (10:14)
[2019-08-03] MEDS ORDERED: fentaNYL 25 MCG/HR TDSY TD SCH (16:00)
--- NOTE | 2019-08-03 17:03 | Hospitalist Progress Note ---
Date of Service August 03, 2019 Assessment & Plan (1) Bowel obstruction: CT a/p shows moderate grade small bowel obstruction. Likely due to adhesions from prior surgery and/or progression of cancer. - Seen by surgery - No imminent plan for surgery; will discuss with [place] surgeons - NPO - NG tube with low, int suction - IV fluids - Pain control - Unfortunately, no major progress today. Is passing some flatus, but no BM. Pain continues. Surgery may do a small bowel follow through. (2) Ovarian cancer: Follows at [place] and with Dr. Mederos. - Holding rucaparib - Palliative care consult - Follow up outpatient (3) Hypertension: BP stable at 130/80. - Holding home meds while NPO, but still doesn't need them. - Hydralazine PRN (4) Anxiety: No noted today, though she is understandably tearful given her poor prognosis. - Continue home meds as able - Lorazepam IV PRN (5) DVT prophylaxis: Lovenox Subjective Very tearful today as she did not realize her ovarian cancer had progressed. She is still having abdominal pain. She is passing some gas, but no spontaneous BMs. (Only after enema and suppository.) Review of Systems Review of Systems: All systems reviewed & are unremarkable except as noted in HPI & below Physical Exam Constitutional: + acute distress Eyes: EOM intact bilaterally; no conjunctival abnormality ENMT: external ear and nose normal, oropharynx normal Neck: trachea midline, no thyromegaly normal visual inspection Respiratory: normal respiratory effort, lungs clear to auscultation no respiratory distress Cardiovascular: RRR, no murmur, no edema Gastrointestinal (Abdomen): Inspection/Auscultation: abdomen normal to inspection and + hypoactive bowel sounds; abdomen not distended Percussion/Palpation: + abdomen tender, + guarding and abdomen soft; abdomen not rigid Musculoskeletal: no cyanosis or clubbing, extremities motor strength 5/5 Skin: no rashes, warm and dry Neurologic: moves all extremities and awake Psychiatric: Orientation: alert, oriented to person and cooperative Results & Data Vital Signs (Past 12 Hours) Vital Signs Temp Pulse Resp BP BP Pulse Ox 08/03/19 15:21 36.5 C 66 20 130/72 96 08/03/19 11:03 36.4 C L 71 18 134/80 94 08/03/19 07:07 36.4 C L 78 18 133/80 94 PG Care Time/CCT Total # of Minutes Spent Total Time Spent with Patient: Total time spent is greater than 50% in coordination of care (as documented) at patient's floor/unit and/or counseling patient:
[2019-08-03] MEDS: MAGNESIUM SULFATE / D5W 1 GM/100 ML BAG IV SCH ×2 (17:50→18:46)
[2019-08-04] MEDS: LORazepam 1 MG/2 ML VIAL IV PRN (00:32)
[2019-08-04] MEDS: KETOROLAC TROMETHAMINE 15 MG/ML VIAL IV SCH ×4 (02:43→19:36)
[2019-08-04] MEDS: ACETAMINOPHEN 1,000 MG/100 ML VIAL IV SCH ×3 (04:14→19:36)
[2019-08-04] MEDS: HYDROmorphone INJ 1 MG/ML SYRINGE IV PRN ×3 (06:33→21:35)
[2019-08-04] MEDS: ONDANSETRON INJ 2 MG/ML 2 ML VIAL IV PRN ×2 (06:33→12:45)
[2019-08-04 06:54] LABS: BUN Creatinine Ratio 20.4 (10-20); Calcium 9.8 mg/dl (8.5-10.1); Creatinine Clr Calc Pharmacy 109.8 ml/min; Est GFR (African American) 117.7; Est GFR (Non-African American) 101.6; Magnesium 1.8 mg/dl (1.8-2.4); Potassium 3.5 mmol/L (3.5-5.1)
[2019-08-04] MEDS ORDERED: POTASSIUM PHOS 3 MMOL/1 ML INFUSION IV STA (07:31)
[2019-08-04] MEDS ORDERED: POTASSIUM PHOSPHATE 15 MMOL in SODIUM CHLORIDE 0.9% 250 ML IV ONE (07:45)
--- NOTE | 2019-08-04 08:07 | Surgery Progress Note ---
Date of Service pt is doing better, passed flatus and 2 times BM, pt denies abdominal pain, NG 900ml August 04, 2019 Assessment & Plan (1) Small bowel obstruction: 1) Small bowel obstruction: Patient admitted on 08/01/19 with small bowel obstruction Continue conservative management with NGT, and NPO, with IVF passed some flatus, dulcolax 10 mg DE will F/U 08/04/2019 8:06am doing better, passed flatus and BM, no abdominal pain, pull out NG tube, clear diet, will F/U Subjective Patient remains with lower abdominal pain. Denies passing flatus or BM's. Last BM was two days ago, usually takes laxatives at home for constipation. No bouts of emesis since NGT in place. Physical Exam Constitutional: WD/WN, vitals as above well developed and well nourished ENMT: external ear and nose normal, oropharynx normal Neck: trachea midline, no thyromegaly Respiratory: normal respiratory effort, lungs clear to auscultation normal respiratory effort Cardiovascular: RRR, no murmur, no edema Gastrointestinal (Abdomen): Percussion/Palpation: abdomen soft NT, ND, BS + Musculoskeletal: no cyanosis or clubbing, extremities motor strength 5/5 Neurologic: awake Psychiatric: Orientation: alert and oriented x 3 Results & Data Vital Signs (Past 12 Hours) Vital Signs Temp Pulse Resp BP Pulse Ox 08/04/19 07:04 36.5 C 72 20 145/81 H 93 08/04/19 04:00 36.8 C 72 18 153/77 H 92 08/03/19 23:25 36.7 C 64 18 155/78 H 95
[2019-08-04] MEDS: CHECK FENTANYL PATCH PLACEMENT SCH ×3 (08:13→23:03)
--- NOTE | 2019-08-04 08:27 | XRay Report ---
KUB HISTORY: Small bowel obstruction. COMPARISON: Chest and abdominal series 08/02/2019. FINDINGS: Suture material within the left upper quadrant and deep pelvis consistent with postoperativ e change. Dextroscoliosis of the lumbar spine. Small to moderate well-formed stool within the distal colon and rectum. No renal calculi. No ureteral calculi. Calcifications in the deep pelvis likely re present phleboliths. Nasogastric tube terminates in the proximal stomach. Small bilateral pleural eff usions and bibasilar densities are partially visualized. Interval improvement/resolution of the dilat ed loops of small bowel within the midabdomen. No pneumoperitoneum or pneumatosis. IMPRESSION: 1. Interval improvement in the dilated loops of small bowel within the midabdomen suggesting a resolv ing small bowel obstruction. 2. Nasogastric tube terminates in the proximal stomach. 3. Small bilateral pleural effusions and bibasilar densities are noted. Electronically signed by: Jamie Matthews M.D. 08/04/2019 8:26 AM
[2019-08-04] MEDS ORDERED: POLYETHYLENE (MIRALAX) 17 GM PACK PO STA (09:55)
[2019-08-04] MEDS: ENOXAPARIN INJ 40 MG/0.4 ML SYR SQ SCH (10:06)
--- NOTE | 2019-08-04 12:54 | Hospitalist Progress Note ---
Date of Service August 04, 2019 Assessment & Plan (1) Bowel obstruction: CT a/p shows moderate grade small bowel obstruction. Likely due to adhesions from prior surgery and/or progression of cancer. - Seen by surgery - No imminent plan for surgery; will discuss with [place] surgeons - Pain control - Clear liquid diet -> Advance to full for dinner if she does ok. (2) Ovarian cancer: Follows at [place] and with Dr. Mederos. - Holding rucaparib - Palliative care consult - Follow up outpatient - Did alert Dr. Mederos on 08/04. May be able to see today or tomorrow. (3) Hypertension: BP stable at 130/80. - Helding home meds while NPO - Restart lisinopril at 5mg (1/2 home dose) on 08/05 as her BP is coming up a bit. (4) Anxiety: None noted today, though she is understandably tearful given her poor prognosis. - Restarted home meds on 08/05 - Lorazepam IV PRN (5) DVT prophylaxis: Lovenox Subjective Improved abdominal pain with the fentanyl patch. Had some BM yesterday evening, but none this morning. Dr. Rubin pulled the NG tube and will try clears. Review of Systems Review of Systems: All systems reviewed & are unremarkable except as noted in HPI & below Physical Exam Constitutional: + acute distress Eyes: EOM intact bilaterally; no conjunctival abnormality ENMT: external ear and nose normal, oropharynx normal Neck: trachea midline, no thyromegaly normal visual inspection Respiratory: normal respiratory effort, lungs clear to auscultation no respiratory distress Cardiovascular: RRR, no murmur, no edema Gastrointestinal (Abdomen): Inspection/Auscultation: abdomen normal to inspection and + hypoactive bowel sounds (Improved.); abdomen not distended Percussion/Palpation: + abdomen tender (Improved) and abdomen soft; no guarding and abdomen not rigid Musculoskeletal: no cyanosis or clubbing, extremities motor strength 5/5 Skin: no rashes, warm and dry Neurologic: moves all extremities and awake Psychiatric: Orientation: alert, oriented to person and cooperative Results & Data Vital Signs (Past 12 Hours) Vital Signs Temp Pulse Resp BP Pulse Ox 08/04/19 12:09 36.9 C 69 18 144/75 H 95 08/04/19 07:04 36.5 C 72 20 145/81 H 93 08/04/19 04:00 36.8 C 72 18 153/77 H 92 PG Care Time/CCT Total # of Minutes Spent Total Time Spent with Patient: Total time spent is greater than 50% in coordination of care (as documented) at patient's floor/unit and/or counseling patient:
[2019-08-04] MEDS ORDERED: ZOLPIDEM TARTRATE 10 MG TAB PO PRN (12:56)
[2019-08-04] MEDS ORDERED: POLYETHYLENE (MIRALAX) 17 GM PACK PO PRN (21:21)
[2019-08-04] MEDS ORDERED: MAGNESIUM HYDROXIDE SUSP 30 ML UDC PO PRN (21:21)
[2019-08-04] MEDS ORDERED: ALUMINUM/MAGNESIUM SUSP 30 ML UDC PO PRN (21:21)
[2019-08-04] MEDS: PANTOprazole 40 MG TAB PO SCH (21:42)
[2019-08-04] MEDS: HEPARIN 100 UNIT/ML 5ML FLUSH FLUSH PRN (21:42)
[2019-08-04] MEDS: clonazePAM 0.5 MG TAB PO PRN (22:56)
[2019-08-05] MEDS: KETOROLAC TROMETHAMINE 15 MG/ML VIAL IV SCH ×2 (02:21→07:42)
[2019-08-05] MEDS: HEPARIN 100 UNIT/ML 5ML FLUSH FLUSH PRN ×3 (02:26→08:03)
[2019-08-05] MEDS: ACETAMINOPHEN 1,000 MG/100 ML VIAL IV SCH (04:20)
--- NOTE | 2019-08-05 07:24 | Surgery Progress Note ---
Date of Service August 05, 2019 Assessment & Plan (1) Small bowel obstruction: Patient admitted 08/01/19 with small bowel obstruction Has progressed well over the weekend, + flatus/+BM's, and NGT removed Tolerating a liquid diet. Pain and nausea overall improved KUB yesterday revealed resolving SBO Will advance to low fiber this morning Subjective Patient feeling better each day. She is passing flatus and having bowel movements. Says she's passed at least 4-5 mostly formed BM's throughout the weekend. NGT removed yesterday. Has been tolerating a liquid diet. Nausea improved. Still with some mild lower abdominal pain, but overall better. Physical Exam Physical Exam: lying in bed, awake and alert Respiratory: normal respiratory effort Gastrointestinal (Abdomen): Inspection/Auscultation: abdomen not distended Percussion/Palpation: + abdomen tender (very mildly tender in lower abdomen) and abdomen soft Results & Data Vital Signs (Past 12 Hours) Vital Signs Temp Pulse Resp BP Pulse Ox 08/05/19 03:50 36.6 C 71 18 152/77 H 92 08/04/19 22:48 36.9 C 68 18 168/78 H 93 08/04/19 19:34 37.1 C 67 18 157/78 H 96 PG Care Time/CCT Total # of Minutes Spent Total Time Spent with Patient: Total time spent is greater than 50% in coordination of care (as documented) at patient's floor/unit and/or counseling patient:
[2019-08-05] MEDS: PANTOprazole 40 MG TAB PO SCH (07:42)
[2019-08-05] MEDS: CHECK FENTANYL PATCH PLACEMENT SCH ×2 (07:43→15:37)
[2019-08-05 08:31] LABS: BUN Creatinine Ratio 13.8 (10-20); Calcium 10.4 mg/dl (8.5-10.1); Creatinine Clr Calc Pharmacy 98.6 ml/min; Est GFR (African American) 113.6; Magnesium 1.6 mg/dl (1.8-2.4); Potassium 3.4 mmol/L (3.5-5.1)
[2019-08-05 08:34] LABS: Hematocrit (blood only) 33.7 % (37-47); Hemoglobin 11.1 g/dL (12.0-16.0); Mean Corpuscular Hemoglobin 30.6 pg (25-34); Mean Corpuscular Hgb Conc 32.9 g/dL (32-36); Mean Corpuscular Volume 92.8 fL (80-100); Mean Platelet Volume 9.2 fL (7.4-10.4); Platelet Count 105 K/uL (130-400); RDW Coefficient of Variation 13.8 % (11.5-14.5); RDW Standard Deviation 46.8 fL (36.4-46.3); Red Blood Count 3.63 M/uL (4.2-5.4); White Blood Count 3.24 K/uL (4.8-10.8)
[2019-08-05] MEDS ORDERED: DULOXETINE HCL 20 MG CAP PO SCH (09:00)
[2019-08-05] MEDS ORDERED: lisinopriL 5 MG TAB PO SCH (09:00)
[2019-08-05] MEDS ORDERED: POTASSIUM CHLORIDE 20 MEQ TABCR PO ONE (09:00)
[2019-08-05] MEDS: MAGNESIUM SULFATE / D5W 1 GM/100 ML BAG IV SCH ×2 (09:05→10:00)
[2019-08-05] MEDS: clonazePAM 0.5 MG TAB PO PRN (10:00)
[2019-08-05] MEDS: ENOXAPARIN INJ 40 MG/0.4 ML SYR SQ SCH (11:07)
[2019-08-05] MEDS ORDERED: ACETAMINOPHEN 325 MG TAB PO PRN (11:09)
--- NOTE | 2019-08-05 11:21 | Hospitalist Progress Note ---
Date of Service August 05, 2019 Assessment & Plan (1) Bowel obstruction: - CT showed moderate SBO - likely related to adhesions in setting of multiple abd surgeries and progression of cancer. - F/u KUB on 08/04: improvement in SOB, now resolving. - Gen surg consulted, appreciate input. - Advanced to low fiber diet, tolerating well. - Continue home pain meds -- has been well controlled. (2) Ovarian cancer: - Follows with [facility] at [place] and [place] [facility] [place] showed multiple peritoneal implants c/w progression of disease. - Holding Rucaparib. - Palliative consulted to discuss goals of care. - Will need f/u with Dr. Mederos at discharge - discussed with nurse navigator. - Continue home Fentanyl patch as prescribed; Dilaudid and Tylenol prn pain. (3) Hypertension: - Restarted Lisinopril at 5 mg daily (on 10 mg at home). - BP is stable, has been well controlled. (4) Anxiety: - Continue home Cymbalta as prescribed. - Ativan prn. (5) GERD (gastroesophageal reflux disease): - PPI daily. (6) Anemia: - Likely chemotherapy induced; monitor CBC daily -- has not required transfusion support. (7) Electrolyte abnormality: - K level 3.4 - ordered KCl 20 mEq PO. - Mag level 1.6 - ordered mag sulfate 2 gm IV. - Monitor levels daily (8) DVT prophylaxis: - Lovenox daily. Dispo: Discharge to home likely this afternoon following palliative care evaluation. Subjective Pt. is doing well overall today -- she is passing gas and had a small BM yesterday. Has mild lower abd pain but denies nausea/vomiting. Plan for discharge following evaluation by palliative care. Review of Systems Review of Systems: All systems reviewed & are unremarkable except as noted in HPI & below Constitutional: no fever, no chills, no fatigue, no weakness and no anorexia Respiratory: no cough, no dyspnea and no dyspnea on exertion Cardiovascular: no chest pain, no palpitations and no edema Gastrointestinal: + abdominal pain and + constipation; no nausea, no vomiting and no diarrhea/loose stools Genitourinary: no difficulty urinating Musculoskeletal: no back pain and no joint pain Integumentary: no non-healing lesions Physical Exam Physical Exam: General: Resting comfortably HEENT: NC/AT; PERRLA with EOMI; [place] conjunctiva, MMM. No erythema of posterior pharynx Neck: Supple and nontender Cardiac: RRR Lungs: CTA bilaterally Abdomen: Bowel normoactive X 4; Tenderness to deep palpation over lower abdomen Extremities: Warm. No edema present Neuro: No focal weakness Skin: No rash Results & Data Vital Signs (Past 12 Hours) Vital Signs Temp Pulse Resp BP Pulse Ox 08/05/19 07:00 36.6 C 68 18 122/60 98 08/05/19 03:50 36.6 C 71 18 152/77 H 92 Laboratory Results 08/05/19 08/05/19 Range/Units 07:53 07:53 WBC 3.24 L (4.8-10.8) K/uL RBC 3.63 L (4.2-5.4) M/uL Hgb 11.1 L (12.0-16.0) g/dL Hct 33.7 L (37-47) % MCV 92.8 (80-100) fL MCH 30.6 (25-34) pg MCHC 32.9 (32-36) g/dL RDW Std Deviation 46.8 H (36.4-46.3) fL RDW Coeff of Pilar 13.8 (11.5-14.5) % Plt Count 105 L (130-400) K/uL MPV 9.2 (7.4-10.4) fL Sodium 141 (136-145) mmol/L Potassium 3.4 L (3.5-5.1) mmol/L Chloride 105 (98-107) mmol/L Carbon Dioxide 29 (21-32) mmol/L Anion Gap 7.0 (3-11) BUN 7 (7-18) mg/dl Creatinine 0.49 L (0.6-1.2) mg/dl Est Cr Clr Drug Dosing 98.6 ml/min Est GFR ( Amer) 113.6 Est GFR (Non-Af Amer) 98.0 BUN/Creatinine Ratio 13.8 (10-20) Glucose 96 (70-99) mg/dl Calcium 10.4 H (8.5-10.1) mg/dl Magnesium 1.6 L (1.8-2.4) mg/dl PG Care Time/CCT Total # of Minutes Spent Total Time Spent with Patient: Total time spent is greater than 50% in coordination of care (as documented) at patient's floor/unit and/or counseling patient:
--- NOTE | 2019-08-05 14:22 | Palliative Care Consultation ---
Date of Consultation August 05, 2019 Assessment & Plan (1) Goals of care, counseling/discussion: -73 year old female with PMH ovarian cancer, breast cancer s/p mastectomy, BRCA gene mutation, presented to the hospital with abdominal pain and constipation. Found to have bowel obstruction-- CT a/p shows moderate grade small bowel obstruction. Likely due to adhesions from prior surgery and/or progression of cancer. Patient is under the care of Dr. Mederos and Dr. Zarco in [place] for her ovarian cancer. CT abd/pelvis in May states that the peritoneal implants were not visualized, and now on CT a/p, the report notes the peritoneal implants are present again. This could indicate progression of disease. Patient's SBO fortunately has resolved and she is feeling better in that regard. HOwever, patient is uncertain of whether or not she wants to continue to undergo chemotherapy or go with more of a palliative route. Palliative care consulted to discuss goals of care. -Met with this rose patient in room 263. She is AA&O x4. Pleasant and talkative, and appropriately tearful throughout our conversation. -patient states that she has been dealing with this cancer for six years now, as well as the breast cancer. She is tired and does not want to continue going to Dr's appointments, undergoing treatment, etc., and feels as thought she may be ready to just take what time she has left and try to enjoy it as much as possible. However, before making that final decision she would like to speak with her oncologist. She has a list of questions such as her prognosis with and without treatment, what the goal of treatment would be, etc. -Discussed code status, patient would like to be DO NOT RESUSCITATE. -We discussed hospice care in the future when she is done with treatment and once she is in need of their service. Patient does not feel that she needs hospice at this time as she is still very active, feeling pretty well, and able to take care of herself independently. I agree with this as well. -Would be reasonable to consider a palliative venting G-tube in case of further disease progression and recurrent bowel obstruction. Dr. Padilla will discuss this with the patient. -I did give patient information for Dr. Padilla's outpatient office if she needs any follow up for pain management, supportive care, etc. -We will be happy to follow this patient during hospitalization and any time in the future. (2) Peritoneal carcinoma: (3) Small bowel obstruction: (4) Ovarian cancer: Supervising Physician Co-Signing Physician Notes Patient seen and examined, chart reviewed. Collaborated with SASCHA Ramos. PE: Patient awake, alert and oriented, NAD HEENT: EOMI Respiratory: Unlabored CV: Regular rate Abdomen: Not distended Neuro: Alert and oriented x4 Discussed with the patient at length things for her to consider regarding ongoing chemotherapy. Patient does report a prior bout of bowel obstruction several years ago. Patient aware that her disease is progressing-discussed the role of a venting G-tube and the timing of its placement. Patient reports she has a municipal firefighter-Dr. Olson, she will likely follow-up with him and discuss the possibility of placing a venting G-tube. Encourage patient to have further discussion with oncology regarding her treatment options. Patient to discuss any further decisions regarding treatment plan with her . Agree with above note, assessment and plan as per SASCHA Ramos. Will continue to follow and assist patient and family with medical decision making History of Present Illness Attending Physician: Edvin Castillo History of Present Illness This 73 year old female with PMH ovarian cancer, breast cancer s/p mastectomy, BRCA gene mutation, presented to the hospital with abdominal pain and constipation. Found to have bowel obstruction-- CT a/p shows moderate grade small bowel obstruction. Likely due to adhesions from prior surgery and/or progression of cancer. Patient is under the care of Dr. Mederos and Dr. Zarco in [place] for her ovarian cancer. CT abd/pelvis in May states that the peritoneal implants were not visualized, and now on CT a/p, the report notes the peritoneal implants are present again. This could indicate progression of disease. Patient's SBO fortunately has resolved and she is feeling better in that regard. HOwever, patient is uncertain of whether or not she wants to continue to undergo chemotherapy or go with more of a palliative route. Palliative care consulted to discuss goals of care. Thank you kindly for this consult. Palliative care team will follow as needed. Allergies Allergy/AdvReac Type Severity Reaction Status Date / Time Sulfa (Sulfonamide Allergy Mild NAUSEA; Verified 08/01/19 05:16 Antibiotics) AFFECTS BLOOD Home Medications Home Medications Medication Instructions Recorded Confirmed Type clonazepam 0.5 mg PO BID PRN 07/29/18 08/01/19 History lisinopril 10 mg PO DAILY 07/29/18 08/01/19 History ondansetron HCl [Zofran] 4 mg PO UD PRN 07/29/18 08/01/19 History prochlorperazine maleate 10 mg PO Q6H PRN 07/29/18 08/01/19 History [Compazine] fentanyl 1 patch TD Q72H #9 ea 12/27/18 08/01/19 Rx hydromorphone 5 mg PO Q4H PRN #60 tab 12/27/18 08/01/19 Rx duloxetine 20 mg PO DAILY 08/01/19 08/01/19 History omeprazole 20 mg PO DAILY 08/01/19 08/01/19 History polyethylene glycol 3350 [Miralax] 17 g PO DAILY PRN 08/01/19 08/01/19 History rucaparib [Rubraca] 300 mg PO DIRECTED 08/01/19 08/01/19 History zolpidem 10 mg PO HS PRN 08/01/19 08/01/19 History fentanyl 75 mcg TRANSDERMAL Q72H 1 Days #1 08/05/19 Rx ea Patient History Medical History Small bowel obstruction (Acute) Peritoneal carcinoma Breast cancer (Resolved) Ovarian cancer (Resolved) Bowel obstruction (Resolved) Hx antineoplastic chemotherapy (Resolved) Cancer of peritoneum Surgical History History of bowel resection Ovarian tumor debulking in 2012. No pertinent past surgical history Family History Other No pertinent family history Social History Preferred Language: Yoruba Communication Ability: Effective Private Duty Nurse Required: No Beliefs That Will Affect Care: None marital status: Current Living Situation: Spouse current occupational status: retired Other Information That Helps Us Care for You: No Feels Safe at Home: Yes Safety Concerns: Feels Safe At This Time Smoking Status: Former smoker Do You Dip or Chew Tobacco: No ; Second Hand Exposure: No ; Hx Alcohol Use: No Hx Substance Use: No Review of Systems Constitutional: Const: No weakness, fever, chills ENMT: No dysphagia Resp: No SOB, no cough Cardio: No chest pain, no edema GI: + mild abdominal "discomfort", but no real abdominal pain, no N/V MS: No musculoskeletal pain Neuro: No confusion Psych: No anxiety, no depression Physical Exam Constitutional: well developed and well nourished; no acute distress Eyes: PERRL ENMT: external ear and nose normal, oropharynx normal Neck: normal visual inspection Respiratory: normal respiratory effort, lungs clear to auscultation Cardiovascular: RRR, no murmur, no edema Gastrointestinal (Abdomen): Inspection/Auscultation: abdomen normal to inspection and normal bowel sounds Percussion/Palpation: abdomen soft Skin: normal turgor Neurologic: moves all extremities and awake Psychiatric: A+Ox3, euthymic affect Insight: excellent insight Results & Data Vital Signs (Past 12 Hours) Vital Signs Temp Pulse Resp BP Pulse Ox 08/05/19 07:00 36.6 C 68 18 122/60 98 08/05/19 03:50 36.6 C 71 18 152/77 H 92 PG Care Time/CCT Prolonged Care Time Prolonged Care Time: Yes Total Prolonged Care Time: 35 Time Spent Midlevel 70 minutes with >50% of the time spent at bedside with patient discussing condition and GOC. Attending Spent 35 minutes in addition to this 70 minutes spent by AUDOGRAPH OPERATOR for a total of 105 minutes with greater than 50% of the time spent at bedside discussing decision making regarding further treatment as well as the option of a venting G-tube given her disease and probable recurrent small bowel obstruction. Critical Care Time Prolonged Care Time Prolonged Care Time: Yes Total Prolonged Care Time: 35 105
--- NOTE | 2019-08-05 14:43 | Discharge Summary ---
Date of Service August 05, 2019 Admission HPI Per Admitting Provider Ms. 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 She reports that she was recently started on a new chemotherapy agent which has a side effect of causing constipation for her. She reports that her stools over the last week and half has become harder and less frequent. She has had increasing nausea over the last few days, increasing pain in the lower abdomen as well. This morning she woke up with intense lower abdominal pain as well as nausea and emesis. She reports no melena or hematochezia. Her emesis was bilious in nature but did not have any blood or coffee ground emesis. She denies any fevers or chills, sweats, shortness of breath, chest pain, or other review of systems. Admission Exam Per Admitting Provider Constitutional: + acute distress Eyes: EOM intact bilaterally; no conjunctival abnormality ENMT: external ear and nose normal, oropharynx normal Neck: trachea midline, no thyromegaly normal visual inspection Respiratory: normal respiratory effort, lungs clear to auscultation no respiratory distress Cardiovascular: RRR, no murmur, no edema Gastrointestinal (Abdomen): Inspection/Auscultation: abdomen normal to inspection and + hypoactive bowel sounds; abdomen not distended Percu ssion/Palpation: + abdomen tender, + guarding and abdomen soft; abdomen not rigid Musculoskeletal: no cyanosis or clubbing, extremities motor strength 5/5 Skin: no rashes, warm and dry Neurologic: moves all extremities and awake Psychiatric: Orientation: alert, oriented to person and cooperative Principal Diagnosis Small Bowel Obstruction Ovarian Cancer Discharge Exam General: Resting comfortably HEENT: NC/AT; PERRLA with EOMI; [place] conjunctiva, MMM. No erythema of posterior pharynx Neck: Supple and nontender Cardiac: RRR Lungs: CTA bilaterally Abdomen: Bowel normoactive X 4; Tenderness to deep palpation over lower abdomen Extremities: Warm. No edema present Neuro: No focal weakness Skin: No rash Discharge Data Allergies Allergy/AdvReac Type Severity Reaction Status Date / Time Sulfa (Sulfonamide Allergy Mild NAUSEA; Verified 08/01/19 05:16 Antibiotics) AFFECTS BLOOD Consultations 08/01/19 06:28 Consult General Surgery Stat 08/03/19 17:10 Consult Palliative Care Routine Ordered Studies 08/01/19 05:11 CT abd pelvis wo con Urgent Hospital Course (1) Bowel obstruction: CT showed moderate SBO - likely related to adhesions in setting of multiple abd surgeries and progression of cancer. F/u KUB on 08/04: improvement in SOB, now resolving. Gen surg consulted, appreciate input. Advanced to low fiber diet prior to discharge. (2) Ovarian cancer: Follows with municipal bond trader-onc at [place] and Dr. Mederos at [facility]; CT A/P showed multiple peritoneal implants c/w progression of disease. Holding Rucaparib. Palliative consulted to discuss goals of care - pt. is considering transitioning to hospice, d/c'ing further chemotherapy. Will need to discuss with Dr. Mederos as an outpatient. Continued home Fentanyl patch as prescribed; Dilaudid and Tylenol prn pain. (3) Hypertension: Restarted Lisinopril at 5 mg daily (on 10 mg at home). (4) Anxiety: Continued home Cymbalta as prescribed. Ativan prn. (5) GERD (gastroesophageal reflux disease): PPI daily. (6) Anemia: Likely chemotherapy induced -- has not required transfusion support. (7) Electrolyte abnormality: Monitor levels daily, replace prn. (8) DVT prophylaxis: Lovenox daily. Stable for discharge to home on 08/05/19. Total Time Total Time Spent Total Time Spent (In Minutes): >30 minutes Total Time Includes: Examination of the Patient, Discharge Planning, Medication Reconciliation, Communication With Other Providers and Other Discharge Plan Discharge Items Patient Disposition: Home - Self-Care Reason For Visit: SBO Discharge Diagnosis: Small Bowel Obstruction Activity: As commented below Exercise/Sports: Gradually increase as tolerated Non-emergency contact: Primary Care Provider and Oncologist Call non-emergency contact if: you have any medication questions, your symptoms worsen, your pain is not controlled, your pain is worsening, your pain is unusual for you, your pain is concerning for you and you have a fever Follow-up/Referrals: Edvin Laura [Primary Care Provider] - 08/09/19 12:30 pm (Please, follow up at Dr. Laura's office on MondayAugust 09 at 12:30 pm with Elsi Lind PA-C. *If you need to change this appointment, call the office at [phone].) Hardik Mederos [Physician] - 08/07/19 10:50 am (Please, follow up at Dr. Mederos's office with his associate, Keri CAICEDO, on MondayAugust 07 at 10:50 am. If you have any questions, call the office at [phone].) Diet: Low Fiber Addtl Attending Provider Instructions: 1. Small Bowel Obstruction * Please continue a low fiber diet as tolerated. * Drink plenty of fluids to avoid dehydration. * Please schedule follow up with PCP in 1-2 weeks. 2. Ovarian Cancer * A follow up appointment will be scheduled with oncologist in 1-2 weeks to disc uss further treatment. Pending Studies at Discharge: No Stand-Alone Forms: My [facility] Medications and DC Order Prescriptions: Continued ondansetron HCl [Zofran] 4 mg Tablet 4 mg PO UD PRN (Reason: Nausea And Vomiting) RF: 0 clonazepam 0.5 mg Tablet 0.5 mg PO BID PRN (Reason: Anxiety) RF: 0 prochlorperazine maleate [Compazine] 10 mg Tablet 10 mg PO Q6H PRN (Reason: Nausea And Vomiting) RF: 0 lisinopril 10 mg Tablet 10 mg PO DAILY RF: 0 hydromorphone 2 mg Tablet 5 mg PO Q4H PRN (Reason: Abdominal Pain) Qty: 60 RF: 0 zolpidem 10 mg Tablet 10 mg PO HS PRN (Reason: Sleep) RF: 0 omeprazole 20 mg Tablet,Delayed Release (Dr/Ec) 20 mg PO DAILY RF: 0 duloxetine 20 mg Capsule,Delayed Release(Dr/Ec) 20 mg PO DAILY RF: 0 Rubraca 300 mg Tablet 300 mg PO DIRECTED RF: 0 Changed polyethylene glycol 3350 [Miralax] 17 gram Powder In Packet 17 g PO DAILY Qty: 0 RF: 0 Discontinued fentanyl 75 mcg/hr patch 72 hour 1 patch TD Q72H Qty: 9 RF: 0 Discharge Orders: Discharge Order (Routine); Ordered 08/05/19 Ordered By: Lori Woo Admission Data Admit Date/Time: 08/01/19 07:53 Attending Provider: Edvin Castillo Admit Provider: Rob Maurer Primary Care Provider: Edvin Larua Other Providers: Jaspal Figueroa ; Vielka Padilla Other Interventions: Discharge Summary Assessment (RN) Last Done: 08/05/19 16:03 DC Date/Time DO NOT enter until pt leaves facility: 08/05/19 17:30 Supervising Physician Co-Signing Physician Notes During my face to face encounter, I examined the patient and obtained a history. I reviewed above note and agree with it. I discussed discharge plan with the patient. Patient was admitted for bowel obstruction. Throughout hospital stay, patient improved, and is tolerating low fiber diet. will discharge
[2019-08-06] MEDS ORDERED: fentaNYL 100 MCG/HR TDSY TD SCH (10:00)
== END 2019-08-05 17:30 | disposition home or self-care (01) | DRG 389 ==
LOC: ED 04:52 → SUATTDRO 07:53 → 2W 07:53
DX: Z51.5 Encounter for palliative care; D64.9 Anemia, unspecified; C78.6 Secondary malignant neoplasm of retroperitoneum and peritoneum; F41.9 Anxiety disorder, unspecified; K21.9 Gastro-esophageal reflux disease without esophagitis; C55 Malignant neoplasm of uterus, part unspecified; I10 Essential (primary) hypertension; E87.8 Other disorders of electrolyte and fluid balance, not elsewhere classified; K56.50 Intestinal adhesions [bands], unspecified as to partial versus complete obstruction

== ENCOUNTER 2019-09-30 11:27 | Inpatient (IN) ==
[2019-09-30] MEDS ORDERED: SODIUM CHLORIDE 0.9% 1000ML 1,000 ML IV ONE (12:04)
--- NOTE | 2019-09-30 12:19 | XRay Report ---
SINGLE VIEW CHEST CLINICAL HISTORY: Vomiting. FINDINGS: An AP, portable, upright chest radiograph is compared to study dated 08/02/2019 and correlat ed with chest CT dated 06/21/2019. The examination is degraded by portable technique and apical lordot ic positioning. A left subclavian central venous infusion port is unchanged in position. The heart is top normal in size noting atherosclerotic calcification of the thoracic aorta. There is a large hiat al hernia. There is bibasilar scarring/atelectasis. No airspace consolidation or large pleural effusi on is identified. Scattered calcified granulomas are observed. No pneumothorax is seen. The skeletal structures are osteopenic. The bony thorax is grossly intact. IMPRESSION: 1. No acute cardiopulmonary abnormality. 2. Hiatal hernia. Electronically signed by: Emil Murillo M.D. 09/30/2019 12:18 PM
--- NOTE | 2019-09-30 12:33 | Emergency Department Note ---
Entered by Kaya Dejesus acting as a scribe for History of Present Illness General Chief complaint: Nausea Stated complaint: NAUSEA AND PAIN Time Seen by Provider: 09/30/19 11:48 Source: patient History of Present Illness Provider complaint: Nausea Onset (ago): week(s) 1 Location: abdomen Maximum Pain Intensity: 7 Relieved By: + none Exacerbated By: + none Associated symptoms: + nausea/vomiting and + other (Abdominal pain); no chest pain and no shortness of breath The patient is a 73 year old female who presents to the Emergency Room with c omplaints of nausea that began 1 week ago. The patient states the symptoms are not relieved by her home medications nor exacerbated by anything specific. The patient reports experiencing vomiting and abdominal pain but denies any chest pain or shortness of breath. The patient mentioned that she has ovarian and now peritoneal cancer. The patient has a history of a bowel obstruction and noticed that her abdomen feels distended. Home Medications Home Medications Medication Instructions Recorded Confirmed Type clonazepam 0.5 mg PO BID PRN 07/29/18 09/30/19 History lisinopril 10 mg PO DAILY 07/29/18 09/30/19 History ondansetron HCl [Zofran] 4 mg PO UD PRN 07/29/18 09/30/19 History prochlorperazine maleate 10 mg PO Q6H PRN 07/29/18 09/30/19 History [Compazine] hydromorphone 5 mg PO Q4H PRN #60 tab 12/27/18 09/30/19 Rx Rubraca 1,200 mg PO DAILY 08/01/19 09/30/19 History duloxetine 20 mg PO DAILY 08/01/19 09/30/19 History omeprazole 20 mg PO DAILY 08/01/19 09/30/19 History zolpidem 10 mg PO HS PRN 08/01/19 09/30/19 History polyethylene glycol 3350 [Miralax] 17 g PO DAILY #0 ea 08/05/19 09/30/19 Rx fentanyl 12 mcg TRANSDERMAL Q72H 09/30/19 09/30/19 History fentanyl 75 mcg TRANSDERMAL Q72H 09/30/19 09/30/19 History Allergies Allergy/AdvReac Type Severity Reaction Status Date / Time Sulfa (Sulfonamide Allergy Mild NAUSEA; Verified 09/30/19 12:08 Antibiotics) AFFECTS BLOOD Past Med/Surg History Medical History Breast cancer (Resolved) Cancer of peritoneum Hx antineoplastic chemotherapy (Resolved) Ovarian cancer (Resolved) Peritoneal carcinoma Small bowel obstruction (Acute) Surgical History History of bowel resection Ovarian tumor debulking in 2012. No pertinent past surgical history Family History Other No pertinent family history Social History Preferred Language: Chinese Communication Ability: Effective Spectroscopist Required: No Beliefs That Will Affect Care: None marital status: Current Living Situation: Spouse current occupational status: retired Feels Safe at Home: Yes Smoking Status: Former smoker Second Hand Exposure: No ; Hx Alcohol Use: No Hx Substance Use: No Review of Systems See HPI for pertinent positives & negatives. and A total of 10 systems reviewed and were otherwise negative Physical Exam Vital Signs Vital Signs - 24 hr 09/30/19 11:31 09/30/19 13:10 09/30/19 14:35 Temperature 37 C Temperature Source Oral Pulse Rate 107 H Pulse Rate [Apical] 81 79 Respiratory Rate 20 18 18 Respiratory Effort / Characteristics Non-Labored Spontaneous Respiratory Depth Normal Blood Pressure 137/84 Blood Pressure [Left Arm] 125/71 107/61 Blood Pressure Mean 101 Blood Pressure Mean [Left Arm] 89 76 Blood Pressure Position Sitting Pulse Oximetry 96 94 95 Oxygen Delivery Method Room Air Room Air Room Air Sepsis Recent Fever Within 48 Hours No Sepsis Action Taken by Nursing No Action Required 09/30/19 16:30 Temperature Temperature Source Pulse Rate Pulse Rate [Apical] 77 Respiratory Rate 16 Respiratory Effort / Characteristics Respiratory Depth Blood Pressure Blood Pressure [Left Arm] 112/79 Blood Pressure Mean Blood Pressure Mean [Left Arm] 90 Blood Pressure Position Pulse Oximetry 98 Oxygen Delivery Method Sepsis Recent Fever Within 48 Hours Sepsis Action Taken by Nursing GENERAL: The patient is awake and alert. She appears uncomfortable. EYES: The conjunctivae are clear. The pupils are round and reactive. EARS, NOSE, MOUTH AND THROAT: The nose is without any evidence of any deformity. Mucous membranes are moist tongue is midline NECK: The neck is nontender and supple. RESPIRATORY: Normal respiratory effort is noted there is no evidence of wheezing rhonchi or rales CARDIOVASCULAR: Regular rate and rhythm noted there no murmurs rubs or gallops normal S1 normal S2 GASTROINTESTINAL: The abdomen is moderately distended and diffusely tender. There is no specific guarding but pain appears to be localized to the left lower quadrant. MUSCULOSKELETAL/EXTREMITIES: There is no evidence of gross deformity full range of motion is noted in the hips and shoulders SKIN: There is no obvious evidence of any rash. No significant pedal edema was noted. NEUROLOGIC: Patient is awake alert and oriented x3 strength is symmetric patellar reflexes are 2+ bilaterally Course Course 1203: Past medical records reviewed. The patient was evaluated in room C11B. A complete history and physical exam was performed. 1528: I reevaluated and discussed test results with the patient. Her pain is st ill poorly controlled so I will talk to the hospitalist. 1612: I spoke with Dr. Angela Paulson- Hospitalist about the patient's case and she will accept the patient for further evaluation. Administered Medications Fentanyl Citrate (Fentanyl Citrate) 50 mcg IV Q15M PRN PRN Reason: Pain Stop: 10/14/19 12:03 Last Admin: 09/30/19 14:39 Dose: 50 mcg Documented by: [id number] Admin: 09/30/19 13:51 Dose: 50 mcg Documented by: [id number] Admin: 09/30/19 13:07 Dose: 50 mcg Documented by: [id number] Admin: 09/30/19 12:34 Dose: 50 mcg Documented by: [id number] Discontinued Medications Hydromorphone HCl (Dilaudid) Confirm Administered Dose 1 mg .ROUTE .STK-MED ONE Stop: 09/30/19 15:20 Last Admin: 09/30/19 15:23 Dose: 1 mg Documented by: [id number] Sodium Chloride (Nss 1000ml) 1,000 mls @ 999 mls/hr IV .Q1H1M ONE Stop: 09/30/19 13:04 Last Infusion: 09/30/19 15:23 Dose: 0 mls/hr Documented by: [id number] Admin: 09/30/19 12:34 Dose: 999 mls/hr Documented by: [id number] Medical Decision Making Differential Diagnosis Differential diagnosis: Etiologies such as biliary colic, cholecystitis, hepatitis, perihepatitis, pancreatitis, cardiac disease, pancreatitis, gastritis, peptic ulcer disease, appendicitis, ovarian cyst, ovarian torsion, ectopic , pelvic inflammatory disease, cystitis, diverticulitis, mesenteric ischemia, inflammatory bowel disease, ileus, bowel obstruction, aortic pathology, shingles, as well as others were considered. Medical Records Attestation: I reviewed the patient's medical records. Home Medications Current Medication List: was personally reviewed by me Laboratory Data Attestation: I reviewed the patient's lab results. Result diagrams: 09/30/19 12:42 09/30/19 12:42 Lab Results 09/30/19 09/30/19 09/30/19 Range/Units 12:42 12:42 12:42 WBC 6.16 (4.8-10.8) K/uL RBC 3.75 L (4.2-5.4) M/uL Hgb 11.6 L (12.0-16.0) g/dL Hct 36.4 L (37-47) % MCV 97.1 (80-100) fL MCH 30.9 (25-34) pg MCHC 31.9 L (32-36) g/dL RDW Std Deviation 47.9 H (36.4-46.3) fL RDW Coeff of Pilar 13.6 (11.5-14.5) % Plt Count 199 (130-400) K/uL MPV 10.2 (7.4-10.4) fL Immature Gran % (Auto) 0.0 % Neut % (Auto) 73.7 % Lymph % (Auto) 16.2 % [place] % (Auto) 9.1 % Eos % (Auto) 0.8 % Baso % (Auto) 0.2 % Immature Gran # (Auto) 0.00 (0.00-0.02) K/uL Neut # (Auto) 4.54 (1.4-6.5) K/uL Lymph # (Auto) 1.00 L (1.2-3.4) K/uL [place] # (Auto) 0.56 (0.11-0.59) K/uL Eos # (Auto) 0.05 (0-0.5) K/uL Baso # (Auto) 0.01 (0-0.2) K/uL PT 10.4 (9.0-12.0) Seconds INR 1.0 (0.9-1.1) APTT 56.3 H* (21.0-31.0) Seconds PTT Ratio 2.1 Sodium 138 (136-145) mmol/L Potassium 3.8 (3.5-5.1) mmol/L Chloride 106 (98-107) mmol/L Carbon Dioxide 26 (21-32) mmol/L Anion Gap 6.0 (3-11) BUN 22 H (7-18) mg/dl Creatinine 0.59 L (0.6-1.2) mg/dl Est Cr Clr Drug Dosing 81.9 ml/min Est GFR ( Amer) 106.9 Est GFR (Non-Af Amer) 92.2 BUN/Creatinine Ratio 36.8 H (10-20) Glucose 98 (70-99) mg/dl Calcium 9.9 (8.5-10.1) mg/dl Total Bilirubin 0.6 (0.2-1) mg/dl AST 20 (15-37) U/L ALT 14 (12-78) U/L Alkaline Phosphatase 55 (45-117) U/L Troponin I < 0.015 (0-0.045) ng/ml Total Protein 6.1 L (6.4-8.2) gm/dl Albumin 3.1 L (3.4-5.0) gm/dl Globulin 3.0 (2.5-4.0) gm/dl Albumin/Globulin Ratio 1.0 (0.9-2) Lipase 39 L (73-393) U/L Urine Color Urine Appearance (Clear) Urine pH (4.5-7.5) Ur Specific [place] (1.000-1.030) Urine Protein (Negative) Urine Glucose (UA) (Negative) Urine Ketones (Negative) Urine Blood (Negative) Urine Nitrite (Negative) Urine Bilirubin (Negative) Urine Urobilinogen (Negative) Ur Leukocyte Esterase (Negative) 09/30/19 Range/Units 15:03 WBC (4.8-10.8) K/uL RBC (4.2-5.4) M/uL Hgb (12.0-16.0) g/dL Hct (37-47) % MCV (80-100) fL MCH (25-34) pg MCHC (32-36) g/dL RDW Std Deviation (36.4-46.3) fL RDW Coeff of Pilar (11.5-14.5) % Plt Count (130-400) K/uL MPV (7.4-10.4) fL Immature Gran % (Auto) % Neut % (Auto) % Lymph % (Auto) % [place] % (Auto) % Eos % (Auto) % Baso % (Auto) % Immature Gran # (Auto) (0.00-0.02) K/uL Neut # (Auto) (1.4-6.5) K/uL Lymph # (Auto) (1.2-3.4) K/uL [place] # (Auto) (0.11-0.59) K/uL Eos # (Auto) (0-0.5) K/uL Baso # (Auto) (0-0.2) K/uL PT (9.0-12.0) Seconds INR (0.9-1.1) APTT (21.0-31.0) Seconds PTT Ratio Sodium (136-145) mmol/L Potassium (3.5-5.1) mmol/L Chloride (98-107) mmol/L Carbon Dioxide (21-32) mmol/L Anion Gap (3-11) BUN (7-18) mg/dl Creatinine (0.6-1.2) mg/dl Est Cr Clr Drug Dosing ml/min Est GFR ( Amer) Est GFR (Non-Af Amer) BUN/Creatinine Ratio (10-20) Glucose (70-99) mg/dl Calcium (8.5-10.1) mg/dl Total Bilirubin (0.2-1) mg/dl AST (15-37) U/L ALT (12-78) U/L Alkaline Phosphatase (45-117) U/L Troponin I (0-0.045) ng/ml Total Protein (6.4-8.2) gm/dl Albumin (3.4-5.0) gm/dl Globulin (2.5-4.0) gm/dl Albumin/Globulin Ratio (0.9-2) Lipase (73-393) U/L Urine Color Dark Yellow Urine Appearance Clear (Clear) Urine pH 6.0 (4.5-7.5) Ur Specific [place] 1.024 (1.000-1.030) Urine Protein Negative (Negative) Urine Glucose (UA) Negative (Negative) Urine Ketones 2+ H (Negative) Urine Blood Negative (Negative) Urine Nitrite Negative (Negative) Urine Bilirubin Negative (Negative) Urine Urobilinogen Negative (Negative) Ur Leukocyte Esterase Negative (Negative) Imaging Data Radiologist's Impression: Radiology results as stated below per my review and the radiologist's interpretation: SINGLE VIEW CHEST CLINICAL HISTORY: Vomiting. FINDINGS: An AP, portable, upright chest radiograph is compared to study dated 08/02/2019 and correlated with chest CT dated 06/21/2019. The examination is degraded by portable technique and apical lordotic positioning. A left subclavian central venous infusion port is unchanged in position. The heart is top normal in size noting atherosclerotic calcification of the thoracic aorta. There is a large hiatal hernia. There is bibasilar scarring/atelectasis. No air space consolidation or large pleural effusion is identified. Scattered calcified granulomas are observed. No pneumothorax is seen. The skeletal structures are osteopenic. The bony thorax is grossly intact. IMPRESSION: 1. No acute cardiopulmonary abnormality. 2. Hiatal hernia. Electronically signed by: Emil Murillo M.D. 09/30/2019 12:[address] SCAN OF THE ABDOMEN AND PELVIS WITHOUT CONTRAST CLINICAL HISTORY: Abdominal pain and vomiting. History of ovarian carcinoma. COMPARISON STUDY: 08/01/2019 TECHNIQUE: CT scan of the abdomen and pelvis was performed from the lung bases to the proximal femurs. Images are reviewed in the axial, sagittal, and coronal planes. IV contrast was not administered for this examination. A dose lowering technique was utilized adhering to the principles of ALARA. CT DOSE: 305.03 mGy.cm FINDINGS: Lower chest: There is a moderate to large hiatal hernia. There is dependent atelectasis/fibrosis. Liver: No focal masses are visualized on this noncontrast study. Gallbladder: Not visualized presumed surgically absent Spleen: Normal in size and attenuation. Pancreas: Atrophic. No pericolic masses identified. No ductal dilatation. Adrenal glands: Unremarkable. Kidneys: There is a 2 mm nonobstructing lower pole left renal calculus Bowel: Postsurgical changes are present within the bowel. There are no transi tion zones indicate bowel obstruction. There is a mild to moderate amount of stool within the rectal vault. There is no evidence of acute diverticulitis. By history the patient is status post a prior appendectomy. Peritoneum: There is increasing low to moderate volume ascites. There is extensive omental caking consistent with abdominal carcinomatosis. Vasculature: The abdominal aorta is normal in course and caliber. Adenopathy: None. Pelvic viscera: The uterus is surgically absent. Skeletal structures: No destructive osseous lesions are seen. IMPRESSION: 1. No evidence of bowel obstruction. No evidence of free air 2. Increasing low to moderate volume ascites 3. Progressive peritoneal and omental implants consistent with progressive abdominal carcinomatosis 4. Moderate hiatal hernia 5. Nonobstructing 2 mm left renal calculus Electronically signed by: Nate Panchal M.D. 09/30/2019 1:12 PM ECG Data Attestation: I personally reviewed and interpreted this ECG as follows: Indication: + nausea Rate (beats per minute): 80 Rhythm: + sinus rhythm ECG Intervals/blocks: + First degree AV block ECG Findings: + Poor R wave progression; no PACs and no PVCs Comparison ECG Date: from (12/24/18) Change: no significant change Blood Pressure Blood Pressure Findings: Elevated blood pressure Blood Pressure Disposition: further management by hospitalist SAEID Narrative The patient is a 73-year-old female who presented to the emergency department for an evaluation of nausea vomiting and abdominal pain. The patient has a medical history which includes ovarian cancer with recent diagnosis of peritoneal metastatic disease. The patient has had a bowel obstruction because of the metastatic disease in the past. She was unsure if this was the cause of her symptoms today. She does have very significant abdominal pain on physical exam. The patient was treated with IV fluids and IV pain medication in the emergency department. She was also treated with IV antiemetics. On subsequent reevaluation the patient was somewhat improved. She continues to have very significant pain however. The patient does take very significant pain medications at home as an outpatient for her cancer pain. I do not feel she will be able to manage her pain at home at this time. I discussed her case with the on-call [facility] hospitalist group. They have agreed to evaluate the patient in the emergency department for further management disposition. Impression & Plan Intractable abdominal pain, Nausea & vomiting, Acute dehydration Discharge Plan Visit Data Chief Complaint: Nausea Stated Complaint: NAUSEA AND PAIN ED Provider: Josef Bai Discharge Problem: Intractable abdominal pain, Nausea & vomiting, Acute dehydration Forms Stand Alone Forms: My [facility] [employer] Prescriptions Prescriptions: No Action ondansetron HCl [Zofran] 4 mg Tablet 4 mg PO UD PRN (Reason: Nausea And Vomiting) RF: 0 clonazepam 0.5 mg Tablet 0.5 mg PO BID PRN (Reason: Anxiety) RF: 0 prochlorperazine maleate [Compazine] 10 mg Tablet 10 mg PO Q6H PRN (Reason: Nausea And Vomiting) RF: 0 lisinopril 10 mg Tablet 10 mg PO DAILY RF: 0 hydromorphone 2 mg Tablet 5 mg PO Q4H PRN (Reason: Abdominal Pain) Qty: 60 RF: 0 zolpidem 10 mg Tablet 10 mg PO HS PRN (Reason: Sleep) RF: 0 omeprazole 20 mg Tablet,Delayed Release (Dr/Ec) 20 mg PO DAILY RF: 0 duloxetine 20 mg Capsule,Delayed Release(Dr/Ec) 20 mg PO DAILY RF: 0 Rubraca 300 mg Tablet 1,200 mg PO DAILY RF: 0 polyethylene glycol 3350 [Miralax] 17 gram Powder In Packet 17 g PO DAILY Qty: 0 RF: 0 fentanyl 75 mcg/hr patch 72 hour 75 mcg transdermal Q72H RF: 0 fentanyl 12 mcg/hr patch 72 hour 12 mcg transdermal Q72H RF: 0 Discharge Problem: Nausea & vomiting Qualifiers: Vomiting type: unspecified Vomiting Intractability: unspecified Qualified Code(s): R11.2 - Nausea with vomiting, unspecified The scribe's documentation has been prepared under my direction and personally reviewed by me in its entirety. I confirm that the note above accurately reflects all work, treatment, procedures, and medical decision making performed by me.
[2019-09-30] MEDS: fentaNYL citrate 100 MCG/2 ML VIAL IV PRN ×4 (12:34→14:39)
[2019-09-30 12:57] LABS: Basophils # (auto) 0.01 K/uL (0-0.2); Basophils % (auto) 0.2 %; Eosinophils # (auto) 0.05 K/uL (0-0.5); Eosinophils % (auto) 0.8 %; Hematocrit (blood only) 36.4 % (37-47); Hemoglobin 11.6 g/dL (12.0-16.0); Lymphocytes % (auto) 16.2 %; Mean Corpuscular Hemoglobin 30.9 pg (25-34); Mean Corpuscular Hgb Conc 31.9 g/dL (32-36); Mean Corpuscular Volume 97.1 fL (80-100); Mean Platelet Volume 10.2 fL (7.4-10.4); Monocytes # (auto) 0.56 K/uL (0.11-0.59); Monocytes % (auto) 9.1 %; Neutrophils # (auto) 4.54 K/uL (1.4-6.5); Neutrophils % (auto) 73.7 %; Platelet Count 199 K/uL (130-400); RDW Coefficient of Variation 13.6 % (11.5-14.5); RDW Standard Deviation 47.9 fL (36.4-46.3); Red Blood Count 3.75 M/uL (4.2-5.4); White Blood Count 6.16 K/uL (4.8-10.8)
[2019-09-30 13:07] LABS: Alanine Aminotransferase 14 U/L (12-78); Albumin Level 3.1 gm/dl (3.4-5.0); Aspartate Aminotransferase 20 U/L (15-37); BUN Creatinine Ratio 36.8 (10-20); Blood Urea Nitrogen 22 mg/dl (7-18); Calcium 9.9 mg/dl (8.5-10.1); Carbon Dioxide 26 mmol/L (21-32); Chloride 106 mmol/L (98-107); Creatinine Clr Calc Pharmacy 81.9 ml/min; Est GFR (African American) 106.9; Est GFR (Non-African American) 92.2; Glucose 98 mg/dl (70-99); Lipase 39 U/L (73-393); Potassium 3.8 mmol/L (3.5-5.1); Sodium 138 mmol/L (136-145)
[2019-09-30 13:12] LABS: Alkaline Phosphatase 55 U/L (45-117); Bilirubin,Total 0.6 mg/dl (0.2-1); Total Protein 6.1 gm/dl (6.4-8.2); Troponin I < 0.015 ng/ml (0-0.045)
--- NOTE | 2019-09-30 13:13 | CT Scan Report ---
CT SCAN OF THE ABDOMEN AND PELVIS WITHOUT CONTRAST CLINICAL HISTORY: Abdominal pain and vomiting. History of ovarian carcinoma. COMPARISON STUDY: 08/01/2019 TECHNIQUE: CT scan of the abdomen and pelvis was performed from the lung bases to the proximal femurs . Images are reviewed in the axial, sagittal, and coronal planes. IV contrast was not administered fo r this examination. A dose lowering technique was utilized adhering to the principles of ALARA. CT DOSE: 305.03 mGy.cm FINDINGS: Lower chest: There is a moderate to large hiatal hernia. There is dependent atelectasis/fibrosis. Liver: No focal masses are visualized on this noncontrast study. Gallbladder: Not visualized presumed surgically absent Spleen: Normal in size and attenuation. Pancreas: Atrophic. No pericolic masses identified. No ductal dilatation. Adrenal glands: Unremarkable. Kidneys: There is a 2 mm nonobstructing lower pole left renal calculus Bowel: Postsurgical changes are present within the bowel. There are no transition zones indicate connie l obstruction. There is a mild to moderate amount of stool within the rectal vault. There is no evide nce of acute diverticulitis. By history the patient is status post a prior appendectomy. Peritoneum: There is increasing low to moderate volume ascites. There is extensive omental caking con sistent with abdominal carcinomatosis. Vasculature: The abdominal aorta is normal in course and caliber. Adenopathy: None. Pelvic viscera: The uterus is surgically absent. Skeletal structures: No destructive osseous lesions are seen. IMPRESSION: 1. No evidence of bowel obstruction. No evidence of free air 2. Increasing low to moderate volume ascites 3. Progressive peritoneal and omental implants consistent with progressive abdominal carcinomatosis 4. Moderate hiatal hernia 5. Nonobstructing 2 mm left renal calculus Electronically signed by: Nate Panchal M.D. 09/30/2019 1:12 PM
[2019-09-30 13:23] LABS: Partial Thromboplastin Ratio 2.1; Prothrombin Time 10.4 Seconds (9.0-12.0)
[2019-09-30 13:25] LABS: Partial Thromboplastin Time 56.3 Seconds (21.0-31.0)
[2019-09-30 15:18] LABS: Appearance Urine Clear (Clear); Bilirubin Urine Negative (Negative); Blood Urine Negative (Negative); Color Urine Dark Yellow; Glucose Urine UA Negative (Negative); Ketones Urine 2+ (Negative); Leukocyte Esterase Urine Negative (Negative); Nitrite Urine Negative (Negative); Protein Urine Negative (Negative); Specific Gravity Urine 1.024 (1.000-1.030); Urobilinogen Urine Negative (Negative)
[2019-09-30] MEDS ORDERED: HYDROmorphone INJ 1 MG/ML SYRINGE ONE (15:19)
--- NOTE | 2019-09-30 16:05 | History & Physical Report ---
Date of Service September 30, 2019 Assessment & Plan (1) Peritoneal carcinoma: (2) Breast cancer: (3) Ovarian cancer: - Admit to [facility], private room if possible - Pain control and nausea worsening over the past week, will increase fentanyl to 100 mcg daily, and place on a dilaudid CRAP GAME BOX PERSON for optimizing pain control. IV dilaudid given in the ER improved the pt pain, Po dilaudid does not seem to be controlling pain well enough - CT abd reviewed showing progressive abdominal carcinomatosis, mild to moderate hiatal hernia, no bowel obstruction. She does have a mild to moderate ascites on imaging however on exam it does not appear that this could be tapped. If worsens then would reconsider u/s vs ct abd for paracentesis.. -SBP unlikely as no elevation in WBC, afebrile. Pain likely secondary to worsening abdominal carcinomatosis - Continue bowel regimen with dulolax and mirilax, last BM was today - Narcan prn if needed - Consult palliative care, follows with Dr. Padilla as an outpt - Consult CM, consider oncology consultation - Attempt to get records from [facility] regarding tumor pathology which was biopsied on 09/07/19- pt reports she called earlier today and there was still not a finalized report. - Regular diet (4) Hx antineoplastic chemotherapy: -Follows with Dr.Joshua Zarco at [facility], most recently is on Taxol and carboplatin, finished 2.5 months ago -Dr. Mederos follows chemotherapy regimen for traveling convenience as an out patient (5) Nausea & vomiting: -Continue IV Zofran, Compazine po as needed -Allow diet for now as patient reports she would like to trial p.o. intake, continue on NSS 100mL/h x10 hours (6) Acute dehydration: -Secondary to poor p.o. intake, administration of IV fluids as above. (7) Anxiety: -Well-controlled, continue duloxetine 20 mg daily (8) GERD (gastroesophageal reflux disease): -Continue omeprazole (9) Anemia: -Hemoglobin of 11.6, it appears her blood count has been steadily climbing over the past 2 months, likely chemotherapy-induced. (10) Hypertension: -Continue lisinopril 10 mg daily, BP well controlled (11) DVT prophylaxis: -Lovenox subcu CODE STATUS: DNR Disposition: Patient from home, lives with , likely to remain in the hospital for 1 to 2 days. History of Present Illness Primary Care Provider: Edvin Laura This is a 73 yo F with PMHx of ovarian cancer, BRCA mutation with abdominal carcinomatosis who presents with increased abdominal pain, distension and nausea. Other PMhx includes HTN, GERD, anxiety, anemia, and hx of bowel obstruction. The patient notes that her pain has been worsening over the past week. She was seen by Dr. Padilla as an outpatient about a week ago where her fentanyl patch was increased from 75 to 87 mcg daily, and was given a prescription for Dilaudid 5 mg p.o. Q4H prn. She has been using the Dilaudid nearly every 4 hours and reports there is minimal control in her pain currently. She notes that she had nausea for several days in a row up until yesterday, and had been unable to keep minimal fluids or any food down. She reports feeling like she could eat something currently, Zofran and Compazine ordered if needed. She reports her last bowel movement was today. She has been using Dulcolax and MiraLAX for bowels regularly without any issues. Patient received a dose of IV Dilaudid in the ER which significantly improved her pain. She denies any fevers, sweats or chills. She had a fine-needle biopsy completed on 09/07/2019 at [facility] by her oncologist, Dr.Joshua Zarco, and is still awaiting pathology reports. She has been off of chemotherapy for approximately 2.5 months. Her most recent regimen included Taxol and carboplatin for 18 rounds, once per week. Unfortunately, within 5 weeks of starting that chemotherapy her cancer progressed. CT of the abdomen was completed showing progressive abdominal carcinomatosis. No bowel obstruction. Mild to moderate ascites. There is no elevation in WBC, afebrile. Allergies Allergy/AdvReac Type Severity Reaction Status Date / Time Sulfa (Sulfonamide Allergy Mild NAUSEA; Verified 09/30/19 12:08 Antibiotics) AFFECTS BLOOD Home Medications Home Medications Medication Instructions Recorded Confirmed Type clonazepam 0.5 mg PO BID PRN 07/29/18 09/30/19 History lisinopril 10 mg PO DAILY 07/29/18 09/30/19 History ondansetron HCl [Zofran] 4 mg PO UD PRN 07/29/18 09/30/19 History prochlorperazine maleate 10 mg PO Q6H PRN 07/29/18 09/30/19 History [Compazine] hydromorphone 5 mg PO Q4H PRN #60 tab 12/27/18 09/30/19 Rx Rubraca 1,200 mg PO DAILY 08/01/19 09/30/19 History duloxetine 20 mg PO DAILY 08/01/19 09/30/19 History omeprazole 20 mg PO DAILY 08/01/19 09/30/19 History zolpidem 10 mg PO HS PRN 08/01/19 09/30/19 History polyethylene glycol 3350 [Miralax] 17 g PO DAILY #0 ea 08/05/19 09/30/19 Rx fentanyl 12 mcg TRANSDERMAL Q72H 09/30/19 09/30/19 History fentanyl 75 mcg TRANSDERMAL Q72H 09/30/19 09/30/19 History Past Med/Surg History Medical History Breast cancer (Resolved) Cancer of peritoneum Hx antineoplastic chemotherapy (Resolved) Ovarian cancer (Resolved) Peritoneal carcinoma Small bowel obstruction (Acute) Surgical History History of bowel resection Ovarian tumor debulking in 2012. No pertinent past surgical history Family History Other No pertinent family history Social History Preferred Language: Faroese Communication Ability: Effective Piece Cutter Required: No Beliefs That Will Affect Care: None marital status: Current Living Situation: Spouse current occupational status: retired Feels Safe at Home: Yes Smoking Status: Former smoker Second Hand Exposure: No ; Hx Alcohol Use: No Hx Substance Use: No Review of Systems Review of Systems: Constitutional: No fever, sweats or chills Eyes: No diplopia, no worsening or blurred vision ENT: normal hearing, no trouble swallowing Respiratory: No cough, sputum, dyspnea at rest or on exertion Cardiovascular: No chest pain, tightness or palpitations Abdomen: As per HPI. Musculoskeletal: No joint pain, calf pain, swelling Neurologic: No weakness, numbness/tingling, or balance problems Psychiatric: No anxiety or depression Skin: No rash or itch Physical Exam Physical Exam: General: awake, alert, no apparent distress Head: Normocephalic, atraumatic ENT: PERRL, EOMI, no pharyngeal exudate, mucous membranes moist Chest: Clear to auscultation, on room air, no adventitious breath sounds Cardiac: Regular rate and rhythm, no murmur, no JVD, normal peripheral pulses, good capillary refill Abdominal: NABS x 4 quadrants, soft, + multiple healed scars over abdomen, epigastric region mildly distended, no tympany on exam, + tender to palpation in the RUQ, epigastric region and RLQ, + guarding. Extremities: Normal inspection, no peripheral edema or erythema, calfs nontender to palpation Psych: Normal mood and affect Neuro: AAO x 3, strength intact bilaterally and related 5/5, no motor deficits, speech is clear, no peripheral sensory deficits Skin: no rash or erythema Results & Data Vital Signs (Past 12 Hours) Vital Signs Temp Pulse Pulse Resp BP BP Pulse Ox 09/30/19 14:35 79 18 107/61 95 09/30/19 13:10 81 18 125/71 94 09/30/19 11:31 37 C 107 H 20 137/[address] SCAN OF THE ABDOMEN AND PELVIS WITHOUT CONTRAST CLINICAL HISTORY: Abdominal pain and vomiting. History of ovarian carcinoma. COMPARISON STUDY: 08/01/2019 TECHNIQUE: CT scan of the abdomen and pelvis was performed from the lung bases to the proximal femurs. Images are reviewed in the axial, sagittal, and coronal planes. IV contrast was not administered for this examination. A dose lowering technique was utilized adhering to the principles of ALARA. CT DOSE: 305.03 mGy.cm FINDINGS: Lower chest: There is a moderate to large hiatal hernia. There is dependent atelectasis/fibrosis. Liver: No focal masses are visualized on this noncontrast study. Gallbladder: Not visualized presumed surgically absent Spleen: Normal in size and attenuation. Pancreas: Atrophic. No pericolic masses identified. No ductal dilatation. Adrenal glands: Unremarkable. Kidneys: There is a 2 mm nonobstructing lower pole left renal calculus Bowel: Postsurgical changes are present within the bowel. There are no transition zones indicate bowel obstruction. There is a mild to moderate amount of stool within the rectal vault. There is no evidence of acute diverticulitis. By history the patient is status post a prior appendectomy. Peritoneum: There is increasing low to moderate volume ascites. There is ex tensive omental caking consistent with abdominal carcinomatosis. Vasculature: The abdominal aorta is normal in course and caliber. Adenopathy: None. Pelvic viscera: The uterus is surgically absent. Skeletal structures: No destructive osseous lesions are seen. IMPRESSION: 1. No evidence of bowel obstruction. No evidence of free air 2. Increasing low to moderate volume ascites 3. Progressive peritoneal and omental implants consistent with progressive abdominal carcinomatosis 4. Moderate hiatal hernia 5. Nonobstructing 2 mm left renal calculus SINGLE VIEW CHEST CLINICAL HISTORY: Vomiting. FINDINGS: An AP, portable, upright chest radiograph is compared to study dated 08/02/2019 and correlated with chest CT dated 06/21/2019. The examination is degraded by portable technique and apical lordotic positioning. A left subclavian central venous infusion port is unchanged in position. The heart is top normal in size noting atherosclerotic calcification of the thoracic aorta. There is a large hiatal hernia. There is bibasilar scarring/atelectasis. No airspace consolidation or large pleural effusion is identified. Scattered calcified granulomas are observed. No pneumothorax is seen. The skeletal structures are osteopenic. The bony thorax is grossly intact. IMPRESSION: 1. No acute cardiopulmonary abnormality. 2. Hiatal hernia. ECG Additional Comments: 30-SEP-2019 13:44:33 [facility]-EDSTAT ROUTINE RETRIEVAL Sinus rhythm with 1st degree A-V block Low voltage QRS Septal infarct (cited on or before 30-SEP-2019) Abnormal ECG When compared with ECG of 24-DEC-2018 13:49, Premature ventricular complexes are no longer Present 25mm/s 10mm/mV 150Hz 9.0.9 12SL 241 RUBINA: 10 Referred by: Vielka Padilla Unconfirmed Vent. rate 80 BPM WV interval 224 ms QRS duration 70 ms QT/QTc 358/412 ms P-R-T axes 76 -4 42 Code Status & VTE Plan Code Status DNR-discussed with the patient and her at bedside. Supervising Physician Co-Signing Physician Notes Patient seen and examined, chart reviewed, case discussed with EVELIN León and I agree with her assessment and plan as documented above. Briefly, patient is a pleasant 73-year-old female with history of ovarian cancer with peritoneal metastasis, carcinomatosis presenting with worsening abdominal pain as well as nausea. On exam she is afebrile, hemodynamically stable, no acute distress Skinwarm, dry, intact, no rashes or lesions HEENTnormocephalic/atraumatic, pupils equal round react to light, moist mucous membranes, neck supple Heart+ S1/S2, regular, no murmurs/rubs/gallops LungsCTA Abdomendiminished bowel sounds, soft, tender to palpation without rebound or guarding, mild distention Extremitieswarm, well-perfused, no clubbing/cyanosis/edema Labs and images reviewed. CT with worsening peritoneal metastasis, no obstruction or free air Assessment/[id number] female with metastatic ovarian cancer presenting with worsening abdominal pain in setting of carcinomatosis Pain control with Dilaudid CRAP GAME BOX PERSON Palliative care assessment IV fluids Remainder of plan as above PG Care Time/CCT Total # of Minutes Spent Total Time Spent with Patient: Total time spent is greater than 50% in coordination of care (as documented) at patient's floor/unit and/or counseling patient: (1) Nausea & vomiting Vomiting Intractability: unspecified Vomiting type: unspecified Qualified Code(s): R11.2 - Nausea with vomiting, unspecified
[2019-09-30] MEDS ORDERED: HYDROmorphone INJ 0.5 MG/0.5 ML SYR IV STA ×2 (16:43→23:43)
[2019-09-30] MEDS ORDERED: HYDROmorphone HCL 0.5MG/ML 50 ML CASSETTE IV PRN (16:43)
[2019-09-30] MEDS ORDERED: ACETAMINOPHEN 325 MG TAB PO PRN (17:29)
[2019-09-30] MEDS ORDERED: clonazePAM 0.5 MG TAB PO PRN (17:29)
[2019-09-30] MEDS ORDERED: NALOXONE HCL 0.4 MG/1 ML VIAL/CARP IV PRN ×2 (17:29→18:12)
[2019-09-30] MEDS ORDERED: fentaNYL 100 MCG/HR TDSY TD STA (18:06)
[2019-09-30] MEDS ORDERED: SODIUM CHLORIDE 0.9% 1000ML 1,000 ML IV SCH (18:15)
[2019-09-30] MEDS: SODIUM CHLORIDE 0.9% 1000ML 1,000 ML IV SCH (18:18)
[2019-09-30] MEDS: HYDROmorphone PCA 30 MG/30 ML IV PRN (19:36)
[2019-09-30] MEDS: PROCHLORPERAZINE MALEATE 10 MG TAB PO PRN (20:33)
[2019-09-30] MEDS: ONDANSETRON INJ 2 MG/ML 2 ML VIAL IV PRN (22:35)
[2019-09-30] MEDS: ZOLPIDEM TARTRATE 10 MG TAB PO PRN (23:59)
[2019-10-01] MEDS: CHECK FENTANYL PATCH PLACEMENT SCH ×6 (00:11→23:26)
[2019-10-01] MEDS: SODIUM CHLORIDE 0.9% 1000ML 1,000 ML IV SCH ×3 (04:01→18:13)
[2019-10-01] MEDS: ONDANSETRON INJ 2 MG/ML 2 ML VIAL IV PRN ×6 (04:03→23:26)
[2019-10-01] MEDS: PROCHLORPERAZINE MALEATE 10 MG TAB PO PRN (05:24)
[2019-10-01 06:20] LABS: Hematocrit (blood only) 35.7 % (37-47); Hemoglobin 11.3 g/dL (12.0-16.0); Mean Corpuscular Hemoglobin 30.4 pg (25-34); Mean Corpuscular Hgb Conc 31.7 g/dL (32-36); Platelet Count 196 K/uL (130-400); RDW Coefficient of Variation 13.6 % (11.5-14.5); RDW Standard Deviation 47.7 fL (36.4-46.3); Red Blood Count 3.72 M/uL (4.2-5.4); White Blood Count 5.32 K/uL (4.8-10.8)
[2019-10-01 06:58] LABS: Albumin Level 3.1 gm/dl (3.4-5.0); BUN Creatinine Ratio 36.1 (10-20); Calcium 9.9 mg/dl (8.5-10.1); Creatinine Clr Calc Pharmacy 94.7 ml/min; Est GFR (African American) 112.1; Est GFR (Non-African American) 96.7; Potassium 3.8 mmol/L (3.5-5.1)
[2019-10-01 07:00] LABS: Bilirubin,Total 0.6 mg/dl (0.2-1); Total Protein 6.1 gm/dl (6.4-8.2)
[2019-10-01] MEDS: lisinopriL 10 MG TAB PO SCH (09:36)
[2019-10-01] MEDS: POLYETHYLENE (MIRALAX) 17 GM PACK PO SCH (09:36)
[2019-10-01] MEDS: ENOXAPARIN INJ 40 MG/0.4 ML SYR SQ SCH (09:36)
[2019-10-01] MEDS: PANTOprazole 40 MG TAB PO SCH ×2 (09:36→11:04)
[2019-10-01] MEDS: DULOXETINE HCL 20 MG CAP PO SCH (09:36)
[2019-10-01] MEDS ORDERED: METOCLOPRAMIDE HCL INJ 5 MG/ML 2 ML VIAL IV PRN (10:07)
[2019-10-01] MEDS ORDERED: fentaNYL 50 MCG/HR TDSY TD ONE (10:15)
--- NOTE | 2019-10-01 10:25 | Palliative Care Consultation ---
Date of Consultation October 01, 2019 Assessment & Plan (1) Goals of care, counseling/discussion: -73 year old female who is known to the palliative care service, with diagnoses of metastatic ovarian cancer with peritoneal mets, presented to the hospital yesterday with intractable abdominal pain related to progression of her abdominal carcinomatosis. Patient previously had 18 doses of chemo and had progression of disease despite this. She has not received chemo now for over two months. She was here in July 2019 with small bowel obstruction which did resolve. At that time, palliative care visited patient to help with pain management-- patient follows with Dr. Padilla in the palliative clinic. Patient was on fentanyl patch at 75mcg and was taking PO Dilaudid 5mg PO Q4h PRN. She was having increased pain so another 12mcg/hr fentanyl patch was ordered for a total of 87mcg/hr. Her pain got too bad so she came to the ED. Fentanyl patch was increased to 100mcg/hr and Dilaudid FLIGHT COMMUNICATIONS OFFICER was started at 0.5mg/hr with incremental dose of 0.1mg Q10min. Patient had a bad night-- uncontrolled pain. Looks like there was an issue with her port needle, so it was replaced-- pain is now better at 6/10. Patient also having more trouble with nausea and vomiting. Palliative care is consulted to discuss symptom management and goals of care. -met with patient in room 455. She is AA&O x4. Looks quite well actually. Is in no distress. -Patient was tearful throughout conversation and said she is worried. Patient is waiting on biopsy results from [place] that was taken 3 weeks ago. They are waiting to see if there is any targeted therapy to be offered. Patient stated if there is no further therapy to be offered that she "just needs to accept this." -Patient currently not ready for hospice until she knows if there is further treatment to be offered. She is open to hospice in the future. She states her and son are taking this quite hard. -Patient will continue to follow in Dr. Padilla's office for symptom management. -Will increase fentanyl to 150mcg/hr. -Decrease continuous Dilaudid dose to 0.3mg/hr. Continue incremental dose 0.1mg Q10min. -Start Reglan 10mg IV Q6h PRN nausea. Discussed with patient-- sounds like increased bloating and abdominal distention is correlated with nausea. Nausea seems worse in morning when patient's stomach is empty-- discussed snacks at night and emissions repair technician. -Discontinue Compazine as patient stated it did not work. Continue Zofran PRN. -Palliative care will continue to follow closely. (2) Cancer related pain: (3) Nausea & vomiting: Vomiting Intractability: unspecified Vomiting type: unspecified Qualified Code(s): R11.2 - Nausea with vomiting, unspecified (4) Peritoneal carcinoma: Supervising Physician Co-Signing Physician Notes Patient seen and examined in room 455, patient well-known to me from outpatient palliative clinic. Patient reports her pain level is markedly improved with her last increase in her fentanyl patch-requiring much less PRN Dilaudid. Patient continues to have nausea and vomiting-just started on Reglan-we will need to follow and assess effectiveness. PE: NAD HEENT: EOMI, hearing within normal limits Respirations: Unlabored CV: Regular rate Abdomen: Less tender, distended Extremities: Full range of motion, normal strength Neuro: Alert and oriented x4 Psych: Anxious Agree with above note, assessment and plan as per SASCHA Ramos-we will continue to follow as needed. Patient will have follow-up in outpatient palliative clinic with me after discharge. Patient can call and make appointment History of Present Illness Attending Physician: Dominga Ferrera MD History of Present Illness This 73 year old female who is known to the palliative care service, with diagnoses of metastatic ovarian cancer with peritoneal mets, presented to the hospital yesterday with intractable abdominal pain related to progression of her abdominal carcinomatosis. Patient previously had 18 doses of chemo and had progression of disease despite this. She has not received chemo now for over two months. She was here in July 2019 with small bowel obstruction which did resolve. At that time, palliative care visited patient to help with pain management-- patient follows with Dr. Padilla in the palliative clinic. Patient was on fentanyl patch at 75mcg and was taking PO Dilaudid 5mg PO Q4h PRN. She was having increased pain so another 12mcg/hr fentanyl patch was ordered for a total of 87mcg/hr. Her pain got too bad so she came to the ED. Fentanyl patch was increased to 100mcg/hr and Dilaudid FLIGHT COMMUNICATIONS OFFICER was started at 0.5mg/hr with incremental dose of 0.1mg Q10min. Patient had a bad night-- uncontrolled pain. Looks like there was an issue with her port needle, so it was replaced-- pain is now better at 6/10. Patient also having more trouble with nausea and vomiting. Palliative care is consulted to discuss symptom management and goals of care. Thank you kindly for this consult. Palliative care team will follow as needed. Allergies Allergy/AdvReac Type Severity Reaction Status Date / Time Sulfa (Sulfonamide Allergy Mild NAUSEA; Verified 09/30/19 12:08 Antibiotics) AFFECTS BLOOD Home Medications Home Medications Medication Instructions Recorded Confirmed Type clonazepam 0.5 mg PO BID PRN 07/29/18 09/30/19 History lisinopril 10 mg PO DAILY 07/29/18 09/30/19 History ondansetron HCl [Zofran] 4 mg PO UD PRN 07/29/18 09/30/19 History prochlorperazine maleate 10 mg PO Q6H PRN 07/29/18 09/30/19 History [Compazine] hydromorphone 5 mg PO Q4H PRN #60 tab 12/27/18 09/30/19 Rx Rubraca 1,200 mg PO DAILY 08/01/19 09/30/19 History duloxetine 20 mg PO DAILY 08/01/19 09/30/19 History omeprazole 20 mg PO DAILY 08/01/19 09/30/19 History zolpidem 10 mg PO HS PRN 08/01/19 09/30/19 History polyethylene glycol 3350 [Miralax] 17 g PO DAILY #0 ea 08/05/19 09/30/19 Rx fentanyl 12 mcg TRANSDERMAL Q72H 09/30/19 09/30/19 History fentanyl 75 mcg TRANSDERMAL Q72H 09/30/19 09/30/19 History Patient History Medical History (Updated 10/01/19 @ 17:18 by Lori Woo PA-C) Breast cancer (Resolved) Cancer of peritoneum Cancer related pain Hx antineoplastic chemotherapy (Resolved) Ovarian cancer (Resolved) Peritoneal carcinoma Small bowel obstruction (Acute) Surgical History History of bowel resection Ovarian tumor debulking in 2012. No pertinent past surgical history Family History Other No pertinent family history Social History Preferred Language: Portuguese Communication Ability: Effective Microgrinder Operator Required: No Beliefs That Will Affect Care: None marital status: Current Living Situation: Spouse current occupational status: retired Other Information That Helps Us Care for You: No Feels Safe at Home: Yes Safety Concerns: Feels Safe At This Time Smoking Status: Former smoker Do You Dip or Chew Tobacco: No ; Second Hand Exposure: No ; Tobacco Cessation Education Requested by Patient: No Hx Alcohol Use: No Hx Substance Use: No Review of Systems Review of Systems: Const: No weakness, + poor appetite ENMT: No dysphagia Resp: No SOB, no cough Cardio: No chest pain, no edema GI: + generalized abdominal pain, + N/V MS: No musculoskeletal pain Neuro: No confusion Psych: + anxiety, no depression Physical Exam Constitutional: well developed and well nourished; no acute distress Eyes: PERRL ENMT: external ear and nose normal, oropharynx normal Respiratory: normal respiratory effort, lungs clear to auscultation Cardiovascular: RRR, no murmur, no edema Gastrointestinal (Abdomen): Inspection/Auscultation: normal bowel sounds; abdomen not distended Percussion/Palpation: abdomen soft Neurologic: moves all extremities and awake Psychiatric: A+Ox3, euthymic affect Insight: excellent insight Results & Data Vital Signs (Past 12 Hours) Vital Signs Temp Pulse Resp BP Pulse Ox 10/01/19 06:42 36.7 C 85 20 123/78 91 10/01/19 03:51 37.0 C 85 19 130/76 94 10/01/19 00:04 37.1 C 82 20 150/79 H 94 Time Spent Midlevel 70 minutes with >50% of the time spent at bedside with patient discussing symptom management and goals of care.
[2019-10-01] MEDS ORDERED: ALUMINUM/MAGNESIUM SUSP 30 ML UDC PO PRN (11:28)
[2019-10-01] MEDS: METOCLOPRAMIDE HCL 5 MG TABLET PO SCH ×2 (13:53→22:05)
--- NOTE | 2019-10-01 17:17 | Hospitalist Progress Note ---
Date of Service October 01, 2019 Assessment & Plan (1) Ovarian cancer: - Follows with Dr. 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 - Admitted with uncontrolled pain and nausea/vomiting -- CT scan showed progressive abd wall carcinomatosis and mild to moderate ascites. - Recent tumor path biopsy on 09/07/19, results are pending. - Palliative consulted; pt. would like results of biopsy prior to determining future treatment plans. - Increase Fentanyl patch to 150 mcg; decrease Dilaudid OB/GYN DOCTOR as tolerated. - Continue bowel regimen - has had issues with constipation. (2) Peritoneal carcinoma: - As noted above; follows with [facility] and [facility] oncology. (3) Ascites: - Mild to moderate ascites noted on admission. - Continue to monitor, no indication for paracentesis at this time. - No evidence of SBP. (4) Hx antineoplastic chemotherapy: - Follows with Dr. Zarco at [facility]; completed Taxol/Carboplatin chemotherapy 2.5 months ago. (5) Nausea & vomiting: - Start Reglan 5 mg PO TID ATC. - Zofran prn. - Monitor serial EKGs for prolonged QTc. (6) Acute dehydration: - Receiving IVFs at 75 cc/hr - monitor for volume overload, in setting of ascites. (7) Anxiety: - Cymbalta 20 mg daily. - Klonopin BID prn. (8) GERD (gastroesophageal reflux disease): - PPI daily. (9) Anemia: - Chemotherapy induced. - Transfuse prn -- monitor CBC daily. (10) Hypertension: - Continue Lisinopril 10 mg daily. (11) Breast cancer: - H/o, see above. (12) DVT prophylaxis: - Lovenox daily. Dispo: Discharge pending adequate pain control. Supervising Physician Co-Signing Physician Notes PA Supervision Note: I did not personally see or examine the patient today, but I verified all aly points of EVELIN Vale's assessment and plan with the following exceptions/additions: None Subjective Pt. reports pain is slightly improved, has been using Dilaudid OB/GYN DOCTOR frequently. Has ongoing N/V, limited PO intake. Does not have issues with constipation. Review of Systems Review of Systems: All systems reviewed & are unremarkable except as noted in HPI & below Constitutional: + fatigue, + weakness and + anorexia; no fever and no chills Respiratory: no cough, no dyspnea, no dyspnea on exertion and no wheezing Cardiovascular: no chest pain, no palpitations and no edema Gastrointestinal: + abdominal pain, + nausea and + vomiting; no constipation Genitourinary: no difficulty urinating Musculoskeletal: no back pain and no joint pain Physical Exam Physical Exam: General: Resting comfortably, very pleasant female HEENT: NC/AT; PERRLA with EOMI; [place] conjunctiva, MMM. No erythema of posterior pharynx Neck: Supple and nontender Cardiac: RRR Lungs: CTA bilaterally Abdomen: Mild distention noted; Bowel normoactive X 4; Nontender to palpation Extremities: Warm. No edema present Neuro: No focal weakness Skin: No rash Results & Data Vital Signs (Past 12 Hours) Vital Signs Temp Pulse Resp BP BP Pulse Ox 10/01/19 15:06 36.8 C 94 H 20 130/79 95 10/01/19 11:24 36.9 C 94 H 18 148/84 H 94 10/01/19 06:42 36.7 C 85 20 123/78 91 Laboratory Results 10/01/19 10/01/19 Range/Units 05:45 05:44 WBC 5.32 (4.8-10.8) K/uL RBC 3.72 L (4.2-5.4) M/uL Hgb 11.3 L (12.0-16.0) g/dL Hct 35.7 L (37-47) % MCV 96.0 (80-100) fL MCH 30.4 (25-34) pg MCHC 31.7 L (32-36) g/dL RDW Std Deviation 47.7 H (36.4-46.3) fL RDW Coeff of Pilar 13.6 (11.5-14.5) % Plt Count 196 (130-400) K/uL MPV 10.0 (7.4-10.4) fL Sodium 139 (136-145) mmol/L Potassium 3.8 (3.5-5.1) mmol/L Chloride 107 (98-107) mmol/L Carbon Dioxide 27 (21-32) mmol/L Anion Gap 5.0 (3-11) BUN 18 (7-18) mg/dl Creatinine 0.51 L (0.6-1.2) mg/dl Est Cr Clr Drug Dosing 94.7 ml/min Est GFR ( Amer) 112.1 Est GFR (Non-Af Amer) 96.7 BUN/Creatinine Ratio 36.1 H (10-20) Glucose 98 (70-99) mg/dl Calcium 9.9 (8.5-10.1) mg/dl Total Bilirubin 0.6 (0.2-1) mg/dl AST 15 (15-37) U/L ALT 15 (12-78) U/L Alkaline Phosphatase 56 (45-117) U/L Total Protein 6.1 L (6.4-8.2) gm/dl Albumin 3.1 L (3.4-5.0) gm/dl Globulin 3.0 (2.5-4.0) gm/dl Albumin/Globulin Ratio 1.0 (0.9-2) PG Care Time/CCT Total # of Minutes Spent Total Time Spent with Patient: Total time spent is greater than 50% in coordination of care (as documented) at patient's floor/unit and/or counseling patient: (1) Nausea & vomiting Vomiting Intractability: unspecified Vomiting type: unspecified Qualified Code(s): R11.2 - Nausea with vomiting, unspecified
[2019-10-01] MEDS: ZOLPIDEM TARTRATE 10 MG TAB PO PRN (22:05)
[2019-10-02] MEDS: METOCLOPRAMIDE HCL 5 MG TABLET PO SCH (05:24)
[2019-10-02] MEDS: SODIUM CHLORIDE 0.9% 1000ML 1,000 ML IV SCH ×2 (06:57→23:34)
[2019-10-02] MEDS: CHECK FENTANYL PATCH PLACEMENT SCH ×6 (07:31→23:42)
[2019-10-02] MEDS: ONDANSETRON INJ 2 MG/ML 2 ML VIAL IV PRN ×2 (07:31→15:24)
[2019-10-02] MEDS: ENOXAPARIN INJ 40 MG/0.4 ML SYR SQ SCH (10:06)
[2019-10-02] MEDS: PANTOprazole 40 MG TAB PO SCH (10:06)
[2019-10-02] MEDS: DULOXETINE HCL 20 MG CAP PO SCH (10:06)
[2019-10-02] MEDS: POLYETHYLENE (MIRALAX) 17 GM PACK PO SCH (10:06)
[2019-10-02] MEDS: lisinopriL 10 MG TAB PO SCH (10:07)
[2019-10-02] MEDS ORDERED: METOCLOPRAMIDE HCL 5 MG TABLET PO SCH (11:15)
--- NOTE | 2019-10-02 11:49 | Palliative Care Progress Note ---
Date of Service October 02, 2019 Assessment & Plan (1) Goals of care, counseling/discussion: -I met with the patient this morning. She had a relatively good night overnight and is in no apparent distress. Increased nausea returned upon waking and she has had 3 episodes of vomiting, twice this morning and once later in the afternoon. -A KUB was performed this morning for abdominal distension. Negative for ileus. -Hospitalist changed oral Reglan to Reglan 10 mg IV Q 6 hours today. Patient called me back to the room and stated that her nausea is worsening. She has only received one dose of the IV Reglan up to this point, so we talked at length about waiting until her next dose (within the next 30 minutes and before her next meal that we discussed eating just a small amount) and then reassessing in the morning. - I did talk to her about starting Decadron 2mg IV BID for nausea and also appetite stimulation tomorrow should the IV Reglan not work. She has not received Decadron before. -Patient remains on Dilaudid OVERLAY OPERATOR for pain control. She rates it a 5/10 and stated that her pain is diffuse in her lower abdomen. She states that an acceptable pain level is 3/10 for her. Patient current Dilaudid order is 0.3mg/hr basal rate and bolus rate of 0.1 mg Q10 minute lock out. Patient had 16 attempts and 8 injections over the previous 10 hour period. At this time, no changes with OVERLAY OPERATOR. Consider decreasing tomorrow after full effect of Fentanyl in effect. -Pt Fentanyl was increased yesterday to 150mcg TD Q3days. No changes to Fentanyl patch today. -Patient was taking Klonopin, but after further discussion, she stated she has been taking Ativan prior to coming into the hospital. Klonopin DC and Lorazepam 1 mg IV Q6 PRN ordered for anxiety. -Patient was tearful throughout conversation and said she is worried. Patient is waiting on biopsy results from [place] that was taken 3 weeks ago, that did come back today. She spoke with the team at [facility] and they suggested that she start Letrozole for treatment once discharged. She states that her records need to be sent to [facility] for this to follow through. She sees Dr. Glynn at [facility]. -Hopefully, can decrease and stop Dilaudid OVERLAY OPERATOR prior to discharge. Pt continues to plan on aggressive treatment at this time. -Patient will continue to follow in Dr. Padilla's office for symptom management. -Palliative care will continue to follow closely. -PPS: 40% (2) Cancer related pain: (3) Nausea & vomiting: (4) Peritoneal carcinoma: Subjective Pt reports increased nausea this morning. Pt reports pain level is 5/10. Acceptable level to her is 3/10. Pt reports nausea and vomiting (3 times today) No family at bedside initially, later on in the afternoon, her was present. See A/P for details. Review of Systems Review of Systems: Const: No weakness, + poor appetite ENMT: No dysphagia Resp: No SOB, no cough Cardio: No chest pain, no edema GI: + generalized abdominal pain, + N/V MS: No musculoskeletal pain Neuro: No confusion Psych: + anxiety, no depression Physical Exam Constitutional: well developed, well nourished and cooperative Respiratory: normal respiratory effort, lungs clear to auscultation Cardiovascular: RRR, no murmur, no edema Gastrointestinal (Abdomen): Inspection/Auscultation: abdomen normal to inspection, + abdomen distended and normal bowel sounds Percussion/Palpation: + abdomen tender Skin: no rashes, warm and dry Psychiatric: Affect: euthymic affect Insight: good insight Judgement: good judgement Results & Data Vital Signs (Past 12 Hours) Vital Signs Temp Pulse Resp BP Pulse Ox 10/02/19 07:24 36.6 C 87 20 138/75 92 PG Care Time/CCT Total # of Minutes Spent Total Time Spent with Patient: Total time spent is greater than 50% in coordination of care (as documented) at patient's floor/unit and/or counseling patient: 35 Time Spent Midlevel Total time spent 35 minutes with > 50% of that time spent assessing the patient, discussing pain and symptom management with the patient and IDT. (1) Nausea & vomiting Vomiting Intractability: unspecified Vomiting type: unspecified Qualified Co de(s): R11.2 - Nausea with vomiting, unspecified
[2019-10-02] MEDS: METOCLOPRAMIDE HCL INJ 5 MG/ML 2 ML VIAL IV SCH ×3 (12:14→23:35)
[2019-10-02] MEDS: FAMOTIDINE 20 MG in SYRINGE 3 ML IV SCH ×2 (12:15→21:05)
--- NOTE | 2019-10-02 12:53 | XRay Report ---
KUB CLINICAL HISTORY: Generalized abdominal pain. FINDINGS: An AP, portable, supine abdominal radiograph is compared to study dated 08/04/2019 and corre lated with abdominal CT dated 09/30/2019. There is a nonobstructed abdominal bowel gas pattern noting mild colonic fecal retention. Suture material projects over the pelvis. No evidence of intraperitonea l free air is seen on this supine examination. Cholecystectomy clips are noted in the right upper linh drant. Numerous phleboliths are observed in the pelvis. The skeletal structures are osteopenic. Lumbo sacral spondylosis and scoliosis is noted. IMPRESSION: Nonobstructed abdominal bowel gas pattern. Electronically signed by: Emil Murillo M.D. 10/02/2019 12:52 PM
[2019-10-02] MEDS: DOCUSATE SODIUM/SENNA 50/8.6MG TAB PO SCH ×2 (13:52→21:02)
[2019-10-02] MEDS: POLYETHYLENE (MIRALAX) 17 GM PACK PO PRN (13:54)
--- NOTE | 2019-10-02 14:20 | Hospitalist Progress Note ---
Date of Service October 02, 2019 Assessment & Plan (1) Ovarian cancer: - Follows with Dr. 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 - Admitted with uncontrolled pain and nausea/vomiting -- CT scan showed progressive abd wall carcinomatosis and mild to moderate ascites. - Recent tumor path biopsy on 09/07/19, results pending. - Palliative consulted; pt. would like results of biopsy prior to determining future treatment plans. - Increased Fentanyl patch to 150 mcg; Dilaudid WELDER PLASMA ARC with 0.3 mg basal rate, 0.1 mg q10min bolus. - Continue bowel regimen - KUB neg for ileus/obstruction. Senokot S BID with Miralax daily prn. May require suppository if no improvement. (2) Peritoneal carcinoma: - As noted above; follows with [facility] and [facility] oncology. (3) Ascites: - Mild to moderate ascites noted on admission. - Continue to monitor, no indication for paracentesis at this time. - No evidence of SBP. (4) Hx antineoplastic chemotherapy: - Follows with Dr. Zarco at [facility]; completed Taxol/Carboplatin chemotherapy 2.5 months ago. (5) Nausea & vomiting: - Persistent N/V -- neg for ileus or obstruction on KUB. - Increase Reglan to 10 mg IV q6hr; Zofran prn. - Monitor serial EKGs for prolonged QTc. (6) Acute dehydration: - Received IV fluids, now on hold to avoid third spacing in setting of ascites/hypoalbuminemia. Will need to restart if PO intake remains limited. (7) Anxiety: - Cymbalta 20 mg daily (as tolerated). - Klonopin BID prn. (8) GERD (gastroesophageal reflux disease): - Holding PPI (cannot take PO meds); Famotidine 20 mg IV BID. (9) Anemia: - Chemotherapy induced. - Transfuse prn -- monitor CBC daily. (10) Hypertension: - Holding home Lisinopril due to N/V. BP has been mostly well controlled. (11) Breast cancer: - H/o, see above. (12) DVT prophylaxis: - Lovenox daily. Dispo: Discharge pending adequate pain control & improvement in N/V. Supervising Physician Co-Signing Physician Notes PA Supervision Note: I did not personally see or examine the patient today, but I verified all aly points of EVELIN Vale's assessment and plan with the following exceptions/additions: None Subjective Pt has increased nausea/vomiting this morning, did not tolerate breakfast or AM meds. No response to Reglan PO q8hr. Has not had a BM since admission, is passi ng gas. Pain is rated as a 5/10 on pain scale, has been using Dilaudid WELDER PLASMA ARC prn. Review of Systems Review of Systems: All systems reviewed & are unremarkable except as noted in HPI & below Constitutional: no fever, no chills, no fatigue, no weakness and no anorexia Respiratory: no cough, no dyspnea, no dyspnea on exertion and no wheezing Cardiovascular: no chest pain, no palpitations and no edema Gastrointestinal: + abdominal pain, + nausea, + vomiting and + constipation Genitourinary: no difficulty urinating Musculoskeletal: no back pain and no joint pain Integumentary: no non-healing lesions Physical Exam Physical Exam: General: Resting comfortably HEENT: NC/AT; PERRLA with EOMI; [place] conjunctiva, MMM. No erythema of posterior pharynx Neck: Supple and nontender Cardiac: RRR Lungs: CTA bilaterally Abdomen: Mild distention noted; Bowel normoactive X 4; Nontender to palp Extremities: Warm. No edema present Neuro: No focal weakness Skin: No rash Results & Data Vital Signs (Past 12 Hours) Vital Signs Temp Pulse Resp BP BP Pulse Ox 10/02/19 11:51 37.1 C 106 H 18 154/89 H 98 10/02/19 07:24 36.6 C 87 20 138/75 92 PG Care Time/CCT Total # of Minutes Spent Total Time Spent with Patient: Total time spent is greater than 50% in coordination of care (as documented) at patient's floor/unit and/or counseling patient: (1) Nausea & vomiting Vomiting Intractability: unspecified Vomiting type: unspecified Qualified Code(s): R11.2 - Nausea with vomiting, unspecified
[2019-10-02] MEDS ORDERED: PROMETHAZINE HCL 12.5 MG in SODIUM CHLORIDE 0.9% 50 ML IV ONE (20:00)
[2019-10-02] MEDS ORDERED: LORazepam 0.5 MG/1 ML VIAL IV PRN (20:37)
[2019-10-02] MEDS ORDERED: LORazepam 0.5 MG/1 ML VIAL IV SCH (21:00)
[2019-10-03] MEDS: HYDROmorphone PCA 30 MG/30 ML IV PRN (02:04)
[2019-10-03] MEDS: ZOLPIDEM TARTRATE 10 MG TAB PO PRN (02:54)
[2019-10-03] MEDS: METOCLOPRAMIDE HCL INJ 5 MG/ML 2 ML VIAL IV SCH (06:14)
[2019-10-03 06:29] LABS: Hematocrit (blood only) 33.4 % (37-47); Hemoglobin 10.6 g/dL (12.0-16.0); Mean Corpuscular Hemoglobin 30.7 pg (25-34); Mean Corpuscular Hgb Conc 31.7 g/dL (32-36); Mean Corpuscular Volume 96.8 fL (80-100); Mean Platelet Volume 9.9 fL (7.4-10.4); Platelet Count 189 K/uL (130-400); RDW Coefficient of Variation 13.5 % (11.5-14.5); RDW Standard Deviation 47.3 fL (36.4-46.3); Red Blood Count 3.45 M/uL (4.2-5.4); White Blood Count 5.14 K/uL (4.8-10.8)
[2019-10-03 06:59] LABS: BUN Creatinine Ratio 26.6 (10-20); Calcium 9.5 mg/dl (8.5-10.1); Creatinine Clr Calc Pharmacy 98.6 ml/min; Est GFR (African American) 113.6; Magnesium 1.7 mg/dl (1.8-2.4); Phosphorus 2.4 mg/dl (2.5-4.9); Potassium 3.9 mmol/L (3.5-5.1)
[2019-10-03] MEDS: CHECK FENTANYL PATCH PLACEMENT SCH ×4 (07:22→15:40)
[2019-10-03] MEDS: ONDANSETRON INJ 2 MG/ML 2 ML VIAL IV PRN ×2 (07:26→16:09)
[2019-10-03] MEDS ORDERED: SODIUM PHOSPHATE 3 MMOL/1 ML INFUSION IV STA (08:39)
[2019-10-03] MEDS: DULOXETINE HCL 20 MG CAP PO SCH (08:46)
[2019-10-03] MEDS: DOCUSATE SODIUM/SENNA 50/8.6MG TAB PO SCH ×2 (08:46→21:11)
[2019-10-03] MEDS: ENOXAPARIN INJ 40 MG/0.4 ML SYR SQ SCH (08:46)
[2019-10-03] MEDS ORDERED: PROMETHAZINE HCL 25 MG in SODIUM CHLORIDE 0.9% 50 ML IV PRN (08:50)
[2019-10-03] MEDS: FAMOTIDINE 20 MG in SYRINGE 3 ML IV SCH ×2 (08:51→21:11)
[2019-10-03] MEDS: SODIUM PHOSPHATE 9 MMOL in SODIUM CHLORIDE 0.9% 250 ML IV ONE ×2 (09:07→09:56)
[2019-10-03] MEDS: MAGNESIUM SULFATE / D5W 1 GM/100 ML BAG IV SCH ×2 (09:07→12:54)
[2019-10-03] MEDS: LORazepam 1 MG/2 ML VIAL IV PRN ×2 (11:08→21:57)
[2019-10-03] MEDS: SODIUM CHLORIDE 0.9% 1000ML 1,000 ML IV SCH ×2 (12:54→21:57)
--- NOTE | 2019-10-03 15:01 | Palliative Care Progress Note ---
Date of Service October 03, 2019 Assessment & Plan (1) Goals of care, counseling/discussion: -Patient continues to have abdominal pain. Continues on Dilaudid BULLION WEIGHER at 0.3mg/hr continuous, 0.1mg incremental dose. Hit the BULLION WEIGHER button 67 times over night in a matter of 4 hours. -Fentanyl was previously increased to 150mcg/hr. No real difference. -Will consult pain management to see if there is any nerve block to be offered. Or any other ideas they may have for pain management. -Gave a dose of lorazepam 1mg this morning for nausea. Worked quite well, patient was not feeling nauseated when I visited with her and her brother, Camron. -Continue lorazepam 1mg TID PRN nausea and/or anxiety. Held off on Decadron only because of patient's anxiety-- could try it though if needed. Would also try Haldol 1mg PO if lorazepam also ineffective. -Again, patient's nausea happened in the morning and she vomited bile. IV famotidine ordered. -Patient received call from [facility] yesterday-- she is to start an aromatase inhibitor as soon as possible. -Palliative will continue to follow. (2) Cancer related pain: (3) Nausea & vomiting: (4) Peritoneal carcinoma: Subjective Patient continues to have nausea, vomiting and abdominal pain. Saw patient this morning along with her brother, Camron. Long discussion about symptom management and plan of care. Review of Systems Review of Systems: Const: + mild weakness, + poor appetite ENMT: No dysphagia Resp: No SOB, no cough Cardio: No chest pain, no edema GI: + generalized abdominal pain 5/10 today, + N/V-- worse in morning MS: No musculoskeletal pain Neuro: No confusion Psych: + anxiety, no depression Physical Exam Constitutional: well developed and well nourished; no acute distress Eyes: PERRL ENMT: external ear and nose normal, oropharynx normal Respiratory: normal respiratory effort, lungs clear to auscultation Cardiovascular: RRR, no murmur, no edema Gastrointestinal (Abdomen): Inspection/Auscultation: normal bowel sounds; abdomen not distended Percussion/Palpation: abdomen soft Neurologic: moves all extremities and awake Psychiatric: A+Ox3, euthymic affect Insight: excellent insight Results & Data Vital Signs (Past 12 Hours) Vital Signs Temp Pulse Resp BP Pulse Ox 10/03/19 12:03 36.9 C 100 H 20 150/84 H 92 10/03/19 07:19 36.7 C 90 18 122/70 93 Supervising Physician Co-Signing Physician Notes Patient seen and examined-no family or friends at bedside. Collaborated with SASCHA Ramos Patient agreeable to evaluation by pain management to see if she would be a candidate for any type of nerve block to help control her pain. Patient reports she feels she is requiring less PRN Dilaudid, anxiety plays a large part in her symptoms. Patient does report that Ativan is effective and helping with her nausea. PE: Patient awake and alert, minimally drowsy HEENT: EOMI, hearing within normal limits Respirations :unlabored CV :regular rate, no edema Abdomen: Soft, positive bowel sounds Extremities: full range of motion Agree with above note, assessment and plan as per SASCHA Ramos. Will continue to follow and assist with symptom management as well as medical decision making PG Care Time/CCT Prolonged Care Time Prolonged Care Time: Yes Total Prolonged Care Time: 65 Time Spent Midlevel 65 minutes with >50% of time spent at bedside with patient and family discussing symptom management and plan of care. (1) Nausea & vomiting Vomiting Intractability: unspecified Vomiting type: unspecified Qualified Code(s): R11.2 - Nausea with vomiting, unspecified
--- NOTE | 2019-10-03 15:40 | Hospitalist Progress Note ---
Date of Service October 03, 2019 Assessment & Plan (1) Ovarian cancer: - Follows with Dr. 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 - Admitted with uncontrolled pain and nausea/vomiting -- CT scan showed progressive abd wall carcinomatosis and mild to moderate ascites. - S/p tumor path biopsy on 09/07/19; recommended to start Letrozole as outpatient by [facility] physician based on results. - Palliative consulted, greatly appreciate input. - Increased Fentanyl patch to 150 mcg; Dilaudid LAWN MOWER REPAIRER with 0.3 mg basal rate, 0.1 mg q10min bolus. - Has not had improvement in pain relief -- will consult pain management to discuss possible nerve block. - Continue bowel regimen - Senokot S BID with Miralax daily prn. Did have BM on 10/02. (2) Nausea & vomiting: - Persistent N/V -- neg for ileus or obstruction on KUB. - No improvement with Reglan, will d/c med. - Ativan 1 mg IV q8hr prn -- had relief of symptoms with benzo. - Zofran & Phenergan prn. (3) Peritoneal carcinoma: - As noted above; follows with [facility] and [facility] oncology. (4) Ascites: - Mild to moderate ascites noted on admission. - Continue to monitor, no indication for paracentesis at this time. (5) Hx antineoplastic chemotherapy: - Follows with Dr. Zarco at [facility]; completed Taxol/Carboplatin chemotherapy 2.5 months ago. - Plan to start Letrozole as outpatient per gyne-onc physician at [facility]. (6) Acute dehydration: - Continue IV fluids at 75 cc/hr - monitor for third spacing in setting of hypoalbuminemia and ascites. - Very limited PO intake due to N/V. (7) Anxiety: - Cymbalta 20 mg daily - Ativan q8hr prn. (8) GERD (gastroesophageal reflux disease): - Famotidine 20 mg IV BID. - Start Protonix 40 mg hs. (9) Anemia: - Chemotherapy induced. - Transfuse prn -- monitor CBC q2-3 days. (10) Hypertension: - Holding home Lisinopril due to N/V. BP has been slightly elevated. (11) Breast cancer: - H/o, see above. (12) Electrolyte abnormality: - Mag level 1.7 - ordered mag sulfate 2 gm IV. - Phos level 2.4 - ordered NaPhos 9 mmol IV. (13) DVT prophylaxis: - Lovenox daily. Dispo: Discharge pending adequate pain control & improvement in N/V. Pain management consulted. Palliative also following. Supervising Physician Co-Signing Physician Notes PA Supervision Note: I did not personally see or examine the patient today, but I verified all aly points of EVELIN Vale's assessment and plan with the following exceptions/additions: None Subjective Pt. has persistent N/V, no improvement with Reglan IV ATC. Received Ativan IV this morning with improvement. She had a BM yesterday. Continues to have abd pain, is using Dilaudid LAWN MOWER REPAIRER - will consult pain management for possible nerve block. Review of Systems Review of Systems: All systems reviewed & are unremarkable except as noted in HPI & below Constitutional: + fatigue, + weakness and + anorexia; no fever and no chills Respiratory: no cough, no dyspnea and no dyspnea on exertion Cardiovascular: no chest pain, no palpitations and no edema Gastrointestinal: + abdominal pain, + nausea and + vomiting; no constipation Genitourinary: no difficulty urinating Musculoskeletal: no back pain and no joint pain Integumentary: no non-healing lesions Physical Exam Physical Exam: General: Resting comfortably, no acute distress. HEENT: NC/AT; PERRLA with EOMI; [place] conjunctiva, MMM. No erythema of posterior pharynx Neck: Supple and nontender Cardiac: RRR Lungs: CTA bilaterally Abdomen: Distended; Bowel normoactive X 4; Nontender to palpation. Extremities: Warm. No edema present Neuro: No focal weakness Skin: No rash Results & Data Vital Signs (Past 12 Hours) Vital Signs Temp Pulse Resp BP BP Pulse Ox 10/03/19 15:20 36.8 C 85 20 144/80 H 93 10/03/19 12:03 36.9 C 100 H 20 150/84 H 92 10/03/19 07:19 36.7 C 90 18 122/70 93 Laboratory Results 10/03/19 10/03/19 Range/Units 05:21 05:21 WBC 5.14 (4.8-10.8) K/uL RBC 3.45 L (4.2-5.4) M/uL Hgb 10.6 L (12.0-16.0) g/dL Hct 33.4 L (37-47) % MCV 96.8 (80-100) fL MCH 30.7 (25-34) pg MCHC 31.7 L (32-36) g/dL RDW Std Deviation 47.3 H (36.4-46.3) fL RDW Coeff of Pilar 13.5 (11.5-14.5) % Plt Count 189 (130-400) K/uL MPV 9.9 (7.4-10.4) fL Sodium 139 (136-145) mmol/L Potassium 3.9 (3.5-5.1) mmol/L Chloride 108 H (98-107) mmol/L Carbon Dioxide 29 (21-32) mmol/L Anion Gap 2.0 L (3-11) BUN 13 (7-18) mg/dl Creatinine 0.49 L (0.6-1.2) mg/dl Est Cr Clr Drug Dosing 98.6 ml/min Est GFR ( Amer) 113.6 Est GFR (Non-Af Amer) 98.0 BUN/Creatinine Ratio 26.6 H (10-20) Glucose 90 (70-99) mg/dl Calcium 9.5 (8.5-10.1) mg/dl Phosphorus 2.4 L (2.5-4.9) mg/dl Magnesium 1.7 L (1.8-2.4) mg/dl PG Care Time/CCT Total # of Minutes Spent Total Time Spent with Patient: Total time spent is greater than 50% in coordination of care (as documented) at patient's floor/unit and/or counseling patient: (1) Nausea & vomiting Vomiting Intractability: unspecified Vomiting type: unspecified Qualified Code(s): R11.2 - Nausea with vomiting, unspecified
[2019-10-03] MEDS ORDERED: fentaNYL 50 MCG/HR TDSY TD SCH (18:00)
[2019-10-03] MEDS: fentaNYL 100 MCG/HR TDSY TD SCH (18:08)
[2019-10-03] MEDS: PANTOprazole 40 MG TAB PO SCH (21:11)
[2019-10-04] MEDS: CHECK FENTANYL PATCH PLACEMENT SCH ×5 (00:17→17:42)
[2019-10-04] MEDS: ONDANSETRON INJ 2 MG/ML 2 ML VIAL IV PRN (05:54)
[2019-10-04] MEDS: LORazepam 1 MG/2 ML VIAL IV PRN (08:38)
[2019-10-04] MEDS: DULOXETINE HCL 20 MG CAP PO SCH (08:39)
[2019-10-04] MEDS: ENOXAPARIN INJ 40 MG/0.4 ML SYR SQ SCH (08:39)
[2019-10-04] MEDS: DOCUSATE SODIUM/SENNA 50/8.6MG TAB PO SCH ×2 (08:39→20:13)
[2019-10-04] MEDS: FAMOTIDINE 20 MG in SYRINGE 3 ML IV SCH (08:48)
--- NOTE | 2019-10-04 09:36 | Pain Management Consultation ---
Date of Consultation October 04, 2019 Assessment & Plan (1) Intractable abdominal pain: Present on Admission?: Yes (2) Cancer related pain: Present on Admission?: Yes (3) Peritoneal carcinoma: Present on Admission?: Yes (4) Breast cancer: Present on Admission?: Yes (5) Ovarian cancer: 1. Based on use of Dilaudid FAMILY SERVICES WORKER over the past 24 hours will recommend further progressing her fentanyl patch from 150 mcg/h to 200 mcg/h 2. Recommend transitioning hydromorphone to FAMILY SERVICES WORKER demand dosing only and discontinue continuous rate 3. We did discuss the possibility of pursuing a celiac plexus block in an attempt to diminish her midepigastric/supraumbilical abdominal pain briefly at today's visit. The side effects versus benefits of this procedure were reviewed. All the patient's questions were answered. Will work on scheduling. 4. Consider Relistor with any persisting constipation 5. Will continue to follow during hospitalization Present on Admission?: Yes History of Present Illness Reason for Consultation: Intractable abdominal pain Requesting Physician: SASCHA Ramos Attending Physician: Dominga Ferrera MD History of Present Illness Mrs. Santos is a 73-year-old white female who was admitted due to increased abdominal pain with distention and nauseousness associated with her history of ovarian cancer, BRCA mutation with abdominal carcinomatosis who has known progressive peritoneal omental implants based on recent imaging of the abdominal and pelvic region. Patient reports that her pain is in the right upper and supraumbilical midepigastric region predominantly. She describes the pain as a deep boring, aching and occasionally sharp pain that can be wavelike with associated nausea. Patient rates her current pain is a 4/10 but can escalate to a 7-8/10. She reports the pain has been present over the past few months but increasing in the past 3 weeks. The patient reports that a recent increase in fentanyl patch from 100 mcg/h to 150 mcg/h which occurred on 10/01/2019 has been somewhat effective at diminishing her overall pain. She does continue utilize Dilaudid FAMILY SERVICES WORKER for breakthrough pain with efficacy utilizing 9.38 mg in the past 24 hours per review of FAMILY SERVICES WORKER. Patient feels that her abdominal pain occasionally radiates to the thoracolumbar spinal region but she denies any overt thoracic or lumbar pain complaints at this time. She denies lower extremity radicular pain weaknesses, footdrop or episodes of falling. Patient is moving her bowels most recently on 10/02/2019. She reports minimal appetite and diminished dietary intake. Patient is followed by hematology/oncology at [facility] as well. Patient has no further constitutional complaints at this time. Plan of care discussed with Dr. Serene Nieto. Pain Assessment Full Body Front + Back: 1. Right upper quadrant and supraumbilical/midepigastric abdominal pain Pain scale - at its best (0-10): 4 Pain scale - at its worst (0-10): 8 Allergies Allergy/AdvReac Type Severity Reaction Status Date / Time Sulfa (Sulfonamide Allergy Mild NAUSEA; Verified 09/30/19 12:08 Antibiotics) AFFECTS BLOOD Home Medications Home Medications Medication Instructions Recorded Confirmed Type clonazepam 0.5 mg PO BID PRN 07/29/18 09/30/19 History lisinopril 10 mg PO DAILY 07/29/18 09/30/19 History ondansetron HCl [Zofran] 4 mg PO UD PRN 07/29/18 09/30/19 History prochlorperazine maleate 10 mg PO Q6H PRN 07/29/18 09/30/19 History [Compazine] hydromorphone 5 mg PO Q4H PRN #60 tab 12/27/18 09/30/19 Rx Rubraca 1,200 mg PO DAILY 08/01/19 09/30/19 History duloxetine 20 mg PO DAILY 08/01/19 09/30/19 History omeprazole 20 mg PO DAILY 08/01/19 09/30/19 History zolpidem 10 mg PO HS PRN 08/01/19 09/30/19 History polyethylene glycol 3350 [Miralax] 17 g PO DAILY #0 ea 08/05/19 09/30/19 Rx fentanyl 12 mcg TRANSDERMAL Q72H 09/30/19 09/30/19 History fentanyl 75 mcg TRANSDERMAL Q72H 09/30/19 09/30/19 History Pain History Pain Intensity Pain scale - at its best (0-10): 4 Pain scale - at its worst (0-10): 8 Patient History Medical History (Updated 10/04/19 @ 09:55 by Kurt Fenton PA-C) Breast cancer (Resolved) Cancer of peritoneum Cancer related pain (Chronic) Hx antineoplastic chemotherapy (Resolved) Ovarian cancer (Resolved) Peritoneal carcinoma Small bowel obstruction (Acute) Surgical History History of bowel resection Ovarian tumor debulking in 2012. 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 Speech and thought process appropriate. Mood and affect appropriate. Cognition intact. Head: Normocephalic and atraumatic. ENT: No evidence of nasal or oral mucosal lesions. Mucous membranes are moist. Eyes: Pupils equal round reactive to light. Neck: Supple without adenopathy and full range of motion. Chest: Nontender to palpation of the costosternal junction. Abdomen: Firm and slightly distended. Well-healed incision over the midline of the abdomen. Patient tender to palpation in the midepigastric, supraumbilical and right upper quadrant predominantly to palpation without rebound or guarding. No appreciable organomegaly. Bowel sounds slightly active. Abdomen is non- tympanic. Lower extremities: No evidence of edema, erythema or skin breakdown. Sensation intact. Dorsi and plantar flexion 5/5 and equal bilaterally. Neurologic: Cranial nerves grossly intact. Ambulatory function not witnessed. Results Diagnostic Review CT: non enhanced and reports reviewed CT Findings: [place], [place] [phone] CT Scan Report Patient: KEL SANTOS Date: 09/30/19 MR#: [id number] Acct ID:[id number]: Date: 1945[facility] Zip: [place] [address] Age: 73Location: ED Sex: F Room/Bed: Att Phy:Diagnosis: NAUSEA AND PAIN Angella Phy: Edvin Laura M.D.Service Date: 09/30/19 [facility] Phy:Interpreting Phy: Nate Panchal MD Admit Phy: Ordering Phy: Josef Bai, cc: ~ CT SCAN OF THE ABDOMEN AND PELVIS WITHOUT CONTRAST CLINICAL HISTORY: Abdominal pain and vomiting. History of ovarian carcinoma. COMPARISON STUDY: 08/01/2019 TECHNIQUE: CT scan of the abdomen and pelvis was performed from the lung bases to the proximal femurs. Images are reviewed in the axial, sagittal, and coronal planes. IV contrast was not administered for this examination. A dose lowering technique was utilized adhering to the principles of ALARA. CT DOSE: 305.03 mGy.cm FINDINGS: Lower chest: There is a moderate to large hiatal hernia. There is dependent atelectasis/fibrosis. Liver: No focal masses are visualized on this noncontrast study. Gallbladder: Not visualized presumed surgically absent Spleen: Normal in size and attenuation. Pancreas: Atrophic. No pericolic masses identified. No ductal dilatation. Adrenal glands: Unremarkable. Kidneys: There is a 2 mm nonobstructing lower pole left renal calculus Bowel: Postsurgical changes are present within the bowel. There are no transition zones indicate bowel obstruction. There is a mild to moderate amount of stool within the rectal vault. There is no evidence of acute diverticulitis. By history the patient is status post a prior appendectomy. Peritoneum: There is increasing low to moderate volume ascites. There is extensive omental caking consistent with abdominal carcinomatosis. Vasculature: The abdominal aorta is normal in course and caliber. Adenopathy: None. Pelvic viscera: The uterus is surgically absent. Skeletal structures: No destructive osseous lesions are seen. IMPRESSION: 1. No evidence of bowel obstruction. No evidence of free air 2. Increasing low to moderate volume ascites 3. Progressive peritoneal and omental implants consistent with progressive abdominal carcinomatosis 4. Moderate hiatal hernia 5. Nonobstructing 2 mm left renal calculus Electronically signed by: Nate Panchal M.D. 09/30/2019 1:12 PM Dictated: 09/30/19 1305 Transcribed: 09/30/19 1309 Previous Records Review Previous Records: personally reviewed by me
[2019-10-04] MEDS ORDERED: HYDROmorphone PCA 30 MG/30 ML IV PRN (11:15)
[2019-10-04] MEDS: SODIUM CHLORIDE 0.9% 1000ML 1,000 ML IV SCH (11:59)
[2019-10-04] MEDS ORDERED: fentaNYL 100 MCG/HR TDSY TD SCH (12:00)
--- NOTE | 2019-10-04 13:15 | Palliative Care Progress Note ---
Date of Service October 04, 2019 Assessment & Plan (1) Goals of care, counseling/discussion: -Patient still c/o pain in abdomen 3-03/08. -She states the lorazepam is working well for her. Continue with 1mg PO TID PRN nausea. -Pain management's help is much appreciated-- fentanyl increased to 200mcg/hr. Dilaudid continuous rate discontinued. Plan for celiac plexus block next Monday. -Would not go any higher with the fentanyl. -Patient likely does not want to stay in hospital until Monday, could go home and have block done as an outpatient. -Will continue Dilaudid BELT MOLDER pump. Start Dilaudid 6mg PO Q4h PRN pain (this is the calculated conversion from 0.3mg/hr Dilaudid). -Patient should follow up with Dr. Padilla a week after the Celiac plexus block or earlier if needed/any issues. (2) Cancer related pain: (3) Nausea & vomiting: (4) Peritoneal carcinoma: Subjective Nausea improved after lorazepam-- seems to be working well. Patient was seen by pain management this morning. Pain is still 3-5. Review of Systems Review of Systems: Const: + mild weakness ENMT: No dysphagia Resp: No SOB, no cough Cardio: No chest pain, no edema GI: + generalized abdominal pain 3-510 today, + N/V-- worse in morning MS: No musculoskeletal pain Neuro: No confusion Psych: + anxiety, no depression Physical Exam Constitutional: well developed and well nourished; no acute distress Eyes: PERRL ENMT: external ear and nose normal, oropharynx normal Respiratory: normal respiratory effort, lungs clear to auscultation Cardiovascular: RRR, no murmur, no edema Gastrointestinal (Abdomen): Inspection/Auscultation: normal bowel sounds; abdomen not distended Percussion/Palpation: abdomen soft Neurologic: moves all extremities and awake Psychiatric: A+Ox3, euthymic affect Results & Data Vital Signs (Past 12 Hours) Vital Signs Temp Pulse Resp BP Pulse Ox 10/04/19 07:08 36.8 C 95 H 16 148/83 H 91 10/04/19 04:48 36.6 C 89 19 161/81 H 93 Time Spent Midlevel 35 minutes with >50% of the time spent at bedside with patient discussing symptom management and plan of care. (1) Nausea & vomiting Vomiting Intractability: unspecified Vomiting type: unspecified Qualified Code(s): R11.2 - Nausea with vomiting, unspecified
[2019-10-04] MEDS ORDERED: LORazepam 1 MG TAB PO PRN (13:34)
--- NOTE | 2019-10-04 17:14 | Hospitalist Progress Note ---
Date of Service October 04, 2019 Assessment & Plan (1) Ovarian cancer: - Follows with Dr. Mederos at [facility] and rubber grinder-onc at [facility]. - Admitted with uncontrolled pain and nausea/vomiting -- CT scan showed progressive abd wall carcinomatosis and mild to moderate ascites. - S/p tumor path biopsy on 09/07/19; recommended to start Letrozole as outpatient by [facility] physician based on results. - Palliative consulted, greatly appreciate input. - Increase Fentanyl patch to 200 mcg; d/c FACILITY MAINTENANCE MECHANIC and start Dilaudid 6 mg PO q4hr prn. - Has not had improvement in pain relief -- pain management will complete nerve block as outpatient next week. - Senokot S BID with Miralax daily prn. Did have BM on 10/03. (2) Nausea & vomiting: - Persistent N/V -- neg for ileus or obstruction on KUB. - Ativan 1 mg PO q6hr prn -- has had significant improvement with med. - Zofran & Phenergan prn. (3) Peritoneal carcinoma: - As noted above; follows with [facility] and [facility] oncology. (4) Ascites: - Mild to moderate ascites noted on admission. - Continue to monitor, no indication for paracentesis at this time. (5) Hx antineoplastic chemotherapy: - Follows with Dr. Zarco at [facility]; completed Taxol/Carboplatin chemotherapy 2.5 months ago. - Plan to start Letrozole as outpatient per gyne-onc physician at [facility]. (6) Acute dehydration: - Received IV fluids, now discontinued. (7) Anxiety: - Cymbalta 20 mg daily - Ativan q6hr prn. (8) GERD (gastroesophageal reflux disease): - Protonix 40 mg hs. (9) Anemia: - Chemotherapy induced. - Transfuse prn. (10) Hypertension: - Will resume home Lisinopril on 10/05/19. (11) Breast cancer: - H/o, see above. (12) Electrolyte abnormality: - Monitor and replace as needed. (13) DVT prophylaxis: - Lovenox daily. Dispo: Discharge likely on 10/05 pending adequate pain control. Supervising Physician Co-Signing Physician Notes PA Supervision Note: I did not personally see or examine the patient today, but I verified all aly points of EVELIN Vale's assessment and plan with the following exceptions/additions: None Subjective Pt. reports nausea is improved with Ativan. Is having regular BMs. Pain is semi- well controlled with Dilaudid FACILITY MAINTENANCE MECHANIC. Review of Systems Review of Systems: All systems reviewed & are unremarkable except as noted in HPI & below Constitutional: + fatigue, + weakness and + anorexia; no fever and no chills Respiratory: no cough, no dyspnea and no dyspnea on exertion Cardiovascular: no chest pain, no palpitations and no edema Gastrointestinal: + abdominal pain; no nausea, no vomiting and no constipation Genitourinary: no difficulty urinating Musculoskeletal: no back pain and no joint pain Physical Exam Physical Exam: General: Resting comfortably, no acute distress. HEENT: NC/AT; PERRLA with EOMI; [place] conjunctiva, MMM. No erythema of posterior pharynx Neck: Supple and nontender Cardiac: RRR Lungs: CTA bilaterally Abdomen: Distended; Bowel normoactive X 4; Nontender to palpation. Extremities: Warm. No edema present Neuro: No focal weakness Skin: No rash Results & Data Vital Signs (Past 12 Hours) Vital Signs Temp Pulse Resp BP Pulse Ox 10/04/19 14:42 37 C 109 H 18 157/96 H 91 10/04/19 07:08 36.8 C 95 H 16 148/83 H 91 Laboratory Results PG Care Time/CCT Total # of Minutes Spent Total Time Spent with Patient: Total time spent is greater than 50% in coordination of care (as documented) at patient's floor/unit and/or counseling patient: (1) Nausea & vomiting Vomiting Intractability: unspecified Vomiting type: unspecified Qualified Code(s): R11.2 - Nausea with vomiting, unspecified
[2019-10-04] MEDS: HYDROmorphone HCL 2 MG TAB PO PRN ×2 (18:39→22:40)
[2019-10-04] MEDS: PANTOprazole 40 MG TAB PO SCH (20:13)
[2019-10-04] MEDS: ZOLPIDEM TARTRATE 10 MG TAB PO PRN (23:32)
[2019-10-05] MEDS: CHECK FENTANYL PATCH PLACEMENT SCH ×9 (00:03→23:48)
[2019-10-05] MEDS: HEPARIN 100 UNIT/ML 5ML FLUSH FLUSH PRN ×2 (05:24→13:09)
[2019-10-05] MEDS: ONDANSETRON INJ 2 MG/ML 2 ML VIAL IV PRN (05:24)
[2019-10-05 06:31] LABS: Hematocrit (blood only) 37.1 % (37-47); Mean Corpuscular Hemoglobin 31.3 pg (25-34); Mean Corpuscular Hgb Conc 32.3 g/dL (32-36); Mean Corpuscular Volume 96.6 fL (80-100); Mean Platelet Volume 10.1 fL (7.4-10.4); Platelet Count 252 K/uL (130-400); RDW Coefficient of Variation 13.5 % (11.5-14.5); RDW Standard Deviation 47.1 fL (36.4-46.3); Red Blood Count 3.84 M/uL (4.2-5.4); White Blood Count 6.39 K/uL (4.8-10.8)
[2019-10-05 07:06] LABS: BUN Creatinine Ratio 26.6 (10-20); Calcium 10.7 mg/dl (8.5-10.1); Creatinine Clr Calc Pharmacy 89.5 ml/min; Est GFR (Non-African American) 94.9; Magnesium 1.9 mg/dl (1.8-2.4)
[2019-10-05] MEDS: LORazepam 1 MG/2 ML VIAL IV PRN ×2 (07:53→20:16)
--- NOTE | 2019-10-05 08:27 | XRay Report ---
KUB HISTORY: Nausea. Vomiting. COMPARISON: KUB 10/02/2019. FINDINGS: Mild colonic fecal retention is again noted. There is a nonobstructed abdominal bowel gas p attern. Multiple pelvic phleboliths, unchanged. Dextroscoliosis of the lumbar spine. Prior cholecyste ctomy. Small bilateral pleural effusions. No renal calculi. No ureteral calculi. No pneumoperitoneum or pneumatosis. IMPRESSION: 1. No evidence for bowel obstruction. 2. Moderate stool seen throughout the colon and rectum. 3. Small bilateral pleural effusions. Electronically signed by: Jamie Matthews M.D. 10/05/2019 8:26 AM
[2019-10-05] MEDS: DOCUSATE SODIUM/SENNA 50/8.6MG TAB PO SCH ×2 (08:33→20:16)
[2019-10-05] MEDS: DULOXETINE HCL 20 MG CAP PO SCH (08:33)
[2019-10-05] MEDS: ENOXAPARIN INJ 40 MG/0.4 ML SYR SQ SCH (08:33)
[2019-10-05] MEDS: lisinopriL 10 MG TAB PO SCH (10:34)
[2019-10-05] MEDS: POLYETHYLENE (MIRALAX) 17 GM PACK PO PRN (10:38)
[2019-10-05] MEDS ORDERED: bisacodyL 10 MG SUPP PR STA (11:33)
[2019-10-05] MEDS: HYDROmorphone INJ 1 MG/ML SYRINGE IV PRN ×2 (13:08→20:15)
[2019-10-05] MEDS: haloperidoL 0.5 MG TAB PO PRN (15:52)
--- NOTE | 2019-10-05 15:53 | Hospitalist Progress Note ---
Date of Service October 05, 2019 Assessment & Plan (1) Ovarian cancer: - Follows with Dr. 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 - Admitted with uncontrolled pain and nausea/vomiting -- CT scan showed progressive abd wall carcinomatosis and mild to moderate ascites. - S/p tumor path biopsy on 09/07/19; recommended to start Letrozole as outpatient by [facility] physician based on results. - Palliative consulted, greatly appreciate input. 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 Will start Dilaudid 1 mg IV q4hr prn. - Pain management will complete nerve block - tentatively scheduled for Monday, may need to be inpt if pain is not controlled for discharge. - Senokot S BID with Miralax daily prn. KUB today showed moderate stool throughout colon and rectum, will give dulcolax suppository x 1. (2) Nausea & vomiting: - Persistent N/V; most recent KUB this morning neg for ileus or obstruction. - Restarted Ativan 1 mg IV q8hr prn; also ordered Haldol 0.5 mg PO q6hr prn. - No improvement with Reglan, Zofran or Phenergan. (3) Peritoneal carcinoma: - As noted above; follows with [facility] and [facility] oncology. (4) Ascites: - Mild to moderate ascites noted on admission. - Continue to monitor, no indication for paracentesis at this time. (5) Hx antineoplastic chemotherapy: - Follows with Dr. Zarco at [facility]; completed Taxol/Carboplatin chemotherapy 2.5 months ago. - Plan to start Letrozole as outpatient per gyne-onc physician at [facility]. (6) Acute dehydration: - Received IV fluids, now discontinued. (7) Anxiety: - Cymbalta 20 mg daily - Ativan q8hr prn. (8) GERD (gastroesophageal reflux disease): - Protonix 40 mg hs. (9) Anemia: - Chemotherapy induced. - Transfuse prn. (10) Hypertension: - Continue home Lisinopril. (11) Breast cancer: - H/o, see above. (12) Hypercalcemia: - Ca level 10.7 in setting of metastatic disease. - Continue to trend - may require treatment if no improvement. (13) DVT prophylaxis: - Lovenox daily. Dispo: Discharge pending adequate pain control. Supervising Physician Co-Signing Physician Notes PA Supervision Note: I did not personally see or examine the patient today, but I verified all aly points of EVELIN Vale's assessment and plan with the following exceptions/additions: None Subjective Pt. has increased nausea/vomiting this morning, no improvement with Ativan PO. Required Ativan IV x 1 dose. Pain is also increased, no response to Dilaudid PO dose - will start Dilaudid IV prn. Last BM was 2 days ago -- KUB showed moderate stool throughout colon and rectum, no ileus or obstruction. Will give dulcolax suppository x 1. Review of Systems Review of Systems: All systems reviewed & are unremarkable except as noted in HPI & below Constitutional: no fever, no chills, no fatigue, no weakness and no anorexia Respiratory: no cough, no dyspnea, no dyspnea on exertion and no wheezing Cardiovascular: no chest pain, no palpitations and no edema Gastrointestinal: + abdominal pain, + bloating, + nausea, + vomiting and + constipation Genitourinary: no difficulty urinating Musculoskeletal: no back pain and no joint pain Integumentary: no non-healing lesions Physical Exam Physical Exam: General: Resting comfortably. HEENT: NC/AT; PERRLA with EOMI; [place] conjunctiva, MMM. No erythema of posterior pharynx Neck: Supple and nontender Cardiac: RRR Lungs: CTA bilaterally Abdomen: Moderate distention; Bowel normoactive X 4; Tender to palpation. Extremities: Warm. No edema present Neuro: No focal weakness Skin: No rash Results & Data Vital Signs (Past 12 Hours) Vital Signs Temp Pulse Resp BP BP Pulse Ox 10/05/19 15:26 36.7 C 103 H 18 121/73 91 10/05/19 11:58 36.7 C 105 H 18 142/88 H 94 10/05/19 08:00 93 H 18 134/84 95 10/05/19 07:28 36.7 C 95 H 21 161/89 H 90 Laboratory Results 10/05/19 10/05/19 Range/Units 05:21 05:21 WBC 6.39 (4.8-10.8) K/uL RBC 3.84 L (4.2-5.4) M/uL Hgb 12.0 (12.0-16.0) g/dL Hct 37.1 (37-47) % MCV 96.6 (80-100) fL MCH 31.3 (25-34) pg MCHC 32.3 (32-36) g/dL RDW Std Deviation 47.1 H (36.4-46.3) fL RDW Coeff of Pilar 13.5 (11.5-14.5) % Plt Count 252 (130-400) K/uL MPV 10.1 (7.4-10.4) fL Sodium 138 (136-145) mmol/L Potassium 4.0 (3.5-5.1) mmol/L Chloride 106 (98-107) mmol/L Carbon Dioxide 28 (21-32) mmol/L Anion Gap 4.0 (3-11) BUN 14 (7-18) mg/dl Creatinine 0.54 L (0.6-1.2) mg/dl Est Cr Clr Drug Dosing 89.5 ml/min Est GFR ( Amer) 110.0 Est GFR (Non-Af Amer) 94.9 BUN/Creatinine Ratio 26.6 H (10-20) Glucose 107 H (70-99) mg/dl Calcium 10.7 H (8.5-10.1) mg/dl Magnesium 1.9 (1.8-2.4) mg/dl PG Care Time/CCT Total # of Minutes Spent Total Time Spent with Patient: Total time spent is greater than 50% in coordination of care (as documented) at patient's floor/unit and/or counseling patient: (1) Nausea & vomiting Vomiting Intractability: unspecified Vomiting type: unspecified Qualified Code(s): R11.2 - Nausea with vomiting, unspecified
[2019-10-05] MEDS: PANTOprazole 40 MG TAB PO SCH (20:16)
[2019-10-06] MEDS: HYDROmorphone INJ 1 MG/ML SYRINGE IV PRN ×5 (00:01→23:51)
[2019-10-06] MEDS: HEPARIN 100 UNIT/ML 5ML FLUSH FLUSH PRN ×5 (05:29→23:51)
[2019-10-06 06:27] LABS: Albumin Level 2.6 gm/dl (3.4-5.0); BUN Creatinine Ratio 36.1 (10-20); Est GFR (Non-African American) 100.1; Potassium 3.9 mmol/L (3.5-5.1)
[2019-10-06 06:30] LABS: Albumin Globulin Ratio 0.9 (0.9-2); Bilirubin,Total 0.5 mg/dl (0.2-1); Total Protein 5.6 gm/dl (6.4-8.2)
[2019-10-06] MEDS: CHECK FENTANYL PATCH PLACEMENT SCH ×6 (07:27→23:12)
[2019-10-06] MEDS: lisinopriL 10 MG TAB PO SCH (08:27)
[2019-10-06] MEDS: DULOXETINE HCL 20 MG CAP PO SCH (08:27)
[2019-10-06] MEDS: ENOXAPARIN INJ 40 MG/0.4 ML SYR SQ SCH (08:27)
[2019-10-06] MEDS: POLYETHYLENE (MIRALAX) 17 GM PACK PO SCH (08:35)
[2019-10-06] MEDS: DOCUSATE SODIUM/SENNA 50/8.6MG TAB PO SCH ×2 (09:15→21:29)
[2019-10-06] MEDS ORDERED: SOD PHOSPHATE/SOD BIPHOSPHATE ENEMA 132 ML BTL PR STA (10:17)
[2019-10-06] MEDS: METHYLNALTREXONE BROMIDE 12 MG/0.6 ML VIAL SQ SCH (11:14)
[2019-10-06] MEDS: haloperidoL 0.5 MG TAB PO PRN (11:55)
--- NOTE | 2019-10-06 12:21 | Hospitalist Progress Note ---
Date of Service October 06, 2019 Assessment & Plan (1) Ovarian cancer: - Follows with Dr. Mederos at [facility] and staff developer-onc at [facility]. - Admitted with uncontrolled pain and nausea/vomiting -- CT scan showed progressive abd wall carcinomatosis and mild to moderate ascites. - S/p tumor path biopsy on 09/07/19; recommended to start Letrozole as outpatient by [facility] physician based on results. - Palliative consulted, greatly appreciate input. - Increased Fentanyl patch to 200 mcg; attempted to convert to PO Dilaudid, did not tolerate - started Dilaudid 1 mg IV q4hr prn pain. - Pain management will complete nerve block - tentatively scheduled for Monday, may need to be inpatient. - Significant abd distention/discomfort -- KUB with moderate stool throughout colon and rectum, will give fleet enema and Relistor dose. (2) Nausea & vomiting: - Persistent N/V; most recent KUB negative for ileus or obstruction but did show moderate constipation. - Restarted Ativan 1 mg IV q8hr prn. - No improvement with Haldol, Reglan, Zofran or Phenergan. (3) Peritoneal carcinoma: - As noted above; follows with [facility] and [facility] oncology. (4) Ascites: - Mild to moderate ascites noted on admission. - Consider paracentesis if pt. continues to have abd discomfort following improvement in constipation. (5) Hx antineoplastic chemotherapy: - Follows with Dr. Zarco at [facility]; completed Taxol/Carboplatin chemotherapy 2.5 months ago. - Plan to start Letrozole as outpatient per gyne-onc physician at [facility]. (6) Acute dehydration: - Received IV fluids, now discontinued. (7) Anxiety: - Cymbalta 20 mg daily - Ativan q8hr prn. (8) GERD (gastroesophageal reflux disease): - Protonix 40 mg hs. (9) Anemia: - Chemotherapy induced. - Transfuse prn. (10) Hypertension: - Continue home Lisinopril. (11) Breast cancer: - H/o, see above. (12) Hypercalcemia: - Ca level elevated in setting of metastatic disease. - Continue to trend - will require treatment if no improvement. (13) DVT prophylaxis: - Lovenox daily. Dispo: Discharge pending adequate pain control. Supervising Physician Co-Signing Physician Notes PA Supervision Note: I did not personally see or examine the patient today, but I verified all aly points of EVELIN Vale's assessment and plan with the following exceptions/ additions: None Subjective Pt. reports increased abd bloating and pain this morning -- had small BM following dulcolax suppository yesterday. Will give fleet enema and Relistor today and monitor for improvement. Also c/o nausea -- Ativan IV does provide some relief but she has not had any relief with Haldol, Ativan PO, Zofran, Phenergan. Is requiring Dilaudid IV prn doses for abd pain, will likely need to remain inpatient until Monday for nerve block with pain management. Review of Systems Review of Systems: All systems reviewed & are unremarkable except as noted in HPI & below Constitutional: + fatigue, + weakness and + anorexia; no fever and no chills Respiratory: no cough, no dyspnea and no dyspnea on exertion Cardiovascular: no chest pain, no palpitations and no edema Gastrointestinal: + abdominal pain, + bloating, + nausea, + vomiting and + constipation Genitourinary: no difficulty urinating Musculoskeletal: no back pain and no joint pain Integumentary: no non-healing lesions Physical Exam Physical Exam: General: Resting comfortably HEENT: NC/AT; PERRLA with EOMI; Warden conjunctiva, MMM. No erythema of posterior pharynx Neck: Supple and nontender Cardiac: RRR Lungs: CTA bilaterally Abdomen: Moderate distention; Bowel normoactive X 4; Nontender to palpation Extremities: Warm. No edema present Neuro: No focal weakness Skin: No rash Results & Data Vital Signs (Past 12 Hours) Vital Signs Temp Pulse Resp BP BP Pulse Ox 10/06/19 12:06 36.8 C 109 H 20 159/83 H 92 10/06/19 08:00 36.8 C 97 H 18 127/80 93 10/06/19 04:28 36.7 C 92 H 20 114/72 92 Laboratory Results 10/06/19 Range/Units 05:29 Sodium 138 (136-145) mmol/L Potassium 3.9 (3.5-5.1) mmol/L Chloride 106 (98-107) mmol/L Carbon Dioxide 27 (21-32) mmol/L Anion Gap 5.0 (3-11) BUN 17 (7-18) mg/dl Creatinine 0.46 L (0.6-1.2) mg/dl Est Cr Clr Drug Dosing 105.0 ml/min Est GFR ( Amer) 116.0 Est GFR (Non-Af Amer) 100.1 BUN/Creatinine Ratio 36.1 H (10-20) Glucose 85 (70-99) mg/dl Calcium 10.0 (8.5-10.1) mg/dl Total Bilirubin 0.5 (0.2-1) mg/dl AST 20 (15-37) U/L ALT 14 (12-78) U/L Alkaline Phosphatase 56 (45-117) U/L Total Protein 5.6 L (6.4-8.2) gm/dl Albumin 2.6 L (3.4-5.0) gm/dl Globulin 3.0 (2.5-4.0) gm/dl Albumin/Globulin Ratio 0.9 (0.9-2) PG Care Time/CCT Total # of Minutes Spent Total Time Spent with Patient: Total time spent is greater than 50% in coordination of care (as documented) at patient's floor/unit and/or counseling patient: (1) Nausea & vomiting Vomiting Intractability: unspecified Vomiting type: unspecified Qualified Code(s): R11.2 - Nausea with vomiting, unspecified
[2019-10-06] MEDS: ONDANSETRON INJ 2 MG/ML 2 ML VIAL IV PRN (13:29)
[2019-10-06] MEDS: LORazepam 1 MG/2 ML VIAL IV PRN ×2 (16:53→23:09)
[2019-10-06] MEDS: fentaNYL 100 MCG/HR TDSY TD SCH ×2 (18:18→18:19)
[2019-10-06] MEDS: PANTOprazole 40 MG TAB PO SCH (21:29)
[2019-10-07] MEDS: ZOLPIDEM TARTRATE 10 MG TAB PO PRN ×2 (01:40→23:42)
[2019-10-07] MEDS: HEPARIN 100 UNIT/ML 5ML FLUSH FLUSH PRN ×3 (07:58→21:46)
[2019-10-07] MEDS: HYDROmorphone INJ 1 MG/ML SYRINGE IV PRN ×7 (07:58→21:44)
[2019-10-07] MEDS: LORazepam 1 MG/2 ML VIAL IV PRN (08:05)
[2019-10-07] MEDS: CHECK FENTANYL PATCH PLACEMENT SCH ×6 (08:38→23:43)
[2019-10-07] MEDS ORDERED: HYDROmorphone INJ 1 MG/ML SYRINGE IV PRN (09:34)
[2019-10-07] MEDS: DULOXETINE HCL 20 MG CAP PO SCH (11:08)
[2019-10-07] MEDS: POLYETHYLENE (MIRALAX) 17 GM PACK PO SCH (11:08)
[2019-10-07] MEDS: lisinopriL 10 MG TAB PO SCH (11:08)
[2019-10-07] MEDS: DOCUSATE SODIUM/SENNA 50/8.6MG TAB PO SCH ×2 (11:08→21:48)
[2019-10-07] MEDS: ENOXAPARIN INJ 40 MG/0.4 ML SYR SQ SCH (11:21)
--- NOTE | 2019-10-07 12:29 | Pain Management Progress Note ---
Date of Service October 07, 2019 Assessment & Plan (1) Intractable abdominal pain: (2) Cancer related pain: (3) Peritoneal carcinoma: (4) Breast cancer: (5) Ovarian cancer: 1. Will transition IV hydromorphone from 1 mg every 4 hours to 1 mg every 3 hours as the patient is reporting poor pain control 2. Will maintain fentanyl 200 mcg/h dose at this time without change 3. We again discussed celiac plexus block as a potential treatment option. Risks versus benefits were discussed. Her oncology team at [facility] was contacted at her request. They are on board with this procedure. The patient remains hesitant to pursue. We discussed decision-making. The procedure may tentatively be completed tomorrow afternoon should the patient wish to pursue at her request. 4. Will continue to follow. Subjective Mrs. Urena is a 73-year-old white female with intractable abdominal pain with nausea, vomiting and diminished appetite with history of ovarian cancer with progressive peritoneal and omental implants. Fentanyl was transitioned to 200 mcg/h dose on 10/04/2019. Hydromorphone [employer] was discontinued at that time. The patient reported increased difficulties with pain control throughout the weekend. Pain remains in the supraumbilical abdomen described as a deep, boring and aching with occasionally sharp pain with associated nausea. She reports that IV hydromorphone 1 mg is providing her with approximately 2 hours of adequate pain relief only. Her pain has been ranging between a 5-7/10. She denies change in location or characteristics. Patient has no further constitutional complaints. Plan of care discussed with Dr. Serene Nieto. Physical Exam Physical Exam: General: Patient sitting upon entering the room in no obvious acute distress. Speech and thought process appropriate. Mood and affect appropriate. Cognition intact. Abdomen: Distended and protuberant abdomen. Non-tympanic. Generalized tenderness to palpation in the supraumbilical regions without rebound or guarding. Neurologic: Cranial nerves are grossly intact. Patient was able to ambulate to the bathroom and back without limitations.
--- NOTE | 2019-10-07 12:30 | Palliative Care Progress Note ---
Date of Service October 07, 2019 Assessment & Plan (1) Goals of care, counseling/discussion: -Patient still c/o pain in abdomen 04/08. -She states the lorazepam is working well for her. Continue with 1mg PO TID PRN. -Pt currently on fentanyl which was increased to 200mcg/hr by pain management. -Would not go any higher with the fentanyl. -Plan for celiac plexus block tomorrow 10/08. -Patient asked me a lot of questions regarding the block and its efficacy. She asked me to promise that it would work. Advised that I can not promise, but expressed that I would absolutely try it to see if it would provide relief. I would anticipate that the block would work pretty quickly, so should see some relief close to onset. -I did explain that the N/V she is experiencing may be a new normal with her cancer progression and she understood. Increasing Haldol to 1 mg BID for nausea. We can go up to 4 mg if needed. I think that scheduling the doses will be more beneficial for her. -I do think that she is terrified of the mortality of her disease. Continued goals of care discussions necessary as her symptoms progress. -I think that anxiety is a large component of her disease process. She is receiving Ativan 1 mg Q6 with positive response. -Patient continues to receive Dilaudid 6mg PO Q4h PRN pain, increasing the frequency to Q2 hours. -Patient has not had a BM for 1.5 days. Due to increased dosing of narcotic use and lack of tolerated PO intake, suggest a suppository, which the patient is receptive to. -Hopeful discharge after the block is placed, again continued conversation regarding realistic expectations and her goals of care needed. Follow up with Dr. Padilla outpatient once discharged for continued symptom management. -PPS: 40% (2) Cancer related pain: (3) Nausea & vomiting: (4) Peritoneal carcinoma: Subjective Pt c/o 6/10 upper abdominal pain Pt ambulating in room and hallway, which does help. Pt with increasing anxiety r/t her illness Pt reports N/V today See A/P for further details. Review of Systems Review of Systems: Const: + mild weakness ENMT: No dysphagia Resp: No SOB, no cough Cardio: No chest pain, no edema GI: + generalized abdominal pain /10 today, + N/V-- worse in morning and with eating MS: No musculoskeletal pain Neuro: No confusion Psych: + anxiety, no depression Physical Exam Constitutional: well developed, well nourished and cooperative Respiratory: normal respiratory effort, lungs clear to auscultation Cardiovascular: RRR, no murmur, no edema Gastrointestinal (Abdomen): Inspection/Auscultation: abdomen normal to inspection, + abdomen distended and + hypoactive bowel sounds (upper quadrants less peristalsis than lower quadrants ) Percussion/Palpation: + abdomen tender Skin: no rashes, warm and dry Psychiatric: Affect: euthymic affect Insight: good insight Judgement: good judgement Results & Data Vital Signs (Past 12 Hours) Vital Signs Temp Pulse Resp BP BP Pulse Ox 10/07/19 07:16 36.7 C 97 H 16 149/83 H 90 10/07/19 03:30 36.6 C 99 H 18 142/84 H 92 Supervising Physician Co-Signing Physician Notes Late entry for visit and exam done on 10/07. Patient seen and examined in her room-no family at bedside. Patient complains of severe pain but is ambulating without difficulty in the hallways. PE: No acute distress HEENT: EOMI, hearing within normal limits Respiratory: Unlabored, clear breath sounds CV: Regular rate Abdomen: Distended, nontender to light palpation Neuro: Alert and oriented x4 Agree with above note, assessment and plan as per SASCHA Carrillo. Plan is for a celiac plexus block scheduled for tomorrow. Will continue to follow and assist with pain management. Did initiate discussion regarding possible use of methadone if celiac block is ineffective. PG Care Time/CCT Total # of Minutes Spent Total Time Spent with Patient: Total time spent is greater than 50% in coordination of care (as documented) at patient's floor/unit and/or counseling patient: 35 Time Spent Midlevel Total time spent 35 minutes with > 50% of that time spent assessing the patient, discussing symptom management and adjusting medications. (1) Nausea & vomiting Vomiting Intractability: unspecified Vomiting type: unspecified Qualified Code(s): R11.2 - Nausea with vomiting, unspecified
--- NOTE | 2019-10-07 13:27 | Hospitalist Progress Note ---
Date of Service October 07, 2019 Assessment & Plan (1) Ovarian cancer: - Follows with Dr. Mederos at [facility] and check totaler-onc at [facility]. - Admitted with uncontrolled pain and nausea/vomiting -- CT scan showed progressive abd wall carcinomatosis and mild to moderate ascites. - S/p tumor path biopsy on 09/07/19; recommended to start Letrozole as outpatient by [facility] physician based on results. - Palliative consulted, greatly appreciate input. - Increased Fentanyl patch to 200 mcg; attempted to convert to PO Dilaudid, did not tolerate - continue prn dilaudid IV - Pain management will complete nerve block - tentatively scheduled for Monday, may need to be inpatient. - Significant abd distention/discomfort -- KUB with moderate stool throughout colon and rectum, will give fleet enema and Relistor dose with 10/06. Will add suppository for today (2) Nausea & vomiting: - Nausea at times but under better control; most recent KUB negative for ileus or obstruction but did show moderate constipation. - Restarted Ativan 1 mg IV q8hr prn. - No improvement with Haldol, Reglan, Zofran or Phenergan - palliative suggests increasing Haldol up to 4 mg. Will increase to 1 mg for today (3) Peritoneal carcinoma: - As noted above; follows with [facility] and [facility] oncology. (4) Ascites: - Mild to moderate ascites noted on admission. - Consider paracentesis if pt. continues to have abd discomfort following improvement in constipation. (5) Hx antineoplastic chemotherapy: - Follows with Dr. Zarco at [facility]; completed Taxol/Carboplatin chemotherapy 2.5 months ago. - Plan to start Letrozole as outpatient per gyne-onc physician at [facility]. (6) Acute dehydration: - Received IV fluids, now discontinued. (7) Anxiety: - Cymbalta 20 mg daily - Ativan q8hr prn. (8) GERD (gastroesophageal reflux disease): - Protonix 40 mg hs. (9) Anemia: - Chemotherapy induced. - Transfuse prn. (10) Hypertension: - Continue home Lisinopril. (11) Breast cancer: - H/o, see above. (12) Hypercalcemia: - Ca level elevated in setting of metastatic disease. - Continue to trend - 10 today, repeat cmp tomorrow (13) DVT prophylaxis: - Lovenox held for block tomorrow. Patient is ambulating around her room Dispo: Discharge pending adequate pain control. Subjective Ms. Urena is feeling very painful today rating her abdominal pain as 7-8 out of 10. She is worried about the block scheduled for tomorrow, concerned about it's effectiveness. She had a bowel movement yesterday but continues to feel bloated with nausea at times. ROS Constitutional: no chills, aches, sweats or fever Respiratory: no sob,cough, sputum, or wheezing Cardiac: no chest pain, palpitations, edema, orthopnea or lightheadedness GI: no abdominal pain, nausea, vomiting, diarrhea or constipation : no dysuria or hesitancy Extremities: no joint pain or weakness Skin: no rash All other systems reviewed and negative Physical Exam Physical Exam: General: no distress Eyes: normal inspection, PERLL Respiratory: chest non tender, clear to auscultation, normal breath sounds, no respiratory distress, no accessory muscle use Cardiac: regular rate and rhythm, no rub or gallop, no murmur, no edema, no jvd GI/: active bowel sounds, tender, distended abdomen Extremities: normal range of motion, normal strength, non tender Neuro/Psych: alert and oriented x 3, normal mood and affect Skin: normal color, dry Results & Data Vital Signs (Past 12 Hours) Vital Signs Temp Pulse Resp BP BP Pulse Ox 10/07/19 07:16 36.7 C 97 H 16 149/83 H 90 10/07/19 03:30 36.6 C 99 H 18 142/84 H 92 PG Care Time/CCT Total # of Minutes Spent Total Time Spent with Patient: Total time spent is greater than 50% in coordination of care (as documented) at patient's floor/unit and/or counseling patient: (1) Nausea & vomiting Vomiting Intractability: unspecified Vomiting type: unspecified Qualified Code(s): R11.2 - Nausea with vomiting, unspecified
[2019-10-07] MEDS ORDERED: haloperidoL 0.5 MG TAB PO PRN (13:41)
[2019-10-07] MEDS ORDERED: haloperidoL 1 MG TAB PO PRN (14:00)
[2019-10-07] MEDS: bisacodyL 10 MG SUPP PR PRN (15:24)
--- NOTE | 2019-10-07 17:53 | Anesthesiology Consultation ---
Date of Service October 07, 2019 Assessment & Plan Chart Review Chart Review: Acceptable Risk for Surgery and Patient NOT seen in Pre Admission Testing Consults Requested none ASA ASA4 History Surgery Operation Date: 10/08/19 13:15 Proposed Procedures p Celiac Plexus Block - Seerne Nieto DO Height/Weight Height: 5 ft 6 in Weight: 69.1 kg Allergies Allergy/AdvReac Type Severity Reaction Status Date / Time Sulfa (Sulfonamide Allergy Mild NAUSEA; Verified 09/30/19 12:08 Antibiotics) AFFECTS BLOOD Medications Home Medications Medication Instructions Recorded Confirmed Last Taken clonazepam 0.5 mg PO BID PRN 07/29/18 09/30/19 07/29/18 08:00 lisinopril 10 mg PO DAILY 07/29/18 09/30/19 09/30/19 ondansetron HCl [Zofran] 4 mg PO UD PRN 07/29/18 09/30/19 Unknown prochlorperazine maleate 10 mg PO Q6H PRN 07/29/18 09/30/19 Unknown [Compazine] hydromorphone 5 mg PO Q4H PRN #60 tab 12/27/18 09/30/19 09/30/19 Rubraca 1,200 mg PO DAILY 08/01/19 09/30/19 09/30/19 duloxetine 20 mg PO DAILY 08/01/19 09/30/19 09/30/19 omeprazole 20 mg PO DAILY 08/01/19 09/30/19 09/30/19 zolpidem 10 mg PO HS PRN 08/01/19 09/30/19 Unknown polyethylene glycol 3350 [Miralax] 17 g PO DAILY #0 ea 08/05/19 09/30/19 09/30/19 fentanyl 12 mcg TRANSDERMAL Q72H 09/30/19 09/30/19 09/29/19 fentanyl 75 mcg TRANSDERMAL Q72H 09/30/19 09/30/19 09/29/19 Active Medications Generic Name Dose Route Start Last Admin Trade Name Freq PRN Reason Stop Dose Admin Bisacodyl 10 mg 10/07/19 13:32 10/07/19 15:24 Dulcolax ND 11/06/19 13:31 10 mg DAILY PRN Administration Constipation Duloxetine HCl 20 mg 10/01/19 09:00 10/07/19 11:08 Cymbalta PO 10/31/19 08:59 Not Given DAILY PAUL Enoxaparin Sodium 40 mg 10/01/19 09:00 10/07/19 11:21 Lovenox SQ 10/31/19 08:59 Not Given QAM PAUL Fentanyl 100 mcg 10/03/19 18:00 10/06/19 18:18 Duragesic TD 10/17/19 17:59 100 mcg Q72H PAUL Administration Fentanyl 100 mcg 10/06/19 18:00 10/06/19 18:19 Duragesic TD 10/20/19 17:59 100 mcg Q3D@1800 PAUL Administration Heparin Sodium (Porcine) 5 ml 09/30/19 23:02 10/07/19 17:19 Heparin Sod 100 Unit/Ml Flush FLUSH 10/30/19 23:14 5 ml PRN PRN Administration Flush Hydromorphone HCl 1 mg 10/07/19 12:35 10/07/19 17:18 Dilaudid IV 10/21/19 09:33 1 mg Q2H PRN Administration Pain Lorazepam 1 mg in 2 mls @ 0.5 mls/min 10/06/19 16:12 10/07/19 08:05 Ativan IV 11/04/19 07:33 0.5 mls/min Q6H PRN Administration Nausea Lisinopril 10 mg 10/01/19 09:00 10/07/19 11:08 Zestril PO 10/31/19 08:59 Not Given DAILY PAUL Methylnaltrexone [place] 12 mg 10/06/19 11:00 10/06/19 11:14 Relistor SQ 11/05/19 10:59 12 mg Q2D@1100 PAUL Administration Miscellaneous 1 ea 10/01/19 00:00 10/07/19 15:39 Order Awaiting Action N/A 10/31/19 00:00 Not Given QS PAUL Miscellaneous 1 ea 10/01/19 00:00 10/07/19 15:39 Fentanyl Patch Check Placement N/A 11/03/19 18:00 1 ea QS PAUL Administration Miscellaneous 1 ea 10/06/19 18:00 10/06/19 18:19 Fentanyl Patch Remove & Waste N/A 11/05/19 17:59 1 ea Q3D@1800 PAUL Administration Miscellaneous 1 ea 10/04/19 16:00 10/07/19 15:39 Fentanyl Patch Check Placement N/A 11/03/19 15:59 1 ea QS PAUL Administration Miscellaneous 1 ea 10/06/19 18:00 10/06/19 18:20 Fentanyl Patch Remove & Waste N/A 11/05/19 17:59 1 ea Q3D@1800 PAUL Administration Ondansetron HCl 4 mg 09/30/19 17:29 10/06/19 13:29 Zofran IV 10/30/19 17:28 4 mg Q4H PRN Administration Nausea And Vomiting Pantoprazole Sodium 40 mg 10/03/19 21:00 10/06/19 21:29 Protonix PO 11/02/19 20:59 40 mg HS PAUL Administration Polyethylene Glycol 17 gm 10/06/19 09:00 10/07/19 11:08 Miralax Powder Packet PO 11/05/19 08:59 Not Given DAILY PAUL Senna/Docusate Sodium 1 tab 10/02/19 12:00 10/07/19 11:08 Senokot S PO 11/01/19 11:59 Not Given BID PAUL Zolpidem Tartrate 10 mg 09/30/19 17:29 10/07/19 01:40 Ambien PO 10/30/19 17:28 10 mg HS PRN Administration Sleep Past Medical History Medical History Breast cancer (Resolved) Cancer of peritoneum Cancer related pain (Chronic) Hx antineoplastic chemotherapy (Resolved) Ovarian cancer (Resolved) Peritoneal carcinoma Small bowel obstruction (Acute) Exercise / Class Metabolic Activity III < 4 Walking/Shop/Light housework Past Family History Family History Other No pertinent family history Past Surgical History Surgical History History of bowel resection Ovarian tumor debulking in 2012. No pertinent past surgical history Past Anesthesia History No Hx of Anesthesia Complications and No Family Hx of Anesthesia Complications History of PONV No Hx of PONV and No Hx of Motion Sickness Social History Smoking Status: Former smoker Do You Dip or Chew Tobacco: No Hx Alcohol Use: No Hx Substance Use: No substance use type: does not use Physical Exam Vital Signs Last Vital Signs Temp 36.7 C 10/07/19 15:38 Pulse 106 H 10/07/19 15:38 Resp 16 10/07/19 15:38 BP 112/77 10/07/19 15:38 Pulse Ox 92 10/07/19 15:38 Testing Laboratory Results 10/05/19 05:21 10/06/19 05:29 PT 10.4 Seconds (9.0-12.0) 09/30/19 12:42 INR 1.0 (0.9-1.1) 09/30/19 12:42 APTT 56.3 Seconds (21.0-31.0) H* 09/30/19 12:42 Urine Color Dark Yellow 09/30/19 15:03 Urine Appearance Clear (Clear) 09/30/19 15:03 Urine pH 6.0 (4.5-7.5) 09/30/19 15:03 Ur Specific [place] 1.024 (1.000-1.030) 09/30/19 15:03 Urine Protein Negative (Negative) 09/30/19 15:03 Urine Glucose (UA) Negative (Negative) 09/30/19 15:03 Urine Ketones 2+ (Negative) H 09/30/19 15:03 Urine Nitrite Negative (Negative) 09/30/19 15:03 Ur Leukocyte Esterase Negative (Negative) 09/30/19 15:03 Electrocardiogram Date: 09/30/19 SR w/ 1st degree AV block at 80;low voltage QRS;poor R Wave progression Chest X-Ray Date: 09/30/19 Findings: + NAD, + atherosclerosis of thoracic aorta and + other (large hiatal hernia)
[2019-10-07] MEDS: haloperidoL 1 MG TAB PO SCH (19:27)
[2019-10-07] MEDS: PANTOprazole 40 MG TAB PO SCH (21:47)
[2019-10-08] MEDS: HYDROmorphone INJ 1 MG/ML SYRINGE IV PRN ×4 (04:24→12:55)
[2019-10-08] MEDS: HEPARIN 100 UNIT/ML 5ML FLUSH FLUSH PRN ×4 (05:56→12:55)
[2019-10-08 06:42] LABS: Basophils # (auto) 0.01 K/uL (0-0.2); Basophils % (auto) 0.2 %; Eosinophils # (auto) 0.05 K/uL (0-0.5); Eosinophils % (auto) 0.8 %; Hematocrit (blood only) 36.5 % (37-47); Hemoglobin 11.7 g/dL (12.0-16.0); Immature Granulocytes # (auto) 0.01 K/uL (0.00-0.02); Immature Granulocytes % (auto) 0.2 %; Lymphocytes # (auto) 0.98 K/uL (1.2-3.4); Lymphocytes % (auto) 16.2 %; Mean Corpuscular Hemoglobin 30.5 pg (25-34); Mean Corpuscular Hgb Conc 32.1 g/dL (32-36); Mean Corpuscular Volume 95.3 fL (80-100); Mean Platelet Volume 10.3 fL (7.4-10.4); Monocytes # (auto) 0.69 K/uL (0.11-0.59); Monocytes % (auto) 11.4 %; Neutrophils # (auto) 4.31 K/uL (1.4-6.5); Neutrophils % (auto) 71.2 %; Platelet Count 253 K/uL (130-400); RDW Coefficient of Variation 13.8 % (11.5-14.5); RDW Standard Deviation 47.3 fL (36.4-46.3); Red Blood Count 3.83 M/uL (4.2-5.4); White Blood Count 6.05 K/uL (4.8-10.8)
[2019-10-08 07:12] LABS: BUN Creatinine Ratio 41.4 (10-20); Calcium 10.4 mg/dl (8.5-10.1); Creatinine Clr Calc Pharmacy 102.8 ml/min; Est GFR (African American) 115.2; Est GFR (Non-African American) 99.4
[2019-10-08] MEDS: DULOXETINE HCL 20 MG CAP PO SCH (08:56)
[2019-10-08] MEDS: DOCUSATE SODIUM/SENNA 50/8.6MG TAB PO SCH ×2 (08:56→20:17)
[2019-10-08] MEDS: lisinopriL 10 MG TAB PO SCH (08:56)
[2019-10-08] MEDS: CHECK FENTANYL PATCH PLACEMENT SCH ×4 (08:57→16:19)
[2019-10-08] MEDS: POLYETHYLENE (MIRALAX) 17 GM PACK PO SCH (09:10)
[2019-10-08] MEDS: haloperidoL 1 MG TAB PO SCH ×3 (09:15→19:51)
[2019-10-08] MEDS: LORazepam 1 MG/2 ML VIAL IV PRN (10:59)
[2019-10-08] MEDS: METHYLNALTREXONE BROMIDE 12 MG/0.6 ML VIAL SQ SCH (11:28)
[2019-10-08] MEDS ORDERED: haloperidoL 1 MG TAB PO PRN (11:49)
[2019-10-08] MEDS ORDERED: DEXAMETHASONE **PF** INJ 10 MG/ML VIAL ONE (13:04)
--- NOTE | 2019-10-08 13:11 | Palliative Care Progress Note ---
Date of Service October 08, 2019 Assessment & Plan (1) Goals of care, counseling/discussion: -Patient sitting in her bed, in no apparent distress. Patient still c/o pain in abdomen 02/06 and N/V which has occurred twice today so far. -Plan for celiac plexus block this afternoon. -Patient asked me a lot of questions regarding the block and its efficacy. Pain management to address further. I discussed following up close after it was placed to see how things progress. -She states the lorazepam is working well for her. Continue with 1mg PO TID PRN. -Pt currently on fentanyl which was increased to 200mcg/hr by pain management. -Would not go any higher with the fentanyl. -I did explain that the N/V she is experiencing may be a new normal with her cancer progression and she understood. Changing Haldol to 1 mg Q4 PRN for nausea. We can go up to 4 mg if needed. Patient has a trend of starting a new antiemetic and then refusing a dose after one or two doses. Discussed at length that it is important to allow time for the antiemetic to reach efficacy prior to declining. Will continue reassurance. -I do think that she is terrified of the mortality of her disease. Continued goals of care discussions necessary as her symptoms progress. -I think that anxiety is a large component of her disease process. Changing Ativan to 1 mg QID. Hold for oversedation or RR < 10. -Patient continues to receive Dilaudid 6mg PO Q2h PRN pain. Will need to reassess efficacy of block. Patient may be an appropriate Methadone patient. Discussed with Dr. Padilla. -Patient has not had a BM for 1.5 days. Due to increased dosing of narcotic use and lack of tolerated PO intake, suggest a suppository, which the patient is receptive to. Dulcolax ordered yesterday. No BM yet with it. -Hopeful discharge after the block is placed based on how it works. If the block does not provide relief, will need to remain inpatient due to amount of IV Dilaudid use. -Lengthy discussion today held regarding continued conversation regarding realistic expectations and her goals of care needed. Patient tearful during encounter. Follow up with Dr. Padilla outpatient once discharged for continued symptom management. -PPS: 40% (2) Cancer related pain: (3) Nausea & vomiting: (4) Peritoneal carcinoma: Subjective Pt c/o 02/06 upper abdominal pain, overall complaining mostly of pain and nausea. Pt ambulating in room and hallway, which does help. Pt with increasing anxiety r/t her illness Pt reports N/V today, two times this morning. Plan for celiac plexus block today See A/P for further details. Review of Systems Review of Systems: Const: + mild weakness ENMT: No dysphagia Resp: No SOB, no cough Cardio: No chest pain, no edema GI: + generalized abdominal pain 02/06 today, + N/V-- worse in morning and with eating MS: No musculoskeletal pain Neuro: No confusion Psych: + anxiety, no depression Physical Exam Constitutional: well developed, well nourished and cooperative Respiratory: normal respiratory effort, lungs clear to auscultation Cardiovascular: RRR, no murmur, no edema Gastrointestinal (Abdomen): Inspection/Auscultation: abdomen normal to inspection, + abdomen distended and + hypoactive bowel sounds (upper quadrants less peristalsis than lower quadrants ) Percussion/Palpation: + abdomen tender Skin: no rashes, warm and dry Psychiatric: Affect: euthymic affect Insight: good insight Judgement: good judgement Results & Data Vital Signs (Past 12 Hours) Vital Signs Temp Pulse Resp BP Pulse Ox 10/08/19 11:22 37 C 103 H 18 147/87 H 92 10/08/19 07:11 36.5 C 95 H 16 145/87 H 92 10/08/19 03:45 36.7 C 99 H 18 138/82 90 Supervising Physician Co-Signing Physician Notes Patient seen and examined in her room-patient's and brother at bedside. Patient appears comfortable, able to sit up on the side of the bed as well as ambulate without any signs of discomfort Patient reports that her she has called in a prescription for her to start letrozole after discharge. PE: No acute distress HEENT: EOMI, hearing within normal limits Respiratory: Unlabored, clear breath sounds CV: Regular rate Abdomen: Distended, nontender to light palpation Neuro: Alert and oriented x4 Discussed with the patient and the importance of taking her Ativan 4 times daily regardless of how she feels to control nausea and using PRN Haldol or PRN Compazine in between doses if needed. Patient reports she still has 3 fentanyl 75 mcg and 3 12 mcg patches at home. Agree with above note, assessment and plan as per SASCHA Carrillo. Plan is for a celiac plexus block scheduled for today at 2 PM Will continue to follow and assist with pain management. Did initiate discussion regarding possible use of methadone if celiac block is ineffective. Patient knows to call and make an appointment for outpatient follow-up in the palliative care clinic. PG Care Time/CCT Total # of Minutes Spent Total Time Spent with Patient: Total time spent is greater than 50% in coordination of care (as documented) at patient's floor/unit and/or counseling patient: 45 Prolonged Care Time Prolonged Care Time: Yes Total Prolonged Care Time: 40 Time Spent Midlevel Total time spent 45 minutes with > 50% of that time spent assessing the patient, discussing goals of care and managing symptoms. Attending Spent 30 minutes in addition to the above 45 minutes spent by SASCHA Carrillo for a total of 75 minutes with greater than 50% of the time spent at bedside discussing treatment options as well as plan of care Critical Care Time Prolonged Care Time Prolonged Care Time: Yes Total Prolonged Care Time: 40 75 (1) Nausea & vomiting Vomiting Intractability: unspecified Vomiting type: unspecified Qualified Code(s): R11.2 - Nausea with vomiting, unspecified
[2019-10-08] MEDS: LORazepam 1 MG TAB SL SCH ×3 (13:23→20:17)
[2019-10-08] MEDS ORDERED: KETAMINE HCL INJ 50 MG/ML 10 ML VIAL ONE (14:09)
[2019-10-08] MEDS ORDERED: MIDAZOLAM HCL 1 MG/ML 2ML VIAL ONE (14:09)
[2019-10-08] MEDS ORDERED: fentaNYL citrate 100 MCG/2 ML VIAL ONE ×3 (14:09→15:21)
[2019-10-08] MEDS ORDERED: ePHEDrine sulfate 50 MG/ML AMP IV PRN (14:19)
[2019-10-08] MEDS ORDERED: ONDANSETRON INJ 2 MG/ML 2 ML VIAL IV PRN (14:19)
[2019-10-08] MEDS ORDERED: ATROPINE SULFATE 0.1 MG/ML 10ML SYR IV PRN (14:19)
[2019-10-08] MEDS ORDERED: HYDROmorphone INJ 1 MG/ML SYRINGE IV PRN (14:19)
[2019-10-08] MEDS ORDERED: fentaNYL citrate 100 MCG/2 ML VIAL IV PRN (14:19)
--- NOTE | 2019-10-08 14:40 | History & Physical Bridge Note ---
Date of Service October 08, 2019 History & Physical Bridge Note I have examined the patient, reviewed the History & Physical and in the interval since the performance of the History & Physical I have noted the following changes of clinical significance: no changes noted Potential risks including infection, bleeding, nerve injury, reaction to any one of the medications used for the procedure, persistent pain at the injection site and persistent symptoms discussed with the patient. Diagnostic and therapeutic nature of the procedure also discussed with the patient. Alternatives to the specific procedure was also discussed with the patient. Patient's questions were answered. Patient gives informed consent to proceed. Specifically the patient understands risks of hypertension, intractable diarrhea, local anesthetic toxicity. She provides a consent to proceed.
[2019-10-08] MEDS ORDERED: IOPAMIDOL INJ 61% 15 ML VIAL ONE (14:46)
[2019-10-08] MEDS ORDERED: LIDOCAINE HCL 1% 20 ML VIAL ONE (14:46)
[2019-10-08] MEDS ORDERED: EPINEPHrine INJ 1 MG/ML AMP ONE (14:46)
[2019-10-08] MEDS ORDERED: TRIAMCINOLONE ACET 40 MG/ML VIAL ONE (14:46)
[2019-10-08] MEDS ORDERED: CEFAZOLIN 250 MG/ML 1 GM VIAL ONE (15:06)
[2019-10-08] MEDS ORDERED: CEFAZOLIN 1000MG 1,000 MG/7.5 ML SYR IV ONE (15:06)
[2019-10-08] MEDS ORDERED: ONDANSETRON INJ 2 MG/ML 2 ML VIAL ONE (15:10)
[2019-10-08] MEDS ORDERED: PROPOFOL IV EMULSION 10 MG/ML 20 ML VIAL IV ONE (15:10)
--- NOTE | 2019-10-08 15:29 | Operative Report ---
Post Operative Report Pre & Post Diagnosis Operation Date: 10/08/19 13:15 Pre-Op Diagnosis: (1) Intractable abdominal pain (2) Cancer related pain (3) Peritoneal carcinoma (4) Breast cancer (5) Ovarian cancer Post-Op Diagnosis: (1) Intractable abdominal pain (2) Cancer related pain (3) Peritoneal carcinoma (4) Breast cancer (5) Ovarian cancer I identified the patient and participated in the time-out.: Yes Procedure Operation Date: 10/08/19 13:15 Actual Procedures p Celiac Plexus Block(Not Applicable) - Serene Nieto DO Surgeon Serene Nieto DO Supervisor Instrument Maintenance none Estimated Blood Loss 0 Findings Consistent with Post-Op Diagnosis Specimens none Drains none Anesthesia Type MAC Complications none Disposition Accompanied Patient To Recovery: Yes Disposition: Recovery Room Description of Procedure CELIAC PLEXUS BLOCK Diagnosis: Ovarian cancer with abdominal metastasis Side injected: Left Surgeon: Dr. Serene Nieto Anesthesia: local and MAC sedation Material forwarded to lab: none Complications noted: none Prior to starting, the Patients diagnosis and the procedure were reviewed with the patient in detail. Possible risks, complications and alternative therapies were also reviewed. Patients questions were answered. Informed consent was obtained. Allergies and medication list was reviewed. A peripheral IV was started and one liter of lactated ringers was administered. Ancef 1 g was given IV prior to the start of the injection. IV sedation was given per anesthetic record. The patient was brought to the operating room and placed in prone position on the table. Immediately prior to starting the procedure, a time out was conducted with the staff and the patient where the Patient was identified, proposed procedure was verified, consent was reviewed and the proper site for the planned procedure was identified. Fluoroscopy was utilized in performing the procedure to assist in placement of the needle, to evaluate the final position on the needle prior to injection and to avoid intravascular injection. The thoracolumbar spine area was prepped with Duraprep and Betadine solution. Sterile drapes were applied. Next, a true AP view of the L1 vertebral body was identified. The C-arm was then oblique to the appropriate side approximately 30 degrees so that the superior lateral margin of the vertebral body was congruent with the transverse process. 1% lidocaine, 4 cc, was infiltrated in the skin and subcutaneous tissues using a 27 gauge needle. Then a 5 inch Quincke spinal needle was introduced at the superior lateral margin of the L1 vertebral body and advanced until contact was made with the vertebral body. The needle was the rotated and walked off laterally from the vertebral body. Next, a lateral Xray was taken and the needle was advanced until it lied anterior to the L1 vertebral body. This was confirmed in AP view. A 6 inch micro bore tubing was attached to the needle. Next, 3ml of Isovue 300 contrast was injected showing typical spread along the celiac plexus. Digital subtraction imaging showed no vascular uptake. This was confirmed again in AP view. No heme or paresthesias were noted. No CSF was noted. Next 17ml of 0.5% Ropivacaine with 1:200,000 Epinephrine mixed with 2ml of contrast and 10mg of preservative free dexamethasone was injected in 5ml aliquots after negative aspiration for blood or CSF. No complications were noted. There were no signs or symptoms of local anesthetic toxicity. The needle was withdrawn. Adequate hemostasis was noted. A sterile Band-Aid was applied at the injection site. Patient was able to log roll back to the supine position. Patient was taken to the recovery room without complications noted. Should the patient have relief with this diagnostic procedure, I will plan for neurolytic block in the future should pain recur. I attest to the content of the Intraoperative Record and any orders documented therein. Any exceptions are noted below.
[2019-10-08] MEDS ORDERED: METOPROLOL TARTRATE 1 MG/ML VIAL IV ONE (15:35)
[2019-10-08] MEDS ORDERED: LORazepam 1 MG/2 ML VIAL IV SCH (16:00)
--- NOTE | 2019-10-08 16:23 | Anesthesiology Progress Note ---
Date of Service October 08, 2019 Anesthesia Post Procedure Vital Signs Vital Signs: Temp Pulse Pulse Resp BP BP Pulse Ox 10/08/19 15:56 94 H 15 99/65 L 93 10/08/19 15:45 36.7 C 94 H 16 101/66 94 10/08/19 15:35 122 H 136/80 94 10/08/19 15:29 36.8 C 123 H 19 122/75 92 10/08/19 13:57 37 C 107 H 20 145/80 H 92 10/08/19 11:22 37 C 103 H 18 147/87 H 92 10/08/19 07:11 36.5 C 95 H 16 145/87 H 92 10/08/19 03:45 36.7 C 99 H 18 138/82 90 10/07/19 23:01 36.7 C 99 H 20 131/76 92 10/07/19 19:18 36.9 C 104 H 16 144/86 H 94 Pain Intensity Abdomen: Pain Intensity: 7 Transfer of Care Handoff Completed per policy Notes Mental Status: alert / awake / arousable Patient Amnestic to Procedure: Yes Nausea / Vomiting: adequately controlled Pain: adequately controlled Airway Patency, RR, SpO2: stable & adequate BP & HR: stable & adequate Hydration State: stable & adequate Anesthetic Complications: no major complications apparent
--- NOTE | 2019-10-08 16:40 | Hospitalist Progress Note ---
Date of Service October 08, 2019 Assessment & Plan (1) Ovarian cancer: - Follows with Dr. Mederos at [facility] and spud grader-onc at [facility]. - Admitted with uncontrolled pain and nausea/vomiting -- CT scan showed progressive abd wall carcinomatosis and mild to moderate ascites. - S/p tumor path biopsy on 09/07/19; recommended to start Letrozole as outpatient by [facility] physician based on results. - Palliative consulted, greatly appreciate input. - Increased Fentanyl patch to 200 mcg; attempted to convert to PO Dilaudid, did not tolerate - continue prn dilaudid IV - will need to monitor for oversedation now that pain block has been successfully administered 10/08 - Pain management consulted for pain block - Significant abd distention/discomfort -- KUB with moderate stool throughout colon and rectum, given fleet enema and Relistor dose with BM 10/06. Continue prn suppository (2) Nausea & vomiting: - Nausea at times but under better control; most recent KUB negative for ileus or obstruction but did show moderate constipation. - Restarted Ativan 1 mg IV q8hr prn. - No improvement with Haldol, Reglan, Zofran or Phenergan - palliative suggests increasing Haldol up to 4 mg and keeping it scheduled to stay ahead of the nausea. (3) Peritoneal carcinoma: - As noted above; follows with [facility] and [facility] oncology. (4) Ascites: - Mild to moderate ascites noted on admission. - Consider paracentesis if pt. continues to have abd discomfort following improvement in constipation. (5) Hx antineoplastic chemotherapy: - Follows with Dr. Zarco at [facility]; completed Taxol/Carboplatin chemotherapy 2.5 months ago. - Plan to start Letrozole as outpatient per gyne-onc physician at [facility]. (6) Acute dehydration: - Received IV fluids, now discontinued. (7) Anxiety: - Cymbalta 20 mg daily - Ativan q8hr prn will change to scheduled once we assess for oversedation from narcotics now that pain block has been administered (8) GERD (gastroesophageal reflux disease): - Protonix 40 mg hs. (9) Anemia: - Chemotherapy induced. - Transfuse prn. (10) Hypertension: - Continue home Lisinopril. (11) Breast cancer: - H/o, see above. (12) Hypercalcemia: - Ca level elevated in setting of metastatic disease. - Continue to trend - corrected for albumin at 11.5 - may need to consider bisphosphonates if trends up further (13) DVT prophylaxis: - Lovenox held for block, will resume am. Patient is ambulating around her room Dispo: Discharge pending adequate pain control. Subjective Ms. Urena continued to be painful this morning and anxious about her nerve block procedure. She also continues to have nausea Per Dr. Nieto's report, her pain block went well and she has pain relief. ROS Constitutional: no chills, aches, sweats or fever Respiratory: no sob,cough, sputum, or wheezing Cardiac: no chest pain, palpitations, edema, orthopnea or lightheadedness GI: see HPI : no dysuria or hesitancy Extremities: no joint pain or weakness Skin: no rash All other systems reviewed and negative Physical Exam Physical Exam: General: no distress Eyes: normal inspection, PERLL Respiratory: chest non tender, clear to auscultation, normal breath sounds, no respiratory distress, no accessory muscle use Cardiac: regular rate and rhythm, no rub or gallop, no murmur, no edema, no jvd GI/: active bowel sounds, abdomen tender and distended Extremities: normal range of motion, normal strength, non tender Neuro/Psych: alert and oriented x 3, normal mood and affect Skin: normal color, dry Results & Data Vital Signs (Past 12 Hours) Vital Signs Temp Pulse Pulse Resp BP BP Pulse Ox 10/08/19 15:56 94 H 15 99/65 L 93 10/08/19 15:45 36.7 C 94 H 16 101/66 94 10/08/19 15:35 122 H 136/80 94 10/08/19 15:29 36.8 C 123 H 19 122/75 92 10/08/19 13:57 37 C 107 H 20 145/80 H 92 10/08/19 11:22 37 C 103 H 18 147/87 H 92 10/08/19 07:11 36.5 C 95 H 16 145/87 H 92 PG Care Time/CCT Total # of Minutes Spent Total Time Spent with Patient: Total time spent is greater than 50% in coordination of care (as documented) at patient's floor/unit and/or counseling patient: (1) Nausea & vomiting Vomiting Intractability: unspecified Vomiting type: unspecified Qualified Code(s): R11.2 - Nausea with vomiting, unspecified
[2019-10-08] MEDS: PANTOprazole 40 MG TAB PO SCH (20:17)
[2019-10-09] MEDS: CHECK FENTANYL PATCH PLACEMENT SCH ×6 (00:13→17:05)
[2019-10-09] MEDS: HYDROmorphone INJ 1 MG/ML SYRINGE IV PRN ×6 (00:57→22:02)
[2019-10-09] MEDS: HEPARIN 100 UNIT/ML 5ML FLUSH FLUSH PRN ×4 (00:59→15:09)
--- NOTE | 2019-10-09 08:36 | Pain Management Progress Note ---
Date of Service October 09, 2019 Assessment & Plan (1) Ascites: (2) Cancer related pain: (3) Intractable abdominal pain: 1. Celiac Plexus Nerve Block did provide 50% pain relief of the abdominal pain. She is very pleased with the results. Should the pain return, we could consider a Celiac Plexus Neurolysis with Phenol. 2. Continue Fentanyl patch at 200mcg. 3. In replace of IV Dilaudid, she will be initiated on Oxycodone 5mg x 4 hours PRN pain. She did previously try oral Dilaudid which caused nausea. 4. Patient is feeling much better and asking when she can be discharged to [facility]. This is deferred to primary team. (4) Nausea & vomiting: Vomiting Intractability: unspecified Vomiting type: unspecified Qualified Code(s): R11.2 - Nausea with vomiting, unspecified (5) Peritoneal carcinoma: Subjective This is a 73 year old white female that does have a significant history of ovarian cancer, BRCA mutation with abdominal carcinomatosis with progressive peritoneal omental implants. She has been experiencing severe intractable abdominal pain. She is currently on Cymbalta 20 mg daily, fentanyl patch 200 mc g, IV Dilaudid 1 mg every 2 hours as needed. She did receive a Celiac Plexus Nerve Block yesterday and reports 50% pain relief from the procedure. She is very pleased with the results. She is able to walk to the bathroom and walk around her room since the injection. She does continue to describe a fullness sensation in the abdomen but the significant pain has improved with the Celiac Plexus Nerve Block. Nausea has improved. No fevers, chills, back pain. Pain Assessment Pain Assessment Full Body Front + Back: 1. [facility] Combined Pain Scale: 4-Mild to Mod - Interrupts ADLs. Decrease in job performance Physical Exam Physical Exam: General: This is a thin and frail appearing 73 year old white female. Speech and cognition is intact. Mood and affect is appropriate. Does not appear in acute distress. Head/face: Normocephalic and atraumatic. Eyes: No drainage or conjunctival injection. ENT: Nose without bleeding or discharge. Oral mucosa moist. Neck: Full ROM without apparent pain. No swelling or masses noted. Chest/Axilla: Chest movement symmetrical. No deformities noted. Abdomen/GI: Moderate abdominal distension. Back: Moves without difficulty Skin: [place], warm and dry. No rash noted. MS/Extremity: Moving extremities appropriately. Neuro: Alert and appears oriented. Speech is fluent. Cranial Nerves are grossly intact. Psych: Alert, pleasant, affect is calm
[2019-10-09] MEDS: haloperidoL 1 MG TAB PO SCH ×2 (08:38→20:09)
[2019-10-09] MEDS: POLYETHYLENE (MIRALAX) 17 GM PACK PO SCH (08:39)
[2019-10-09] MEDS: lisinopriL 10 MG TAB PO SCH (08:39)
[2019-10-09] MEDS: DULOXETINE HCL 20 MG CAP PO SCH (08:39)
[2019-10-09] MEDS: DOCUSATE SODIUM/SENNA 50/8.6MG TAB PO SCH ×2 (08:39→21:25)
[2019-10-09] MEDS: ENOXAPARIN INJ 40 MG/0.4 ML SYR SQ SCH (08:40)
[2019-10-09] MEDS: LORazepam 1 MG TAB SL SCH ×4 (08:44→21:25)
[2019-10-09 08:59] LABS: Hemoglobin 11.3 g/dL (12.0-16.0); Immature Granulocytes # (auto) 0.01 K/uL (0.00-0.02); Immature Granulocytes % (auto) 0.1 %; Lymphocytes # (auto) 0.94 K/uL (1.2-3.4); Lymphocytes % (auto) 10.5 %; Mean Corpuscular Hgb Conc 32.3 g/dL (32-36); Mean Corpuscular Volume 96.2 fL (80-100); Monocytes # (auto) 0.84 K/uL (0.11-0.59); Monocytes % (auto) 9.4 %; Neutrophils # (auto) 7.15 K/uL (1.4-6.5); Platelet Count 290 K/uL (130-400); RDW Coefficient of Variation 13.7 % (11.5-14.5); Red Blood Count 3.64 M/uL (4.2-5.4); White Blood Count 8.94 K/uL (4.8-10.8)
[2019-10-09 09:04] LABS: Albumin Level 2.6 gm/dl (3.4-5.0); BUN Creatinine Ratio 38.5 (10-20); Calcium 10.7 mg/dl (8.5-10.1); Creatinine Clr Calc Pharmacy 84.7 ml/min; Est GFR (African American) 108.1; Est GFR (Non-African American) 93.3; Potassium 4.2 mmol/L (3.5-5.1)
[2019-10-09 09:07] LABS: Albumin Globulin Ratio 0.8 (0.9-2); Bilirubin,Total 0.4 mg/dl (0.2-1); Globulin 3.2 gm/dl (2.5-4.0); Total Protein 5.8 gm/dl (6.4-8.2)
[2019-10-09] MEDS ORDERED: LACTULOSE SYRUP 30 GM/45 ML UDP PO ONE (09:34)
--- NOTE | 2019-10-09 09:59 | Palliative Care Progress Note ---
Date of Service October 09, 2019 Assessment & Plan (1) Goals of care, counseling/discussion: -We continue to have a difficult time managing Ms. Urena's symptoms. -She states that the nerve block worked quite well, "about 50%" but yet continues to c/o abdominal pain at 5-6/10. Though she is able to ambulate in the hallways and ambulate to the bathroom. She used three doses of 1mg IV Dilaudid in last 24 hours. -Patient continues to have nausea and vomiting in the mornings. Her appetite is poor. We have trial all antiemetic medications, but they are in effective. She is receiving lorazepam 1mg 4x a day. Haldol 1mg scheduled BID and Q4h PRN. She thankfully not drowsy, but her nausea is not affected. I suspect the nausea is truly from her disease itself. -Patient has some constipation-- giving lactulose today. -Patient seems to be struggling with inner turmoil. She is tearful, but also will not fully express her frustration because she said "it's no use in getting all upset." I have suspicion that she is suffering from a great deal of emotional pain and frustration. Despite having a horrible disease, she is actually in remarkably great shape from a functional standpoint. It is frustrating to the patient that her disease continues to progress. -We talked about the possibility of home hospice to help manage her symptoms and allow her to be home. She is going to think about it. If she should happen to get symptoms under control and improve once home, she could sign off of hospice if she wanted. If she goes home and continues to decline, she could stay on hospice. Patient already has a script for the Letrozole filled, so she could take this at home despite being on hospice. -If patient not agreeable to hospice, she could go home and continue with close follow up with Dr. Padilla for palliative-- but I think she would benefit from all the other things hospice has to offer such as social work and case management. -If patient has a bowel movement and does not use PRN Dilaudid, she could possibly go home tomorrow. Pain management has made some medication changes tod ay-- DC'ed IV Dilaudid and ordered oxy IR 5mg Q4h PRN. Would increase to 10mg if 5mg not effective. -We will continue to follow. (2) Cancer related pain: (3) Nausea & vomiting: (4) Peritoneal carcinoma: Subjective Patient is awake and oriented this morning. She is tearful throughout conversation. C/o abdominal pain 5/10, but says her pain is "about 50% better" after the nerve block yesterday. Patient was able to walk the hallways last evening, ambulating in room without difficulty. Is not in distress. Patient had some N/V this morning. Review of Systems Review of Systems: C/o abdominal pain, nausea, vomiting. Denies SOB. Physical Exam Constitutional: well developed and well nourished; no acute distress Eyes: PERRL ENMT: external ear and nose normal, oropharynx normal Respiratory: normal respiratory effort, lungs clear to auscultation Cardiovascular: RRR, no murmur, no edema Gastrointestinal (Abdomen): Inspection/Auscultation: + abdomen distended (mildly) and normal bowel sounds Percussion/Palpation: + abdomen tender (mildly) and abdomen soft Neurologic: moves all extremities and awake Psychiatric: A+Ox3, euthymic affect Insight: excellent insight Results & Data Vital Signs (Past 12 Hours) Vital Signs Temp Pulse Resp BP BP Pulse Ox 10/09/19 07:22 36.7 C 103 H 18 110/71 99 10/08/19 23:04 36.5 C 101 H 16 119/74 90 Time Spent Midlevel 45 minutes with >50% of the time spent at bedside with patient discussing symptom management and goals. (1) Nausea & vomiting Vomiting Intractability: unspecified Vomiting type: unspecified Qualified Code(s): R11.2 - Nausea with vomiting, unspecified
[2019-10-09] MEDS: OXYCODONE HCL IR 5 MG TAB (IMMEDIATE RELEASE) PO PRN (10:59)
--- NOTE | 2019-10-09 13:37 | Hospitalist Progress Note ---
Date of Service October 09, 2019 Assessment & Plan (1) Ovarian cancer: - Follows with Dr. Mederos at [facility] and oracle consultant-onc at [facility]. - Admitted with uncontrolled pain and nausea/vomiting -- CT scan showed progressive abd wall carcinomatosis and mild to moderate ascites. - S/p tumor path biopsy on 09/07/19; recommended to start Letrozole as outpatient by [facility] physician based on results. - Palliative consulted, greatly appreciate input. - Increased Fentanyl patch to 200 mcg; attempted to convert to PO Dilaudid, did not tolerate - continue prn dilaudid IV - - Pain management consulted for pain block which was done 10/08 with some relief but continued significant pain - Significant abd distention/discomfort -- KUB with moderate stool throughout colon and rectum, given fleet enema and Relistor dose with BM 10/06. Continue prn suppository. Palliative ordered lactulose (2) Nausea & vomiting: - Continues to have nausea and vomiting; most recent KUB negative for ileus or obstruction but did show moderate constipation. - Continue Ativan 1 mg IV q8hr. - No improvement with Haldol, Reglan, Zofran or Phenergan - palliative suggests increasing Haldol up to 4 mg and keeping it scheduled to stay ahead of the nausea. (3) Peritoneal carcinoma: - As noted above; follows with [facility] and [facility] oncology. (4) Ascites: - Mild to moderate ascites noted on admission. (5) Hx antineoplastic chemotherapy: - Follows with Dr. Zarco at [facility]; completed Taxol/Carboplatin chemotherapy 2.5 months ago. - Plan to start Letrozole as outpatient per gyne-onc physician at [facility]. (6) Acute dehydration: - Received IV fluids, now discontinued. (7) Anxiety: - Cymbalta 20 mg daily - Ativan q8hr prn will change to scheduled once we assess for oversedation from narcotics now that pain block has been administered (8) GERD (gastroesophageal reflux disease): - Protonix 40 mg hs. (9) Anemia: - Chemotherapy induced. - Transfuse prn. (10) Hypertension: - Continue home Lisinopril. (11) Breast cancer: - H/o, see above. (12) Hypercalcemia: - Ca level elevated in setting of metastatic disease. - Continue to trend - corrected for albumin at 11.8 - may need to consider bisphosphonates if trends up further. Will discuss with her oncologist (13) DVT prophylaxis: - Lovenox Dispo: Discharge pending adequate pain control. Subjective Ms. Urena continues to have significant pain and nausea though she did get some relief from the block yesterday. She is still experiencing constipation ROS Constitutional: no chills, aches, sweats or fever Respiratory: no sob,cough, sputum, or wheezing Cardiac: no chest pain, palpitations, edema, orthopnea or lightheadedness GI: see HPI : no dysuria or hesitancy Extremities: no joint pain or weakness Skin: no rash All other systems reviewed and negative Physical Exam Physical Exam: General: no distress Eyes: normal inspection, PERLL Respiratory: chest non tender, clear to auscultation, normal breath sounds, no respiratory distress, no accessory muscle use Cardiac: regular rate and rhythm, no rub or gallop, no murmur, no edema, no jvd GI/: active bowel sounds, abdomen tender and distended Extremities: normal range of motion, normal strength, non tender Neuro/Psych: alert and oriented x 3, normal mood and affect Skin: normal color, dry Results & Data Vital Signs (Past 12 Hours) Vital Signs Temp Pulse Resp BP BP Pulse Ox 10/09/19 11:18 36.6 C 96 H 18 155/84 H 94 10/09/19 07:22 36.7 C 103 H 18 110/71 99 PG Care Time/CCT Total # of Minutes Spent Total Time Spent with Patient: Total time spent is greater than 50% in coordination of care (as documented) at patient's floor/unit and/or counseling patient: (1) Nausea & vomiting Vomiting Intractability: unspecified Vomiting type: unspecified Qualified Code(s): R11.2 - Nausea with vomiting, unspecified
[2019-10-09] MEDS ORDERED: ZOLEDRONIC ACID 4 MG in 0.9 % SODIUM CHLORIDE 100 ML IV ONE (15:02)
[2019-10-09] MEDS: SODIUM CHLORIDE 0.9% 1000ML 1,000 ML IV SCH (15:40)
[2019-10-09] MEDS ORDERED: IOVERSOL 100ml IV PRN (16:44)
[2019-10-09] MEDS: fentaNYL 100 MCG/HR TDSY TD SCH ×2 (18:29)
--- NOTE | 2019-10-09 18:44 | CT Scan Report ---
ABDOMEN AND PELVIS CT WITH IV CONTRAST CT DOSE: 786.08 mGycm HISTORY: Analyzed abdominal pain TECHNIQUE: Multiaxial CT images of the abdomen and pelvis were performed following the use of intrave nous contrast. A dose lowering technique was utilized adhering to the principles of ALARA. COMPARISON STUDY: Abdomen and pelvis CT 09/30/2019. Ovarian carcinoma. FINDINGS: Increase in size in the small bilateral pleural effusions. Moderate hiatus hernia is again noted. Bibasilar linear densities are nonspecific but favor subsegmental atelectasis. No pneumoperito neum. No pneumatosis. Moderate body wall edema which has progressed. No hepatic or splenic masses. Th e pancreas, adrenal glands, and kidneys are unremarkable. No hydronephrosis. Prior anastomosis of the transverse colon. Moderate to large amount ascites which has progressed. Extensive peritoneal and om ental soft tissue nodularity consistent with the patient's history of carcinomatosis remains unchange d. The uterus is surgically absent. Prior sigmoid anastomosis. Small to moderate amount of well-forme d stool within the colon. Single focal dilated loop of small bowel in the deep pelvis which measures 3.5 cm in diameter. Remaining loops of proximal and small bowel are decompressed. Transverse linear f ocus of gas near the vaginal cuff appears to be located within a bowel loop. The bladder is decompres sed. IMPRESSION: 1. Interval progression of the bilateral pleural effusions, body wall edema, and moderate to large as cites. 2. Extensive omental and peritoneal nodularity consistent with the patient's history of peritoneal ca rcinomatosis. This is not significantly changed. 3. A single focally dilated loop of small bowel within the deep pelvis. This raises the possibility o f a developing low-grade partial small bowel obstruction. Close clinical follow-up recommended. 4. Bibasilar linear densities are nonspecific but favor subsegmental atelectasis. A pneumonia could a lso a similar appearance in the appropriate clinical setting. 5. Moderate hiatus hernia. Electronically signed by: Jamie Matthews M.D. 10/09/2019 6:43 PM
[2019-10-09] MEDS: PANTOprazole 40 MG TAB PO SCH (21:25)
[2019-10-10] MEDS: HYDROmorphone INJ 1 MG/ML SYRINGE IV PRN ×5 (00:29→15:44)
[2019-10-10] MEDS: CHECK FENTANYL PATCH PLACEMENT SCH ×6 (00:30→15:44)
[2019-10-10] MEDS: ONDANSETRON INJ 2 MG/ML 2 ML VIAL IV PRN ×2 (02:21→10:53)
[2019-10-10] MEDS: SODIUM CHLORIDE 0.9% 1000ML 1,000 ML IV SCH ×2 (04:56→17:37)
[2019-10-10] MEDS: lisinopriL 10 MG TAB PO SCH (09:04)
[2019-10-10] MEDS: DOCUSATE SODIUM/SENNA 50/8.6MG TAB PO SCH ×2 (10:09→20:11)
[2019-10-10] MEDS: haloperidoL 1 MG TAB PO SCH ×2 (10:09→20:23)
[2019-10-10] MEDS: LORazepam 1 MG TAB SL SCH ×3 (10:09→19:36)
[2019-10-10 10:17] LABS: Basophils # (auto) 0.01 K/uL (0-0.2); Basophils % (auto) 0.2 %; Eosinophils # (auto) 0.01 K/uL (0-0.5); Eosinophils % (auto) 0.2 %; Hematocrit (blood only) 35.8 % (37-47); Hemoglobin 11.5 g/dL (12.0-16.0); Lymphocytes # (auto) 0.14 K/uL (1.2-3.4); Lymphocytes % (auto) 2.2 %; Mean Corpuscular Hemoglobin 30.7 pg (25-34); Mean Corpuscular Hgb Conc 32.1 g/dL (32-36); Mean Corpuscular Volume 95.7 fL (80-100); Mean Platelet Volume 9.9 fL (7.4-10.4); Monocytes # (auto) 0.15 K/uL (0.11-0.59); Monocytes % (auto) 2.3 %; Neutrophils # (auto) 6.15 K/uL (1.4-6.5); Neutrophils % (auto) 95.1 %; Platelet Count 206 K/uL (130-400); RDW Coefficient of Variation 13.9 % (11.5-14.5); Red Blood Count 3.74 M/uL (4.2-5.4); White Blood Count 6.46 K/uL (4.8-10.8)
[2019-10-10 10:36] LABS: Albumin Level 2.6 gm/dl (3.4-5.0); BUN Creatinine Ratio 38.4 (10-20); Calcium 9.9 mg/dl (8.5-10.1); Creatinine Clr Calc Pharmacy 81.9 ml/min; Est GFR (African American) 106.9; Est GFR (Non-African American) 92.2; Potassium 3.9 mmol/L (3.5-5.1)
[2019-10-10 10:39] LABS: Albumin Globulin Ratio 0.8 (0.9-2); Bilirubin,Total 0.5 mg/dl (0.2-1); Globulin 3.2 gm/dl (2.5-4.0); Total Protein 5.8 gm/dl (6.4-8.2)
[2019-10-10] MEDS ORDERED: Nursing to Pharmacy Communication ONE (10:47)
[2019-10-10] MEDS: HEPARIN 100 UNIT/ML 5ML FLUSH FLUSH PRN (10:56)
[2019-10-10] MEDS ORDERED: PIPERACILL/TAZOBAC CONSULT ACTIVE PRN (11:13)
[2019-10-10] MEDS ORDERED: PIPERACILLIN/TAZOBACTAM 4.5 GM in DEXTROSE 5% 100 ML IV STA (11:13)
[2019-10-10] MEDS ORDERED: VANCOMYCIN CONSULT ACTIVE PRN (11:13)
[2019-10-10] MEDS ORDERED: VANCOMYCIN HCL 1,000 MG in SODIUM CHLORIDE 0.9% 250 ML IV SCH (11:15)
[2019-10-10] MEDS ORDERED: VANCOMYCIN HCL 1,750 MG in SODIUM CHLORIDE 0.9% 500 ML IV STA (11:26)
[2019-10-10] MEDS: ACETAMINOPHEN 1,000 MG/100 ML VIAL IV PRN ×2 (11:47→20:11)
[2019-10-10] MEDS: METHYLNALTREXONE BROMIDE 12 MG/0.6 ML VIAL SQ SCH (11:52)
[2019-10-10] MEDS: POLYETHYLENE (MIRALAX) 17 GM PACK PO SCH (11:52)
[2019-10-10] MEDS: DULOXETINE HCL 20 MG CAP PO SCH (11:52)
[2019-10-10] MEDS: cefTRIAXone SODIUM 2,000 MG in DEXTROSE 5% 50 ML IV SCH (12:10)
--- NOTE | 2019-10-10 12:20 | XRay Report ---
XR chest 1V portable CLINICAL HISTORY: sob, fever dyspnea COMPARISON STUDY: 09/30/2019 FINDINGS: Mild stable cardiac enlargement. Fixed hiatal hernia. Small parenchymal infiltrate right base. Chronic atelectatic changes left base. Small left effusion. Central catheter in superior vena cava. IMPRESSION: 1. Infiltrate right base. 2. Small left pleural effusion. 3. Stable pre-existing hiatal hernia. The above report was generated using voice recognition software. It may contain grammatical, syntax or spelling errors. Electronically signed by: Fernando Huhges M.D. 10/10/2019 12:19 PM
--- NOTE | 2019-10-10 13:03 | XRay Report ---
KUB HISTORY: NG tube placement. COMPARISON: None. FINDINGS: No NG tube is present on the provided images. Small bilateral pleural effusions. Prior chol ecystectomy. Residual contrast within the renal collecting system. No renal calculi. No ureteral lester culi. No pneumoperitoneum or pneumatosis. IMPRESSION: No NG tube identified on the provided images. Electronically signed by: Jamie Matthews M.D. 10/10/2019 1:02 PM
--- NOTE | 2019-10-10 14:13 | Palliative Care Progress Note ---
Date of Service October 10, 2019 Assessment & Plan (1) Goals of care, counseling/discussion: - -Patient stated that the nerve block worked quite well, "about 50%" but yet continues to c/o abdominal pain at 5-6/10. Though she is able to ambulate in the hallways and ambulate to the bathroom. She used 6 doses of 1mg IV Dilaudid in last 24 hours. -Patient continues to have nausea, no further vomiting. Her appetite is poor. She is receiving lorazepam 1mg 4x a day. Haldol 1mg scheduled BID and Q4h PRN. She thankfully not drowsy, but her nausea is still present. I suspect the nausea is truly from her disease itself. -Patient continues to be constipated-received Relistor on 10/06, refused Relistor today. Encourage patient to take Relistor. Patient has failed lactulose as well as MiraLAX and suppository -Patient with increasing ascites-for paracentesis today. -Patient continues to decline despite current measures to control nausea and pain. -We will continue to follow and assist patient and family with medical decision making.. (2) Cancer related pain: (3) Nausea & vomiting: (4) Peritoneal carcinoma: Subjective Patient awake and alert, no acute distress. Patient appears more pale on exam this a.m. Patient's not at bedside-he had a doctor's appointment to attend in [place]. Patient with increased abdominal distention-has not moved her bowels since 10/04. Patient did receive Relistor on 10/06 with no effect. Patient refused Relistor this a.m.-encourage patient to take dose to assist with her bowel movements. Patient's nausea is fairly well controlled on scheduled Ativan. Patient does not appear to have severe pain-she is on fentanyl patch 200 mcg every 72 hours, she continues to request frequent Dilaudid-requesting 6 doses in 24 hours. Patient had a CT scan performed on 10/09 which showed increased bilateral pleural effusions, large amount of ascites, and possible partial small bowel obstruction. Patient is plan for paracentesis today. Patient continues on Rocephin and vancomycin and remains afebrile. Review of Systems Review of Systems: Patient denies fever, chills, chest pain, increased shortness of breath. Positive for anxiety, nausea, and increased abdominal distention. Positive for abdominal pain Physical Exam Physical Exam: PE: Patient appears comfortable lying in bed. Is more pale on exam HEENT: EOMI, hearing within normal limits Respirations: Unlabored, on O2 at 2 L, diminished breath sounds bilateral bases, left greater than right. CV: Tachycardic Abdomen: Distended, not tender to light palpation Extremities: Full range of motion Neuro: Alert and oriented Psych: Anxious Results & Data Vital Signs (Past 12 Hours) Vital Signs Temp Pulse Resp BP Pulse Ox 10/10/19 11:17 102.4 F H 130 H 18 138/80 92 10/10/19 07:31 98.4 F 124 H 18 143/84 H 90 10/10/19 04:00 97.7 F 118 H 19 130/82 92 PG Care Time/CCT Total # of Minutes Spent Total Time Spent with Patient: Total time spent is greater than 50% in coordination of care (as documented) at patient's floor/unit and/or counseling patient: Time Spent Attending Spent 40 minutes with greater than 50% of the time spent at bedside discussing patient's current status as well as goals of care. (1) Nausea & vomiting Vomiting Intractability: unspecified Vomiting type: unspecified Qualified Code(s): R11.2 - Nausea with vomiting, unspecified
--- NOTE | 2019-10-10 14:15 | Ultrasound Report ---
ULTRASOUND-GUIDED THERAPEUTIC PARACENTESIS: HISTORY: Ascites. Procedure: The procedure and its risks, benefits and alternatives were discussed with the patient and written informed consent was obtained. Preliminary ultrasound of the abdomen was performed to determ ine a safe needle entry site. The left lower quadrant was prepped and draped in the usual sterile fashion. 1% Lidocaine was used fo r local anesthesia. A paracentesis needle-sheath was inserted into the peritoneal space using ultraso und guidance. The needle was removed and the sheath was connected to tubing and a vacuum suction albino ce. A total of 5 liters of yellow ascites was aspirated. The sheath was removed and a sterile dressin g applied. The patient tolerated the procedure well and there were no immediate complications. IMPRESSION: Ultrasound-guided therapeutic paracentesis with aspiration of 5 liters of ascites. Electronically signed by: Jamie Matthews M.D. 10/10/2019 2:13 PM
[2019-10-10 14:59] LABS: Glucose Peritoneal Fluid 139 mg/dl
[2019-10-10 15:00] LABS: Appearance Peritoneal Fluid CLEAR; Basophils, Fluid 0 %; Color Peritoneal Fluid PALE YELLOW; Eosinophils, Fluid 0 %; Lymphocytes, Fluid 21 %; Mono,Macrophage,Mesothelial 64 %; Neutrophils, Fluid 15 %; RBC Peritoneal Fluid (A) < 3000 /uL; WBC Peritoneal Fluid (A) 284 /ul (0-300)
[2019-10-10 15:12] LABS: LDH Peritoneal Fluid 150 U/L; Total Protein Peritoneal Fluid 3.4 g/dl
--- NOTE | 2019-10-10 15:16 | XRay Report ---
KUB HISTORY: NG tube placement. Readjusted COMPARISON: KUB 10/10/2019. FINDINGS: The bowel gas pattern is unremarkable. There are no dilated loops of small bowel to suggest an obstruction. Prior cholecystectomy. A nasogastric tube terminates in the body of the stomach. Mu ltiple bilateral pleural effusions are again noted. No pneumoperitoneum or pneumatosis. IMPRESSION: A nasogastric tube terminates in the body of the stomach. Electronically signed by: Jamie Matthews M.D. 10/10/2019 3:14 PM
--- NOTE | 2019-10-10 15:19 | Consultation Report ---
DATE OF CONSULTATION: 10/10/2019 GASTROINTESTINAL CONSULTATION REASON FOR CONSULTATION: Possible venting gastrostomy tube. HISTORY OF PRESENT ILLNESS: The patient is a 73-year-old with metastatic ovarian cancer for the past 6 years, followed by Dr. Zarco at [facility]. 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 The patient has had a nasogastric tube in to help control her symptoms, but she continues to accumulate ascites and had 5 liters removed earlier today for comfort. The patient is considering palliative care and hospice at this time, and GI consultation has been requested to consider a palliative venting gastrostomy tube. PAST MEDICAL HISTORY: Remarkable for breast cancer, status post bilateral mastectomy. She has also had ovarian cancer in her 20s, had a total abdominal hysterectomy with bilateral salpingo-oophorectomy for endometriosis; however, there was some residual ovarian tissue left behind, which has subsequently become cancerous. Of note is that her mother of ovarian cancer as well. She has had liver metastases and carcinomatosis with complications. MEDICATIONS: Per list. ALLERGIES: SULFA. FAMILY HISTORY: Positive for mother who of ovarian cancer. SOCIAL HISTORY: The patient is , lives with her spouse. Former smoker, no alcohol. REVIEW OF SYSTEMS: Positive for nausea and weakness. PHYSICAL EXAMINATION: GENERAL: The patient is sitting in bed with a nasogastric tube in. She is not having any obvious distress at this time. VITAL SIGNS: Blood pressure is 122/72, pulse 120, respirations 18, temperature is 37.6. ABDOMEN: Slightly distended, slightly tender. Review of x-rays shows she has a large hiatal hernia with approximately half of her stomach in the chest cavity. There is some moderate amount of ascites in the abdomen. The stomach is somewhat displaced because of the hiatal hernia, ascites and carcinomatosis, and the left lobe of the liver and some loops of bowel are interposed between the anterior gastric wall and the anterior abdominal wall. IMPRESSION AND PLAN: The patient has abdominal carcinomatosis from ovarian cancer and a venting gastrostomy tube has been requested. Unfortunately, this is not going to be able to be performed endoscopically because of the large hiatal hernia with at least half of her stomach in the chest cavity, making an abdominal approach very difficult. Also, there is ascites and left lobe of the liver and partial bowel interposed between the gastric wall and the abdominal wall, which would make it inadvisable and not possible to oppose the stomach to the abdominal wall easily at least endoscopically. I talked to the patient about these conditions and we will ask the surgeons if there is any possible way that they think that they could potentially put in a gastrostomy tube surgically.
--- NOTE | 2019-10-10 15:31 | Pharmacy Report ---
Pharmacy Abx Initial Consult - Date of Service October 10, 2019 - Pharmacy Dosing Scope Date of Consult: 10/10 Consultation requested by: Ana María CAICEDO Pharmacy is consulted to initiate vancomycin IV/PO dosing therapy, order appropriate labs and adjust drug dose/frequency. - Subjective The patient is a 73 year old F admitted on 09/30/19 16:43. - Objective Height: 5 ft 6 in Weight: 70.7 kg Vital Signs (Past 12hrs): Vital Signs Temp Pulse Pulse Resp BP BP Pulse Ox 10/10/19 15:00 124 H 122/72 10/10/19 14:10 37.6 C H 122 H 18 94/59 L 94 10/10/19 11:17 39.1 C H 130 H 18 138/80 92 10/10/19 07:31 36.9 C 124 H 18 143/84 H 90 10/10/19 04:00 36.5 C 118 H 19 130/82 92 Lab Results (24hrs): Laboratory Tests (24 Hours) 10/10/19 10/10/19 09:53 09:53 WBC 6.46 Neut # (Auto) 6.15 Creatinine 0.59 L Est Cr Clr Drug Dosing 81.9 Micro Results: 10/10/19 Unknown Gram Stain - Pending Peritoneal Fluid Aerobic and Anaerobic Culture - Pending 10/10/19 11:42 Aerobic Blood Culture - Pending Blood Anaerobic Blood Culture - Pending 10/10/19 11:48 Aerobic Blood Culture - Pending Blood Anaerobic Blood Culture - Pending - Risk Factors for Resistance * Hospitalization for 48 hours or more within the past 90 days * Current hospitalization > 5 days * Immunocompromised (chronic steroid therapy, chemotherapy, immunomodulators) - Assessment & Plan Assessment 73 year old F with PMHx of ovarian cancer, breast cancer admitted with increased abdominal pain. Patient with normal white count but febrile today 30.1. Patient to get paracentesis, concern for possible SBP? Starting ceftriaxone and vancomycin empirically. Plan Vancomycin IV * Estimated PK Parameters: Vd 0.7 L/kg, Yobany 0.072 hr-1, t1/2 9.5 hr * Loading dose: 1750 mg (25 mg/kg) * Maintenance dose:1000 mg IV (14.2 mg/kg) every 12 hours * Goal trough level 15-20 mcg/mL * Trough ordered for 10/12 @ 1530 Pharmacy will continue to follow and will adjust dose/frequency as necessary. Thank you.
[2019-10-10] MEDS: ALBUMIN 25% 50 ML IV SCH ×2 (16:38→17:33)
--- NOTE | 2019-10-10 17:05 | Hospitalist Progress Note ---
Date of Service October 10, 2019 Assessment & Plan (1) Ovarian cancer: - BRCA positive with history of breast cancer as well - Follows with Dr. Mederos at [facility] and patent searcher-onc at [facility]. - S/p tumor path biopsy on 09/07/19; recommended to start Letrozole as outpatient by [facility] physician based on results. - Admitted with uncontrolled pain and nausea/vomiting -- CT scan on admission showed progressive abd wall carcinomatosis and mild to moderate ascites, repeat CT 10/10 showed increased ascites and partial small bowel obstruction - paracentesis 10/10 removed 5L NC - gave 25g albumin as patient returned from paracentesis with soft pressures and this is on the cusp of a large enough tap to warrant colloid replacement - Continue Fentanyl patch to 200 mcg; attempted to convert to PO Dilaudid, did not tolerate - continue prn dilaudid IV - discussed possiblility of oversedation with nursing now that patient has less pain following paracentesis. Can be put back on the continuous pulse ox if necessary overnight. Patient has narcan on her list. Can remove a fentanyl patch if necessary as well. At this point I will not decrease any narcotics as patient is comfortable for the first time in days. - Pain management consulted for pain block which was done 10/08 - Palliative consulting (2) Febrile illness: Fever of 39.1 10/10 with sob and tachycardia Suspect some of the sob d/t increasing abdominal distention now relieved by paracentesis R/o SBP - awaiting gram stain and culture - does not appear to be SBP by WBC/neutrophils in the peritoneal fluid CXR with small infiltrate right lung - aspiration? Initiated ceftriaxone and vancomycin BC pending (3) Nausea & vomiting: With small bowel obstruction as above - Continued to have nausea and vomiting - NG tube placed 10/10 providing some relief - GI consulted for palliative G tube - per Dr. Galvan's note this would be very difficult endoscopically, he will discuss with surgery - Continue Ativan 1 mg IV q8hr but change to prn from scheduled as patient is more sedated this afternoon - No improvement with Haldol, Reglan, Zofran or Phenergan - palliative suggests increasing Haldol up to 4 mg and keeping it scheduled to stay ahead of the basim sea. - continue suppositories (4) Peritoneal carcinoma: - As noted above; follows with [facility] and [facility] oncology. (5) Ascites: As above (6) Hx antineoplastic chemotherapy: - Follows with Dr. Zarco at [facility]; completed Taxol/Carboplatin chemotherapy 2.5 months ago. - Plan to start Letrozole as outpatient per gyne-onc physician at [facility]. (7) Acute dehydration: - Resumed fluids as patient is NPO (8) Anxiety: - Continue Cymbalta 20 mg daily - Continue Ativan q8hr but will change to IV prn as patient is npo and more sedated this afternoon so scheduled dosing is not optimal (9) GERD (gastroesophageal reflux disease): - Protonix 40 mg hs. (10) Anemia: - Chemotherapy induced. - Transfuse prn. (11) Hypertension: - Continue home Lisinopril. (12) Breast cancer: - H/o, see above. (13) Hypercalcemia: - Ca level elevated in setting of metastatic disease. - Continue to trend - corrected for albumin calcium is 11 which is improved from 11.8 following zolendronic acid administration and fluids (14) DVT prophylaxis: - Lovenox Subjective Ms Urena did not look well this morning, ashen with severe abdominal pain. She continues to be nauseas and vomiting, febrile and tachycardic. She was sent for a paracentesis which took off 5 liters of ascites. She appears much more comfortable when I saw her this evening. I discussed with nursing that we will have to monitor for oversedation given that she is getting a significant narcotic load with decrease in underlying pain and anxiety. ROS Constitutional: no chills, aches, sweats or fever Respiratory: no cough, sputum, or wheezing, does express sob Cardiac: no chest pain, palpitations, edema, orthopnea or lightheadedness GI: see HPI : no dysuria or hesitancy Extremities: no joint pain or weakness Skin: no rash All other systems reviewed and negative Physical Exam Physical Exam: General: uncomfortable appearing Eyes: normal inspection, PERLL Respiratory: chest non tender, clear to auscultation, normal breath sounds, no respiratory distress, no accessory muscle use Cardiac: regular rate and rhythm, no rub or gallop, no murmur, no edema, no jvd GI/: active bowel sounds, abdomen painful, firm, distended Extremities: normal range of motion, normal strength, non tender Neuro/Psych:drowsy and oriented x 3 with some confusion, normal mood and affect Skin: ashen Results & Data Vital Signs (Past 12 Hours) Vital Signs Temp Pulse Pulse Resp BP BP Pulse Ox 10/10/19 15:00 124 H 122/72 10/10/19 14:10 37.6 C H 122 H 18 94/59 L 94 10/10/19 11:17 39.1 C H 130 H 18 138/80 92 10/10/19 07:31 36.9 C 124 H 18 143/84 H 90 PG Care Time/CCT Total # of Minutes Spent Total Time Spent with Patient: Total time spent is greater than 50% in coordination of care (as documented) at patient's floor/unit and/or counseling patient: (1) Nausea & vomiting Vomiting Intractability: unspecified Vomiting type: unspecified Qualified Code(s): R11.2 - Nausea with vomiting, unspecified
[2019-10-10] MEDS ORDERED: LORazepam 1 MG TAB SL PRN (17:31)
[2019-10-10] MEDS ORDERED: LORazepam 0.5 MG/1 ML VIAL IV PRN (17:31)
--- NOTE | 2019-10-10 19:43 | Surgery Consultation ---
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 IMP: ovarian cancer with carcinomatosis, nausea, vomiting, NG tube in - not drainage anything out, KUB - NG tube in stomach, NO SBO, no indication for surgical gastrostomy now, base on pt has no SBO, and also pt is not good candidate for surgical gastrostomy base on significant abdominal scar with moderate to large ascites. the surgery incision will difficulty to heal. other options- may consult other surgeon or GI doctor for PEG. pt agrees with the plan, I answered all questions, sign off today, please call with questions. Thanks, History of Present Illness Attending Physician: Rob Maurer MD History of Present Illness HISTORY OF PRESENT ILLNESS: The patient is a 73-year-old with metastatic ovarian cancer for the past 6 years, followed by Dr. Zarco at [place]. 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 The patient has had a nasogastric tube in to help control her symptoms, but she continues to accumulate ascites and had 5 liters removed earlier today for comfort. The patient is considering palliative care and hospice at this time, and GI consultation has been requested to consider a palliative venting gastrostomy tube. 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 Unfortunately, this is not going to be able to be performed endoscopically because of the large hiatal hernia with at least half of her stomach in the chest cavity, making an abdominal approach very difficult. Also, there is ascites and left lobe of the liver and partial bowel interposed between the gastric wall and the abdominal wall, which would make it inadvisable and not possible to oppose the stomach to the abdominal wall easily at least endoscopically. I talked to the patient about these conditions and we will ask the surgeons if there is any possible way that they think that they could potentially put in a gastrostomy tube surgically. I got a call for consult possible surgical gastrostomy, I reviewed pt's H/P with pt, pt has NG tube in, pt has no nausea, no vomiting today, today, KUB- HISTORY: NG tube placement. Readjusted COMPARISON: KUB 10/10/2019. FINDINGS: The bowel gas pattern is unremarkable. There are no dilated loops of small bowel to suggest an obstruction. Prior cholecystectomy. A nasogastric tube terminates in the body of the stomach. Multiple bilateral pleural effusions are again noted. No pneumoperitoneum or pneumatosis. IMPRESSION: A nasogastric tube terminates in the body of the stomach. PAST MEDICAL HISTORY: Remarkable for breast cancer, status post bilateral mastectomy. She has also had ovarian cancer in her 20s, had a total abdominal hysterectomy with bilateral salpingo-oophorectomy for endometriosis; however, there was some residual ovarian tissue left behind, which has subsequently become cancerous. Of note is that her mother of ovarian cancer as well. She has had liver metastases and carcinomatosis with complications. MEDICATIONS: Per list. ALLERGIES: SULFA. FAMILY HISTORY: Positive for mother who of ovarian cancer. SOCIAL HISTORY: The patient is , lives with her spouse. Former smoker, no alcohol. Allergies Allergy/AdvReac Type Severity Reaction Status Date / Time Sulfa (Sulfonamide Allergy Mild NAUSEA; Verified 09/30/19 12:08 Antibiotics) AFFECTS BLOOD Home Medications Home Medications Medication Instructions Recorded Confirmed Type clonazepam 0.5 mg PO BID PRN 07/29/18 09/30/19 History lisinopril 10 mg PO DAILY 07/29/18 09/30/19 History ondansetron HCl [Zofran] 4 mg PO UD PRN 07/29/18 09/30/19 History prochlorperazine maleate 10 mg PO Q6H PRN 07/29/18 09/30/19 History [Compazine] hydromorphone 5 mg PO Q4H PRN #60 tab 12/27/18 09/30/19 Rx Rubraca 1,200 mg PO DAILY 08/01/19 09/30/19 History duloxetine 20 mg PO DAILY 08/01/19 09/30/19 History omeprazole 20 mg PO DAILY 08/01/19 09/30/19 History zolpidem 10 mg PO HS PRN 08/01/19 09/30/19 History polyethylene glycol 3350 [Miralax] 17 g PO DAILY #0 ea 08/05/19 09/30/19 Rx fentanyl 12 mcg TRANSDERMAL Q72H 09/30/19 09/30/19 History fentanyl 75 mcg TRANSDERMAL Q72H 09/30/19 09/30/19 History Patient History Medical History Breast cancer (Resolved) Cancer of peritoneum Cancer related pain (Chronic) Hx antineoplastic chemotherapy (Resolved) Ovarian cancer (Resolved) Peritoneal carcinoma Small bowel obstruction (Acute) Surgical History History of bowel resection Ovarian tumor debulking in 2012. 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 Beliefs That Will Affect Care: None marital status: Current Living Situation: Spouse current occupational status: retired Other Information That Helps Us Care for You: No Feels Safe at Home: Yes Safety Concerns: Feels Safe At This Time Smoking Status: Former smoker Do You Dip or Chew Tobacco: No ; Second Hand Exposure: No ; Tobacco Cessation Education Requested by Patient: No Hx Alcohol Use: No Hx Substance Use: No Review of Systems Review of Systems: All systems reviewed & are unremarkable except as noted in HPI & below Ear, Nose, Mouth, Throat: as per Subjective / HPI Respiratory: as per Subjective / HPI Cardiovascular: as per Subjective / HPI Gastrointestinal: ascites, carcinomatosis Genitourinary: ovarian cancer, breast cancer Musculoskeletal: as per Subjective / HPI Neurologic: as per Subjective / HPI Psychiatric: as per Subjective / HPI Endocrine: as per Subjective / HPI Hematologic / Lymphatic: as per Subjective / HPI Physical Exam Constitutional: WD/WN, vitals as above well developed and + ill appearing ENMT: external ear and nose normal, oropharynx normal Neck: trachea midline, no thyromegaly Respiratory: normal respiratory effort, lungs clear to auscultation Cardiovascular: RRR, no murmur, no edema Rate/Rhythm: regular rate and regular rhythm Gastrointestinal (Abdomen): Percussion/Palpation: abdomen soft long middle line scar, no tenderness, no distend, BS + Musculoskeletal: no cyanosis or clubbing, extremities motor strength 5/5 Skin: no rashes, warm and dry Neurologic: patellar DTR's 2+ bilat, sensation intact Psychiatric: Orientation: alert and oriented x 3 Results & Data Vital Signs (Past 12 Hours) Vital Signs Temp Pulse Pulse Resp BP BP Pulse Ox 10/10/19 19:01 38.5 C H 112 H 16 112/66 98 10/10/19 15:00 124 H 122/72 10/10/19 14:10 37.6 C H 122 H 18 94/59 L 94 10/10/19 11:17 39.1 C H 130 H 18 138/80 92 Laboratory Results Abnormal lab results 10/10/19 10/10/19 Range/Units 09:53 09:53 RBC 3.74 L (4.2-5.4) M/uL Hgb 11.5 L (12.0-16.0) g/dL Hct 35.8 L (37-47) % RDW Std Deviation 49.0 H (36.4-46.3) fL Lymph # (Auto) 0.14 L (1.2-3.4) K/uL BUN 23 H (7-18) mg/dl Creatinine 0.59 L (0.6-1.2) mg/dl BUN/Creatinine Ratio 38.4 H (10-20) Glucose 151 H (70-99) mg/dl Total Protein 5.8 L (6.4-8.2) gm/dl Albumin 2.6 L (3.4-5.0) gm/dl Albumin/Globulin Ratio 0.8 L (0.9-2) Diagnostic Findings KUB HISTORY: NG tube placement. Readjusted COMPARISON: KUB 10/10/2019. FINDINGS: The bowel gas pattern is unremarkable. There are no dilated loops of small bowel to suggest an obstruction. Prior cholecystectomy. A nasogastric tube terminates in the body of the stomach. Multiple bilateral pleural effusions are again noted. No pneumoperitoneum or pneumatosis. IMPRESSION: A nasogastric tube terminates in the body of the stomach. ABDOMEN AND PELVIS CT WITH IV CONTRAST CT DOSE: 786.08 mGycm HISTORY: Analyzed abdominal pain TECHNIQUE: Multiaxial CT images of the abdomen and pelvis were performed following the use of intravenous contrast. A dose lowering technique was utilized adhering to the principles of ALARA. COMPARISON STUDY: Abdomen and pelvis CT 09/30/2019. Ovarian carcinoma. FINDINGS: Increase in size in the small bilateral pleural effusions. Moderate hiatus hernia is again noted. Bibasilar linear densities are nonspecific but favor subsegmental atelectasis. No pneumoperitoneum. No pneumatosis. Moderate body wall edema which has progressed. No hepatic or splenic masses. The pancreas, adrenal glands, and kidneys are unremarkable. No hydronephrosis. Prior anastomosis of the transverse colon. Moderate to large amount ascites which has progressed. Extensive peritoneal and omental soft tissue nodularity consistent with the patient's history of carcinomatosis remains unchanged. The uterus is surgically absent. Prior sigmoid anastomosis. Small to moderate amount of well- formed stool within the colon. Single focal dilated loop of small bowel in the deep pelvis which measures 3.5 cm in diameter. Remaining loops of proximal and small bowel are decompressed. Transverse linear focus of gas near the vaginal cuff appears to be located within a bowel loop. The bladder is decompressed. IMPRESSION: 1. Interval progression of the bilateral pleural effusions, body wall edema, and moderate to large ascites. 2. Extensive omental and peritoneal nodularity consistent with the patient's history of peritoneal carcinomatosis. This is not significantly changed. 3. A single focally dilated loop of small bowel within the deep pelvis. This raises the possibility of a developing low-grade partial small bowel obstruction. Close clinical follow-up recommended. 4. Bibasilar linear densities are nonspecific but favor subsegmental atelectasis. A pneumonia could also a similar appearance in the appropriate clinical setting. 5. Moderate hiatus hernia. (1) Nausea & vomiting Vomiting Intractability: unspecified Vomiting type: unspecified Qualified Code(s): R11.2 - Nausea with vomiting, unspecified
[2019-10-10] MEDS: PANTOprazole 40 MG TAB PO SCH (20:11)
[2019-10-11] MEDS: CHECK FENTANYL PATCH PLACEMENT SCH ×6 (00:43→16:24)
[2019-10-11] MEDS: SODIUM CHLORIDE 0.9% 1000ML 1,000 ML IV SCH ×2 (04:28→13:08)
[2019-10-11] MEDS: VANCOMYCIN HCL 1,000 MG in SODIUM CHLORIDE 0.9% 250 ML IV SCH ×2 (04:28→16:23)
[2019-10-11] MEDS: HYDROmorphone INJ 1 MG/ML SYRINGE IV PRN (04:39)
[2019-10-11 08:41] LABS: Basophils # (auto) 0.01 K/uL (0-0.2); Basophils % (auto) 0.3 %; Eosinophils # (auto) 0.02 K/uL (0-0.5); Eosinophils % (auto) 0.6 %; Hematocrit (blood only) 33.2 % (37-47); Hemoglobin 10.7 g/dL (12.0-16.0); Immature Granulocytes # (auto) 0.01 K/uL (0.00-0.02); Immature Granulocytes % (auto) 0.3 %; Lymphocytes # (auto) 0.22 K/uL (1.2-3.4); Lymphocytes % (auto) 6.7 %; Mean Corpuscular Hemoglobin 30.9 pg (25-34); Mean Corpuscular Hgb Conc 32.2 g/dL (32-36); Mean Platelet Volume 9.4 fL (7.4-10.4); Monocytes # (auto) 0.15 K/uL (0.11-0.59); Monocytes % (auto) 4.6 %; Neutrophils # (auto) 2.85 K/uL (1.4-6.5); Neutrophils % (auto) 87.5 %; Platelet Count 141 K/uL (130-400); RDW Coefficient of Variation 13.6 % (11.5-14.5); RDW Standard Deviation 47.3 fL (36.4-46.3); Red Blood Count 3.46 M/uL (4.2-5.4); White Blood Count 3.26 K/uL (4.8-10.8)
[2019-10-11 09:08] LABS: Albumin Globulin Ratio 0.9 (0.9-2); Albumin Level 2.1 gm/dl (3.4-5.0); BUN Creatinine Ratio 42.2 (10-20); Bilirubin,Total 0.3 mg/dl (0.2-1); Calcium 8.3 mg/dl (8.5-10.1); Creatinine Clr Calc Pharmacy 130.6 ml/min; Est GFR (African American) 124.6; Est GFR (Non-African American) 107.5; Globulin 2.2 gm/dl (2.5-4.0); Magnesium 1.7 mg/dl (1.8-2.4); Potassium 3.7 mmol/L (3.5-5.1); Total Protein 4.3 gm/dl (6.4-8.2)
[2019-10-11] MEDS: DULOXETINE HCL 20 MG CAP PO SCH (09:12)
[2019-10-11] MEDS: DOCUSATE SODIUM/SENNA 50/8.6MG TAB PO SCH ×2 (09:12→21:04)
[2019-10-11] MEDS: POLYETHYLENE (MIRALAX) 17 GM PACK PO SCH (09:12)
[2019-10-11] MEDS: lisinopriL 10 MG TAB PO SCH (09:12)
[2019-10-11] MEDS: cefTRIAXone SODIUM 2,000 MG in DEXTROSE 5% 50 ML IV SCH (09:12)
[2019-10-11] MEDS: haloperidoL 1 MG TAB PO SCH ×2 (10:08→21:03)
[2019-10-11] MEDS: bisacodyL 10 MG SUPP PR PRN (11:14)
[2019-10-11] MEDS ORDERED: MAGNESIUM SULFATE / D5W 1 GM/100 ML BAG IV ONE (11:45)
[2019-10-11] MEDS: LORazepam 1 MG TAB SL SCH ×3 (12:29→21:03)
--- NOTE | 2019-10-11 12:33 | Palliative Care Progress Note ---
Date of Service October 11, 2019 Assessment & Plan (1) Goals of care, counseling/discussion: -Patient is doing much better today. -5L ascitic fluid removed yesterday 10/10 from abdomen-- has improved her pain, nausea, and patient had several bowel movements today. -Dr. Mederos stopped in today to speak with patient. After their discussion, patient has decided that she would like to go home with hospice. Possibly as soon as tomorrow. -Asked case management to stop by and choose agency to make referral. -Patient's current symptom management regimen: -lorazepam 1mg PO QID scheduled. -haloperidol 1mg BID PO scheduled-- this could be discontinued if there is sedation and/or if her nausea continues to subside. -Fentanyl 200mcg/hr TD patch Q72h. -Oxycodone IR 5mg Q4h PRN for pain scale 1-5; 10mg Q4h PRN pain scale 6-10. -Continue the colace, senna, and mirilax for bowel regimen. -Unable to have venting G-tube placed due to her ascites and disease progression. -Prognosis is poor, patient is aware of this. Support given. -We will continue to follow while patient here in hospital, but she may be leaving tomorrow. (2) Cancer related pain: (3) Nausea & vomiting: (4) Peritoneal carcinoma: Subjective Patient is feeling much better today. She is awake and alert, oriented x4. Review of Systems Review of Systems: Abdominal pain is 4/10 today. No nausea/vomiting. Had BM x2 today so far after suppository. Physical Exam Constitutional: well developed and well nourished; no acute distress Eyes: PERRL ENMT: external ear and nose normal, oropharynx normal Respiratory: normal respiratory effort, lungs clear to auscultation Cardiovascular: RRR, no murmur, no edema Gastrointestinal (Abdomen): Inspection/Auscultation: + abdomen distended (mildly) and normal bowel sounds Percussion/Palpation: + abdomen tender (mildly) and abdomen soft Neurologic: moves all extremities and awake Psychiatric: A+Ox3, euthymic affect Results & Data Vital Signs (Past 12 Hours) Vital Signs Temp Pulse Resp BP Pulse Ox 10/11/19 11:06 36.8 C 92 H 18 107/65 92 10/11/19 07:10 37.0 C 93 H 18 102/61 94 10/11/19 04:18 36.7 C 94 H 18 113/68 94 10/11/19 00:39 36.5 C 98 H 19 118/73 96 Supervising Physician Co-Signing Physician Notes Patient seen and examined, no family at bedside. Patient feeling much better after had a 5 L removed via paracentesis as well as moving her bowels. Patient is tolerating some p.o., states pain is much improved also. PE: Patient awake alert, no acute distress respirations: Unlabored CV: Regular rate Abdomen: Significant decrease distention Neuro: Alert and oriented x4 Agree with above note, assessment and plan as per SASCHA Ramos. Will continue to follow and assist patient family with medical decision making. Discussed with patient at length that she can try taking the letrozole that her oncologist at [facility] gave her-if she does not tolerated then she can stop. Patient agreeable to going home under hospice care. Time Spent Midlevel 45 minutes with >50% of the time spent at bedside with patient discussing goals and plan of care including hospice. Attending Spent 30 minutes in addition to the above 45 minutes spent by SASCHA Ramos for a total of 75 minutes with greater than 50% of the time spent at bedsid e discussing treatment options as well as goals of care. (1) Nausea & vomiting Vomiting Intractability: unspecified Vomiting type: unspecified Qualified Code(s): R11.2 - Nausea with vomiting, unspecified
--- NOTE | 2019-10-11 12:45 | Hospitalist Progress Note ---
Date of Service October 11, 2019 Assessment & Plan (1) Ovarian cancer: - BRCA positive with history of breast cancer as well - Follows with Dr. Mederos at [facility] and azure principal solution specialist-onc at [facility]. - S/p tumor path biopsy on 09/07/19; recommended to start Letrozole as outpatient by [facility] physician based on results. - Admitted with uncontrolled pain and nausea/vomiting -- CT scan on admission showed progressive abd wall carcinomatosis and mild to moderate ascites, repeat CT 10/10 showed increased ascites and possible partial small bowel obstruction - paracentesis 10/10 removed 5L NC - gave 25g albumin as patient returned from paracentesis with soft pressures and was on the cusp of a large enough tap to warrant colloid replacement - Continue Fentanyl patch to 200 mcg; attempted to convert to PO Dilaudid, did not tolerate - discontinue IV dilaudid and use po oxycodone for breakthrough pain - Pain management consulted for pain block which was done 10/08 - Palliative consulting (2) Pneumonia: (3) Febrile illness: Fever of 39.1 10/10 with sob and tachycardia Suspect some of the sob was d/t increasing abdominal distention now relieved by paracentesis R/o SBP - awaiting gram stain and culture - does not appear to be SBP by WBC/neutrophils in the peritoneal fluid CXR with small infiltrate right lung - aspiration? Will give 5 days of antibiotic treatment for pneumonia Initiated ceftriaxone and vancomycin BC pending (4) Nausea & vomiting: - NG tube placed 10/10 providing some relief now removed, no nausea today - GI consulted for palliative G tube - per Dr. Galvan's note this would be very difficult endoscopically, surgery also does not feel they would be able to provide this surgery - Continue Ativan 1 mg IV q8hr, scheduled Haldol - continue suppositories - 10/11 - start clear liquids today (5) Peritoneal carcinoma: - As noted above; follows with [facility] and [facility] oncology. (6) Ascites: As above (7) Hx antineoplastic chemotherapy: - Follows with Dr. Zarco at [facility]; completed Taxol/Carboplatin chemotherapy 2.5 months ago. - Plan to start Letrozole as outpatient per gyne-onc physician at [facility]. (8) Acute dehydration: - Resumed fluids as patient was NPO, will dc as soon as taking consistent po (9) Anxiety: - Continue Cymbalta 20 mg daily - Continue Ativan q8hr (10) GERD (gastroesophageal reflux disease): - Protonix 40 mg hs. (11) Anemia: - Chemotherapy induced. - Transfuse prn. (12) Hypertension: - Continue home Lisinopril. (13) Breast cancer: - H/o, see above. (14) Hypercalcemia: - Ca level elevated in setting of metastatic disease. - resolved with zolendronic acid and fluids (15) DVT prophylaxis: - Lovenox Dispo: home with hospice, likely tomorrow if pain/nausea remain well controlled today Subjective Ms. Urena looks much better today, appears comfortable. She reports feeling better. Afebrile overnight. Her pain is better controlled. She is requesting that the NG tube come out which we did and she has had a BM as well. ROS Constitutional: no chills, aches, sweats or fever Respiratory: no sob,cough, sputum, or wheezing Cardiac: no chest pain, palpitations, edema, orthopnea or lightheadedness GI: see HPI : no dysuria or hesitancy Extremities: no joint pain or weakness Skin: no rash All other systems reviewed and negative Physical Exam Physical Exam: General: no distress Eyes: normal inspection, PERLL Respiratory: chest non tender, clear to auscultation, normal breath sounds, no respiratory distress, no accessory muscle use Cardiac: regular rate and rhythm, no rub or gallop, no murmur, no edema, no jvd GI/: active bowel sounds, tender diffusely, soft, non distended Extremities: normal range of motion, normal strength, non tender Neuro/Psych: alert and oriented x 3, normal mood and affect Skin: normal color, dry Results & Data Vital Signs (Past 12 Hours) Vital Signs Temp Pulse Resp BP Pulse Ox 10/11/19 11:06 36.8 C 92 H 18 107/65 92 10/11/19 07:10 37.0 C 93 H 18 102/61 94 10/11/19 04:18 36.7 C 94 H 18 113/68 94 PG Care Time/CCT Total # of Minutes Spent Total Time Spent with Patient: Total time spent is greater than 50% in coordination of care (as documented) at patient's floor/unit and/or counseling patient: (1) Nausea & vomiting Vomiting Intractability: unspecified Vomiting type: unspecified Qualified Code(s): R11.2 - Nausea with vomiting, unspecified
[2019-10-11] MEDS: OXYCODONE HCL IR 5 MG TAB (IMMEDIATE RELEASE) PO PRN ×2 (13:07→16:23)
[2019-10-11] MEDS ORDERED: OXYCODONE HCL IR 5 MG TAB (IMMEDIATE RELEASE) PO PRN (13:36)
--- NOTE | 2019-10-11 17:06 | Hematology/Oncology Prog Note ---
Date of Service October 11, 2019 Results & Data Vital Signs (Past 12 Hours) Vital Signs Temp Pulse Resp BP Pulse Ox 10/11/19 15:39 37.2 C 101 H 20 114/68 91 10/11/19 11:06 36.8 C 92 H 18 107/65 92 10/11/19 07:10 37.0 C 93 H 18 102/61 94
[2019-10-11] MEDS: PANTOprazole 40 MG TAB PO SCH (21:03)
[2019-10-12] MEDS: SODIUM CHLORIDE 0.9% 1000ML 1,000 ML IV SCH ×3 (00:15→09:00)
[2019-10-12] MEDS: CHECK FENTANYL PATCH PLACEMENT SCH ×4 (00:16→08:48)
[2019-10-12] MEDS: VANCOMYCIN HCL 1,000 MG in SODIUM CHLORIDE 0.9% 250 ML IV SCH (04:08)
[2019-10-12] MEDS: haloperidoL 1 MG TAB PO SCH (08:48)
[2019-10-12] MEDS: DOCUSATE SODIUM/SENNA 50/8.6MG TAB PO SCH (08:57)
[2019-10-12] MEDS: LORazepam 1 MG TAB SL SCH ×2 (08:57→13:50)
[2019-10-12] MEDS: DULOXETINE HCL 20 MG CAP PO SCH (08:57)
[2019-10-12] MEDS: POLYETHYLENE (MIRALAX) 17 GM PACK PO SCH (08:57)
[2019-10-12] MEDS: lisinopriL 10 MG TAB PO SCH (08:58)
[2019-10-12] MEDS: cefTRIAXone SODIUM 2,000 MG in DEXTROSE 5% 50 ML IV SCH (09:01)
[2019-10-12 10:57] VITALS: TEMP 98.2; O2SAT 93
--- NOTE | 2019-10-12 12:07 | Discharge Summary ---
Date of Service October 12, 2019 Admission HPI Per Admitting Provider This is a 73 yo F with PMHx of ovarian cancer, BRCA mutation with abdominal carcinomatosis who presents with increased abdominal pain, distension and nausea. Other PMhx includes HTN, GERD, anxiety, anemia, and hx of bowel obstruction. The patient notes that her pain has been worsening over the past week. She was seen by Dr. Padilla as an outpatient about a week ago where her fentanyl patch was increased from 75 to 87 mcg daily, and was given a prescription for Dilaudid 5 mg p.o. Q4H prn. She has been using the Dilaudid nearly every 4 hours and reports there is minimal control in her pain currently. She notes that she had nausea for several days in a row up until yesterday, and had been unable to keep minimal fluids or any food down. She reports feeling like she could eat something currently, Zofran and Compazine ordered if needed. She reports her last bowel movement was today. She has been using Dulcolax and MiraLAX for bowels regularly without any issues. Patient received a dose of IV Dilaudid in the ER which significantly improved her pain. She denies any fevers, sweats or chills. She had a fine-needle biopsy completed on 09/07/2019 at [facility] by her oncologist, Dr.Joshua Zarco, and is still awaiting pathology reports. She has been off of chemotherapy for approximately 2.5 months. Her most recent regimen included Taxol and carboplatin for 18 rounds, once per week. Unfortunately, within 5 weeks of starting that chemotherapy her cancer progressed. CT of the abdomen was completed showing progressive abdominal carcinomatosis. No bowel obstruction. Mild to moderate ascites. There is no elevation in WBC, afebrile. Principal Diagnosis Ovarian cancer, intractable nausea and vomiting Discharge Exam Constitutional WD/WN, vitals as above Respiratory normal respiratory effort, lungs clear to auscultation Cardiovascular RRR, no murmur, no edema Gastrointestinal (Abdomen) Inspection/Auscultation: abdomen normal to inspection, + abdomen distended and normal bowel sounds Percussion/Palpation: + abdomen tender and abdomen soft Musculoskeletal no cyanosis or clubbing, extremities motor strength 5/5 Skin no rashes, warm and dry Neurologic moves all extremities and awake Psychiatric A+Ox3, euthymic affect Discharge Data Allergies Allergy/AdvReac Type Severity Reaction Status Date / Time Sulfa (Sulfonamide Allergy Mild NAUSEA; Verified 09/30/19 12:08 Antibiotics) AFFECTS BLOOD Consultations 09/30/19 15:36 ED Decision to Admit Stat 09/30/19 17:29 Consult Case Management - Discharge Planning Routine Consult Palliative Care Stat 10/03/19 12:44 Consult Pain Management Routine 10/10/19 11:08 Consult Gastroenterology Routine 10/10/19 14:58 Consult General Surgery Routine Procedures Performed Operation Date: 10/08/19 13:15 Actual Procedures p Celiac Plexus Block(Not Applicable) - Serene Nieto, Ordered Studies 09/30/19 12:04 CT abd pelvis wo con Stat 10/08/19 14:30 FL fluoroscopy <1hr Routine FL spine 1V any level Routine 10/09/19 15:31 CT abd pelvis IV con only Urgent 10/10/19 08:00 US paracentesis abd w/image Routine Hospital Course (1) Ovarian cancer: - BRCA positive with history of breast cancer as well - Follows with Dr. 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 - S/p tumor path biopsy on 09/07/19; recommended to start Letrozole as outpatient by [facility] physician based on results. - Admitted with uncontrolled pain and nausea/vomiting -- CT scan on admission showed progressive abd wall carcinomatosis and mild to moderate ascites, repeat CT 10/10 showed increased ascites and possible partial small bowel obstruction - paracentesis 10/10 removed 5L NC - gave 25g albumin as patient returned from paracentesis with soft pressures and was on the cusp of a large enough tap to warrant colloid replacement - Continue Fentanyl patch 200 mcg; attempted to convert to PO Dilaudid, did not tolerate - discontinued IV dilaudid and use po oxycodone for breakthrough pain - comfortable for the last 24 hours with this regimen - Pain management consulted for pain block which was done 10/08 - Palliative consulting (2) Pneumonia: (3) Febrile illness: Fever of 39.1 10/10 with sob and tachycardia Suspect some of the sob was d/t increasing abdominal distention now relieved by paracentesis R/o SBP - gram stain and culture no growth to date - does not appear to be SBP by WBC/neutrophils in the peritoneal fluid CXR with small infiltrate right lung - aspiration? Will give 5 days of antibiotic treatment for pneumonia Ceftriaxone and vancomycin inpatient - changed to cefdinir and doxycycline for home BC ngtd (4) Nausea & vomiting: - NG tube placed 10/10 providing some relief now removed, no nausea today - GI consulted for palliative G tube - per Dr. Galvan's note this would be very difficult endoscopically, surgery also does not feel they would be able to provide this surgery - Continue Ativan 1 mg q8hr, scheduled Haldol - continue suppositories - 10/11 - tolerating diet (5) Peritoneal carcinoma: - As noted above; follows with [facility] and [facility] oncology. (6) Ascites: As above (7) Hx antineoplastic chemotherapy: - Follows with Dr. Zarco at [facility]; completed Taxol/Carboplatin chemotherapy 2.5 months ago. - Plan to start Letrozole as outpatient per gyne-onc physician at [facility]. (8) Acute dehydration: - Resumed fluids as patient was NPO, will dc as soon as taking consistent po (9) Anxiety: - Continue Cymbalta 20 mg daily - Continue Ativan q8hr (10) GERD (gastroesophageal reflux disease): - Protonix 40 mg hs. (11) Anemia: - Chemotherapy induced. - Transfuse prn. (12) Hypertension: - Continue home Lisinopril. (13) Breast cancer: - H/o, see above. (14) Hypercalcemia: - Ca level elevated in setting of metastatic disease. - resolved with zolendronic acid and fluids (15) DVT prophylaxis: - Lovenox Dispo: home with hospice Total Time Total Time Spent Total Time Spent (In Minutes): greater than 30 minutes Discharge Plan Discharge Items Patient Disposition: Hospice - Home Reason For Visit: OVARIAN CANCER,ABD CARCINOMATOSIS,INTRACTABLE PAIN Discharge Diagnosis: Ovarian cancer, intractable pain Activity: Resume your previous activity Non-emergency contact: Primary Care Provider Call non-emergency contact if: you have any medication questions and your symptoms worsen Diet: Regular Addtl Attending Provider Instructions: (1) Ovarian cancer: You were admitted to the hospital due to intractable pain and nausea secondary to progression of ovarian cancer. Dr. Nieto from pain management performed a pain block which was done 10/08. On 10/10 you had a paracentesis (aspiration and removal of ascites fluid from your abdomen) which removed 5L of fluid. Meagan Castrejon and Dr. Jacey Padilla from palliative care were consulted to help manage your pain and nausea - You will continue Fentanyl patches at 200 mcg with oxycodone for breakthrough pain. Please read the attached information on using fentanyl patches. Your last fentanyl patch was administerd 10/09 at 6 pm (2) Pneumonia: On 10/10 you became febrile and short of breath. Your chest Xray showed a small area of possible pneumonia in your right lung which may have been due to aspiration from vomiting. - You will be treated for five days total with antibiotics. Take a dose of doxycycline tonight, you do not need to start the cefdinir until tomorrow morning. (3) Nausea & vomiting: - Continue lorazepam and haloperidol - continue suppositories - Last BM 10/11 (4) Hypercalcemia: This is likely caused by ovarian cancer. You were given one dose of zolendronic acid and fluids to correct it and your calcium returned to a normal level. Stand-Alone Forms: My [facility] Medications and DC Order Prescriptions: New fentanyl 100 mcg/hr Patch 72 Hour 100 mcg transdermal Q3D@1800 Qty: 1 RF: 0 sennosides-docusate sodium [Senokot-S] 8.6-50 mg Tablet 1 tab PO BID Qty: 30 RF: 0 haloperidol 1 mg Tablet 1 mg PO Q12H Qty: 15 RF: 0 fentanyl 100 mcg/hr Patch 72 Hour 100 mcg transdermal Q72H Qty: 1 RF: 0 bisacodyl [Laxative (bisacodyl)] 10 mg Suppository 10 mg SD DAILY PRN (Reason: constipation) Qty: 28 RF: 0 pantoprazole 40 mg Tablet,Delayed Release (Dr/Ec) 40 mg PO HS 30 Days Qty: 30 RF: 0 lorazepam 1 mg Tablet 1 mg sublingual QID Qty: 12 RF: 0 oxycodone 5 mg Tablet 5 - 10 mg PO Q4H PRN (Reason: pain) Qty: 20 RF: 0 doxycycline hyclate 100 mg capsule 100 mg PO BID 3 Days Qty: 5 RF: 0 cefdinir 300 mg capsule 300 mg PO BID 2 Days Qty: 4 RF: 0 Continued ondansetron HCl [Zofran] 4 mg Tablet 4 mg PO UD PRN (Reason: Nausea And Vomiting) RF: 0 prochlorperazine maleate [Compazine] 10 mg Tablet 10 mg PO Q6H PRN (Reason: Nausea And Vomiting) RF: 0 lisinopril 10 mg Tablet 10 mg PO DAILY RF: 0 zolpidem 10 mg Tablet 10 mg PO HS PRN (Reason: Sleep) RF: 0 duloxetine 20 mg Capsule,Delayed Release(Dr/Ec) 20 mg PO DAILY RF: 0 Rubraca 300 mg Tablet 1,200 mg PO DAILY RF: 0 polyethylene glycol 3350 [Miralax] 17 gram Powder In Packet 17 g PO DAILY Qty: 0 RF: 0 Discontinued clonazepam 0.5 mg Tablet 0.5 mg PO BID PRN (Reason: Anxiety) RF: 0 hydromorphone 2 mg Tablet 5 mg PO Q4H PRN (Reason: Abdominal Pain) Qty: 60 RF: 0 omeprazole 20 mg Tablet,Delayed Release (Dr/Ec) 20 mg PO DAILY RF: 0 fentanyl 75 mcg/hr patch 72 hour 75 mcg transdermal Q72H RF: 0 fentanyl 12 mcg/hr patch 72 hour 12 mcg transdermal Q72H RF: 0 Discharge Orders: Discharge Order (Routine); Ordered 10/12/19 Ordered By: Ana María Gamez/Other Patient Handouts: Hospice, Hospice Start, Fentanyl Transdermal patch - 72 hour Admission Data Admit Date/Time: 09/30/19 16:43 Attending Provider: Rob Maurer Admit Provider: Aniya León Primary Care Provider: Edvin Laura Other Providers: Anni Paulson ; Vielka Padilla ; Serene Nieto ; Dex Galvan ; Rodrigo Wren Other Interventions: Discharge Summary Assessment (RN) Last Done: 10/12/19 14:15 DC Date/Time DO NOT enter until pt leaves facility: 10/12/19 14:40 Supervising Physician Co-Signing Physician Notes I supervised Ana María Mckeon NP on this patient's care. I examined the patient today independently of her. I discussed the plan of care with her with the plan being as written in her note except for any following changes/exceptions: None. Unfortunately still having some nausea and emesis, but going home with hospice.
[2019-10-12] MEDS: METHYLNALTREXONE BROMIDE 12 MG/0.6 ML VIAL SQ SCH (12:31)
[2019-10-12] MEDS: OXYCODONE HCL IR 5 MG TAB (IMMEDIATE RELEASE) PO PRN (12:50)
[2019-10-12] MEDS: HEPARIN 100 UNIT/ML 5ML FLUSH FLUSH PRN (13:26)
[2019-10-12] MEDS ORDERED: ONDANSETRON 4 MG OD TAB PO ONE (14:00)
[2019-10-12 14:13] VITALS: BP 138/80; PULSE 124
[2019-10-12] MEDS ORDERED: VANCOMYCIN TROUGH ONE (15:30)
--- NOTE | 2019-10-18 12:32 | Coding Query ---
PRESENT ON ADMISSION QUERY To promote full compliance with coding requirements relating to pateint care, physician participation is requested in all cases of remote medical coder uncertainty. Please assist us with the question(s) below: Please place an X within the parenthesis (x). The following diagnosis(es) listed in this patient's medical record require physician assistance to determine if they were present on admission (POA) or not. Please advise for each diagnosis whether it was present on admission, not present on admission, or if it was clinically undetermined. 1.PNEUMONIA ( ) Present On Admission (x ) Not Present On Admission ( ) Clinically Undetermined Thank you Eloisa Moe *Definition of the present on admission (POA)-Present on admission is defined as present at the time the order for inpatient admission occurs. Conditions that develop during an outpatient encounter prior to a written order for inpatient admission (including emergency department, observation, or outpatient surgery) are considered present on admission. MTDD
== END 2019-10-12 14:40 | disposition hospice, home (50) | DRG 981 ==
LOC: ED 11:27 → 4W 16:43 → SUATTDRO 16:43 → 4W 17:17 → 2S 10-10 14:01